=== PATIENT | male | born 2000 | race Caucasian/White ===

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

== ENCOUNTER 2022-11-21 15:45 | Outpatient (RCR) | payer BC, OTHER, SELFPAY ==
--- NOTE | 2021-05-27 17:02 | PT.OIE ---
Current Diagnoses Cerebral palsy, unspecified (05/27/21) Stiffness of unspecified knee, not elsewhere classified (05/27/21) Stiffness of unspecified ankle, not elsewhere classified (05/27/21) Other abnormalities of gait and mobility (05/27/21) Visit Care Team Role Provider Type Andrew Mccoy MD Attending Provider Physician Family Provider Primary Care Provider Referring Provider Specialty: Family Practice Address: [address] [place] [address], [facility] Email: [email or web address] Physical Therapy Initial Evaluation PT-OP-A Visit Information Start: 05/27/21 16:09 Freq: Status: Active Protocol: Document 05/27/21 15:15 DCW (Rec: 05/27/21 16:28 DCW [id number]) Out-Patient Physical Therapy Visit Information Visit Information Visit Type Initial Evaluation Visit Start Time 15:15 Visit Stop Time 16:05 Total Visit Minutes 50 Visit Number 1 Number of COW RIDER Visits 0 Evaluation Information Evaluation Date 05/27/21 PT-OP-B Current Condition Start: 05/27/21 16:09 Freq: Status: Active Protocol: Document 05/27/21 15:15 DCW (Rec: 05/27/21 16:28 DCW [id number]) Current Condition History of Current Condition Onset Date Long-standing history Current Complaints Decreased gait, confidence, increased fear of falling History of Current Condition Pt is a 20 year old male well known to this clinic with a history of cerebral palsy and developmental delay. Pt was previously seen four years ago following abdominal surgery because of a decline in gait function, and is presenting today with similar complaints. Pt's father reports pt has been having decreased confidence when walking, especially when on hard surfaces. Pt walks better on carpet, but becomes very hesitant and nervous on tile or outside on sidewalk. Pt admits he has fallen a few times walking out to his bus stop. Pt has always performed toe walking, especially on his left side, but it has progressed a bit recently, and pt is taking very hesitant, small steps, and will frequently rely on his parents for hand-hold assist to maintain balance. Treatment Goals Patient/Caregiver Goals I think I should be walking better when I turn 21. Prior Functional Status Baseline Function- Gait L Toe walking, LE spasticity PT-OP-C Subjective Start: 05/27/21 16:09 Freq: Status: Active Protocol: Document 05/27/21 15:15 DCW (Rec: 05/27/21 16:28 DCW [id number]) OP-PT Subjective Patient Comments Patient Comments Soon I won't be a teenager anymore. PT-OP-D Balance Start: 05/27/21 16:09 Freq: Status: Active Protocol: Document 05/27/21 15:15 DCW (Rec: 05/27/21 16:28 DCW [id number]) OP-PT Balance Assessment Sitting Balance Static Sitting Balance Ability Good Dynamic Sitting Balance Ability Fair Standing Balance Static Standing Balance Ability Fair Dynamic Standing Balance Ability Fair Balance Tests Single Limb Standing Single Limb- Right 1 second Single Limb- Left 3 seconds Tandem Tandem Standing ~2 seconds bilaterally, difficulty placing L foot in fr Nevarez Fall Scale Copyright Permission PT-OP-E Functional Tests Start: 05/27/21 16:09 Freq: Status: Active Protocol: Document 05/27/21 15:15 DCW (Rec: 05/27/21 16:28 DC [id number]) Functional Tests 2 Minute Walk Test Distance 157 Device Used none Comments 1.31 ft/sec Timed Up and Go (TUG) Score 20.1 Comments 3-trial average (20.3, 22.83 , 17.17) TUG Impairment Rating 100% Impaired (Score 20) PT-OP-G Mobility & Gait Start: 05/27/21 16:29 Freq: Status: Active Protocol: Document 05/27/21 15:15 DCW (Rec: 05/27/21 16:31 DCW [id number]) OP Gait Assessment Gait Gait Assistance Required: Standby Assistance Distance (Feet) 157 Able to Maintain Weight Bearing Status Yes During Gait Assistive Devices Assistive Device Gait Belt Gait Deviations General Gait Pattern Ataxic,Decreased Stride Length ,Decreased Feet Clearance, Flexed Trunk,Narrow Based Gait ,Step-to Gait Factors Limiting Gait Function Factors Limiting Gait Function Abnormal Tonal Influences, Limited Range of Motion,Poor Balance Comments Gait Comments Pt ambulates with toe walking bilaterally, decreased step length, decreased foot clearance, very narrow CONSTANCE, with step-to gait pattern. Pt noticeably pauses at thresholds from carpet to tile. Increased fear of falling results in pt typically reaching for TICKET TAKER FERRYBOAT from either parent. Stair Climbing Evaluation Evaluation Level of Assist On Stairs Contact Guard Assistance Devices Stair Climbing Assistive Devices Left Railing,Right Railing Technique/Endurance Stair Climbing Direction Ascend and Descend Stair Climbing Technique Step Over Step Number of Steps Climbed 4 Stair Climbing Set # Repetitions (reps) 2 PT-OP-K Range of Motion Start: 05/27/21 16:09 Freq: Status: Active Protocol: Document 05/27/21 15:15 DCW (Rec: 05/27/21 16:28 DCW [id number]) Hip Goniometric Range of Motion Hip Right Passive Testing Position Supine Straight Leg Raise 45 Left Passive Testing Position Supine Straight Leg Raise 38 Hip ROM Limitations Hip ROM Limitations Soft Tissue Tightness Comments Hamstring tightness leads to knee flexion in standing left worse than right Ankle and Foot Goniometric Range of Motion Ankle and Foot Right Comments At rest, right ankle in 8? inversion and 14? plantar flexion. With strap and stretch from therapist, able to get right ankle to neutral, nothing into dorsiflexion Left Comments At rest, left ankle in 12? inversion and 20? plantar flexion. With strap and stretch from therapist, able to get left ankle to neutral, nothing into dorsiflexion Ankle and Foot ROM Limitations ROM Limitations Soft Tissue Tightness, Contracture,Muscle Tone PT-OP-M Strength Start: 05/27/21 16:09 Freq: Status: Active Protocol: Document 05/27/21 15:15 DCW (Rec: 05/27/21 16:28 DCW [id number]) Hip Strength Hip Manual Muscle Testing Right Flexion (L2) 4+ Good+ Abduction 4+ Good+ Adduction 4+ Good+ Left Flexion (L2) 4+ Good+ Abduction 4+ Good+ Adduction 4+ Good+ Knee Strength Knee Manual Muscle Testing Right Flexion (S2) 4+ Good+ Extension (L3) 4+ Good+ Left Flexion (S2) 4+ Good+ Extension (L3) 4+ Good+ PT-OP-Q Treatments Start: 05/27/21 16:09 Freq: Status: Active Protocol: Document 05/27/21 15:15 DCW (Rec: 05/27/21 16:34 DCW [id number]) Therapeutic Exercises Supine Exercises 2 Supine Exercise Name Calf stretch /c strap Side bilateral Comments HEP 1 Supine Exercise Name Hamstring stretch /c strap Side bilateral Comments HEP Gait Training Gait Activity 1 Description Gait training on changing surface carpet/tile Level of Assistance SBA Comments Verbal cues for heel-toe gait and increased step length. PT-OP-T Assessment and Plan Start: 05/27/21 16:09 Freq: Status: Active Protocol: Document 05/27/21 15:15 [facility] (Rec: 05/27/21 17:02 [facility] [id number]) Physical Therapy Assessment Rehab Potential Rehabilitation Potential Good Evaluation Complexity Number of Personal Factors/Comorbidities 3 or More Number of Body Systems Impaired 3 Clinical Presentation at Evaluation Unstable Impairments Impairments Activity Tolerance,Balance, Coordination,Functional Mobility,Gait,ROM,Soft Tissue Mobility,Tone Goals Three Impairment Pt scores a 20.1 TUG Record Cutter Goal (LTG) Pt to decreased average TUG score to <15.5 in order to demonstrate improved confidence and a decreased fear of falling LTG Duration 07/25/21 Two Impairment Pt ambulates with toe walking bilaterally and a step-to gait pattern Record Cutter Goal (LTG) Pt to demonstrate ability with ambulate with a heel-toe pattern at least 50% of the time with a step-through pattern 75% of the time LTG Duration 07/25/21 One Impairment Pt does not have an appropriate home exercise program Short Term Goal (STG) Pt to be independent and compliant with an appropriate HEP STG Duration 06/27/21 Assessment Summary Assessment Pt presents with difficulty walking and an increased fear of falling, which has worsened over the last few weeks, especially with the increased snow/ice on the ground during recent winter weather. Pt tends to use TICKET TAKER FERRYBOAT from his parents for stability, and becomes very nervous when walking independently, especially on hard surfaces. Pt is showing increased bilaterally toe walking and decreased step length compared to his usual gait. Pt should benefit from skilled therapy focusing on gait and balance training, gait on changing surfaces, improving hamstring and calf flexibility, and decreasing reliance on hand- hold assist. Physical Therapy Plan Frequency and Duration Frequency of Treatment 2x/Week Duration of Treatment Two months Plan of Care Start Date 05/27/21 Plan of Care End Date 07/25/21 Therapeutic Interventions Therapeutic Interventions Balance Training,Coordination Training,Gait Training,Home Exercise Program,Manual Therapy,Neuromuscular Re- education,Patient/Caregiver Education,Self-Care/Home Management,Soft Tissue Mobilization,Therapeutic Exercises Next Visit Focus/Plan Next Note Type Treatment Note Next Visit Plan Flexibility, balance training, gait training
--- NOTE | 2021-05-27 17:03 | PT.OPPOC ---
Physical, Occupational & Speech Therapy At [facility] Current Diagnoses Cerebral palsy, unspecified (05/27/21) Stiffness of unspecified knee, not elsewhere classified (05/27/21) Stiffness of unspecified ankle, not elsewhere classified (05/27/21) Other abnormalities of gait and mobility (05/27/21) Visit Care Team Role Provider Type Andrew Mccoy MD Attending Provider Physician Family Provider Primary Care Provider Referring Provider Specialty: [facility] Address: [address] [place] [address], [facility] Email: [email or web address] Plan Of Care PT-OP-T Assessment and Plan Start: 05/27/21 16:09 Freq: Status: Active Protocol: Document 05/27/21 15:15 DCW (Rec: 05/27/21 17:02 DCW [id number]) Physical Therapy Assessment Rehab Potential Rehabilitation Potential Good Evaluation Complexity Number of Personal Factors/Comorbidities 3 or More Number of Body Systems Impaired 3 Clinical Presentation at Evaluation Unstable Impairments Impairments Activity Tolerance,Balance, Coordination,Functional Mobility,Gait,ROM,Soft Tissue Mobility,Tone Goals Three Impairment Pt scores a 20.1 TUG Manager Front Office Goal (LTG) Pt to decreased average TUG score to <15.5 in order to demonstrate improved confidence and a decreased fear of falling LTG Duration 07/25/21 Two Impairment Pt ambulates with toe walking bilaterally and a step-to gait pattern Half-Way Goal (LTG) Pt to demonstrate ability with ambulate with a heel-toe pattern at least 50% of the time with a step-through pattern 75% of the time LTG Duration 07/25/21 One Impairment Pt does not have an appropriate home exercise program Short Term Goal (STG) Pt to be independent and compliant with an appropriate HEP STG Duration 06/27/21 Assessment Summary Assessment Pt presents with difficulty walking and an increased fear of falling, which has worsened over the last few weeks, especially with the increased snow/ice on the ground during recent winter weather. Pt tends to use CLOTH FINISHING RANGE OPERATOR from his parents for stability, and becomes very nervous when walking independently, especially on hard surfaces. Pt is showing increased bilaterally toe walking and decreased step length compared to his usual gait. Pt should benefit from skilled therapy focusing on gait and balance training, gait on changing surfaces, improving hamstring and calf flexibility, and decreasing reliance on hand- hold assist. Physical Therapy Plan Frequency and Duration Frequency of Treatment 2x/Week Duration of Treatment Two months Plan of Care Start Date 05/27/21 Plan of Care End Date 07/25/21 Therapeutic Interventions Therapeutic Interventions Balance Training,Coordination Training,Gait Training,Home Exercise Program,Manual Therapy,Neuromuscular Re- education,Patient/Caregiver Education,Self-Care/Home Management,Soft Tissue Mobilization,Therapeutic Exercises Next Visit Focus/Plan Next Note Type Treatment Note Next Visit Plan Flexibility, balance training, gait training Plan of Care Dates Plan of Care Start Date 05/27/21 Plan of Care End Date 07/25/21 Electronically Signed by: Raul Gaviria, PT 05/27/21 [id number] Please Sign and Return: I have reviewed this Plan of Care and certify that the skilled therapy services above are required to meet the patient?s needs. Physician Signature Date Printed Name and Credentials Clinical Instructor Signature Printed Name and Credentials
--- NOTE | 2021-05-31 17:38 | PT.OTN ---
Current Diagnoses Cerebral palsy, unspecified (05/31/21) Stiffness of unspecified knee, not elsewhere classified (05/31/21) Stiffness of unspecified ankle, not elsewhere classified (05/31/21) Other abnormalities of gait and mobility (05/31/21) Physical Therapy Treatment Note PT-OP-A Visit Information Start: 05/27/21 16:09 Freq: Status: Active Protocol: Document 05/31/21 16:45 DCW (Rec: 05/31/21 17:37 DCW [id number]) Out-Patient Physical Therapy Visit Information Visit Information Visit Type Treatment Note Visit Start Time 16:45 Visit Stop Time 17:30 Total Visit Minutes 45 Visit Number 2 Number of COTTAGE SUPERVISOR Visits 0 Evaluation Information Evaluation Date 05/27/21 PT-OP-B Current Condition Start: 05/27/21 16:09 Freq: Status: Active Protocol: Document 05/27/21 15:15 DCW (Rec: 05/27/21 16:28 DCW [id number]) Current Condition History of Current Condition Onset Date Long-standing history Current Complaints Decreased gait, confidence, increased fear of falling History of Current Condition Pt is a 20 year old male well known to this clinic with a history of cerebral palsy and developmental delay. Pt was previously seen four years ago following abdominal surgery because of a decline in gait function, and is presenting today with similar complaints. Pt's father reports pt has been having decreased confidence when walking, especially when on hard surfaces. Pt walks better on carpet, but becomes very hesitant and nervous on tile or outside on sidewalk. Pt admits he has fallen a few times walking out to his bus stop. Pt has always performed toe walking, especially on his left side, but it has progressed a bit recently, and pt is taking very hesitant, small steps, and will frequently rely on his parents for hand-hold assist to maintain balance. Treatment Goals Patient/Caregiver Goals I think I should be walking better when I turn 21. Prior Functional Status Baseline Function- Gait L Toe walking, LE spasticity PT-OP-C Subjective Start: 05/27/21 16:09 Freq: Status: Active Protocol: Document 05/31/21 16:45 DCW (Rec: 05/31/21 17:38 DCW [id number]) OP-PT Subjective Patient Comments Patient Comments Pt notes he has been doing a good job with stretching at home. PT-OP-D Balance Start: 05/27/21 16:09 Freq: Status: Active Protocol: Document 05/27/21 15:15 DCW (Rec: 05/27/21 16:28 DCW [id number]) OP-PT Balance Assessment Sitting Balance Static Sitting Balance Ability Good Dynamic Sitting Balance Ability Fair Standing Balance Static Standing Balance Ability Fair Dynamic Standing Balance Ability Fair Balance Tests Single Limb Standing Single Limb- Right 1 second Single Limb- Left 3 seconds Tandem Tandem Standing ~2 seconds bilaterally, difficulty placing L foot in fr Nevarez Fall Scale Copyright Permission PT-OP-E Functional Tests Start: 05/27/21 16:09 Freq: Status: Active Protocol: Document 05/27/21 15:15 DCW (Rec: 05/27/21 16:28 DCW [id number]) Functional Tests 2 Minute Walk Test Distance 157 Device Used none Comments 1.31 ft/sec Timed Up and Go (TUG) Score 20.1 Comments 3-trial average (20.3, 22.83 , 17.17) TUG Impairment Rating 100% Impaired (Score 20) PT-OP-G Mobility & Gait Start: 05/27/21 16:29 Freq: Status: Active Protocol: Document 05/27/21 15:15 DCW (Rec: 05/27/21 16:31 DCW [id number]) OP Gait Assessment Gait Gait Assistance Required: Standby Assistance Distance (Feet) 157 Able to Maintain Weight Bearing Status Yes During Gait Assistive Devices Assistive Device Gait Belt Gait Deviations General Gait Pattern Ataxic,Decreased Stride Length ,Decreased Feet Clearance, Flexed Trunk,Narrow Based Gait ,Step-to Gait Factors Limiting Gait Function Factors Limiting Gait Function Abnormal Tonal Influences, Limited Range of Motion,Poor Balance Comments Gait Comments Pt ambulates with toe walking bilaterally, decreased step length, decreased foot clearance, very narrow CONSTANCE, with step-to gait pattern. Pt noticeably pauses at thresholds from carpet to tile . Increased fear of falling results in pt typically reaching for ELECTRICIAN HELPER AUTOMOTIVE from either parent. Stair Climbing Evaluation Evaluation Level of Assist On Stairs Contact Guard Assistance Devices Stair Climbing Assistive Devices Left Railing,Right Railing Technique/Endurance Stair Climbing Direction Ascend and Descend Stair Climbing Technique Step Over Step Number of Steps Climbed 4 Stair Climbing Set # Repetitions (reps) 2 PT-OP-K Range of Motion Start: 05/27/21 16:09 Freq: Status: Active Protocol: Document 05/27/21 15:15 DCW (Rec: 05/27/21 16:28 [facility] [id number]) Hip Goniometric Range of Motion Hip Right Passive Testing Position Supine Straight Leg Raise 45 Left Passive Testing Position Supine Straight Leg Raise 38 Hip ROM Limitations Hip ROM Limitations Soft Tissue Tightness Comments Hamstring tightness leads to knee flexion in standing left worse than right Ankle and Foot Goniometric Range of Motion Ankle and Foot Right Comments At rest, right ankle in 8? inversion and 14? plantar flexion. With strap and stretch from therapist, able to get right ankle to neutral, nothing into dorsiflexion Left Comments At rest, left ankle in 12? inversion and 20? plantar flexion. With strap and stretch from therapist, able to get left ankle to neutral, nothing into dorsiflexion Ankle and Foot ROM Limitations ROM Limitations Soft Tissue Tightness, Contracture,Muscle Tone PT-OP-M Strength Start: 05/27/21 16:09 Freq: Status: Active Protocol: Document 05/27/21 15:15 DCW (Rec: 05/27/21 16:28 [facility] [id number]) Hip Strength Hip Manual Muscle Testing Right Flexion (L2) 4+ Good+ Abduction 4+ Good+ Adduction 4+ Good+ Left Flexion (L2) 4+ Good+ Abduction 4+ Good+ Adduction 4+ Good+ Knee Strength Knee Manual Muscle Testing Right Flexion (S2) 4+ Good+ Extension (L3) 4+ Good+ Left Flexion (S2) 4+ Good+ Extension (L3) 4+ Good+ PT-OP-Q Treatments Start: 05/27/21 16:09 Freq: Status: Active Protocol: Document 05/31/21 16:45 DCW (Rec: 05/31/21 17:37 [facility] [id number]) Gym Equipment Shuttle Balance 1 Details Blue - Wide CONSTANCE, turns, attempted ball toss Therapeutic Exercises Sitting Exercises 3 Sitting Exercise Name Ankle DF Side bilateral Resistance Lv 2 Equipment Used T-band 2 Sitting Exercise Name Hamstring stretch Side bilateral 1 Sitting Exercise Name Heel cord stretch Side bilateral Standing Exercises 2 Standing Exercise Name Gastroc stretch Side bilateral Equipment Used WANDER 1 Standing Exercise Name Heel raises Side bilateral Equipment Used 4 step Gait Training Gait Activity 1 Description Gait training on changing surface carpet/tile Level of Assistance SBA Comments Verbal cues for heel-toe gait and increased step length. Neuro Re-Education Treatment Balance Activities 2 Details SLS 1 Details Tandem stance Other Activities 1 Details Obstacle Course Comments Half-balls under red foam, various-sized step up/down, magalis/foam walking, balance beam PT-OP-T Assessment and Plan Start: 05/27/21 16:09 Freq: Status: Active Protocol: Document 05/31/21 16:45 DCW (Rec: 05/31/21 17:37 DCW [id number]) Physical Therapy Assessment Impairments Impairments Activity Tolerance,Balance, Coordination,Functional Mobility,Gait,ROM,Soft Tissue Mobility,Tone Goals Three Impairment Pt scores a 20.1 TUG Dry Wall Finisher Goal (LTG) Pt to decreased average TUG score to <15.5 in order to demonstrate improved confidence and a decreased fear of falling LTG Duration 07/25/21 Two Impairment Pt ambulates with toe walking bilaterally and a step-to gait pattern Detention Goal (LTG) Pt to demonstrate ability with ambulate with a heel-toe pattern at least 50% of the time with a step-through pattern 75% of the time LTG Duration 07/25/21 One Impairment Pt does not have an appropriate home exercise program Short Term Goal (STG) Pt to be independent and compliant with an appropriate HEP STG Duration 06/27/21 Assessment Summary Assessment Pt did very well today, minimal difficulty with obstacle courses and balance challenges. Pt uncomfortable at the moment with Shuttle Balance, does not like to take his hands off the railing, but is already showing improved heel strike on his right foot, and has noticeably improved calf tone. Physical Therapy Plan Frequency and Duration Frequency of Treatment 2x/Week Duration of Treatment Two months Plan of Care Start Date 05/27/21 Plan of Care End Date 07/25/21 Therapeutic Interventions Therapeutic Interventions Balance Training,Coordination Training,Gait Training,Home Exercise Program,Manual Therapy,Neuromuscular Re- education,Patient/Caregiver Education,Self-Care/Home Management,Soft Tissue Mobilization,Therapeutic Exercises Next Visit Focus/Plan Next Note Type Treatment Note Next Visit Plan Flexibility, balance training, gait training
--- NOTE | 2021-06-03 17:43 | PT.OTN ---
Current Diagnoses Cerebral palsy, unspecified (06/03/21) Stiffness of unspecified knee, not elsewhere classified (06/03/21) Stiffness of unspecified ankle, not elsewhere classified (06/03/21) Other abnormalities of gait and mobility (06/03/21) Physical Therapy Treatment Note PT-OP-A Visit Information Start: 05/27/21 16:09 Freq: Status: Active Protocol: Document 06/03/21 16:45 DCW (Rec: 06/03/21 17:43 DCW [id number]) Out-Patient Physical Therapy Visit Information Visit Information Visit Type Treatment Note Visit Start Time 16:45 Visit Stop Time 17:30 Total Visit Minutes 45 Visit Number 3 Number of WOOD WEB WEAVING MACHINE OPERATOR Visits 0 Evaluation Information Evaluation Date 05/27/21 PT-OP-B Current Condition Start: 05/27/21 16:09 Freq: Status: Active Protocol: Document 05/27/21 15:15 DCW (Rec: 05/27/21 16:28 DCW [id number]) Current Condition History of Current Condition Onset Date Long-standing history Current Complaints Decreased gait, confidence, increased fear of falling History of Current Condition Pt is a 20 year old male well known to this clinic with a history of cerebral palsy and developmental delay. Pt was previously seen four years ago following abdominal surgery because of a decline in gait function, and is presenting today with similar complaints. Pt's father reports pt has been having decreased confidence when walking, especially when on hard surfaces. Pt walks better on carpet, but becomes very hesitant and nervous on tile or outside on sidewalk. Pt admits he has fallen a few times walking out to his bus stop. Pt has always performed toe walking, especially on his left side, but it has progressed a bit recently, and pt is taking very hesitant, small steps, and will frequently rely on his parents for hand-hold assist to maintain balance. Treatment Goals Patient/Caregiver Goals I think I should be walking better when I turn 21. Prior Functional Status Baseline Function- Gait L Toe walking, LE spasticity PT-OP-C Subjective Start: 05/27/21 16:09 Freq: Status: Active Protocol: Document 06/03/21 16:45 DCW (Rec: 06/03/21 17:43 DCW [id number]) OP-PT Subjective Patient Comments Patient Comments Pt reports he is still doing his stretches at home. PT-OP-D Balance Start: 05/27/21 16:09 Freq: Status: Active Protocol: Document 05/27/21 15:15 DCW (Rec: 05/27/21 16:28 DCW [id number]) OP-PT Balance Assessment Sitting Balance Static Sitting Balance Ability Good Dynamic Sitting Balance Ability Fair Standing Balance Static Standing Balance Ability Fair Dynamic Standing Balance Ability Fair Balance Tests Single Limb Standing Single Limb- Right 1 second Single Limb- Left 3 seconds Tandem Tandem Standing ~2 seconds bilaterally, difficulty placing L foot in fr Nevarez Fall Scale Copyright Permission PT-OP-E Functional Tests Start: 05/27/21 16:09 Freq: Status: Active Protocol: Document 05/27/21 15:15 DCW (Rec: 05/27/21 16:28 DCW [id number]) Functional Tests 2 Minute Walk Test Distance 157 Device Used none Comments 1.31 ft/sec Timed Up and Go (TUG) Score 20.1 Comments 3-trial average (20.3, 22.83 , 17.17) TUG Impairment Rating 100% Impaired (Score 20) PT-OP-G Mobility & Gait Start: 05/27/21 16:29 Freq: Status: Active Protocol: Document 05/27/21 15:15 DCW (Rec: 05/27/21 16:31 DCW [id number]) OP Gait Assessment Gait Gait Assistance Required: Standby Assistance Distance (Feet) 157 Able to Maintain Weight Bearing Status Yes During Gait Assistive Devices Assistive Device Gait Belt Gait Deviations General Gait Pattern Ataxic,Decreased Stride Length ,Decreased Feet Clearance, Flexed Trunk,Narrow Based Gait ,Step-to Gait Factors Limiting Gait Function Factors Limiting Gait Function Abnormal Tonal Influences, Limited Range of Motion,Poor Balance Comments Gait Comments Pt ambulates with toe walking bilaterally, decreased step length, decreased foot clearance, very narrow CONSTANCE, with step-to gait pattern. Pt noticeably pauses at thresholds from carpet to tile . Increased fear of falling results in pt typically reaching for CONSTRUCTION TRADES TEACHER from either parent. Stair Climbing Evaluation Evaluation Level of Assist On Stairs Contact Guard Assistance Devices Stair Climbing Assistive Devices Left Railing,Right Railing Technique/Endurance Stair Climbing Direction Ascend and Descend Stair Climbing Technique Step Over Step Number of Steps Climbed 4 Stair Climbing Set # Repetitions (reps) 2 PT-OP-K Range of Motion Start: 05/27/21 16:09 Freq: Status: Active Protocol: Document 05/27/21 15:15 DCW (Rec: 05/27/21 16:28 [facility] [id number]) Hip Goniometric Range of Motion Hip Right Passive Testing Position Supine Straight Leg Raise 45 Left Passive Testing Position Supine Straight Leg Raise 38 Hip ROM Limitations Hip ROM Limitations Soft Tissue Tightness Comments Hamstring tightness leads to knee flexion in standing left worse than right Ankle and Foot Goniometric Range of Motion Ankle and Foot Right Comments At rest, right ankle in 8? inversion and 14? plantar flexion. With strap and stretch from therapist, able to get right ankle to neutral, nothing into dorsiflexion Left Comments At rest, left ankle in 12? inversion and 20? plantar flexion. With strap and stretch from therapist, able to get left ankle to neutral, nothing into dorsiflexion Ankle and Foot ROM Limitations ROM Limitations Soft Tissue Tightness, Contracture,Muscle Tone PT-OP-M Strength Start: 05/27/21 16:09 Freq: Status: Active Protocol: Document 05/27/21 15:15 DCW (Rec: 05/27/21 16:28 [facility] [id number]) Hip Strength Hip Manual Muscle Testing Right Flexion (L2) 4+ Good+ Abduction 4+ Good+ Adduction 4+ Good+ Left Flexion (L2) 4+ Good+ Abduction 4+ Good+ Adduction 4+ Good+ Knee Strength Knee Manual Muscle Testing Right Flexion (S2) 4+ Good+ Extension (L3) 4+ Good+ Left Flexion (S2) 4+ Good+ Extension (L3) 4+ Good+ PT-OP-Q Treatments Start: 05/27/21 16:09 Freq: Status: Active Protocol: Document 06/03/21 16:45 DCW (Rec: 06/03/21 17:43 DCW [id number]) Gym Equipment Shuttle Balance 1 Details Blue - Wide CONSTANCE, turns, attempted ball toss Therapeutic Exercises Sitting Exercises 3 Sitting Exercise Name Ankle DF Side bilateral Resistance Lv 2 Equipment Used T-band 2 Sitting Exercise Name Hamstring stretch Side bilateral 1 Sitting Exercise Name Heel cord stretch Side bilateral Standing Exercises 3 Standing Exercise Name Lunge Equipment Used foot on 12 step 2 Standing Exercise Name Gastroc stretch Side bilateral Equipment Used WANDER 1 Standing Exercise Name Heel raises Side bilateral Equipment Used 4 step Gait Training Gait Activity 1 Description Gait training on changing surface carpet/tile Level of Assistance SBA Comments Verbal cues for heel-toe gait and increased step length, left arm swing Neuro Re-Education Treatment Other Activities 1 Details Obstacle Course Comments Half-balls under red foam, various-sized step up/down, magalis/foam walking, balance beam PT-OP-T Assessment and Plan Start: 05/27/21 16:09 Freq: Status: Active Protocol: Document 06/03/21 16:45 DCW (Rec: 06/03/21 17:43 DCW [id number]) Physical Therapy Assessment Impairments Impairments Activity Tolerance,Balance, Coordination,Functional Mobility,Gait,ROM,Soft Tissue Mobility,Tone Goals Three Impairment Pt scores a 20.1 TUG Senior Supplier Quality Engineer Goal (LTG) Pt to decreased average TUG score to <15.5 in order to demonstrate improved confidence and a decreased fear of falling LTG Duration 07/25/21 Two Impairment Pt ambulates with toe walking bilaterally and a step-to gait pattern Senior Supplier Quality Engineer Goal (LTG) Pt to demonstrate ability with ambulate with a heel-toe pattern at least 50% of the time with a step-through pattern 75% of the time LTG Duration 07/25/21 One Impairment Pt does not have an appropriate home exercise program Short Term Goal (STG) Pt to be independent and compliant with an appropriate HEP STG Duration 06/27/21 Assessment Summary Assessment Pt struggled a little bit more with a more difficult obstacle course, but is still doing much better with his heel strike on his right foot. Physical Therapy Plan Frequency and Duration Frequency of Treatment 2x/Week Duration of Treatment Two months Plan of Care Start Date 05/27/21 Plan of Care End Date 07/25/21 Therapeutic Interventions Therapeutic Interventions Balance Training,Coordination Training,Gait Training,Home Exercise Program,Manual Therapy,Neuromuscular Re- education,Patient/Caregiver Education,Self-Care/Home Management,Soft Tissue Mobilization,Therapeutic Exercises Next Visit Focus/Plan Next Note Type Treatment Note Next Visit Plan Flexibility, balance training, gait training
--- NOTE | 2021-06-07 17:28 | PT.OTN ---
Current Diagnoses Cerebral palsy, unspecified (06/07/21) Stiffness of unspecified knee, not elsewhere classified (06/07/21) Stiffness of unspecified ankle, not elsewhere classified (06/07/21) Other abnormalities of gait and mobility (06/07/21) Physical Therapy Treatment Note PT-OP-A Visit Information Start: 05/27/21 16:09 Freq: Status: Active Protocol: Document 06/07/21 16:45 DCW (Rec: 06/07/21 17:28 DCW [id number]) Out-Patient Physical Therapy Visit Information Visit Information Visit Type Treatment Note Visit Start Time 16:45 Visit Stop Time 17:30 Total Visit Minutes 45 Visit Number 4 Number of DIE POLISHER Visits 0 Evaluation Information Evaluation Date 05/27/21 PT-OP-B Current Condition Start: 05/27/21 16:09 Freq: Status: Active Protocol: Document 05/27/21 15:15 DCW (Rec: 05/27/21 16:28 DCW [id number]) Current Condition History of Current Condition Onset Date Long-standing history Current Complaints Decreased gait, confidence, increased fear of falling History of Current Condition Pt is a 20 year old male well known to this clinic with a history of cerebral palsy and developmental delay. Pt was previously seen four years ago following abdominal surgery because of a decline in gait function, and is presenting today with similar complaints. Pt's father reports pt has been having decreased confidence when walking, especially when on hard surfaces. Pt walks better on carpet, but becomes very hesitant and nervous on tile or outside on sidewalk. Pt admits he has fallen a few times walking out to his bus stop. Pt has always performed toe walking, especially on his left side, but it has progressed a bit recently, and pt is taking very hesitant, small steps, and will frequently rely on his parents for hand-hold assist to maintain balance. Treatment Goals Patient/Caregiver Goals I think I should be walking better when I turn 21. Prior Functional Status Baseline Function- Gait L Toe walking, LE spasticity PT-OP-C Subjective Start: 05/27/21 16:09 Freq: Status: Active Protocol: Document 06/07/21 16:45 DCW (Rec: 06/07/21 17:28 DCW [id number]) OP-PT Subjective Patient Comments Patient Comments Pt notes his home exercises are doing well. PT-OP-D Balance Start: 05/27/21 16:09 Freq: Status: Active Protocol: Document 05/27/21 15:15 DCW (Rec: 05/27/21 16:28 DCW [id number]) OP-PT Balance Assessment Sitting Balance Static Sitting Balance Ability Good Dynamic Sitting Balance Ability Fair Standing Balance Static Standing Balance Ability Fair Dynamic Standing Balance Ability Fair Balance Tests Single Limb Standing Single Limb- Right 1 second Single Limb- Left 3 seconds Tandem Tandem Standing ~2 seconds bilaterally, difficulty placing L foot in fr Nevarez Fall Scale Copyright Permission PT-OP-E Functional Tests Start: 05/27/21 16:09 Freq: Status: Active Protocol: Document 05/27/21 15:15 DCW (Rec: 05/27/21 16:28 DCW [id number]) Functional Tests 2 Minute Walk Test Distance 157 Device Used none Comments 1.31 ft/sec Timed Up and Go (TUG) Score 20.1 Comments 3-trial average (20.3, 22.83 , 17.17) TUG Impairment Rating 100% Impaired (Score 20) PT-OP-G Mobility & Gait Start: 05/27/21 16:29 Freq: Status: Active Protocol: Document 05/27/21 15:15 DCW (Rec: 05/27/21 16:31 DCW [id number]) OP Gait Assessment Gait Gait Assistance Required: Standby Assistance Distance (Feet) 157 Able to Maintain Weight Bearing Status Yes During Gait Assistive Devices Assistive Device Gait Belt Gait Deviations General Gait Pattern Ataxic,Decreased Stride Length ,Decreased Feet Clearance, Flexed Trunk,Narrow Based Gait ,Step-to Gait Factors Limiting Gait Function Factors Limiting Gait Function Abnormal Tonal Influences, Limited Range of Motion,Poor Balance Comments Gait Comments Pt ambulates with toe walking bilaterally, decreased step length, decreased foot clearance, very narrow CONSTANCE, with step-to gait pattern. Pt noticeably pauses at thresholds from carpet to tile . Increased fear of falling results in pt typically reaching for TRANSIT OPERATOR from either parent. Stair Climbing Evaluation Evaluation Level of Assist On Stairs Contact Guard Assistance Devices Stair Climbing Assistive Devices Left Railing,Right Railing Technique/Endurance Stair Climbing Direction Ascend and Descend Stair Climbing Technique Step Over Step Number of Steps Climbed 4 Stair Climbing Set # Repetitions (reps) 2 PT-OP-K Range of Motion Start: 05/27/21 16:09 Freq: Status: Active Protocol: Document 05/27/21 15:15 DCW (Rec: 05/27/21 16:28 DCW [id number]) Hip Goniometric Range of Motion Hip Right Passive Testing Position Supine Straight Leg Raise 45 Left Passive Testing Position Supine Straight Leg Raise 38 Hip ROM Limitations Hip ROM Limitations Soft Tissue Tightness Comments Hamstring tightness leads to knee flexion in standing left worse than right Ankle and Foot Goniometric Range of Motion Ankle and Foot Right Comments At rest, right ankle in 8? inversion and 14? plantar flexion. With strap and stretch from therapist, able to get right ankle to neutral, nothing into dorsiflexion Left Comments At rest, left ankle in 12? inversion and 20? plantar flexion. With strap and stretch from therapist, able to get left ankle to neutral, nothing into dorsiflexion Ankle and Foot ROM Limitations ROM Limitations Soft Tissue Tightness, Contracture,Muscle Tone PT-OP-M Strength Start: 05/27/21 16:09 Freq: Status: Active Protocol: Document 05/27/21 15:15 DCW (Rec: 05/27/21 16:28 [facility] [id number]) Hip Strength Hip Manual Muscle Testing Right Flexion (L2) 4+ Good+ Abduction 4+ Good+ Adduction 4+ Good+ Left Flexion (L2) 4+ Good+ Abduction 4+ Good+ Adduction 4+ Good+ Knee Strength Knee Manual Muscle Testing Right Flexion (S2) 4+ Good+ Extension (L3) 4+ Good+ Left Flexion (S2) 4+ Good+ Extension (L3) 4+ Good+ PT-OP-Q Treatments Start: 05/27/21 16:09 Freq: Status: Active Protocol: Document 06/07/21 16:45 DCW (Rec: 06/07/21 17:28 DCW [id number]) Gym Equipment Shuttle Balance 1 Details Blue - Wide CONSTANCE, turns Therapeutic Exercises Sitting Exercises 3 Sitting Exercise Name Ankle DF Side bilateral Resistance Lv 2 Equipment Used T-band 2 Sitting Exercise Name Hamstring stretch Side bilateral 1 Sitting Exercise Name Heel cord stretch Side bilateral Standing Exercises 2 Standing Exercise Name Gastroc stretch Side bilateral Equipment Used WANDER 1 Standing Exercise Name Heel raises Side bilateral Equipment Used 4 step Gait Training Gait Activity 1 Description Gait training on changing surface carpet/tile Level of Assistance SBA Comments Verbal cues for heel-toe gait and increased step length, left arm swing, hurdles on tile surface Neuro Re-Education Treatment Balance Activities 2 Details SLS 1 Details Tandem stance Other Activities 1 Details Obstacle Course Comments Half-balls under red foam, various-sized step up/down, magalis/foam walking, balance beam PT-OP-T Assessment and Plan Start: 05/27/21 16:09 Freq: Status: Active Protocol: Document 06/07/21 16:45 DCW (Rec: 06/07/21 17:28 DCW [id number]) Physical Therapy Assessment Impairments Impairments Activity Tolerance,Balance, Coordination,Functional Mobility,Gait,ROM,Soft Tissue Mobility,Tone Goals Three Impairment Pt scores a 20.1 TUG Supervisor Drying And Softening Goal (LTG) Pt to decreased average TUG score to <15.5 in order to demonstrate improved confidence and a decreased fear of falling LTG Duration 07/25/21 Two Impairment Pt ambulates with toe walking bilaterally and a step-to gait pattern Mcc Goal (LTG) Pt to demonstrate ability with ambulate with a heel-toe pattern at least 50% of the time with a step-through pattern 75% of the time LTG Duration 07/25/21 One Impairment Pt does not have an appropriate home exercise program Short Term Goal (STG) Pt to be independent and compliant with an appropriate HEP STG Duration 06/27/21 Assessment Summary Assessment Pt did very well today, was able to navigate over hurdles on tile without any hand-hold assist. Physical Therapy Plan Frequency and Duration Frequency of Treatment 2x/Week Duration of Treatment Two months Plan of Care Start Date 05/27/21 Plan of Care End Date 07/25/21 Therapeutic Interventions Therapeutic Interventions Balance Training,Coordination Training,Gait Training,Home Exercise Program,Manual Therapy,Neuromuscular Re- education,Patient/Caregiver Education,Self-Care/Home Management,Soft Tissue Mobilization,Therapeutic Exercises Next Visit Focus/Plan Next Note Type Treatment Note Next Visit Plan Flexibility, balance training, gait training
--- NOTE | 2021-06-14 16:44 | PT.OTN ---
Current Diagnoses Cerebral palsy, unspecified (06/14/21) Stiffness of unspecified knee, not elsewhere classified (06/14/21) Stiffness of unspecified ankle, not elsewhere classified (06/14/21) Other abnormalities of gait and mobility (06/14/21) Physical Therapy Treatment Note PT-OP-A Visit Information Start: 05/27/21 16:09 Freq: Status: Active Protocol: Document 06/14/21 16:00 DCW (Rec: 06/14/21 16:44 DCW [id number]) Out-Patient Physical Therapy Visit Information Visit Information Visit Type Treatment Note Visit Start Time 16:00 Visit Stop Time 16:45 Total Visit Minutes 45 Visit Number 5 Number of PEDIATRIC DENTAL HYGIENIST Visits 0 Evaluation Information Evaluation Date 05/27/21 PT-OP-B Current Condition Start: 05/27/21 16:09 Freq: Status: Active Protocol: Document 05/27/21 15:15 DCW (Rec: 05/27/21 16:28 DCW [id number]) Current Condition History of Current Condition Onset Date Long-standing history Current Complaints Decreased gait, confidence, increased fear of falling History of Current Condition Pt is a 20 year old male well known to this clinic with a history of cerebral palsy and developmental delay. Pt was previously seen four years ago following abdominal surgery because of a decline in gait function, and is presenting today with similar complaints. Pt's father reports pt has been having decreased confidence when walking, especially when on hard surfaces. Pt walks better on carpet, but becomes very hesitant and nervous on tile or outside on sidewalk. Pt admits he has fallen a few times walking out to his bus stop. Pt has always performed toe walking, especially on his left side, but it has progressed a bit recently, and pt is taking very hesitant, small steps, and will frequently rely on his parents for hand-hold assist to maintain balance. Treatment Goals Patient/Caregiver Goals I think I should be walking better when I turn 21. Prior Functional Status Baseline Function- Gait L Toe walking, LE spasticity PT-OP-C Subjective Start: 05/27/21 16:09 Freq: Status: Active Protocol: Document 06/14/21 16:00 DCW (Rec: 06/14/21 16:44 DCW [id number]) OP-PT Subjective Patient Comments Patient Comments Pt excited for therapy today. PT-OP-D Balance Start: 05/27/21 16:09 Freq: Status: Active Protocol: Document 05/27/21 15:15 DCW (Rec: 05/27/21 16:28 DCW [id number]) OP-PT Balance Assessment Sitting Balance Static Sitting Balance Ability Good Dynamic Sitting Balance Ability Fair Standing Balance Static Standing Balance Ability Fair Dynamic Standing Balance Ability Fair Balance Tests Single Limb Standing Single Limb- Right 1 second Single Limb- Left 3 seconds Tandem Tandem Standing ~2 seconds bilaterally, difficulty placing L foot in fr Nevarez Fall Scale Copyright Permission PT-OP-E Functional Tests Start: 05/27/21 16:09 Freq: Status: Active Protocol: Document 05/27/21 15:15 DCW (Rec: 05/27/21 16:28 DCW [id number]) Functional Tests 2 Minute Walk Test Distance 157 Device Used none Comments 1.31 ft/sec Timed Up and Go (TUG) Score 20.1 Comments 3-trial average (20.3, 22.83 , 17.17) TUG Impairment Rating 100% Impaired (Score 20) PT-OP-G Mobility & Gait Start: 05/27/21 16:29 Freq: Status: Active Protocol: Document 05/27/21 15:15 DCW (Rec: 05/27/21 16:31 DCW [id number]) OP Gait Assessment Gait Gait Assistance Required: Standby Assistance Distance (Feet) 157 Able to Maintain Weight Bearing Status Yes During Gait Assistive Devices Assistive Device Gait Belt Gait Deviations General Gait Pattern Ataxic,Decreased Stride Length ,Decreased Feet Clearance, Flexed Trunk,Narrow Based Gait ,Step-to Gait Factors Limiting Gait Function Factors Limiting Gait Function Abnormal Tonal Influences, Limited Range of Motion,Poor Balance Comments Gait Comments Pt ambulates with toe walking bilaterally, decreased step length, decreased foot clearance, very narrow CONSTANCE, with step-to gait pattern. Pt noticeably pauses at thresholds from carpet to tile . Increased fear of falling results in pt typically reaching for WELDING EQUIPMENT REPAIRER from either parent. Stair Climbing Evaluation Evaluation Level of Assist On Stairs Contact Guard Assistance Devices Stair Climbing Assistive Devices Left Railing,Right Railing Technique/Endurance Stair Climbing Direction Ascend and Descend Stair Climbing Technique Step Over Step Number of Steps Climbed 4 Stair Climbing Set # Repetitions (reps) 2 PT-OP-K Range of Motion Start: 05/27/21 16:09 Freq: Status: Active Protocol: Document 05/27/21 15:15 DCW (Rec: 05/27/21 16:28 [facility] [id number]) Hip Goniometric Range of Motion Hip Right Passive Testing Position Supine Straight Leg Raise 45 Left Passive Testing Position Supine Straight Leg Raise 38 Hip ROM Limitations Hip ROM Limitations Soft Tissue Tightness Comments Hamstring tightness leads to knee flexion in standing left worse than right Ankle and Foot Goniometric Range of Motion Ankle and Foot Right Comments At rest, right ankle in 8? inversion and 14? plantar flexion. With strap and stretch from therapist, able to get right ankle to neutral, nothing into dorsiflexion Left Comments At rest, left ankle in 12? inversion and 20? plantar flexion. With strap and stretch from therapist, able to get left ankle to neutral, nothing into dorsiflexion Ankle and Foot ROM Limitations ROM Limitations Soft Tissue Tightness, Contracture,Muscle Tone PT-OP-M Strength Start: 05/27/21 16:09 Freq: Status: Active Protocol: Document 05/27/21 15:15 DCW (Rec: 05/27/21 16:28 [facility] [id number]) Hip Strength Hip Manual Muscle Testing Right Flexion (L2) 4+ Good+ Abduction 4+ Good+ Adduction 4+ Good+ Left Flexion (L2) 4+ Good+ Abduction 4+ Good+ Adduction 4+ Good+ Knee Strength Knee Manual Muscle Testing Right Flexion (S2) 4+ Good+ Extension (L3) 4+ Good+ Left Flexion (S2) 4+ Good+ Extension (L3) 4+ Good+ PT-OP-Q Treatments Start: 05/27/21 16:09 Freq: Status: Active Protocol: Document 06/14/21 16:00 DCW (Rec: 06/14/21 16:44 [facility] [id number]) Therapeutic Exercises Sitting Exercises 3 Sitting Exercise Name Ankle DF Side bilateral Resistance Lv 2 Equipment Used T-band 2 Sitting Exercise Name Hamstring stretch Side bilateral 1 Sitting Exercise Name Heel cord stretch Side bilateral Standing Exercises 2 Standing Exercise Name Gastroc stretch Side bilateral Equipment Used WANDER 1 Standing Exercise Name Heel raises Side bilateral Equipment Used 4 step Gait Training Gait Activity 1 Description Gait training on changing surface carpet/tile Level of Assistance SBA Comments Verbal cues for heel-toe gait and increased step length, left arm swing, hurdles on tile surface Neuro Re-Education Treatment Other Activities 1 Details Obstacle Course Comments Half-balls under red foam, various-sized step up/down, magalis/foam walking, balance beam PT-OP-T Assessment and Plan Start: 05/27/21 16:09 Freq: Status: Active Protocol: Document 06/14/21 16:00 DCW (Rec: 06/14/21 16:44 DCW [id number]) Physical Therapy Assessment Impairments Impairments Activity Tolerance,Balance, Coordination,Functional Mobility,Gait,ROM,Soft Tissue Mobility,Tone Goals Three Impairment Pt scores a 20.1 TUG Usp Goal (LTG) Pt to decreased average TUG score to <15.5 in order to demonstrate improved confidence and a decreased fear of falling LTG Duration 07/25/21 Two Impairment Pt ambulates with toe walking bilaterally and a step-to gait pattern Senior Net Software Developer Goal (LTG) Pt to demonstrate ability with ambulate with a heel-toe pattern at least 50% of the time with a step-through pattern 75% of the time LTG Duration 07/25/21 One Impairment Pt does not have an appropriate home exercise program Short Term Goal (STG) Pt to be independent and compliant with an appropriate HEP STG Duration 06/27/21 Assessment Summary Assessment Pt ambulating with a more relaxed posture, not reaching for WELDING EQUIPMENT REPAIRER as frequently, improved step length with verbal cues. Physical Therapy Plan Frequency and Duration Frequency of Treatment 2x/Week Duration of Treatment Two months Plan of Care Start Date 05/27/21 Plan of Care End Date 07/25/21 Therapeutic Interventions Therapeutic Interventions Balance Training,Coordination Training,Gait Training,Home Exercise Program,Manual Therapy,Neuromuscular Re- education,Patient/Caregiver Education,Self-Care/Home Management,Soft Tissue Mobilization,Therapeutic Exercises Next Visit Focus/Plan Next Note Type Treatment Note Next Visit Plan Flexibility, balance training, gait training
--- NOTE | 2021-06-17 16:52 | PT.OTN ---
Current Diagnoses Cerebral palsy, unspecified (06/17/21) Stiffness of unspecified knee, not elsewhere classified (06/17/21) Stiffness of unspecified ankle, not elsewhere classified (06/17/21) Other abnormalities of gait and mobility (06/17/21) Physical Therapy Treatment Note PT-OP-A Visit Information Start: 05/27/21 16:09 Freq: Status: Active Protocol: Document 06/17/21 16:00 DCW (Rec: 06/17/21 16:52 DCW [id number]) Out-Patient Physical Therapy Visit Information Visit Information Visit Type Treatment Note Visit Start Time 16:00 Visit Stop Time 16:45 Total Visit Minutes 45 Visit Number 6 Number of ADMINISTRATIVE SUPPORT ASSOC Visits 0 Evaluation Information Evaluation Date 05/27/21 PT-OP-B Current Condition Start: 05/27/21 16:09 Freq: Status: Active Protocol: Document 05/27/21 15:15 DCW (Rec: 05/27/21 16:28 DCW [id number]) Current Condition History of Current Condition Onset Date Long-standing history Current Complaints Decreased gait, confidence, increased fear of falling History of Current Condition Pt is a 20 year old male well known to this clinic with a history of cerebral palsy and developmental delay. Pt was previously seen four years ago following abdominal surgery because of a decline in gait function, and is presenting today with similar complaints. Pt's father reports pt has been having decreased confidence when walking, especially when on hard surfaces. Pt walks better on carpet, but becomes very hesitant and nervous on tile or outside on sidewalk. Pt admits he has fallen a few times walking out to his bus stop. Pt has always performed toe walking, especially on his left side, but it has progressed a bit recently, and pt is taking very hesitant, small steps, and will frequently rely on his parents for hand-hold assist to maintain balance. Treatment Goals Patient/Caregiver Goals I think I should be walking better when I turn 21. Prior Functional Status Baseline Function- Gait L Toe walking, LE spasticity PT-OP-C Subjective Start: 05/27/21 16:09 Freq: Status: Active Protocol: Document 06/17/21 16:00 DCW (Rec: 06/17/21 16:52 DCW [id number]) OP-PT Subjective Patient Comments Patient Comments Pt feels like his walking is improving. PT-OP-D Balance Start: 05/27/21 16:09 Freq: Status: Active Protocol: Document 05/27/21 15:15 DCW (Rec: 05/27/21 16:28 DCW [id number]) OP-PT Balance Assessment Sitting Balance Static Sitting Balance Ability Good Dynamic Sitting Balance Ability Fair Standing Balance Static Standing Balance Ability Fair Dynamic Standing Balance Ability Fair Balance Tests Single Limb Standing Single Limb- Right 1 second Single Limb- Left 3 seconds Tandem Tandem Standing ~2 seconds bilaterally, difficulty placing L foot in fr Nevarez Fall Scale Copyright Permission PT-OP-E Functional Tests Start: 05/27/21 16:09 Freq: Status: Active Protocol: Document 05/27/21 15:15 DCW (Rec: 05/27/21 16:28 DCW [id number]) Functional Tests 2 Minute Walk Test Distance 157 Device Used none Comments 1.31 ft/sec Timed Up and Go (TUG) Score 20.1 Comments 3-trial average (20.3, 22.83 , 17.17) TUG Impairment Rating 100% Impaired (Score 20) PT-OP-G Mobility & Gait Start: 05/27/21 16:29 Freq: Status: Active Protocol: Document 05/27/21 15:15 DCW (Rec: 05/27/21 16:31 DCW [id number]) OP Gait Assessment Gait Gait Assistance Required: Standby Assistance Distance (Feet) 157 Able to Maintain Weight Bearing Status Yes During Gait Assistive Devices Assistive Device Gait Belt Gait Deviations General Gait Pattern Ataxic,Decreased Stride Length ,Decreased Feet Clearance, Flexed Trunk,Narrow Based Gait ,Step-to Gait Factors Limiting Gait Function Factors Limiting Gait Function Abnormal Tonal Influences, Limited Range of Motion,Poor Balance Comments Gait Comments Pt ambulates with toe walking bilaterally, decreased step length, decreased foot clearance, very narrow CONSTANCE, with step-to gait pattern. Pt noticeably pauses at thresholds from carpet to tile . Increased fear of falling results in pt typically reaching for PRODUCTION GENERALIST from either parent. Stair Climbing Evaluation Evaluation Level of Assist On Stairs Contact Guard Assistance Devices Stair Climbing Assistive Devices Left Railing,Right Railing Technique/Endurance Stair Climbing Direction Ascend and Descend Stair Climbing Technique Step Over Step Number of Steps Climbed 4 Stair Climbing Set # Repetitions (reps) 2 PT-OP-K Range of Motion Start: 05/27/21 16:09 Freq: Status: Active Protocol: Document 05/27/21 15:15 DCW (Rec: 05/27/21 16:28 [facility] [id number]) Hip Goniometric Range of Motion Hip Right Passive Testing Position Supine Straight Leg Raise 45 Left Passive Testing Position Supine Straight Leg Raise 38 Hip ROM Limitations Hip ROM Limitations Soft Tissue Tightness Comments Hamstring tightness leads to knee flexion in standing left worse than right Ankle and Foot Goniometric Range of Motion Ankle and Foot Right Comments At rest, right ankle in 8? inversion and 14? plantar flexion. With strap and stretch from therapist, able to get right ankle to neutral, nothing into dorsiflexion Left Comments At rest, left ankle in 12? inversion and 20? plantar flexion. With strap and stretch from therapist, able to get left ankle to neutral, nothing into dorsiflexion Ankle and Foot ROM Limitations ROM Limitations Soft Tissue Tightness, Contracture,Muscle Tone PT-OP-M Strength Start: 05/27/21 16:09 Freq: Status: Active Protocol: Document 05/27/21 15:15 DCW (Rec: 05/27/21 16:28 [facility] [id number]) Hip Strength Hip Manual Muscle Testing Right Flexion (L2) 4+ Good+ Abduction 4+ Good+ Adduction 4+ Good+ Left Flexion (L2) 4+ Good+ Abduction 4+ Good+ Adduction 4+ Good+ Knee Strength Knee Manual Muscle Testing Right Flexion (S2) 4+ Good+ Extension (L3) 4+ Good+ Left Flexion (S2) 4+ Good+ Extension (L3) 4+ Good+ PT-OP-Q Treatments Start: 05/27/21 16:09 Freq: Status: Active Protocol: Document 06/17/21 16:00 DCW (Rec: 06/17/21 16:52 DC [id number]) Gym Equipment Shuttle Balance 1 Details Blue - Wide CONSTANCE, turns, uneven (5) Therapeutic Exercises Sitting Exercises 3 Sitting Exercise Name Ankle DF Side bilateral Resistance Lv 2 Equipment Used T-band 2 Sitting Exercise Name Hamstring stretch Side bilateral 1 Sitting Exercise Name Heel cord stretch Side bilateral Standing Exercises 2 Standing Exercise Name Gastroc stretch Side bilateral Equipment Used WANDER 1 Standing Exercise Name Heel raises Side bilateral Equipment Used 4 step Gait Training Gait Activity 1 Description Gait training on changing surface carpet/tile Level of Assistance SBA Comments Verbal cues for heel-toe gait and increased step length, left arm swing, hurdles on tile surface Neuro Re-Education Treatment Other Activities 1 Details Obstacle Course Comments Half-balls under red foam, various-sized step up/down, magalis/foam walking, balance beam PT-OP-T Assessment and Plan Start: 05/27/21 16:09 Freq: Status: Active Protocol: Document 06/17/21 16:00 DCW (Rec: 06/17/21 16:52 DCW [id number]) Physical Therapy Assessment Impairments Impairments Activity Tolerance,Balance, Coordination,Functional Mobility,Gait,ROM,Soft Tissue Mobility,Tone Goals Three Impairment Pt scores a 20.1 TUG Staff Services Manager Goal (LTG) Pt to decreased average TUG score to <15.5 in order to demonstrate improved confidence and a decreased fear of falling LTG Duration 07/25/21 Two Impairment Pt ambulates with toe walking bilaterally and a step-to gait pattern Fci Goal (LTG) Pt to demonstrate ability with ambulate with a heel-toe pattern at least 50% of the time with a step-through pattern 75% of the time LTG Duration 07/25/21 One Impairment Pt does not have an appropriate home exercise program Short Term Goal (STG) Pt to be independent and compliant with an appropriate HEP STG Duration 06/27/21 Assessment Summary Assessment Pt ambulation much better today, showing great arm swing during gait, improved step length. Still toe-walking on L secondary to calf tone. Physical Therapy Plan Frequency and Duration Frequency of Treatment 2x/Week Duration of Treatment Two months Plan of Care Start Date 05/27/21 Plan of Care End Date 07/25/21 Therapeutic Interventions Therapeutic Interventions Balance Training,Coordination Training,Gait Training,Home Exercise Program,Manual Therapy,Neuromuscular Re- education,Patient/Caregiver Education,Self-Care/Home Management,Soft Tissue Mobilization,Therapeutic Exercises Next Visit Focus/Plan Next Note Type Treatment Note Next Visit Plan Flexibility, balance training, gait training
--- NOTE | 2021-06-21 17:33 | PT.OTN ---
Current Diagnoses Cerebral palsy, unspecified (06/21/21) Stiffness of unspecified knee, not elsewhere classified (06/21/21) Stiffness of unspecified ankle, not elsewhere classified (06/21/21) Other abnormalities of gait and mobility (06/21/21) Physical Therapy Treatment Note PT-OP-A Visit Information Start: 05/27/21 16:09 Freq: Status: Active Protocol: Document 06/21/21 16:47 DCW (Rec: 06/21/21 17:33 DCW [id number]) Out-Patient Physical Therapy Visit Information Visit Information Visit Type Treatment Note Visit Start Time 16:47 Visit Stop Time 17:30 Total Visit Minutes 43 Visit Number 7 Number of BASEBALL SCOUT Visits 0 Evaluation Information Evaluation Date 05/27/21 PT-OP-B Current Condition Start: 05/27/21 16:09 Freq: Status: Active Protocol: Document 05/27/21 15:15 DCW (Rec: 05/27/21 16:28 DCW [id number]) Current Condition History of Current Condition Onset Date Long-standing history Current Complaints Decreased gait, confidence, increased fear of falling History of Current Condition Pt is a 20 year old male well known to this clinic with a history of cerebral palsy and developmental delay. Pt was previously seen four years ago following abdominal surgery because of a decline in gait function, and is presenting today with similar complaints. Pt's father reports pt has been having decreased confidence when walking, especially when on hard surfaces. Pt walks better on carpet, but becomes very hesitant and nervous on tile or outside on sidewalk. Pt admits he has fallen a few times walking out to his bus stop. Pt has always performed toe walking, especially on his left side, but it has progressed a bit recently, and pt is taking very hesitant, small steps, and will frequently rely on his parents for hand-hold assist to maintain balance. Treatment Goals Patient/Caregiver Goals I think I should be walking better when I turn 21. Prior Functional Status Baseline Function- Gait L Toe walking, LE spasticity PT-OP-C Subjective Start: 05/27/21 16:09 Freq: Status: Active Protocol: Document 06/21/21 16:47 DCW (Rec: 06/21/21 17:33 DCW [id number]) OP-PT Subjective Patient Comments Patient Comments Pt feeling good today. PT-OP-D Balance Start: 05/27/21 16:09 Freq: Status: Active Protocol: Document 05/27/21 15:15 DCW (Rec: 05/27/21 16:28 DCW [id number]) OP-PT Balance Assessment Sitting Balance Static Sitting Balance Ability Good Dynamic Sitting Balance Ability Fair Standing Balance Static Standing Balance Ability Fair Dynamic Standing Balance Ability Fair Balance Tests Single Limb Standing Single Limb- Right 1 second Single Limb- Left 3 seconds Tandem Tandem Standing ~2 seconds bilaterally, difficulty placing L foot in fr Nevarez Fall Scale Copyright Permission PT-OP-E Functional Tests Start: 05/27/21 16:09 Freq: Status: Active Protocol: Document 05/27/21 15:15 DCW (Rec: 05/27/21 16:28 DCW [id number]) Functional Tests 2 Minute Walk Test Distance 157 Device Used none Comments 1.31 ft/sec Timed Up and Go (TUG) Score 20.1 Comments 3-trial average (20.3, 22.83 , 17.17) TUG Impairment Rating 100% Impaired (Score 20) PT-OP-G Mobility & Gait Start: 05/27/21 16:29 Freq: Status: Active Protocol: Document 05/27/21 15:15 DCW (Rec: 05/27/21 16:31 DCW [id number]) OP Gait Assessment Gait Gait Assistance Required: Standby Assistance Distance (Feet) 157 Able to Maintain Weight Bearing Status Yes During Gait Assistive Devices Assistive Device Gait Belt Gait Deviations General Gait Pattern Ataxic,Decreased Stride Length ,Decreased Feet Clearance, Flexed Trunk,Narrow Based Gait ,Step-to Gait Factors Limiting Gait Function Factors Limiting Gait Function Abnormal Tonal Influences, Limited Range of Motion,Poor Balance Comments Gait Comments Pt ambulates with toe walking bilaterally, decreased step length, decreased foot clearance, very narrow CONSTANCE, with step-to gait pattern. Pt noticeably pauses at thresholds from carpet to tile . Increased fear of falling results in pt typically reaching for INFRASTRUCTURE TECHNICIAN from either parent. Stair Climbing Evaluation Evaluation Level of Assist On Stairs Contact Guard Assistance Devices Stair Climbing Assistive Devices Left Railing,Right Railing Technique/Endurance Stair Climbing Direction Ascend and Descend Stair Climbing Technique Step Over Step Number of Steps Climbed 4 Stair Climbing Set # Repetitions (reps) 2 PT-OP-K Range of Motion Start: 05/27/21 16:09 Freq: Status: Active Protocol: Document 05/27/21 15:15 DCW (Rec: 05/27/21 16:28 [facility] [id number]) Hip Goniometric Range of Motion Hip Right Passive Testing Position Supine Straight Leg Raise 45 Left Passive Testing Position Supine Straight Leg Raise 38 Hip ROM Limitations Hip ROM Limitations Soft Tissue Tightness Comments Hamstring tightness leads to knee flexion in standing left worse than right Ankle and Foot Goniometric Range of Motion Ankle and Foot Right Comments At rest, right ankle in 8? inversion and 14? plantar flexion. With strap and stretch from therapist, able to get right ankle to neutral, nothing into dorsiflexion Left Comments At rest, left ankle in 12? inversion and 20? plantar flexion. With strap and stretch from therapist, able to get left ankle to neutral, nothing into dorsiflexion Ankle and Foot ROM Limitations ROM Limitations Soft Tissue Tightness, Contracture,Muscle Tone PT-OP-M Strength Start: 05/27/21 16:09 Freq: Status: Active Protocol: Document 05/27/21 15:15 DCW (Rec: 05/27/21 16:28 [facility] [id number]) Hip Strength Hip Manual Muscle Testing Right Flexion (L2) 4+ Good+ Abduction 4+ Good+ Adduction 4+ Good+ Left Flexion (L2) 4+ Good+ Abduction 4+ Good+ Adduction 4+ Good+ Knee Strength Knee Manual Muscle Testing Right Flexion (S2) 4+ Good+ Extension (L3) 4+ Good+ Left Flexion (S2) 4+ Good+ Extension (L3) 4+ Good+ PT-OP-Q Treatments Start: 05/27/21 16:09 Freq: Status: Active Protocol: Document 06/21/21 16:47 DCW (Rec: 06/21/21 17:33 [facility] [id number]) Gym Equipment Shuttle Balance 1 Details Blue - Wide CONSTANCE, turns, uneven (5) Therapeutic Exercises Sitting Exercises 3 Sitting Exercise Name Ankle DF Side bilateral Resistance Lv 2 Equipment Used T-band 2 Sitting Exercise Name Hamstring stretch Side bilateral 1 Sitting Exercise Name Heel cord stretch Side bilateral Standing Exercises 2 Standing Exercise Name Gastroc stretch Side bilateral Equipment Used WANDER 1 Standing Exercise Name Heel raises Side bilateral Equipment Used 4 step Gait Training Gait Activity 1 Description Gait training on changing surface carpet/tile Level of Assistance SBA Comments Verbal cues for heel-toe gait and increased step length, left arm swing, hurdles on tile surface Neuro Re-Education Treatment Other Activities 1 Details Obstacle Course Comments Half-balls under red foam, various-sized step up/down, magalis/foam walking, balance beam PT-OP-T Assessment and Plan Start: 05/27/21 16:09 Freq: Status: Active Protocol: Document 06/21/21 16:47 DCW (Rec: 06/21/21 17:33 DCW [id number]) Physical Therapy Assessment Impairments Impairments Activity Tolerance,Balance, Coordination,Functional Mobility,Gait,ROM,Soft Tissue Mobility,Tone Goals Three Impairment Pt scores a 20.1 TUG Non Destructive Testing Specialist Goal (LTG) Pt to decreased average TUG score to <15.5 in order to demonstrate improved confidence and a decreased fear of falling LTG Duration 07/25/21 Two Impairment Pt ambulates with toe walking bilaterally and a step-to gait pattern Non Destructive Testing Specialist Goal (LTG) Pt to demonstrate ability with ambulate with a heel-toe pattern at least 50% of the time with a step-through pattern 75% of the time LTG Duration 07/25/21 One Impairment Pt does not have an appropriate home exercise program Short Term Goal (STG) Pt to be independent and compliant with an appropriate HEP STG Duration 06/27/21 Assessment Summary Assessment Pt continuing to show some good progress with step length and decreased toe walking. Physical Therapy Plan Frequency and Duration Frequency of Treatment 2x/Week Duration of Treatment Two months Plan of Care Start Date 05/27/21 Plan of Care End Date 07/25/21 Therapeutic Interventions Therapeutic Interventions Balance Training,Coordination Training,Gait Training,Home Exercise Program,Manual Therapy,Neuromuscular Re- education,Patient/Caregiver Education,Self-Care/Home Management,Soft Tissue Mobilization,Therapeutic Exercises Next Visit Focus/Plan Next Note Type Treatment Note Next Visit Plan Flexibility, balance training, gait training
--- NOTE | 2021-06-24 17:35 | PT.OTN ---
Current Diagnoses Cerebral palsy, unspecified (06/24/21) Stiffness of unspecified knee, not elsewhere classified (06/24/21) Stiffness of unspecified ankle, not elsewhere classified (06/24/21) Other abnormalities of gait and mobility (06/24/21) Physical Therapy Treatment Note PT-OP-A Visit Information Start: 05/27/21 16:09 Freq: Status: Active Protocol: Document 06/24/21 16:47 DCW (Rec: 06/24/21 17:34 DCW [id number]) Out-Patient Physical Therapy Visit Information Visit Information Visit Type Treatment Note Visit Start Time 16:47 Visit Stop Time 17:30 Total Visit Minutes 43 Visit Number 8 Number of GROVE WORKER Visits 0 Evaluation Information Evaluation Date 05/27/21 PT-OP-B Current Condition Start: 05/27/21 16:09 Freq: Status: Active Protocol: Document 05/27/21 15:15 DCW (Rec: 05/27/21 16:28 DCW [id number]) Current Condition History of Current Condition Onset Date Long-standing history Current Complaints Decreased gait, confidence, increased fear of falling History of Current Condition Pt is a 20 year old male well known to this clinic with a history of cerebral palsy and developmental delay. Pt was previously seen four years ago following abdominal surgery because of a decline in gait function, and is presenting today with similar complaints. Pt's father reports pt has been having decreased confidence when walking, especially when on hard surfaces. Pt walks better on carpet, but becomes very hesitant and nervous on tile or outside on sidewalk. Pt admits he has fallen a few times walking out to his bus stop. Pt has always performed toe walking, especially on his left side, but it has progressed a bit recently, and pt is taking very hesitant, small steps, and will frequently rely on his parents for hand-hold assist to maintain balance. Treatment Goals Patient/Caregiver Goals I think I should be walking better when I turn 21. Prior Functional Status Baseline Function- Gait L Toe walking, LE spasticity PT-OP-C Subjective Start: 05/27/21 16:09 Freq: Status: Active Protocol: Document 06/24/21 16:47 DCW (Rec: 06/24/21 17:34 DCW [id number]) OP-PT Subjective Patient Comments Patient Comments Pt very excited about his upcoming birthday. PT-OP-D Balance Start: 05/27/21 16:09 Freq: Status: Active Protocol: Document 05/27/21 15:15 DCW (Rec: 05/27/21 16:28 DCW [id number]) OP-PT Balance Assessment Sitting Balance Static Sitting Balance Ability Good Dynamic Sitting Balance Ability Fair Standing Balance Static Standing Balance Ability Fair Dynamic Standing Balance Ability Fair Balance Tests Single Limb Standing Single Limb- Right 1 second Single Limb- Left 3 seconds Tandem Tandem Standing ~2 seconds bilaterally, difficulty placing L foot in fr Nevarez Fall Scale Copyright Permission PT-OP-E Functional Tests Start: 05/27/21 16:09 Freq: Status: Active Protocol: Document 05/27/21 15:15 DCW (Rec: 05/27/21 16:28 DCW [id number]) Functional Tests 2 Minute Walk Test Distance 157 Device Used none Comments 1.31 ft/sec Timed Up and Go (TUG) Score 20.1 Comments 3-trial average (20.3, 22.83 , 17.17) TUG Impairment Rating 100% Impaired (Score 20) PT-OP-G Mobility & Gait Start: 05/27/21 16:29 Freq: Status: Active Protocol: Document 05/27/21 15:15 DCW (Rec: 05/27/21 16:31 DCW [id number]) OP Gait Assessment Gait Gait Assistance Required: Standby Assistance Distance (Feet) 157 Able to Maintain Weight Bearing Status Yes During Gait Assistive Devices Assistive Device Gait Belt Gait Deviations General Gait Pattern Ataxic,Decreased Stride Length ,Decreased Feet Clearance, Flexed Trunk,Narrow Based Gait ,Step-to Gait Factors Limiting Gait Function Factors Limiting Gait Function Abnormal Tonal Influences, Limited Range of Motion,Poor Balance Comments Gait Comments Pt ambulates with toe walking bilaterally, decreased step length, decreased foot clearance, very narrow CONSTANCE, with step-to gait pattern. Pt noticeably pauses at thresholds from carpet to tile . Increased fear of falling results in pt typically reaching for PUNCHBOARD STUFFER from either parent. Stair Climbing Evaluation Evaluation Level of Assist On Stairs Contact Guard Assistance Devices Stair Climbing Assistive Devices Left Railing,Right Railing Technique/Endurance Stair Climbing Direction Ascend and Descend Stair Climbing Technique Step Over Step Number of Steps Climbed 4 Stair Climbing Set # Repetitions (reps) 2 PT-OP-K Range of Motion Start: 05/27/21 16:09 Freq: Status: Active Protocol: Document 05/27/21 15:15 DCW (Rec: 05/27/21 16:28 [facility] [id number]) Hip Goniometric Range of Motion Hip Right Passive Testing Position Supine Straight Leg Raise 45 Left Passive Testing Position Supine Straight Leg Raise 38 Hip ROM Limitations Hip ROM Limitations Soft Tissue Tightness Comments Hamstring tightness leads to knee flexion in standing left worse than right Ankle and Foot Goniometric Range of Motion Ankle and Foot Right Comments At rest, right ankle in 8? inversion and 14? plantar flexion. With strap and stretch from therapist, able to get right ankle to neutral, nothing into dorsiflexion Left Comments At rest, left ankle in 12? inversion and 20? plantar flexion. With strap and stretch from therapist, able to get left ankle to neutral, nothing into dorsiflexion Ankle and Foot ROM Limitations ROM Limitations Soft Tissue Tightness, Contracture,Muscle Tone PT-OP-M Strength Start: 05/27/21 16:09 Freq: Status: Active Protocol: Document 05/27/21 15:15 DCW (Rec: 05/27/21 16:28 [facility] [id number]) Hip Strength Hip Manual Muscle Testing Right Flexion (L2) 4+ Good+ Abduction 4+ Good+ Adduction 4+ Good+ Left Flexion (L2) 4+ Good+ Abduction 4+ Good+ Adduction 4+ Good+ Knee Strength Knee Manual Muscle Testing Right Flexion (S2) 4+ Good+ Extension (L3) 4+ Good+ Left Flexion (S2) 4+ Good+ Extension (L3) 4+ Good+ PT-OP-Q Treatments Start: 05/27/21 16:09 Freq: Status: Active Protocol: Document 06/24/21 16:47 DCW (Rec: 06/24/21 17:34 [facility] [id number]) Gym Equipment Shuttle Balance 1 Details Blue - Wide CONSTANCE, uneven (5) Comments Jose hale: UE assist-> PUNCHBOARD STUFFER -> no UE assist Therapeutic Exercises Sitting Exercises 3 Sitting Exercise Name Ankle DF Side bilateral Resistance Lv 2 Equipment Used T-band 2 Sitting Exercise Name Hamstring stretch Side bilateral 1 Sitting Exercise Name Heel cord stretch Side bilateral Standing Exercises 2 Standing Exercise Name Gastroc stretch Side bilateral Equipment Used WANDER 1 Standing Exercise Name Heel raises Side bilateral Equipment Used 4 step Gait Training Gait Activity 1 Description Gait training on changing surface carpet/tile Level of Assistance SBA Comments Verbal cues for heel-toe gait and increased step length, left arm swing, hurdles on tile surface Neuro Re-Education Treatment Other Activities 1 Details Obstacle Course Comments Half-balls under red foam, various-sized step up/down, magalis/foam walking, balance beam PT-OP-T Assessment and Plan Start: 05/27/21 16:09 Freq: Status: Active Protocol: Document 06/24/21 16:47 DCW (Rec: 06/24/21 17:34 DCW [id number]) Physical Therapy Assessment Impairments Impairments Activity Tolerance,Balance, Coordination,Functional Mobility,Gait,ROM,Soft Tissue Mobility,Tone Goals Three Impairment Pt scores a 20.1 TUG Sand Sifter Goal (LTG) Pt to decreased average TUG score to <15.5 in order to demonstrate improved confidence and a decreased fear of falling LTG Duration 07/25/21 Two Impairment Pt ambulates with toe walking bilaterally and a step-to gait pattern Prison Goal (LTG) Pt to demonstrate ability with ambulate with a heel-toe pattern at least 50% of the time with a step-through pattern 75% of the time LTG Duration 07/25/21 One Impairment Pt does not have an appropriate home exercise program Short Term Goal (STG) Pt to be independent and compliant with an appropriate HEP STG Duration 06/27/21 Assessment Summary Assessment After verbal cues, pt was able to perform balloon volley without holding on, which was an impressive step up for him, pt increasing confidence with gait and stability. Physical Therapy Plan Frequency and Duration Frequency of Treatment 2x/Week Duration of Treatment Two months Plan of Care Start Date 05/27/21 Plan of Care End Date 07/25/21 Therapeutic Interventions Therapeutic Interventions Balance Training,Coordination Training,Gait Training,Home Exercise Program,Manual Therapy,Neuromuscular Re- education,Patient/Caregiver Education,Self-Care/Home Management,Soft Tissue Mobilization,Therapeutic Exercises Next Visit Focus/Plan Next Note Type Treatment Note Next Visit Plan Flexibility, balance training, gait training
--- NOTE | 2021-07-05 17:29 | PT.OTN ---
Current Diagnoses Cerebral palsy, unspecified (07/05/21) Stiffness of unspecified knee, not elsewhere classified (07/05/21) Stiffness of unspecified ankle, not elsewhere classified (07/05/21) Other abnormalities of gait and mobility (07/05/21) Physical Therapy Treatment Note PT-OP-A Visit Information Start: 05/27/21 16:09 Freq: Status: Active Protocol: Document 07/05/21 16:49 DCW (Rec: 07/05/21 17:28 DCW [id number]) Out-Patient Physical Therapy Visit Information Visit Information Visit Type Treatment Note Visit Start Time 16:49 Visit Stop Time 17:30 Total Visit Minutes 41 Visit Number 9 Number of CHIEF HOSPITAL ADMINISTRATOR Visits 0 Evaluation Information Evaluation Date 05/27/21 PT-OP-B Current Condition Start: 05/27/21 16:09 Freq: Status: Active Protocol: Document 05/27/21 15:15 DCW (Rec: 05/27/21 16:28 DCW [id number]) Current Condition History of Current Condition Onset Date Long-standing history Current Complaints Decreased gait, confidence, increased fear of falling History of Current Condition Pt is a 20 year old male well known to this clinic with a history of cerebral palsy and developmental delay. Pt was previously seen four years ago following abdominal surgery because of a decline in gait function, and is presenting today with similar complaints. Pt's father reports pt has been having decreased confidence when walking, especially when on hard surfaces. Pt walks better on carpet, but becomes very hesitant and nervous on tile or outside on sidewalk. Pt admits he has fallen a few times walking out to his bus stop. Pt has always performed toe walking, especially on his left side, but it has progressed a bit recently, and pt is taking very hesitant, small steps, and will frequently rely on his parents for hand-hold assist to maintain balance. Treatment Goals Patient/Caregiver Goals I think I should be walking better when I turn 21. Prior Functional Status Baseline Function- Gait L Toe walking, LE spasticity PT-OP-C Subjective Start: 05/27/21 16:09 Freq: Status: Active Protocol: Document 07/05/21 16:49 DCW (Rec: 07/05/21 17:28 DCW [id number]) OP-PT Subjective Patient Comments Patient Comments Pt doing well today. PT-OP-D Balance Start: 05/27/21 16:09 Freq: Status: Active Protocol: Document 05/27/21 15:15 DCW (Rec: 05/27/21 16:28 DCW [id number]) OP-PT Balance Assessment Sitting Balance Static Sitting Balance Ability Good Dynamic Sitting Balance Ability Fair Standing Balance Static Standing Balance Ability Fair Dynamic Standing Balance Ability Fair Balance Tests Single Limb Standing Single Limb- Right 1 second Single Limb- Left 3 seconds Tandem Tandem Standing ~2 seconds bilaterally, difficulty placing L foot in fr Nevarez Fall Scale Copyright Permission PT-OP-E Functional Tests Start: 05/27/21 16:09 Freq: Status: Active Protocol: Document 05/27/21 15:15 DCW (Rec: 05/27/21 16:28 DCW [id number]) Functional Tests 2 Minute Walk Test Distance 157 Device Used none Comments 1.31 ft/sec Timed Up and Go (TUG) Score 20.1 Comments 3-trial average (20.3, 22.83 , 17.17) TUG Impairment Rating 100% Impaired (Score 20) PT-OP-G Mobility & Gait Start: 05/27/21 16:29 Freq: Status: Active Protocol: Document 05/27/21 15:15 DCW (Rec: 05/27/21 16:31 DCW [id number]) OP Gait Assessment Gait Gait Assistance Required: Standby Assistance Distance (Feet) 157 Able to Maintain Weight Bearing Status Yes During Gait Assistive Devices Assistive Device Gait Belt Gait Deviations General Gait Pattern Ataxic,Decreased Stride Length ,Decreased Feet Clearance, Flexed Trunk,Narrow Based Gait ,Step-to Gait Factors Limiting Gait Function Factors Limiting Gait Function Abnormal Tonal Influences, Limited Range of Motion,Poor Balance Comments Gait Comments Pt ambulates with toe walking bilaterally, decreased step length, decreased foot clearance, very narrow CONSTANCE, with step-to gait pattern. Pt noticeably pauses at thresholds from carpet to tile . Increased fear of falling results in pt typically reaching for SECOND BUTLER from either parent. Stair Climbing Evaluation Evaluation Level of Assist On Stairs Contact Guard Assistance Devices Stair Climbing Assistive Devices Left Railing,Right Railing Technique/Endurance Stair Climbing Direction Ascend and Descend Stair Climbing Technique Step Over Step Number of Steps Climbed 4 Stair Climbing Set # Repetitions (reps) 2 PT-OP-K Range of Motion Start: 05/27/21 16:09 Freq: Status: Active Protocol: Document 05/27/21 15:15 DCW (Rec: 05/27/21 16:28 [facility] [id number]) Hip Goniometric Range of Motion Hip Right Passive Testing Position Supine Straight Leg Raise 45 Left Passive Testing Position Supine Straight Leg Raise 38 Hip ROM Limitations Hip ROM Limitations Soft Tissue Tightness Comments Hamstring tightness leads to knee flexion in standing left worse than right Ankle and Foot Goniometric Range of Motion Ankle and Foot Right Comments At rest, right ankle in 8? inversion and 14? plantar flexion. With strap and stretch from therapist, able to get right ankle to neutral, nothing into dorsiflexion Left Comments At rest, left ankle in 12? inversion and 20? plantar flexion. With strap and stretch from therapist, able to get left ankle to neutral, nothing into dorsiflexion Ankle and Foot ROM Limitations ROM Limitations Soft Tissue Tightness, Contracture,Muscle Tone PT-OP-M Strength Start: 05/27/21 16:09 Freq: Status: Active Protocol: Document 05/27/21 15:15 DCW (Rec: 05/27/21 16:28 [facility] [id number]) Hip Strength Hip Manual Muscle Testing Right Flexion (L2) 4+ Good+ Abduction 4+ Good+ Adduction 4+ Good+ Left Flexion (L2) 4+ Good+ Abduction 4+ Good+ Adduction 4+ Good+ Knee Strength Knee Manual Muscle Testing Right Flexion (S2) 4+ Good+ Extension (L3) 4+ Good+ Left Flexion (S2) 4+ Good+ Extension (L3) 4+ Good+ PT-OP-Q Treatments Start: 05/27/21 16:09 Freq: Status: Active Protocol: Document 07/05/21 16:49 DCW (Rec: 07/05/21 17:28 [facility] [id number]) Gym Equipment Shuttle Balance 1 Details Blue - Wide CONSTANCE, uneven (5) Comments Balloon geoffrey: UE assist-> SECOND BUTLER -> no UE assist Therapeutic Exercises Sitting Exercises 3 Sitting Exercise Name Ankle DF Side bilateral Resistance Lv 2 Equipment Used T-band 2 Sitting Exercise Name Hamstring stretch Side bilateral 1 Sitting Exercise Name Heel cord stretch Side bilateral Standing Exercises 2 Standing Exercise Name Gastroc stretch Side bilateral Equipment Used WANDER 1 Standing Exercise Name Heel raises Side bilateral Equipment Used 4 step Gait Training Gait Activity 1 Description Gait training on changing surface carpet/tile Level of Assistance SBA Comments Verbal cues for heel-toe gait and increased step length, left arm swing, hurdles on tile surface Neuro Re-Education Treatment Other Activities 1 Details Obstacle Course Comments Half-balls under red foam, various-sized step up/down, magalis/foam walking, balance beam PT-OP-T Assessment and Plan Start: 05/27/21 16:09 Freq: Status: Active Protocol: Document 07/05/21 16:49 DCW (Rec: 07/05/21 17:28 DCW [id number]) Physical Therapy Assessment Impairments Impairments Activity Tolerance,Balance, Coordination,Functional Mobility,Gait,ROM,Soft Tissue Mobility,Tone Goals Three Impairment Pt scores a 20.1 TUG Fpc Goal (LTG) Pt to decreased average TUG score to <15.5 in order to demonstrate improved confidence and a decreased fear of falling LTG Duration 07/25/21 Two Impairment Pt ambulates with toe walking bilaterally and a step-to gait pattern Fpc Goal (LTG) Pt to demonstrate ability with ambulate with a heel-toe pattern at least 50% of the time with a step-through pattern 75% of the time LTG Duration 07/25/21 One Impairment Pt does not have an appropriate home exercise program Short Term Goal (STG) Pt to be independent and compliant with an appropriate HEP STG Duration 06/27/21 Assessment Summary Assessment Pt continues to require verbal cues to limit reflexive response of reaching out for nearest wall or body for support when walking, but when reminded that he is able to do it, he is getting very good with improved step length and balance during weight shift. Physical Therapy Plan Frequency and Duration Frequency of Treatment 2x/Week Duration of Treatment Two months Plan of Care Start Date 05/27/21 Plan of Care End Date 07/25/21 Therapeutic Interventions Therapeutic Interventions Balance Training,Coordination Training,Gait Training,Home Exercise Program,Manual Therapy,Neuromuscular Re- education,Patient/Caregiver Education,Self-Care/Home Management,Soft Tissue Mobilization,Therapeutic Exercises Next Visit Focus/Plan Next Note Type Treatment Note Next Visit Plan Flexibility, balance training, gait training
--- NOTE | 2021-07-08 17:39 | PT.OTN ---
Current Diagnoses Cerebral palsy, unspecified (07/08/21) Stiffness of unspecified knee, not elsewhere classified (07/08/21) Stiffness of unspecified ankle, not elsewhere classified (07/08/21) Other abnormalities of gait and mobility (07/08/21) Physical Therapy Treatment Note PT-OP-A Visit Information Start: 05/27/21 16:09 Freq: Status: Active Protocol: Document 07/08/21 16:45 DCW (Rec: 07/08/21 17:38 DCW [id number]) Out-Patient Physical Therapy Visit Information Visit Information Visit Type Treatment Note Visit Start Time 16:45 Visit Stop Time 17:30 Total Visit Minutes 45 Visit Number 10 Number of ASSEMBLY PERSON Visits 0 Evaluation Information Evaluation Date 05/27/21 PT-OP-B Current Condition Start: 05/27/21 16:09 Freq: Status: Active Protocol: Document 05/27/21 15:15 DCW (Rec: 05/27/21 16:28 DCW [id number]) Current Condition History of Current Condition Onset Date Long-standing history Current Complaints Decreased gait, confidence, increased fear of falling History of Current Condition Pt is a 20 year old male well known to this clinic with a history of cerebral palsy and developmental delay. Pt was previously seen four years ago following abdominal surgery because of a decline in gait function, and is presenting today with similar complaints. Pt's father reports pt has been having decreased confidence when walking, especially when on hard surfaces. Pt walks better on carpet, but becomes very hesitant and nervous on tile or outside on sidewalk. Pt admits he has fallen a few times walking out to his bus stop. Pt has always performed toe walking, especially on his left side, but it has progressed a bit recently, and pt is taking very hesitant, small steps, and will frequently rely on his parents for hand-hold assist to maintain balance. Treatment Goals Patient/Caregiver Goals I think I should be walking better when I turn 21. Prior Functional Status Baseline Function- Gait L Toe walking, LE spasticity PT-OP-C Subjective Start: 05/27/21 16:09 Freq: Status: Active Protocol: Document 07/08/21 16:45 DCW (Rec: 07/08/21 17:38 DCW [id number]) OP-PT Subjective Patient Comments Patient Comments Pt reports that he feels like he has been walking better. PT-OP-D Balance Start: 05/27/21 16:09 Freq: Status: Active Protocol: Document 05/27/21 15:15 DCW (Rec: 05/27/21 16:28 DCW [id number]) OP-PT Balance Assessment Sitting Balance Static Sitting Balance Ability Good Dynamic Sitting Balance Ability Fair Standing Balance Static Standing Balance Ability Fair Dynamic Standing Balance Ability Fair Balance Tests Single Limb Standing Single Limb- Right 1 second Single Limb- Left 3 seconds Tandem Tandem Standing ~2 seconds bilaterally, difficulty placing L foot in fr Nevarez Fall Scale Copyright Permission PT-OP-E Functional Tests Start: 05/27/21 16:09 Freq: Status: Active Protocol: Document 05/27/21 15:15 DCW (Rec: 05/27/21 16:28 DCW [id number]) Functional Tests 2 Minute Walk Test Distance 157 Device Used none Comments 1.31 ft/sec Timed Up and Go (TUG) Score 20.1 Comments 3-trial average (20.3, 22.83 , 17.17) TUG Impairment Rating 100% Impaired (Score 20) PT-OP-G Mobility & Gait Start: 05/27/21 16:29 Freq: Status: Active Protocol: Document 05/27/21 15:15 DCW (Rec: 05/27/21 16:31 DCW [id number]) OP Gait Assessment Gait Gait Assistance Required: Standby Assistance Distance (Feet) 157 Able to Maintain Weight Bearing Status Yes During Gait Assistive Devices Assistive Device Gait Belt Gait Deviations General Gait Pattern Ataxic,Decreased Stride Length ,Decreased Feet Clearance, Flexed Trunk,Narrow Based Gait ,Step-to Gait Factors Limiting Gait Function Factors Limiting Gait Function Abnormal Tonal Influences, Limited Range of Motion,Poor Balance Comments Gait Comments Pt ambulates with toe walking bilaterally, decreased step length, decreased foot clearance, very narrow CONSTANCE, with step-to gait pattern. Pt noticeably pauses at thresholds from carpet to tile . Increased fear of falling results in pt typically reaching for COLLAR POINTER from either parent. Stair Climbing Evaluation Evaluation Level of Assist On Stairs Contact Guard Assistance Devices Stair Climbing Assistive Devices Left Railing,Right Railing Technique/Endurance Stair Climbing Direction Ascend and Descend Stair Climbing Technique Step Over Step Number of Steps Climbed 4 Stair Climbing Set # Repetitions (reps) 2 PT-OP-K Range of Motion Start: 05/27/21 16:09 Freq: Status: Active Protocol: Document 05/27/21 15:15 DCW (Rec: 05/27/21 16:28 [facility] [id number]) Hip Goniometric Range of Motion Hip Right Passive Testing Position Supine Straight Leg Raise 45 Left Passive Testing Position Supine Straight Leg Raise 38 Hip ROM Limitations Hip ROM Limitations Soft Tissue Tightness Comments Hamstring tightness leads to knee flexion in standing left worse than right Ankle and Foot Goniometric Range of Motion Ankle and Foot Right Comments At rest, right ankle in 8? inversion and 14? plantar flexion. With strap and stretch from therapist, able to get right ankle to neutral, nothing into dorsiflexion Left Comments At rest, left ankle in 12? inversion and 20? plantar flexion. With strap and stretch from therapist, able to get left ankle to neutral, nothing into dorsiflexion Ankle and Foot ROM Limitations ROM Limitations Soft Tissue Tightness, Contracture,Muscle Tone PT-OP-M Strength Start: 05/27/21 16:09 Freq: Status: Active Protocol: Document 05/27/21 15:15 DCW (Rec: 05/27/21 16:28 [facility] [id number]) Hip Strength Hip Manual Muscle Testing Right Flexion (L2) 4+ Good+ Abduction 4+ Good+ Adduction 4+ Good+ Left Flexion (L2) 4+ Good+ Abduction 4+ Good+ Adduction 4+ Good+ Knee Strength Knee Manual Muscle Testing Right Flexion (S2) 4+ Good+ Extension (L3) 4+ Good+ Left Flexion (S2) 4+ Good+ Extension (L3) 4+ Good+ PT-OP-Q Treatments Start: 05/27/21 16:09 Freq: Status: Active Protocol: Document 07/08/21 16:45 DCW (Rec: 07/08/21 17:38 [facility] [id number]) Therapeutic Exercises Sitting Exercises 3 Sitting Exercise Name Ankle DF Side bilateral Resistance Lv 2 Equipment Used T-band 2 Sitting Exercise Name Hamstring stretch Side bilateral 1 Sitting Exercise Name Heel cord stretch Side bilateral Standing Exercises 2 Standing Exercise Name Gastroc stretch Side bilateral Equipment Used WANDER 1 Standing Exercise Name Heel raises Side bilateral Equipment Used 4 step Gait Training Gait Activity 1 Description Gait training on changing surface carpet/tile Level of Assistance SBA Comments Verbal cues for heel-toe gait and increased step length, left arm swing, hurdles on tile surface Neuro Re-Education Treatment Other Activities 1 Details Obstacle Course Comments Half-balls under red foam, various-sized step up/down, magalis/foam walking, balance beam PT-OP-T Assessment and Plan Start: 05/27/21 16:09 Freq: Status: Active Protocol: Document 07/08/21 16:45 DCW (Rec: 07/08/21 17:38 DCW [id number]) Physical Therapy Assessment Impairments Impairments Activity Tolerance,Balance, Coordination,Functional Mobility,Gait,ROM,Soft Tissue Mobility,Tone Goals Three Impairment Pt scores a 20.1 TUG Intermediate Goal (LTG) Pt to decreased average TUG score to <15.5 in order to demonstrate improved confidence and a decreased fear of falling LTG Duration 07/25/21 Two Impairment Pt ambulates with toe walking bilaterally and a step-to gait pattern Intermediate Goal (LTG) Pt to demonstrate ability with ambulate with a heel-toe pattern at least 50% of the time with a step-through pattern 75% of the time LTG Duration 07/25/21 One Impairment Pt does not have an appropriate home exercise program Short Term Goal (STG) Pt to be independent and compliant with an appropriate HEP STG Duration 06/27/21 Assessment Summary Assessment Pt still attempts to use his hand on a wall until he is instructed to stop touching it , and then he does very well. Mainly an issue with pt feeling worried about falling vs actually being unstable. Physical Therapy Plan Frequency and Duration Frequency of Treatment 2x/Week Duration of Treatment Two months Plan of Care Start Date 05/27/21 Plan of Care End Date 07/25/21 Therapeutic Interventions Therapeutic Interventions Balance Training,Coordination Training,Gait Training,Home Exercise Program,Manual Therapy,Neuromuscular Re- education,Patient/Caregiver Education,Self-Care/Home Management,Soft Tissue Mobilization,Therapeutic Exercises Next Visit Focus/Plan Next Note Type Treatment Note Next Visit Plan Flexibility, balance training, gait training
--- NOTE | 2021-07-12 16:47 | PT.OTN ---
Current Diagnoses Cerebral palsy, unspecified (07/12/21) Stiffness of unspecified knee, not elsewhere classified (07/12/21) Stiffness of unspecified ankle, not elsewhere classified (07/12/21) Other abnormalities of gait and mobility (07/12/21) Physical Therapy Treatment Note PT-OP-A Visit Information Start: 05/27/21 16:09 Freq: Status: Active Protocol: Document 07/12/21 16:00 DCW (Rec: 07/12/21 16:47 DCW [id number]) Out-Patient Physical Therapy Visit Information Visit Information Visit Type Treatment Note Visit Start Time 16:00 Visit Stop Time 16:45 Total Visit Minutes 45 Visit Number 11 Number of BARREL REAMER Visits 0 Evaluation Information Evaluation Date 05/27/21 PT-OP-B Current Condition Start: 05/27/21 16:09 Freq: Status: Active Protocol: Document 05/27/21 15:15 DCW (Rec: 05/27/21 16:28 DCW [id number]) Current Condition History of Current Condition Onset Date Long-standing history Current Complaints Decreased gait, confidence, increased fear of falling History of Current Condition Pt is a 20 year old male well known to this clinic with a history of cerebral palsy and developmental delay. Pt was previously seen four years ago following abdominal surgery because of a decline in gait function, and is presenting today with similar complaints. Pt's father reports pt has been having decreased confidence when walking, especially when on hard surfaces. Pt walks better on carpet, but becomes very hesitant and nervous on tile or outside on sidewalk. Pt admits he has fallen a few times walking out to his bus stop. Pt has always performed toe walking, especially on his left side, but it has progressed a bit recently, and pt is taking very hesitant, small steps, and will frequently rely on his parents for hand-hold assist to maintain balance. Treatment Goals Patient/Caregiver Goals I think I should be walking better when I turn 21. Prior Functional Status Baseline Function- Gait L Toe walking, LE spasticity PT-OP-C Subjective Start: 05/27/21 16:09 Freq: Status: Active Protocol: Document 07/12/21 16:00 DCW (Rec: 07/12/21 16:47 DCW [id number]) OP-PT Subjective Patient Comments Patient Comments Pt walking very cautiously today, worried about slippery floor after coming in from the rain. PT-OP-D Balance Start: 05/27/21 16:09 Freq: Status: Active Protocol: Document 05/27/21 15:15 DCW (Rec: 05/27/21 16:28 DCW [id number]) OP-PT Balance Assessment Sitting Balance Static Sitting Balance Ability Good Dynamic Sitting Balance Ability Fair Standing Balance Static Standing Balance Ability Fair Dynamic Standing Balance Ability Fair Balance Tests Single Limb Standing Single Limb- Right 1 second Single Limb- Left 3 seconds Tandem Tandem Standing ~2 seconds bilaterally, difficulty placing L foot in fr Nevarez Fall Scale Copyright Permission PT-OP-E Functional Tests Start: 05/27/21 16:09 Freq: Status: Active Protocol: Document 05/27/21 15:15 DCW (Rec: 05/27/21 16:28 DCW [id number]) Functional Tests 2 Minute Walk Test Distance 157 Device Used none Comments 1.31 ft/sec Timed Up and Go (TUG) Score 20.1 Comments 3-trial average (20.3, 22.83 , 17.17) TUG Impairment Rating 100% Impaired (Score 20) PT-OP-G Mobility & Gait Start: 05/27/21 16:29 Freq: Status: Active Protocol: Document 05/27/21 15:15 DCW (Rec: 05/27/21 16:31 DCW [id number]) OP Gait Assessment Gait Gait Assistance Required: Standby Assistance Distance (Feet) 157 Able to Maintain Weight Bearing Status Yes During Gait Assistive Devices Assistive Device Gait Belt Gait Deviations General Gait Pattern Ataxic,Decreased Stride Length ,Decreased Feet Clearance, Flexed Trunk,Narrow Based Gait ,Step-to Gait Factors Limiting Gait Function Factors Limiting Gait Function Abnormal Tonal Influences, Limited Range of Motion,Poor Balance Comments Gait Comments Pt ambulates with toe walking bilaterally, decreased step length, decreased foot clearance, very narrow CONSTANCE, with step-to gait pattern. Pt noticeably pauses at thresholds from carpet to tile . Increased fear of falling results in pt typically reaching for EXAMINATION SCORER from either parent. Stair Climbing Evaluation Evaluation Level of Assist On Stairs Contact Guard Assistance Devices Stair Climbing Assistive Devices Left Railing,Right Railing Technique/Endurance Stair Climbing Direction Ascend and Descend Stair Climbing Technique Step Over Step Number of Steps Climbed 4 Stair Climbing Set # Repetitions (reps) 2 PT-OP-K Range of Motion Start: 05/27/21 16:09 Freq: Status: Active Protocol: Document 05/27/21 15:15 DCW (Rec: 05/27/21 16:28 [facility] [id number]) Hip Goniometric Range of Motion Hip Right Passive Testing Position Supine Straight Leg Raise 45 Left Passive Testing Position Supine Straight Leg Raise 38 Hip ROM Limitations Hip ROM Limitations Soft Tissue Tightness Comments Hamstring tightness leads to knee flexion in standing left worse than right Ankle and Foot Goniometric Range of Motion Ankle and Foot Right Comments At rest, right ankle in 8? inversion and 14? plantar flexion. With strap and stretch from therapist, able to get right ankle to neutral, nothing into dorsiflexion Left Comments At rest, left ankle in 12? inversion and 20? plantar flexion. With strap and stretch from therapist, able to get left ankle to neutral, nothing into dorsiflexion Ankle and Foot ROM Limitations ROM Limitations Soft Tissue Tightness, Contracture,Muscle Tone PT-OP-M Strength Start: 05/27/21 16:09 Freq: Status: Active Protocol: Document 05/27/21 15:15 DCW (Rec: 05/27/21 16:28 [facility] [id number]) Hip Strength Hip Manual Muscle Testing Right Flexion (L2) 4+ Good+ Abduction 4+ Good+ Adduction 4+ Good+ Left Flexion (L2) 4+ Good+ Abduction 4+ Good+ Adduction 4+ Good+ Knee Strength Knee Manual Muscle Testing Right Flexion (S2) 4+ Good+ Extension (L3) 4+ Good+ Left Flexion (S2) 4+ Good+ Extension (L3) 4+ Good+ PT-OP-Q Treatments Start: 05/27/21 16:09 Freq: Status: Active Protocol: Document 07/12/21 16:00 DCW (Rec: 07/12/21 16:47 [facility] [id number]) Gym Equipment Shuttle Balance 1 Details Blue - Wide CONSTANCE, uneven (6) Comments Jose hale: UE assist-> EXAMINATION SCORER -> no UE assist Therapeutic Exercises Sitting Exercises 3 Sitting Exercise Name Ankle DF Side bilateral Resistance Lv 2 Equipment Used T-band 2 Sitting Exercise Name Hamstring stretch Side bilateral 1 Sitting Exercise Name Heel cord stretch Side bilateral Standing Exercises 2 Standing Exercise Name Gastroc stretch Side bilateral Equipment Used WANDER 1 Standing Exercise Name Heel raises Side bilateral Equipment Used 4 step Gait Training Gait Activity 1 Description Gait training on changing surface carpet/tile Level of Assistance SBA Comments Verbal cues for heel-toe gait and increased step length, left arm swing, hurdles on tile surface Neuro Re-Education Treatment Other Activities 1 Details Obstacle Course Comments Half-balls under red foam, various-sized step up/down, magalis/foam walking, balance beam PT-OP-T Assessment and Plan Start: 05/27/21 16:09 Freq: Status: Active Protocol: Document 07/12/21 16:00 DCW (Rec: 07/12/21 16:47 DCW [id number]) Physical Therapy Assessment Impairments Impairments Activity Tolerance,Balance, Coordination,Functional Mobility,Gait,ROM,Soft Tissue Mobility,Tone Goals Three Impairment Pt scores a 20.1 TUG Mcfp Goal (LTG) Pt to decreased average TUG score to <15.5 in order to demonstrate improved confidence and a decreased fear of falling LTG Duration 07/25/21 Two Impairment Pt ambulates with toe walking bilaterally and a step-to gait pattern Ball Racker Goal (LTG) Pt to demonstrate ability with ambulate with a heel-toe pattern at least 50% of the time with a step-through pattern 75% of the time LTG Duration 07/25/21 One Impairment Pt does not have an appropriate home exercise program Short Term Goal (STG) Pt to be independent and compliant with an appropriate HEP STG Duration 06/27/21 Assessment Summary Assessment Pt better today after his shoes dried and he wasn't on the tile floor, felt much more stable. Was somewhat resistant to hurdles today when asked to lead with his right foot, however was able to perform well. Physical Therapy Plan Frequency and Duration Frequency of Treatment 2x/Week Duration of Treatment Two months Plan of Care Start Date 05/27/21 Plan of Care End Date 07/25/21 Therapeutic Interventions Therapeutic Interventions Balance Training,Coordination Training,Gait Training,Home Exercise Program,Manual Therapy,Neuromuscular Re- education,Patient/Caregiver Education,Self-Care/Home Management,Soft Tissue Mobilization,Therapeutic Exercises Next Visit Focus/Plan Next Note Type Treatment Note Next Visit Plan Flexibility, balance training, gait training
--- NOTE | 2021-07-15 17:33 | PT.OTN ---
Current Diagnoses Cerebral palsy, unspecified (07/15/21) Stiffness of unspecified knee, not elsewhere classified (07/15/21) Stiffness of unspecified ankle, not elsewhere classified (07/15/21) Other abnormalities of gait and mobility (07/15/21) Physical Therapy Treatment Note PT-OP-A Visit Information Start: 05/27/21 16:09 Freq: Status: Active Protocol: Document 07/15/21 16:47 DCW (Rec: 07/15/21 17:33 DCW [id number]) Out-Patient Physical Therapy Visit Information Visit Information Visit Type Treatment Note Visit Start Time 16:47 Visit Stop Time 17:30 Total Visit Minutes 43 Visit Number 12 Number of LABORER LABORATORY Visits 0 Evaluation Information Evaluation Date 05/27/21 PT-OP-B Current Condition Start: 05/27/21 16:09 Freq: Status: Active Protocol: Document 05/27/21 15:15 DCW (Rec: 05/27/21 16:28 DCW [id number]) Current Condition History of Current Condition Onset Date Long-standing history Current Complaints Decreased gait, confidence, increased fear of falling History of Current Condition Pt is a 20 year old male well known to this clinic with a history of cerebral palsy and developmental delay. Pt was previously seen four years ago following abdominal surgery because of a decline in gait function, and is presenting today with similar complaints. Pt's father reports pt has been having decreased confidence when walking, especially when on hard surfaces. Pt walks better on carpet, but becomes very hesitant and nervous on tile or outside on sidewalk. Pt admits he has fallen a few times walking out to his bus stop. Pt has always performed toe walking, especially on his left side, but it has progressed a bit recently, and pt is taking very hesitant, small steps, and will frequently rely on his parents for hand-hold assist to maintain balance. Treatment Goals Patient/Caregiver Goals I think I should be walking better when I turn 21. Prior Functional Status Baseline Function- Gait L Toe walking, LE spasticity PT-OP-C Subjective Start: 05/27/21 16:09 Freq: Status: Active Protocol: Document 07/15/21 16:47 DCW (Rec: 07/15/21 17:33 DCW [id number]) OP-PT Subjective Patient Comments Patient Comments Pt doing well today, excited for his boy's day with his dad tomorrow. PT-OP-D Balance Start: 05/27/21 16:09 Freq: Status: Active Protocol: Document 05/27/21 15:15 DCW (Rec: 05/27/21 16:28 DCW [id number]) OP-PT Balance Assessment Sitting Balance Static Sitting Balance Ability Good Dynamic Sitting Balance Ability Fair Standing Balance Static Standing Balance Ability Fair Dynamic Standing Balance Ability Fair Balance Tests Single Limb Standing Single Limb- Right 1 second Single Limb- Left 3 seconds Tandem Tandem Standing ~2 seconds bilaterally, difficulty placing L foot in fr Nevarez Fall Scale Copyright Permission PT-OP-E Functional Tests Start: 05/27/21 16:09 Freq: Status: Active Protocol: Document 05/27/21 15:15 DCW (Rec: 05/27/21 16:28 DCW [id number]) Functional Tests 2 Minute Walk Test Distance 157 Device Used none Comments 1.31 ft/sec Timed Up and Go (TUG) Score 20.1 Comments 3-trial average (20.3, 22.83 , 17.17) TUG Impairment Rating 100% Impaired (Score 20) PT-OP-G Mobility & Gait Start: 05/27/21 16:29 Freq: Status: Active Protocol: Document 05/27/21 15:15 DCW (Rec: 05/27/21 16:31 DCW [id number]) OP Gait Assessment Gait Gait Assistance Required: Standby Assistance Distance (Feet) 157 Able to Maintain Weight Bearing Status Yes During Gait Assistive Devices Assistive Device Gait Belt Gait Deviations General Gait Pattern Ataxic,Decreased Stride Length ,Decreased Feet Clearance, Flexed Trunk,Narrow Based Gait ,Step-to Gait Factors Limiting Gait Function Factors Limiting Gait Function Abnormal Tonal Influences, Limited Range of Motion,Poor Balance Comments Gait Comments Pt ambulates with toe walking bilaterally, decreased step length, decreased foot clearance, very narrow CONSTANCE, with step-to gait pattern. Pt noticeably pauses at thresholds from carpet to tile . Increased fear of falling results in pt typically reaching for FUEL TRUCK DRIVER from either parent. Stair Climbing Evaluation Evaluation Level of Assist On Stairs Contact Guard Assistance Devices Stair Climbing Assistive Devices Left Railing,Right Railing Technique/Endurance Stair Climbing Direction Ascend and Descend Stair Climbing Technique Step Over Step Number of Steps Climbed 4 Stair Climbing Set # Repetitions (reps) 2 PT-OP-K Range of Motion Start: 05/27/21 16:09 Freq: Status: Active Protocol: Document 05/27/21 15:15 DCW (Rec: 05/27/21 16:28 [facility] [id number]) Hip Goniometric Range of Motion Hip Right Passive Testing Position Supine Straight Leg Raise 45 Left Passive Testing Position Supine Straight Leg Raise 38 Hip ROM Limitations Hip ROM Limitations Soft Tissue Tightness Comments Hamstring tightness leads to knee flexion in standing left worse than right Ankle and Foot Goniometric Range of Motion Ankle and Foot Right Comments At rest, right ankle in 8? inversion and 14? plantar flexion. With strap and stretch from therapist, able to get right ankle to neutral, nothing into dorsiflexion Left Comments At rest, left ankle in 12? inversion and 20? plantar flexion. With strap and stretch from therapist, able to get left ankle to neutral, nothing into dorsiflexion Ankle and Foot ROM Limitations ROM Limitations Soft Tissue Tightness, Contracture,Muscle Tone PT-OP-M Strength Start: 05/27/21 16:09 Freq: Status: Active Protocol: Document 05/27/21 15:15 DCW (Rec: 05/27/21 16:28 [facility] [id number]) Hip Strength Hip Manual Muscle Testing Right Flexion (L2) 4+ Good+ Abduction 4+ Good+ Adduction 4+ Good+ Left Flexion (L2) 4+ Good+ Abduction 4+ Good+ Adduction 4+ Good+ Knee Strength Knee Manual Muscle Testing Right Flexion (S2) 4+ Good+ Extension (L3) 4+ Good+ Left Flexion (S2) 4+ Good+ Extension (L3) 4+ Good+ PT-OP-Q Treatments Start: 05/27/21 16:09 Freq: Status: Active Protocol: Document 07/15/21 16:47 DCW (Rec: 07/15/21 17:33 [facility] [id number]) Gym Equipment Shuttle Balance 1 Details Blue - Wide CONSTANCE, uneven (6) Comments Jose hale: UE assist-> FUEL TRUCK DRIVER -> no UE assist Therapeutic Exercises Sitting Exercises 3 Sitting Exercise Name Ankle DF Side bilateral Resistance Lv 2 Equipment Used T-band 2 Sitting Exercise Name Hamstring stretch Side bilateral 1 Sitting Exercise Name Heel cord stretch Side bilateral Standing Exercises 2 Standing Exercise Name Gastroc stretch Side bilateral Equipment Used WANDER 1 Standing Exercise Name Heel raises Side bilateral Equipment Used 4 step Therapeutic Activity Therapeutic Activity 1 Name Sit<->Stand Chair obstacle course Reps/Minutes x6 chairs Comments 1'12.17 55 Gait Training Gait Activity 1 Description Gait training on changing surface carpet/tile Level of Assistance SBA Comments Verbal cues for heel-toe gait and increased step length, left arm swing Neuro Re-Education Treatment Other Activities 1 Details Obstacle Course Comments Half-balls under red foam, various-sized step up/down, magalis/foam walking, balance beam PT-OP-T Assessment and Plan Start: 05/27/21 16:09 Freq: Status: Active Protocol: Document 07/15/21 16:47 DCW (Rec: 07/15/21 17:33 DCW [id number]) Physical Therapy Assessment Impairments Impairments Activity Tolerance,Balance, Coordination,Functional Mobility,Gait,ROM,Soft Tissue Mobility,Tone Goals Three Impairment Pt scores a 20.1 TUG Longterm Goal (LTG) Pt to decreased average TUG score to <15.5 in order to demonstrate improved confidence and a decreased fear of falling LTG Duration 07/25/21 Two Impairment Pt ambulates with toe walking bilaterally and a step-to gait pattern [facility] Goal (LTG) Pt to demonstrate ability with ambulate with a heel-toe pattern at least 50% of the time with a step-through pattern 75% of the time LTG Duration 07/25/21 One Impairment Pt does not have an appropriate home exercise program Short Term Goal (STG) Pt to be independent and compliant with an appropriate HEP STG Duration 06/27/21 Assessment Summary Assessment Pt did very well with sit<-> stands today, much less reliance on his hands. Pt showing improvement as well with decreasing calf tone on left, slight heel strike on left, decreased toe walking. Physical Therapy Plan Frequency and Duration Frequency of Treatment 2x/Week Duration of Treatment Two months Plan of Care Start Date 05/27/21 Plan of Care End Date 07/25/21 Therapeutic Interventions Therapeutic Interventions Balance Training,Coordination Training,Gait Training,Home Exercise Program,Manual Therapy,Neuromuscular Re- education,Patient/Caregiver Education,Self-Care/Home Management,Soft Tissue Mobilization,Therapeutic Exercises Next Visit Focus/Plan Next Note Type Treatment Note Next Visit Plan Flexibility, balance training, gait training
--- NOTE | 2021-07-26 17:46 | PT.OTN ---
Current Diagnoses Cerebral palsy, unspecified (07/26/21) Stiffness of unspecified knee, not elsewhere classified (07/26/21) Stiffness of unspecified ankle, not elsewhere classified (07/26/21) Other abnormalities of gait and mobility (07/26/21) Physical Therapy Treatment Note PT-OP-A Visit Information Start: 05/27/21 16:09 Freq: Status: Active Protocol: Document 07/26/21 16:45 DCW (Rec: 07/26/21 17:46 DCW [id number]) Out-Patient Physical Therapy Visit Information Visit Information Visit Type Progress Note Visit Start Time 16:45 Visit Stop Time 17:30 Total Visit Minutes 45 Visit Number 13 Number of COURSEWARE DEVELOPER Visits 0 Evaluation Information Evaluation Date 05/27/21 PT-OP-B Current Condition Start: 05/27/21 16:09 Freq: Status: Active Protocol: Document 05/27/21 15:15 DCW (Rec: 05/27/21 16:28 DCW [id number]) Current Condition History of Current Condition Onset Date Long-standing history Current Complaints Decreased gait, confidence, increased fear of falling History of Current Condition Pt is a 20 year old male well known to this clinic with a history of cerebral palsy and developmental delay. Pt was previously seen four years ago following abdominal surgery because of a decline in gait function, and is presenting today with similar complaints. Pt's father reports pt has been having decreased confidence when walking, especially when on hard surfaces. Pt walks better on carpet, but becomes very hesitant and nervous on tile or outside on sidewalk. Pt admits he has fallen a few times walking out to his bus stop. Pt has always performed toe walking, especially on his left side, but it has progressed a bit recently, and pt is taking very hesitant, small steps, and will frequently rely on his parents for hand-hold assist to maintain balance. Treatment Goals Patient/Caregiver Goals I think I should be walking better when I turn 21. Prior Functional Status Baseline Function- Gait L Toe walking, LE spasticity PT-OP-C Subjective Start: 05/27/21 16:09 Freq: Status: Active Protocol: Document 07/26/21 16:45 DCW (Rec: 07/26/21 17:46 DCW [id number]) OP-PT Subjective Patient Comments Patient Comments Pt's mom notes that he always does very well here, but falls back into his old habits at their house, relying more on hand hold support on touching the wall. PT-OP-D Balance Start: 05/27/21 16:09 Freq: Status: Active Protocol: Document 07/26/21 16:45 DCW (Rec: 07/26/21 17:39 DCW [id number]) Balance Tests Single Limb Standing Single Limb- Right 11 seconds Single Limb- Left 7 seconds Tandem Tandem Standing L: 10, R: 23 PT-OP-E Functional Tests Start: 05/27/21 16:09 Freq: Status: Active Protocol: Document 07/26/21 16:45 DCW (Rec: 07/26/21 17:39 DCW [id number]) Functional Tests 2 Minute Walk Test Distance 262 Device Used none Comments 2.18 ft/sec Timed Up and Go (TUG) Score 15.7 Comments 3-trial average (17.39, 14.47 , 15.19) TUG Impairment Rating 40 to <60% Impaired (Score 14- 15) PT-OP-G Mobility & Gait Start: 05/27/21 16:29 Freq: Status: Active Protocol: Document 07/26/21 16:45 DCW (Rec: 07/26/21 17:39 DCW [id number]) OP Gait Assessment Gait Gait Assistance Required: Standby Assistance Distance (Feet) 262 Able to Maintain Weight Bearing Status Yes During Gait Assistive Devices Assistive Device Gait Belt Gait Deviations General Gait Pattern Ataxic,Decreased Stride Length ,Decreased Feet Clearance, Flexed Trunk,Narrow Based Gait ,Step-to Gait Factors Limiting Gait Function Factors Limiting Gait Function Abnormal Tonal Influences, Limited Range of Motion,Poor Balance Comments Gait Comments Pt ambulates with toe walking bilaterally, decreased step length, decreased foot clearance, very narrow CONSTANCE, with step-to gait pattern. Pt noticeably pauses at thresholds from carpet to tile . Increased fear of falling results in pt typically reaching for TRY OUT PERSON from either parent. Stair Climbing Evaluation Evaluation Level of Assist On Stairs Contact Guard Assistance Devices Stair Climbing Assistive Devices Left Railing,Right Railing Technique/Endurance Stair Climbing Direction Ascend and Descend Stair Climbing Technique Step Over Step Number of Steps Climbed 4 Stair Climbing Set # Repetitions (reps) 2 PT-OP-K Range of Motion Start: 05/27/21 16:09 Freq: Status: Active Protocol: Document 07/26/21 16:45 DCW (Rec: 07/26/21 17:39 DCW [id number]) Ankle and Foot Goniometric Range of Motion Ankle and Foot Right Comments At rest, right ankle in 4? inversion and 10? plantar flexion. With stretch from therapist, able to get right ankle to 3? Left Comments At rest, left ankle in 10? inversion and 13? plantar flexion. With strap and stretch from therapist, able to get left ankle to neutral, nothing into dorsiflexion Ankle and Foot ROM Limitations ROM Limitations Soft Tissue Tightness, Contracture,Muscle Tone PT-OP-M Strength Start: 05/27/21 16:09 Freq: Status: Active Protocol: Document 05/27/21 15:15 DCW (Rec: 05/27/21 16:28 SCW [id number]) Hip Strength Hip Manual Muscle Testing Right Flexion (L2) 4+ Good+ Abduction 4+ Good+ Adduction 4+ Good+ Left Flexion (L2) 4+ Good+ Abduction 4+ Good+ Adduction 4+ Good+ Knee Strength Knee Manual Muscle Testing Right Flexion (S2) 4+ Good+ Extension (L3) 4+ Good+ Left Flexion (S2) 4+ Good+ Extension (L3) 4+ Good+ PT-OP-Q Treatments Start: 05/27/21 16:09 Freq: Status: Active Protocol: Document 07/26/21 16:45 DCW (Rec: 07/26/21 17:46 [facility] [id number]) Gym Equipment Shuttle Balance 1 Details Blue - Wide CONSTANCE, uneven (6) Comments Balloon volley: UE assist-> TRY OUT PERSON -> no UE assist Therapeutic Exercises Sitting Exercises 1 Sitting Exercise Name Heel cord stretch Side bilateral Standing Exercises 2 Standing Exercise Name Gastroc stretch Side bilateral Equipment Used WANDER 1 Standing Exercise Name Heel raises Side bilateral Equipment Used 4 step Neuro Re-Education Treatment Other Activities 1 Details Obstacle Course Comments Half-balls under red foam, various-sized step up/down, magalis/foam walking, balance beam PT-OP-T Assessment and Plan Start: 05/27/21 16:09 Freq: Status: Active Protocol: Document 07/26/21 16:45 DCW (Rec: 07/26/21 17:46 DC [id number]) Physical Therapy Assessment Impairments Impairments Activity Tolerance,Balance, Coordination,Functional Mobility,Gait,ROM,Soft Tissue Mobility,Tone Goals Three Impairment Pt scores a 20.1 TUG [facility] Goal (LTG) Pt to decreased average TUG score to <15.5 in order to demonstrate improved confidence and a decreased fear of falling 07/26/21 - Improving (15.7) LTG Duration 09/25/21 Two Impairment Pt ambulates with toe walking bilaterally and a step-to gait pattern [facility] Goal (LTG) Pt to demonstrate ability with ambulate with a heel-toe pattern at least 50% of the time with a step-through pattern 75% of the time LTG Duration 09/25/21 - Improving One Impairment Pt does not have an appropriate home exercise program Short Term Goal (STG) Pt to be independent and compliant with an appropriate HEP STG Duration Met Assessment Summary Assessment Pt showing great progress since initial evaluation. TUG improved from 20.1 to 15.7, 2MWT increased from 157' to 262', SLS and tandem stance both increased dramatically. Pt doing much better ambulating without requiring his hands on the wall for support, however still struggles more with this when not in therapy. Pt able to perform these activities, but his anxiety about falling returns without constant verbal cueing. Continued PT may be beneficial in order to improve confidence and increase pt's independence. Physical Therapy Plan Frequency and Duration Frequency of Treatment 2x/Week Duration of Treatment Two months Plan of Care Start Date 07/26/21 Plan of Care End Date 09/25/21 Therapeutic Interventions Therapeutic Interventions Balance Training,Coordination Training,Gait Training,Home Exercise Program,Manual Therapy,Neuromuscular Re- education,Patient/Caregiver Education,Self-Care/Home Management,Soft Tissue Mobilization,Therapeutic Exercises Next Visit Focus/Plan Next Note Type Treatment Note Next Visit Plan Flexibility, balance training, gait training
--- NOTE | 2021-07-26 17:46 | PT.OPPOC ---
Physical, Occupational & Speech Therapy At [facility] Current Diagnoses Cerebral palsy, unspecified (07/26/21) Stiffness of unspecified knee, not elsewhere classified (07/26/21) Stiffness of unspecified ankle, not elsewhere classified (07/26/21) Other abnormalities of gait and mobility (07/26/21) Visit Care Team Role Provider Type Andrew Mccoy MD Attending Provider Physician Family Provider Primary Care Provider Referring Provider Specialty: [facility] Address: [address] [place] [address], [facility] Email: Plan Of Care PT-OP-T Assessment and Plan Start: 05/27/21 16:09 Freq: Status: Active Protocol: Document 07/26/21 16:45 DCW (Rec: 07/26/21 17:46 DCW [id number]) Physical Therapy Assessment Impairments Impairments Activity Tolerance,Balance, Coordination,Functional Mobility,Gait,ROM,Soft Tissue Mobility,Tone Goals Three Impairment Pt scores a 20.1 TUG [facility] Goal (LTG) Pt to decreased average TUG score to <15.5 in order to demonstrate improved confidence and a decreased fear of falling 07/26/21 - Improving (15.7) LTG Duration 09/25/21 Two Impairment Pt ambulates with toe walking bilaterally and a step-to gait pattern [facility] Goal (LTG) Pt to demonstrate ability with ambulate with a heel-toe pattern at least 50% of the time with a step-through pattern 75% of the time LTG Duration 09/25/21 - Improving One Impairment Pt does not have an appropriate home exercise program Short Term Goal (STG) Pt to be independent and compliant with an appropriate HEP STG Duration Met Assessment Summary Assessment Pt showing great progress since initial evaluation. TUG improved from 20.1 to 15.7, 2MWT increased from 157' to 262', SLS and tandem stance both increased dramatically. Pt doing much better ambulating without requiring his hands on the wall for support, however still struggles more with this when not in therapy. Pt able to perform these activities, but his anxiety about falling returns without constant verbal cueing. Continued PT may be beneficial in order to improve confidence and increase pt's independence. Physical Therapy Plan Frequency and Duration Frequency of Treatment 2x/Week Duration of Treatment Two months Plan of Care Start Date 07/26/21 Plan of Care End Date 09/25/21 Therapeutic Interventions Therapeutic Interventions Balance Training,Coordination Training,Gait Training,Home Exercise Program,Manual Therapy,Neuromuscular Re- education,Patient/Caregiver Education,Self-Care/Home Management,Soft Tissue Mobilization,Therapeutic Exercises Next Visit Focus/Plan Next Note Type Treatment Note Next Visit Plan Flexibility, balance training, gait training Plan of Care Dates Plan of Care Start Date 07/26/21 Plan of Care End Date 09/25/21 Electronically Signed by: Raul Gaviria, PT 07/26/21 [id number] Please Sign and Return: I have reviewed this Plan of Care and certify that the skilled therapy services above are required to meet the patient?s needs. Physician Signature Date Printed Name and Credentials Clinical Instructor Signature Printed Name and Credentials
--- NOTE | 2021-07-29 16:48 | PT.OTN ---
Current Diagnoses Cerebral palsy, unspecified (07/29/21) Stiffness of unspecified knee, not elsewhere classified (07/29/21) Stiffness of unspecified ankle, not elsewhere classified (07/29/21) Other abnormalities of gait and mobility (07/29/21) Physical Therapy Treatment Note PT-OP-A Visit Information Start: 05/27/21 16:09 Freq: Status: Active Protocol: Document 07/29/21 16:02 DCW (Rec: 07/29/21 16:48 DCW [id number]) Out-Patient Physical Therapy Visit Information Visit Information Visit Type Treatment Note Visit Start Time 16:02 Visit Stop Time 16:45 Total Visit Minutes 43 Visit Number 14 Number of NOVELTIES SALES REPRESENTATIVE Visits 0 Evaluation Information Evaluation Date 05/27/21 PT-OP-B Current Condition Start: 05/27/21 16:09 Freq: Status: Active Protocol: Document 05/27/21 15:15 DCW (Rec: 05/27/21 16:28 DCW [id number]) Current Condition History of Current Condition Onset Date Long-standing history Current Complaints Decreased gait, confidence, increased fear of falling History of Current Condition Pt is a 20 year old male well known to this clinic with a history of cerebral palsy and developmental delay. Pt was previously seen four years ago following abdominal surgery because of a decline in gait function, and is presenting today with similar complaints. Pt's father reports pt has been having decreased confidence when walking, especially when on hard surfaces. Pt walks better on carpet, but becomes very hesitant and nervous on tile or outside on sidewalk. Pt admits he has fallen a few times walking out to his bus stop. Pt has always performed toe walking, especially on his left side, but it has progressed a bit recently, and pt is taking very hesitant, small steps, and will frequently rely on his parents for hand-hold assist to maintain balance. Treatment Goals Patient/Caregiver Goals I think I should be walking better when I turn 21. Prior Functional Status Baseline Function- Gait L Toe walking, LE spasticity PT-OP-C Subjective Start: 05/27/21 16:09 Freq: Status: Active Protocol: Document 07/29/21 16:02 DCW (Rec: 07/29/21 16:48 DCW [id number]) OP-PT Subjective Patient Comments Patient Comments Pt's mom reports pt had an incident this afternoon getting ready for the car, notes he was standing on his own,got freaked out at the possibility of losing his balance, overreacted, and lost his balance. Notes he was able to grab her arm, but did end up sitting on the ground. PT-OP-D Balance Start: 05/27/21 16:09 Freq: Status: Active Protocol: Document 07/26/21 16:45 DCW (Rec: 07/26/21 17:39 DCW [id number]) Balance Tests Single Limb Standing Single Limb- Right 11 seconds Single Limb- Left 7 seconds Tandem Tandem Standing L: 10, R: 23 PT-OP-E Functional Tests Start: 05/27/21 16:09 Freq: Status: Active Protocol: Document 07/26/21 16:45 DCW (Rec: 07/26/21 17:39 DCW [id number]) Functional Tests 2 Minute Walk Test Distance 262 Device Used none Comments 2.18 ft/sec Timed Up and Go (TUG) Score 15.7 Comments 3-trial average (17.39, 14.47 , 15.19) TUG Impairment Rating 40 to <60% Impaired (Score 14- 15) PT-OP-G Mobility & Gait Start: 05/27/21 16:29 Freq: Status: Active Protocol: Document 07/26/21 16:45 DCW (Rec: 07/26/21 17:39 DCW [id number]) OP Gait Assessment Gait Gait Assistance Required: Standby Assistance Distance (Feet) 262 Able to Maintain Weight Bearing Status Yes During Gait Assistive Devices Assistive Device Gait Belt Gait Deviations General Gait Pattern Ataxic,Decreased Stride Length ,Decreased Feet Clearance, Flexed Trunk,Narrow Based Gait ,Step-to Gait Factors Limiting Gait Function Factors Limiting Gait Function Abnormal Tonal Influences, Limited Range of Motion,Poor Balance Comments Gait Comments Pt ambulates with toe walking bilaterally, decreased step length, decreased foot clearance, very narrow CONSTANCE, with step-to gait pattern. Pt noticeably pauses at thresholds from carpet to tile . Increased fear of falling results in pt typically reaching for MANAGER INTERNAL from either parent. Stair Climbing Evaluation Evaluation Level of Assist On Stairs Contact Guard Assistance Devices Stair Climbing Assistive Devices Left Railing,Right Railing Technique/Endurance Stair Climbing Direction Ascend and Descend Stair Climbing Technique Step Over Step Number of Steps Climbed 4 Stair Climbing Set # Repetitions (reps) 2 PT-OP-K Range of Motion Start: 05/27/21 16:09 Freq: Status: Active Protocol: Document 07/26/21 16:45 DCW (Rec: 07/26/21 17:39 DCW [id number]) Ankle and Foot Goniometric Range of Motion Ankle and Foot Right Comments At rest, right ankle in 4? inversion and 10? plantar flexion. With stretch from therapist, able to get right ankle to 3? Left Comments At rest, left ankle in 10? inversion and 13? plantar flexion. With strap and stretch from therapist, able to get left ankle to neutral, nothing into dorsiflexion Ankle and Foot ROM Limitations ROM Limitations Soft Tissue Tightness, Contracture,Muscle Tone PT-OP-M Strength Start: 05/27/21 16:09 Freq: Status: Active Protocol: Document 05/27/21 15:15 DCW (Rec: 05/27/21 16:28 DCW [id number]) Hip Strength Hip Manual Muscle Testing Right Flexion (L2) 4+ Good+ Abduction 4+ Good+ Adduction 4+ Good+ Left Flexion (L2) 4+ Good+ Abduction 4+ Good+ Adduction 4+ Good+ Knee Strength Knee Manual Muscle Testing Right Flexion (S2) 4+ Good+ Extension (L3) 4+ Good+ Left Flexion (S2) 4+ Good+ Extension (L3) 4+ Good+ PT-OP-Q Treatments Start: 05/27/21 16:09 Freq: Status: Active Protocol: Document 07/29/21 16:02 DCW (Rec: 07/29/21 16:48 DCW [id number]) Therapeutic Exercises Sitting Exercises 3 Sitting Exercise Name Ankle DF Side bilateral Resistance Lv 2 Equipment Used T-band 2 Sitting Exercise Name Hamstring stretch Side bilateral 1 Sitting Exercise Name Heel cord stretch Side bilateral Standing Exercises 2 Standing Exercise Name Gastroc stretch Side bilateral Equipment Used WANDER 1 Standing Exercise Name Heel raises Side bilateral Equipment Used 4 step Gait Training Gait Activity 1 Description Gait training on changing surface carpet/tile Level of Assistance SBA Comments Verbal cues for heel-toe gait and increased step length, left arm swing Neuro Re-Education Treatment Other Activities 1 Details Obstacle Course Comments Half-balls under red foam, various-sized step up/down, magalis/foam walking, balance beam PT-OP-T Assessment and Plan Start: 05/27/21 16:09 Freq: Status: Active Protocol: Document 07/29/21 16:02 DC (Rec: 07/29/21 16:48 [facility] [id number]) Physical Therapy Assessment Impairments Impairments Activity Tolerance,Balance, Coordination,Functional Mobility,Gait,ROM,Soft Tissue Mobility,Tone Goals Three Impairment Pt scores a 20.1 TUG Body Rolling Machine Tender Goal (LTG) Pt to decreased average TUG score to <15.5 in order to demonstrate improved confidence and a decreased fear of falling 07/26/21 - Improving (15.7) LTG Duration 09/25/21 Two Impairment Pt ambulates with toe walking bilaterally and a step-to gait pattern Assisted Goal (LTG) Pt to demonstrate ability with ambulate with a heel-toe pattern at least 50% of the time with a step-through pattern 75% of the time LTG Duration 09/25/21 - Improving One Impairment Pt does not have an appropriate home exercise program Short Term Goal (STG) Pt to be independent and compliant with an appropriate HEP STG Duration Met Assessment Summary Assessment Despite his fall earlier today , pt still did very well with therapy. Discussed multiple times importance of keeping calm and not overreaching to a fear of falling. Physical Therapy Plan Frequency and Duration Frequency of Treatment 2x/Week Duration of Treatment Two months Plan of Care Start Date 07/26/21 Plan of Care End Date 09/25/21 Therapeutic Interventions Therapeutic Interventions Balance Training,Coordination Training,Gait Training,Home Exercise Program,Manual Therapy,Neuromuscular Re- education,Patient/Caregiver Education,Self-Care/Home Management,Soft Tissue Mobilization,Therapeutic Exercises Next Visit Focus/Plan Next Note Type Treatment Note Next Visit Plan Flexibility, balance training, gait training
--- NOTE | 2021-08-02 17:41 | PT.OTN ---
Current Diagnoses Cerebral palsy, unspecified (08/02/21) Stiffness of unspecified knee, not elsewhere classified (08/02/21) Stiffness of unspecified ankle, not elsewhere classified (08/02/21) Other abnormalities of gait and mobility (08/02/21) Physical Therapy Treatment Note PT-OP-A Visit Information Start: 05/27/21 16:09 Freq: Status: Active Protocol: Document 08/02/21 16:45 DCW (Rec: 08/02/21 17:41 DCW [id number]) Out-Patient Physical Therapy Visit Information Visit Information Visit Type Treatment Note Visit Start Time 16:45 Visit Stop Time 17:30 Total Visit Minutes 45 Visit Number 15 Number of PLATER PRINTED CIRCUIT BOARD PANELS Visits 0 Evaluation Information Evaluation Date 05/27/21 PT-OP-B Current Condition Start: 05/27/21 16:09 Freq: Status: Active Protocol: Document 05/27/21 15:15 DCW (Rec: 05/27/21 16:28 DCW [id number]) Current Condition History of Current Condition Onset Date Long-standing history Current Complaints Decreased gait, confidence, increased fear of falling History of Current Condition Pt is a 20 year old male well known to this clinic with a history of cerebral palsy and developmental delay. Pt was previously seen four years ago following abdominal surgery because of a decline in gait function, and is presenting today with similar complaints. Pt's father reports pt has been having decreased confidence when walking, especially when on hard surfaces. Pt walks better on carpet, but becomes very hesitant and nervous on tile or outside on sidewalk. Pt admits he has fallen a few times walking out to his bus stop. Pt has always performed toe walking, especially on his left side, but it has progressed a bit recently, and pt is taking very hesitant, small steps, and will frequently rely on his parents for hand-hold assist to maintain balance. Treatment Goals Patient/Caregiver Goals I think I should be walking better when I turn 21. Prior Functional Status Baseline Function- Gait L Toe walking, LE spasticity PT-OP-C Subjective Start: 05/27/21 16:09 Freq: Status: Active Protocol: Document 08/02/21 16:45 DCW (Rec: 08/02/21 17:41 DCW [id number]) OP-PT Subjective Patient Comments Patient Comments Pt reports he is doing well today PT-OP-D Balance Start: 05/27/21 16:09 Freq: Status: Active Protocol: Document 07/26/21 16:45 DCW (Rec: 07/26/21 17:39 DCW [id number]) Balance Tests Single Limb Standing Single Limb- Right 11 seconds Single Limb- Left 7 seconds Tandem Tandem Standing L: 10, R: 23 PT-OP-E Functional Tests Start: 05/27/21 16:09 Freq: Status: Active Protocol: Document 07/26/21 16:45 DCW (Rec: 07/26/21 17:39 DCW [id number]) Functional Tests 2 Minute Walk Test Distance 262 Device Used none Comments 2.18 ft/sec Timed Up and Go (TUG) Score 15.7 Comments 3-trial average (17.39, 14.47 , 15.19) TUG Impairment Rating 40 to <60% Impaired (Score 14- 15) PT-OP-G Mobility & Gait Start: 05/27/21 16:29 Freq: Status: Active Protocol: Document 07/26/21 16:45 DCW (Rec: 07/26/21 17:39 DCW [id number]) OP Gait Assessment Gait Gait Assistance Required: Standby Assistance Distance (Feet) 262 Able to Maintain Weight Bearing Status Yes During Gait Assistive Devices Assistive Device Gait Belt Gait Deviations General Gait Pattern Ataxic,Decreased Stride Length ,Decreased Feet Clearance, Flexed Trunk,Narrow Based Gait ,Step-to Gait Factors Limiting Gait Function Factors Limiting Gait Function Abnormal Tonal Influences, Limited Range of Motion,Poor Balance Comments Gait Comments Pt ambulates with toe walking bilaterally, decreased step length, decreased foot clearance, very narrow CONSTANCE, with step-to gait pattern. Pt noticeably pauses at thresholds from carpet to tile . Increased fear of falling results in pt typically reaching for SENIOR COMPUTER SPECIALIST from either parent. Stair Climbing Evaluation Evaluation Level of Assist On Stairs Contact Guard Assistance Devices Stair Climbing Assistive Devices Left Railing,Right Railing Technique/Endurance Stair Climbing Direction Ascend and Descend Stair Climbing Technique Step Over Step Number of Steps Climbed 4 Stair Climbing Set # Repetitions (reps) 2 PT-OP-K Range of Motion Start: 05/27/21 16:09 Freq: Status: Active Protocol: Document 07/26/21 16:45 DCW (Rec: 07/26/21 17:39 DCW [id number]) Ankle and Foot Goniometric Range of Motion Ankle and Foot Right Comments At rest, right ankle in 4? inversion and 10? plantar flexion. With stretch from therapist, able to get right ankle to 3? Left Comments At rest, left ankle in 10? inversion and 13? plantar flexion. With strap and stretch from therapist, able to get left ankle to neutral, nothing into dorsiflexion Ankle and Foot ROM Limitations ROM Limitations Soft Tissue Tightness, Contracture,Muscle Tone PT-OP-M Strength Start: 05/27/21 16:09 Freq: Status: Active Protocol: Document 05/27/21 15:15 DCW (Rec: 05/27/21 16:28 DCW [id number]) Hip Strength Hip Manual Muscle Testing Right Flexion (L2) 4+ Good+ Abduction 4+ Good+ Adduction 4+ Good+ Left Flexion (L2) 4+ Good+ Abduction 4+ Good+ Adduction 4+ Good+ Knee Strength Knee Manual Muscle Testing Right Flexion (S2) 4+ Good+ Extension (L3) 4+ Good+ Left Flexion (S2) 4+ Good+ Extension (L3) 4+ Good+ PT-OP-Q Treatments Start: 05/27/21 16:09 Freq: Status: Active Protocol: Document 08/02/21 16:45 DCW (Rec: 08/02/21 17:41 DCW [id number]) Gym Equipment Shuttle Balance 2 Details Red Comments WBOS Therapeutic Exercises Sitting Exercises 3 Sitting Exercise Name Ankle DF Side bilateral Resistance Lv 2 Equipment Used T-band 2 Sitting Exercise Name Hamstring stretch Side bilateral 1 Sitting Exercise Name Heel cord stretch Side bilateral Standing Exercises 2 Standing Exercise Name Gastroc stretch Side bilateral Equipment Used WANDER 1 Standing Exercise Name Heel raises Side bilateral Equipment Used 4 step Gait Training Gait Activity 1 Description Gait training on changing surface carpet/tile Level of Assistance SBA Comments Verbal cues for heel-toe gait and increased step length, left arm swing Neuro Re-Education Treatment Other Activities 1 Details Obstacle Course Comments Half-balls under red foam, various-sized step up/down, magalis/foam walking, balance beam PT-OP-T Assessment and Plan Start: 05/27/21 16:09 Freq: Status: Active Protocol: Document 08/02/21 16:45 DCW (Rec: 08/02/21 17:41 DCW [id number]) Physical Therapy Assessment Impairments Impairments Activity Tolerance,Balance, Coordination,Functional Mobility,Gait,ROM,Soft Tissue Mobility,Tone Goals Three Impairment Pt scores a 20.1 TUG Halfway Goal (LTG) Pt to decreased average TUG score to <15.5 in order to demonstrate improved confidence and a decreased fear of falling 07/26/21 - Improving (15.7) LTG Duration 09/25/21 Two Impairment Pt ambulates with toe walking bilaterally and a step-to gait pattern Real Estate Utilization Officer Goal (LTG) Pt to demonstrate ability with ambulate with a heel-toe pattern at least 50% of the time with a step-through pattern 75% of the time LTG Duration 09/25/21 - Improving One Impairment Pt does not have an appropriate home exercise program Short Term Goal (STG) Pt to be independent and compliant with an appropriate HEP STG Duration Met Assessment Summary Assessment Pt did well today with increased challenge on Shuttle balance, but still needs reminders to not reach out to use littlejohn for stability. Physical Therapy Plan Frequency and Duration Frequency of Treatment 2x/Week Duration of Treatment Two months Plan of Care Start Date 07/26/21 Plan of Care End Date 09/25/21 Therapeutic Interventions Therapeutic Interventions Balance Training,Coordination Training,Gait Training,Home Exercise Program,Manual Therapy,Neuromuscular Re- education,Patient/Caregiver Education,Self-Care/Home Management,Soft Tissue Mobilization,Therapeutic Exercises Next Visit Focus/Plan Next Note Type Treatment Note Next Visit Plan Flexibility, balance training, gait training
--- NOTE | 2021-08-05 17:45 | PT.OTN ---
Current Diagnoses Cerebral palsy, unspecified (08/05/21) Stiffness of unspecified knee, not elsewhere classified (08/05/21) Stiffness of unspecified ankle, not elsewhere classified (08/05/21) Other abnormalities of gait and mobility (08/05/21) Physical Therapy Treatment Note PT-OP-A Visit Information Start: 05/27/21 16:09 Freq: Status: Active Protocol: Document 08/05/21 16:45 DCW (Rec: 08/05/21 17:45 DCW [id number]) Out-Patient Physical Therapy Visit Information Visit Information Visit Type Treatment Note Visit Start Time 16:45 Visit Stop Time 17:30 Total Visit Minutes 45 Visit Number 16 Number of MANAGER RESPIRATORY Visits 0 Evaluation Information Evaluation Date 05/27/21 PT-OP-B Current Condition Start: 05/27/21 16:09 Freq: Status: Active Protocol: Document 05/27/21 15:15 DCW (Rec: 05/27/21 16:28 DCW [id number]) Current Condition History of Current Condition Onset Date Long-standing history Current Complaints Decreased gait, confidence, increased fear of falling History of Current Condition Pt is a 20 year old male well known to this clinic with a history of cerebral palsy and developmental delay. Pt was previously seen four years ago following abdominal surgery because of a decline in gait function, and is presenting today with similar complaints. Pt's father reports pt has been having decreased confidence when walking, especially when on hard surfaces. Pt walks better on carpet, but becomes very hesitant and nervous on tile or outside on sidewalk. Pt admits he has fallen a few times walking out to his bus stop. Pt has always performed toe walking, especially on his left side, but it has progressed a bit recently, and pt is taking very hesitant, small steps, and will frequently rely on his parents for hand-hold assist to maintain balance. Treatment Goals Patient/Caregiver Goals I think I should be walking better when I turn 21. Prior Functional Status Baseline Function- Gait L Toe walking, LE spasticity PT-OP-C Subjective Start: 05/27/21 16:09 Freq: Status: Active Protocol: Document 08/05/21 16:45 DCW (Rec: 08/05/21 17:45 DCW [id number]) OP-PT Subjective Patient Comments Patient Comments Pt feeling very good today, trying hard to not use his hands on littlejohn for stability. PT-OP-D Balance Start: 05/27/21 16:09 Freq: Status: Active Protocol: Document 07/26/21 16:45 DCW (Rec: 07/26/21 17:39 DCW [id number]) Balance Tests Single Limb Standing Single Limb- Right 11 seconds Single Limb- Left 7 seconds Tandem Tandem Standing L: 10, R: 23 PT-OP-E Functional Tests Start: 05/27/21 16:09 Freq: Status: Active Protocol: Document 07/26/21 16:45 DCW (Rec: 07/26/21 17:39 DCW [id number]) Functional Tests 2 Minute Walk Test Distance 262 Device Used none Comments 2.18 ft/sec Timed Up and Go (TUG) Score 15.7 Comments 3-trial average (17.39, 14.47 , 15.19) TUG Impairment Rating 40 to <60% Impaired (Score 14- 15) PT-OP-G Mobility & Gait Start: 05/27/21 16:29 Freq: Status: Active Protocol: Document 07/26/21 16:45 DCW (Rec: 07/26/21 17:39 DCW [id number]) OP Gait Assessment Gait Gait Assistance Required: Standby Assistance Distance (Feet) 262 Able to Maintain Weight Bearing Status Yes During Gait Assistive Devices Assistive Device Gait Belt Gait Deviations General Gait Pattern Ataxic,Decreased Stride Length ,Decreased Feet Clearance, Flexed Trunk,Narrow Based Gait ,Step-to Gait Factors Limiting Gait Function Factors Limiting Gait Function Abnormal Tonal Influences, Limited Range of Motion,Poor Balance Comments Gait Comments Pt ambulates with toe walking bilaterally, decreased step length, decreased foot clearance, very narrow CONSTANCE, with step-to gait pattern. Pt noticeably pauses at thresholds from carpet to tile . Increased fear of falling results in pt typically reaching for RD SCIENTIST from either parent. Stair Climbing Evaluation Evaluation Level of Assist On Stairs Contact Guard Assistance Devices Stair Climbing Assistive Devices Left Railing,Right Railing Technique/Endurance Stair Climbing Direction Ascend and Descend Stair Climbing Technique Step Over Step Number of Steps Climbed 4 Stair Climbing Set # Repetitions (reps) 2 PT-OP-K Range of Motion Start: 05/27/21 16:09 Freq: Status: Active Protocol: Document 07/26/21 16:45 DCW (Rec: 07/26/21 17:39 DCW [id number]) Ankle and Foot Goniometric Range of Motion Ankle and Foot Right Comments At rest, right ankle in 4? inversion and 10? plantar flexion. With stretch from therapist, able to get right ankle to 3? Left Comments At rest, left ankle in 10? inversion and 13? plantar flexion. With strap and stretch from therapist, able to get left ankle to neutral, nothing into dorsiflexion Ankle and Foot ROM Limitations ROM Limitations Soft Tissue Tightness, Contracture,Muscle Tone PT-OP-M Strength Start: 05/27/21 16:09 Freq: Status: Active Protocol: Document 05/27/21 15:15 DCW (Rec: 05/27/21 16:28 DCW [id number]) Hip Strength Hip Manual Muscle Testing Right Flexion (L2) 4+ Good+ Abduction 4+ Good+ Adduction 4+ Good+ Left Flexion (L2) 4+ Good+ Abduction 4+ Good+ Adduction 4+ Good+ Knee Strength Knee Manual Muscle Testing Right Flexion (S2) 4+ Good+ Extension (L3) 4+ Good+ Left Flexion (S2) 4+ Good+ Extension (L3) 4+ Good+ PT-OP-Q Treatments Start: 05/27/21 16:09 Freq: Status: Active Protocol: Document 08/05/21 16:45 DCW (Rec: 08/05/21 17:45 DCW [id number]) Therapeutic Exercises Sitting Exercises 3 Sitting Exercise Name Ankle DF Side bilateral Resistance Lv 2 Equipment Used T-band 2 Sitting Exercise Name Hamstring stretch Side bilateral 1 Sitting Exercise Name Heel cord stretch Side bilateral Standing Exercises 2 Standing Exercise Name Gastroc stretch Side bilateral Equipment Used WANDER 1 Standing Exercise Name Heel raises Side bilateral Equipment Used 4 step Other Exercises 1 Other Exercise Name Hurdles over changing floor surface Therapeutic Activity Therapeutic Activity 1 Name Sit<->Stand Chair obstacle course Reps/Minutes x6 chairs Comments 2'21 1'34 110 Gait Training Gait Activity 1 Description Gait training on changing surface carpet/tile Level of Assistance SBA Comments Verbal cues for heel-toe gait and increased step length, left arm swing PT-OP-T Assessment and Plan Start: 05/27/21 16:09 Freq: Status: Active Protocol: Document 08/05/21 16:45 DCW (Rec: 08/05/21 17:45 DCW [id number]) Physical Therapy Assessment Impairments Impairments Activity Tolerance,Balance, Coordination,Functional Mobility,Gait,ROM,Soft Tissue Mobility,Tone Goals Three Impairment Pt scores a 20.1 TUG Coil Placer Goal (LTG) Pt to decreased average TUG score to <15.5 in order to demonstrate improved confidence and a decreased fear of falling 07/26/21 - Improving (15.7) LTG Duration 09/25/21 Two Impairment Pt ambulates with toe walking bilaterally and a step-to gait pattern Half-Way Goal (LTG) Pt to demonstrate ability with ambulate with a heel-toe pattern at least 50% of the time with a step-through pattern 75% of the time LTG Duration 09/25/21 - Improving One Impairment Pt does not have an appropriate home exercise program Short Term Goal (STG) Pt to be independent and compliant with an appropriate HEP STG Duration Met Assessment Summary Assessment Pt struggled a lot with the chair obstacle course, especially the white folding chair, which caused him to freeze up when trying to figure out how to turn and sit in in. Pt was able to figure it out, and did better the next two tries. Physical Therapy Plan Frequency and Duration Frequency of Treatment 2x/Week Duration of Treatment Two months Plan of Care Start Date 07/26/21 Plan of Care End Date 09/25/21 Therapeutic Interventions Therapeutic Interventions Balance Training,Coordination Training,Gait Training,Home Exercise Program,Manual Therapy,Neuromuscular Re- education,Patient/Caregiver Education,Self-Care/Home Management,Soft Tissue Mobilization,Therapeutic Exercises Next Visit Focus/Plan Next Note Type Treatment Note Next Visit Plan Flexibility, balance training, gait training
--- NOTE | 2021-08-23 16:42 | PT.OTN ---
Current Diagnoses Cerebral palsy, unspecified (08/23/21) Stiffness of unspecified knee, not elsewhere classified (08/23/21) Stiffness of unspecified ankle, not elsewhere classified (08/23/21) Other abnormalities of gait and mobility (08/23/21) Physical Therapy Treatment Note PT-OP-A Visit Information Start: 05/27/21 16:09 Freq: Status: Active Protocol: Document 08/23/21 16:00 DCW (Rec: 08/23/21 16:42 DCW [id number]) Out-Patient Physical Therapy Visit Information Visit Information Visit Type Treatment Note Visit Start Time 16:00 Visit Stop Time 16:40 Total Visit Minutes 40 Visit Number 17 Number of RUBBER CALENDER HELPER Visits 0 Evaluation Information Evaluation Date 05/27/21 PT-OP-B Current Condition Start: 05/27/21 16:09 Freq: Status: Active Protocol: Document 05/27/21 15:15 DCW (Rec: 05/27/21 16:28 DCW [id number]) Current Condition History of Current Condition Onset Date Long-standing history Current Complaints Decreased gait, confidence, increased fear of falling History of Current Condition Pt is a 20 year old male well known to this clinic with a history of cerebral palsy and developmental delay. Pt was previously seen four years ago following abdominal surgery because of a decline in gait function, and is presenting today with similar complaints. Pt's father reports pt has been having decreased confidence when walking, especially when on hard surfaces. Pt walks better on carpet, but becomes very hesitant and nervous on tile or outside on sidewalk. Pt admits he has fallen a few times walking out to his bus stop. Pt has always performed toe walking, especially on his left side, but it has progressed a bit recently, and pt is taking very hesitant, small steps, and will frequently rely on his parents for hand-hold assist to maintain balance. Treatment Goals Patient/Caregiver Goals I think I should be walking better when I turn 21. Prior Functional Status Baseline Function- Gait L Toe walking, LE spasticity PT-OP-C Subjective Start: 05/27/21 16:09 Freq: Status: Active Protocol: Document 08/23/21 16:00 DCW (Rec: 08/23/21 16:42 DCW [id number]) OP-PT Subjective Patient Comments Patient Comments Pt excited about his new shoes today. PT-OP-D Balance Start: 05/27/21 16:09 Freq: Status: Active Protocol: Document 07/26/21 16:45 DCW (Rec: 07/26/21 17:39 DCW [id number]) Balance Tests Single Limb Standing Single Limb- Right 11 seconds Single Limb- Left 7 seconds Tandem Tandem Standing L: 10, R: 23 PT-OP-E Functional Tests Start: 05/27/21 16:09 Freq: Status: Active Protocol: Document 07/26/21 16:45 DCW (Rec: 07/26/21 17:39 DCW [id number]) Functional Tests 2 Minute Walk Test Distance 262 Device Used none Comments 2.18 ft/sec Timed Up and Go (TUG) Score 15.7 Comments 3-trial average (17.39, 14.47 , 15.19) TUG Impairment Rating 40 to <60% Impaired (Score 14- 15) PT-OP-G Mobility & Gait Start: 05/27/21 16:29 Freq: Status: Active Protocol: Document 07/26/21 16:45 DCW (Rec: 07/26/21 17:39 DCW [id number]) OP Gait Assessment Gait Gait Assistance Required: Standby Assistance Distance (Feet) 262 Able to Maintain Weight Bearing Status Yes During Gait Assistive Devices Assistive Device Gait Belt Gait Deviations General Gait Pattern Ataxic,Decreased Stride Length ,Decreased Feet Clearance, Flexed Trunk,Narrow Based Gait ,Step-to Gait Factors Limiting Gait Function Factors Limiting Gait Function Abnormal Tonal Influences, Limited Range of Motion,Poor Balance Comments Gait Comments Pt ambulates with toe walking bilaterally, decreased step length, decreased foot clearance, very narrow CONSTANCE, with step-to gait pattern. Pt noticeably pauses at thresholds from carpet to tile . Increased fear of falling results in pt typically reaching for ANTENNA RIGGER from either parent. Stair Climbing Evaluation Evaluation Level of Assist On Stairs Contact Guard Assistance Devices Stair Climbing Assistive Devices Left Railing,Right Railing Technique/Endurance Stair Climbing Direction Ascend and Descend Stair Climbing Technique Step Over Step Number of Steps Climbed 4 Stair Climbing Set # Repetitions (reps) 2 PT-OP-K Range of Motion Start: 05/27/21 16:09 Freq: Status: Active Protocol: Document 07/26/21 16:45 DCW (Rec: 07/26/21 17:39 DCW [id number]) Ankle and Foot Goniometric Range of Motion Ankle and Foot Right Comments At rest, right ankle in 4? inversion and 10? plantar flexion. With stretch from therapist, able to get right ankle to 3? Left Comments At rest, left ankle in 10? inversion and 13? plantar flexion. With strap and stretch from therapist, able to get left ankle to neutral, nothing into dorsiflexion Ankle and Foot ROM Limitations ROM Limitations Soft Tissue Tightness, Contracture,Muscle Tone PT-OP-M Strength Start: 05/27/21 16:09 Freq: Status: Active Protocol: Document 05/27/21 15:15 DCW (Rec: 05/27/21 16:28 [facility] [id number]) Hip Strength Hip Manual Muscle Testing Right Flexion (L2) 4+ Good+ Abduction 4+ Good+ Adduction 4+ Good+ Left Flexion (L2) 4+ Good+ Abduction 4+ Good+ Adduction 4+ Good+ Knee Strength Knee Manual Muscle Testing Right Flexion (S2) 4+ Good+ Extension (L3) 4+ Good+ Left Flexion (S2) 4+ Good+ Extension (L3) 4+ Good+ PT-OP-Q Treatments Start: 05/27/21 16:09 Freq: Status: Active Protocol: Document 08/23/21 16:00 DCW (Rec: 08/23/21 16:42 [facility] [id number]) Therapeutic Exercises Standing Exercises 2 Standing Exercise Name Gastroc stretch Side bilateral Equipment Used WANDER 1 Standing Exercise Name Heel raises Side bilateral Equipment Used 4 step Other Exercises 1 Other Exercise Name Hurdles over changing floor surface Therapeutic Activity Therapeutic Activity 1 Name Sit<->Stand Chair obstacle course Reps/Minutes x6 chairs Comments 1'03 58 58 Gait Training Gait Activity 1 Description Gait training on changing surface carpet/tile Level of Assistance SBA Comments Verbal cues for heel-toe gait and increased step length, left arm swing PT-OP-T Assessment and Plan Start: 05/27/21 16:09 Freq: Status: Active Protocol: Document 08/23/21 16:00 DCW (Rec: 08/23/21 16:42 [facility] [id number]) Physical Therapy Assessment Impairments Impairments Activity Tolerance,Balance, Coordination,Functional Mobility,Gait,ROM,Soft Tissue Mobility,Tone Goals Three Impairment Pt scores a 20.1 TUG Shelter Goal (LTG) Pt to decreased average TUG score to <15.5 in order to demonstrate improved confidence and a decreased fear of falling 07/26/21 - Improving (15.7) LTG Duration 09/25/21 Two Impairment Pt ambulates with toe walking bilaterally and a step-to gait pattern Clam Dredge Boat Captain Goal (LTG) Pt to demonstrate ability with ambulate with a heel-toe pattern at least 50% of the time with a step-through pattern 75% of the time LTG Duration 09/25/21 - Improving One Impairment Pt does not have an appropriate home exercise program Short Term Goal (STG) Pt to be independent and compliant with an appropriate HEP STG Duration Met Assessment Summary Assessment Pt significantly improved times on chair obstacle course today, even with addition of a second white folding chair, which, due to a lower profile, has been very difficult for pt to sit in during past attempts. Physical Therapy Plan Frequency and Duration Frequency of Treatment 2x/Week Duration of Treatment Two months Plan of Care Start Date 07/26/21 Plan of Care End Date 09/25/21 Therapeutic Interventions Therapeutic Interventions Balance Training,Coordination Training,Gait Training,Home Exercise Program,Manual Therapy,Neuromuscular Re- education,Patient/Caregiver Education,Self-Care/Home Management,Soft Tissue Mobilization,Therapeutic Exercises Next Visit Focus/Plan Next Note Type Treatment Note Next Visit Plan Flexibility, balance training, gait training
--- NOTE | 2021-08-31 16:47 | PT.OTN ---
Current Diagnoses Cerebral palsy, unspecified (08/31/21) Stiffness of unspecified knee, not elsewhere classified (08/31/21) Stiffness of unspecified ankle, not elsewhere classified (08/31/21) Other abnormalities of gait and mobility (08/31/21) Physical Therapy Treatment Note PT-OP-A Visit Information Start: 05/27/21 16:09 Freq: Status: Active Protocol: Document 08/31/21 16:00 DCW (Rec: 08/31/21 16:47 DCW [id number]) Out-Patient Physical Therapy Visit Information Visit Information Visit Type Treatment Note Visit Start Time 16:00 Visit Stop Time 16:45 Total Visit Minutes 45 Visit Number 18 Number of LOIN TRIMMER Visits 0 Evaluation Information Evaluation Date 05/27/21 PT-OP-B Current Condition Start: 05/27/21 16:09 Freq: Status: Active Protocol: Document 05/27/21 15:15 DCW (Rec: 05/27/21 16:28 DCW [id number]) Current Condition History of Current Condition Onset Date Long-standing history Current Complaints Decreased gait, confidence, increased fear of falling History of Current Condition Pt is a 20 year old male well known to this clinic with a history of cerebral palsy and developmental delay. Pt was previously seen four years ago following abdominal surgery because of a decline in gait function, and is presenting today with similar complaints. Pt's father reports pt has been having decreased confidence when walking, especially when on hard surfaces. Pt walks better on carpet, but becomes very hesitant and nervous on tile or outside on sidewalk. Pt admits he has fallen a few times walking out to his bus stop. Pt has always performed toe walking, especially on his left side, but it has progressed a bit recently, and pt is taking very hesitant, small steps, and will frequently rely on his parents for hand-hold assist to maintain balance. Treatment Goals Patient/Caregiver Goals I think I should be walking better when I turn 21. Prior Functional Status Baseline Function- Gait L Toe walking, LE spasticity PT-OP-C Subjective Start: 05/27/21 16:09 Freq: Status: Active Protocol: Document 08/31/21 16:00 DCW (Rec: 08/31/21 16:47 DCW [id number]) OP-PT Subjective Patient Comments Patient Comments Pt getting Botox injection next week. PT-OP-D Balance Start: 05/27/21 16:09 Freq: Status: Active Protocol: Document 07/26/21 16:45 DCW (Rec: 07/26/21 17:39 DCW [id number]) Balance Tests Single Limb Standing Single Limb- Right 11 seconds Single Limb- Left 7 seconds Tandem Tandem Standing L: 10, R: 23 PT-OP-E Functional Tests Start: 05/27/21 16:09 Freq: Status: Active Protocol: Document 07/26/21 16:45 DCW (Rec: 07/26/21 17:39 DCW [id number]) Functional Tests 2 Minute Walk Test Distance 262 Device Used none Comments 2.18 ft/sec Timed Up and Go (TUG) Score 15.7 Comments 3-trial average (17.39, 14.47 , 15.19) TUG Impairment Rating 40 to <60% Impaired (Score 14- 15) PT-OP-G Mobility & Gait Start: 05/27/21 16:29 Freq: Status: Active Protocol: Document 07/26/21 16:45 DCW (Rec: 07/26/21 17:39 DCW [id number]) OP Gait Assessment Gait Gait Assistance Required: Standby Assistance Distance (Feet) 262 Able to Maintain Weight Bearing Status Yes During Gait Assistive Devices Assistive Device Gait Belt Gait Deviations General Gait Pattern Ataxic,Decreased Stride Length ,Decreased Feet Clearance, Flexed Trunk,Narrow Based Gait ,Step-to Gait Factors Limiting Gait Function Factors Limiting Gait Function Abnormal Tonal Influences, Limited Range of Motion,Poor Balance Comments Gait Comments Pt ambulates with toe walking bilaterally, decreased step length, decreased foot clearance, very narrow CONSTANCE, with step-to gait pattern. Pt noticeably pauses at thresholds from carpet to tile . Increased fear of falling results in pt typically reaching for FURNACE LINER from either parent. Stair Climbing Evaluation Evaluation Level of Assist On Stairs Contact Guard Assistance Devices Stair Climbing Assistive Devices Left Railing,Right Railing Technique/Endurance Stair Climbing Direction Ascend and Descend Stair Climbing Technique Step Over Step Number of Steps Climbed 4 Stair Climbing Set # Repetitions (reps) 2 PT-OP-K Range of Motion Start: 05/27/21 16:09 Freq: Status: Active Protocol: Document 07/26/21 16:45 DCW (Rec: 07/26/21 17:39 DCW [id number]) Ankle and Foot Goniometric Range of Motion Ankle and Foot Right Comments At rest, right ankle in 4? inversion and 10? plantar flexion. With stretch from therapist, able to get right ankle to 3? Left Comments At rest, left ankle in 10? inversion and 13? plantar flexion. With strap and stretch from therapist, able to get left ankle to neutral, nothing into dorsiflexion Ankle and Foot ROM Limitations ROM Limitations Soft Tissue Tightness, Contracture,Muscle Tone PT-OP-M Strength Start: 05/27/21 16:09 Freq: Status: Active Protocol: Document 05/27/21 15:15 DCW (Rec: 05/27/21 16:28 DCW [id number]) Hip Strength Hip Manual Muscle Testing Right Flexion (L2) 4+ Good+ Abduction 4+ Good+ Adduction 4+ Good+ Left Flexion (L2) 4+ Good+ Abduction 4+ Good+ Adduction 4+ Good+ Knee Strength Knee Manual Muscle Testing Right Flexion (S2) 4+ Good+ Extension (L3) 4+ Good+ Left Flexion (S2) 4+ Good+ Extension (L3) 4+ Good+ PT-OP-Q Treatments Start: 05/27/21 16:09 Freq: Status: Active Protocol: Document 08/31/21 16:00 DCW (Rec: 08/31/21 16:47 DCW [id number]) Therapeutic Exercises Sitting Exercises 2 Sitting Exercise Name Hamstring stretch Side bilateral 1 Sitting Exercise Name Heel cord stretch Side bilateral Standing Exercises 2 Standing Exercise Name Gastroc stretch Side bilateral Equipment Used WANDER 1 Standing Exercise Name Heel raises Side bilateral Equipment Used 4 step Other Exercises 1 Other Exercise Name Hurdles over changing floor surface Therapeutic Activity Therapeutic Activity 1 Name Sit<->Stand Chair obstacle course Reps/Minutes x6 chairs Comments 1 47 Gait Training Gait Activity 1 Description Gait training on changing surface carpet/tile Level of Assistance SBA Comments Verbal cues for heel-toe gait and increased step length, left arm swing Neuro Re-Education Treatment Other Activities 1 Details Obstacle Course Comments Half-balls under red foam, various-sized step up/down, magalis/foam walking, balance beam PT-OP-T Assessment and Plan Start: 05/27/21 16:09 Freq: Status: Active Protocol: Document 08/31/21 16:00 DCW (Rec: 08/31/21 16:47 DCW [id number]) Physical Therapy Assessment Impairments Impairments Activity Tolerance,Balance, Coordination,Functional Mobility,Gait,ROM,Soft Tissue Mobility,Tone Goals Three Impairment Pt scores a 20.1 TUG Correction Goal (LTG) Pt to decreased average TUG score to <15.5 in order to demonstrate improved confidence and a decreased fear of falling 07/26/21 - Improving (15.7) LTG Duration 09/25/21 Two Impairment Pt ambulates with toe walking bilaterally and a step-to gait pattern Correction Goal (LTG) Pt to demonstrate ability with ambulate with a heel-toe pattern at least 50% of the time with a step-through pattern 75% of the time LTG Duration 09/25/21 - Improving One Impairment Pt does not have an appropriate home exercise program Short Term Goal (STG) Pt to be independent and compliant with an appropriate HEP STG Duration Met Assessment Summary Assessment Pt again improved on chair obstacle course, requiring less frequent VCs to keep hands away from wall while walking. Physical Therapy Plan Frequency and Duration Frequency of Treatment 2x/Week Duration of Treatment Two months Plan of Care Start Date 07/26/21 Plan of Care End Date 09/25/21 Therapeutic Interventions Therapeutic Interventions Balance Training,Coordination Training,Gait Training,Home Exercise Program,Manual Therapy,Neuromuscular Re- education,Patient/Caregiver Education,Self-Care/Home Management,Soft Tissue Mobilization,Therapeutic Exercises Next Visit Focus/Plan Next Note Type Treatment Note Next Visit Plan Flexibility, balance training, gait training
--- NOTE | 2021-09-16 17:31 | PT.OTN ---
Current Diagnoses Cerebral palsy, unspecified (09/16/21) Stiffness of unspecified knee, not elsewhere classified (09/16/21) Stiffness of unspecified ankle, not elsewhere classified (09/16/21) Other abnormalities of gait and mobility (09/16/21) Physical Therapy Treatment Note PT-OP-A Visit Information Start: 05/27/21 16:09 Freq: Status: Active Protocol: Document 09/16/21 16:46 DCW (Rec: 09/16/21 17:31 DCW [id number]) Out-Patient Physical Therapy Visit Information Visit Information Visit Type Treatment Note Visit Start Time 16:46 Visit Stop Time 17:30 Total Visit Minutes 44 Visit Number 19 Number of DIRECTOR WORKERS COMPENSATION Visits 0 Evaluation Information Evaluation Date 05/27/21 PT-OP-B Current Condition Start: 05/27/21 16:09 Freq: Status: Active Protocol: Document 05/27/21 15:15 DCW (Rec: 05/27/21 16:28 DCW [id number]) Current Condition History of Current Condition Onset Date Long-standing history Current Complaints Decreased gait, confidence, increased fear of falling History of Current Condition Pt is a 20 year old male well known to this clinic with a history of cerebral palsy and developmental delay. Pt was previously seen four years ago following abdominal surgery because of a decline in gait function, and is presenting today with similar complaints. Pt's father reports pt has been having decreased confidence when walking, especially when on hard surfaces. Pt walks better on carpet, but becomes very hesitant and nervous on tile or outside on sidewalk. Pt admits he has fallen a few times walking out to his bus stop. Pt has always performed toe walking, especially on his left side, but it has progressed a bit recently, and pt is taking very hesitant, small steps, and will frequently rely on his parents for hand-hold assist to maintain balance. Treatment Goals Patient/Caregiver Goals I think I should be walking better when I turn 21. Prior Functional Status Baseline Function- Gait L Toe walking, LE spasticity PT-OP-C Subjective Start: 05/27/21 16:09 Freq: Status: Active Protocol: Document 09/16/21 16:46 DCW (Rec: 09/16/21 17:31 DCW [id number]) OP-PT Subjective Patient Comments Patient Comments Pt comes today for his first PT visit after getting Botox injections in his L calf. PT reports he feels pretty good. PT-OP-D Balance Start: 05/27/21 16:09 Freq: Status: Active Protocol: Document 07/26/21 16:45 DCW (Rec: 07/26/21 17:39 DCW [id number]) Balance Tests Single Limb Standing Single Limb- Right 11 seconds Single Limb- Left 7 seconds Tandem Tandem Standing L: 10, R: 23 PT-OP-E Functional Tests Start: 05/27/21 16:09 Freq: Status: Active Protocol: Document 07/26/21 16:45 DCW (Rec: 07/26/21 17:39 DCW [id number]) Functional Tests 2 Minute Walk Test Distance 262 Device Used none Comments 2.18 ft/sec Timed Up and Go (TUG) Score 15.7 Comments 3-trial average (17.39, 14.47 , 15.19) TUG Impairment Rating 40 to <60% Impaired (Score 14- 15) PT-OP-G Mobility & Gait Start: 05/27/21 16:29 Freq: Status: Active Protocol: Document 07/26/21 16:45 DCW (Rec: 07/26/21 17:39 DCW [id number]) OP Gait Assessment Gait Gait Assistance Required: Standby Assistance Distance (Feet) 262 Able to Maintain Weight Bearing Status Yes During Gait Assistive Devices Assistive Device Gait Belt Gait Deviations General Gait Pattern Ataxic,Decreased Stride Length ,Decreased Feet Clearance, Flexed Trunk,Narrow Based Gait ,Step-to Gait Factors Limiting Gait Function Factors Limiting Gait Function Abnormal Tonal Influences, Limited Range of Motion,Poor Balance Comments Gait Comments Pt ambulates with toe walking bilaterally, decreased step length, decreased foot clearance, very narrow CONSTANCE, with step-to gait pattern. Pt noticeably pauses at thresholds from carpet to tile . Increased fear of falling results in pt typically reaching for ASPHALT TAR AND GRAVEL ROOFER from either parent. Stair Climbing Evaluation Evaluation Level of Assist On Stairs Contact Guard Assistance Devices Stair Climbing Assistive Devices Left Railing,Right Railing Technique/Endurance Stair Climbing Direction Ascend and Descend Stair Climbing Technique Step Over Step Number of Steps Climbed 4 Stair Climbing Set # Repetitions (reps) 2 PT-OP-K Range of Motion Start: 05/27/21 16:09 Freq: Status: Active Protocol: Document 07/26/21 16:45 DCW (Rec: 03/14/22 17:39 [facility] [id number]) Ankle and Foot Goniometric Range of Motion Ankle and Foot Right Comments At rest, right ankle in 4? inversion and 10? plantar flexion. With stretch from therapist, able to get right ankle to 3? Left Comments At rest, left ankle in 10? inversion and 13? plantar flexion. With strap and stretch from therapist, able to get left ankle to neutral, nothing into dorsiflexion Ankle and Foot ROM Limitations ROM Limitations Soft Tissue Tightness, Contracture,Muscle Tone PT-OP-M Strength Start: 05/27/21 16:09 Freq: Status: Active Protocol: Document 05/27/21 15:15 DCW (Rec: 05/27/21 16:28 [facility] [id number]) Hip Strength Hip Manual Muscle Testing Right Flexion (L2) 4+ Good+ Abduction 4+ Good+ Adduction 4+ Good+ Left Flexion (L2) 4+ Good+ Abduction 4+ Good+ Adduction 4+ Good+ Knee Strength Knee Manual Muscle Testing Right Flexion (S2) 4+ Good+ Extension (L3) 4+ Good+ Left Flexion (S2) 4+ Good+ Extension (L3) 4+ Good+ PT-OP-Q Treatments Start: 05/27/21 16:09 Freq: Status: Active Protocol: Document 09/16/21 16:46 DCW (Rec: 09/16/21 17:31 [facility] [id number]) Gym Equipment Shuttle Balance 2 Details Red Comments WBOS Therapeutic Exercises Sitting Exercises 2 Sitting Exercise Name Hamstring stretch Side bilateral 1 Sitting Exercise Name Heel cord stretch Side bilateral Standing Exercises 2 Standing Exercise Name Gastroc stretch Side bilateral Equipment Used WANDER 1 Standing Exercise Name Heel raises Side bilateral Equipment Used 4 step Other Exercises 1 Other Exercise Name Hurdles over changing floor surface Gait Training Gait Activity 1 Description Gait training on changing surface carpet/tile Level of Assistance SBA Comments Verbal cues for heel-toe gait and increased step length, left arm swing PT-OP-T Assessment and Plan Start: 05/27/21 16:09 Freq: Status: Active Protocol: Document 09/16/21 16:46 DCW (Rec: 09/16/21 17:31 [facility] [id number]) Physical Therapy Assessment Impairments Impairments Activity Tolerance,Balance, Coordination,Functional Mobility,Gait,ROM,Soft Tissue Mobility,Tone Goals Three Impairment Pt scores a 20.1 TUG Cap And Stud Machine Operator Goal (LTG) Pt to decreased average TUG score to <15.5 in order to demonstrate improved confidence and a decreased fear of falling 07/26/21 - Improving (15.7) LTG Duration 09/25/21 Two Impairment Pt ambulates with toe walking bilaterally and a step-to gait pattern Cap And Stud Machine Operator Goal (LTG) Pt to demonstrate ability with ambulate with a heel-toe pattern at least 50% of the time with a step-through pattern 75% of the time LTG Duration 09/25/21 - Improving One Impairment Pt does not have an appropriate home exercise program Short Term Goal (STG) Pt to be independent and compliant with an appropriate HEP STG Duration Met Assessment Summary Assessment Pt requires continued VCs to get heels down, but following Botox injection, pt's left heel consistently touching down, even though he still plants toes down first. Physical Therapy Plan Frequency and Duration Frequency of Treatment 2x/Week Duration of Treatment Two months Plan of Care Start Date 07/26/21 Plan of Care End Date 09/25/21 Therapeutic Interventions Therapeutic Interventions Balance Training,Coordination Training,Gait Training,Home Exercise Program,Manual Therapy,Neuromuscular Re- education,Patient/Caregiver Education,Self-Care/Home Management,Soft Tissue Mobilization,Therapeutic Exercises Next Visit Focus/Plan Next Note Type Treatment Note Next Visit Plan Flexibility, balance training, gait training
--- NOTE | 2021-09-20 17:35 | PT.OTN ---
Current Diagnoses Cerebral palsy, unspecified (09/20/21) Stiffness of unspecified knee, not elsewhere classified (09/20/21) Stiffness of unspecified ankle, not elsewhere classified (09/20/21) Other abnormalities of gait and mobility (09/20/21) Physical Therapy Treatment Note PT-OP-A Visit Information Start: 05/27/21 16:09 Freq: Status: Active Protocol: Document 09/20/21 16:45 DCW (Rec: 09/20/21 17:35 DCW [id number]) Out-Patient Physical Therapy Visit Information Visit Information Visit Type Treatment Note Visit Start Time 16:45 Visit Stop Time 17:30 Total Visit Minutes 44 Visit Number 20 Number of IMAGING SERVICES DIRECTOR Visits 0 Evaluation Information Evaluation Date 05/27/21 PT-OP-B Current Condition Start: 05/27/21 16:09 Freq: Status: Active Protocol: Document 05/27/21 15:15 DCW (Rec: 05/27/21 16:28 DCW [id number]) Current Condition History of Current Condition Onset Date Long-standing history Current Complaints Decreased gait, confidence, increased fear of falling History of Current Condition Pt is a 20 year old male well known to this clinic with a history of cerebral palsy and developmental delay. Pt was previously seen four years ago following abdominal surgery because of a decline in gait function, and is presenting today with similar complaints. Pt's father reports pt has been having decreased confidence when walking, especially when on hard surfaces. Pt walks better on carpet, but becomes very hesitant and nervous on tile or outside on sidewalk. Pt admits he has fallen a few times walking out to his bus stop. Pt has always performed toe walking, especially on his left side, but it has progressed a bit recently, and pt is taking very hesitant, small steps, and will frequently rely on his parents for hand-hold assist to maintain balance. Treatment Goals Patient/Caregiver Goals I think I should be walking better when I turn 21. Prior Functional Status Baseline Function- Gait L Toe walking, LE spasticity PT-OP-C Subjective Start: 05/27/21 16:09 Freq: Status: Active Protocol: Document 09/20/21 16:45 DCW (Rec: 09/20/21 17:35 DCW [id number]) OP-PT Subjective Patient Comments Patient Comments Notes his calf is still doing well following Botox injection PT-OP-D Balance Start: 05/27/21 16:09 Freq: Status: Active Protocol: Document 07/26/21 16:45 DCW (Rec: 07/26/21 17:39 DCW [id number]) Balance Tests Single Limb Standing Single Limb- Right 11 seconds Single Limb- Left 7 seconds Tandem Tandem Standing L: 10, R: 23 PT-OP-E Functional Tests Start: 05/27/21 16:09 Freq: Status: Active Protocol: Document 07/26/21 16:45 DCW (Rec: 07/26/21 17:39 DCW [id number]) Functional Tests 2 Minute Walk Test Distance 262 Device Used none Comments 2.18 ft/sec Timed Up and Go (TUG) Score 15.7 Comments 3-trial average (17.39, 14.47 , 15.19) TUG Impairment Rating 40 to <60% Impaired (Score 14- 15) PT-OP-G Mobility & Gait Start: 05/27/21 16:29 Freq: Status: Active Protocol: Document 07/26/21 16:45 DCW (Rec: 07/26/21 17:39 DCW [id number]) OP Gait Assessment Gait Gait Assistance Required: Standby Assistance Distance (Feet) 262 Able to Maintain Weight Bearing Status Yes During Gait Assistive Devices Assistive Device Gait Belt Gait Deviations General Gait Pattern Ataxic,Decreased Stride Length ,Decreased Feet Clearance, Flexed Trunk,Narrow Based Gait ,Step-to Gait Factors Limiting Gait Function Factors Limiting Gait Function Abnormal Tonal Influences, Limited Range of Motion,Poor Balance Comments Gait Comments Pt ambulates with toe walking bilaterally, decreased step length, decreased foot clearance, very narrow CONSTANCE, with step-to gait pattern. Pt noticeably pauses at thresholds from carpet to tile . Increased fear of falling results in pt typically reaching for PUBLIC HEALTH ADMINISTRATOR from either parent. Stair Climbing Evaluation Evaluation Level of Assist On Stairs Contact Guard Assistance Devices Stair Climbing Assistive Devices Left Railing,Right Railing Technique/Endurance Stair Climbing Direction Ascend and Descend Stair Climbing Technique Step Over Step Number of Steps Climbed 4 Stair Climbing Set # Repetitions (reps) 2 PT-OP-K Range of Motion Start: 05/27/21 16:09 Freq: Status: Active Protocol: Document 07/26/21 16:45 DCW (Rec: 07/26/21 17:39 DCW [id number]) Ankle and Foot Goniometric Range of Motion Ankle and Foot Right Comments At rest, right ankle in 4? inversion and 10? plantar flexion. With stretch from therapist, able to get right ankle to 3? Left Comments At rest, left ankle in 10? inversion and 13? plantar flexion. With strap and stretch from therapist, able to get left ankle to neutral, nothing into dorsiflexion Ankle and Foot ROM Limitations ROM Limitations Soft Tissue Tightness, Contracture,Muscle Tone PT-OP-M Strength Start: 05/27/21 16:09 Freq: Status: Active Protocol: Document 05/27/21 15:15 DCW (Rec: 05/27/21 16:28 DCW [id number]) Hip Strength Hip Manual Muscle Testing Right Flexion (L2) 4+ Good+ Abduction 4+ Good+ Adduction 4+ Good+ Left Flexion (L2) 4+ Good+ Abduction 4+ Good+ Adduction 4+ Good+ Knee Strength Knee Manual Muscle Testing Right Flexion (S2) 4+ Good+ Extension (L3) 4+ Good+ Left Flexion (S2) 4+ Good+ Extension (L3) 4+ Good+ PT-OP-Q Treatments Start: 05/27/21 16:09 Freq: Status: Active Protocol: Document 09/20/21 16:45 DCW (Rec: 09/20/21 17:35 [facility] [id number]) Gym Equipment Shuttle Balance 2 Details Red Comments WBOS Therapeutic Exercises Sitting Exercises 2 Sitting Exercise Name Hamstring stretch Side bilateral 1 Sitting Exercise Name Heel cord stretch Side bilateral Standing Exercises 2 Standing Exercise Name Gastroc stretch Side bilateral Equipment Used WANDER 1 Standing Exercise Name Heel raises Side bilateral Equipment Used 4 step Other Exercises 1 Other Exercise Name Hurdles over changing floor surface Gait Training Gait Activity 3 Description Outdoor gait - uneven dirt path Device Used PUBLIC HEALTH ADMINISTRATOR, Gait belt 1 Description Gait training on changing surface carpet/tile Level of Assistance SBA Comments Verbal cues for heel-toe gait and increased step length, left arm swing PT-OP-T Assessment and Plan Start: 05/27/21 16:09 Freq: Status: Active Protocol: Document 09/20/21 16:45 DCW (Rec: 09/20/21 17:35 [facility] [id number]) Physical Therapy Assessment Impairments Impairments Activity Tolerance,Balance, Coordination,Functional Mobility,Gait,ROM,Soft Tissue Mobility,Tone Goals Three Impairment Pt scores a 20.1 TUG Exchange Teller Goal (LTG) Pt to decreased average TUG score to <15.5 in order to demonstrate improved confidence and a decreased fear of falling 07/26/21 - Improving (15.7) LTG Duration 09/25/21 Two Impairment Pt ambulates with toe walking bilaterally and a step-to gait pattern Prison Goal (LTG) Pt to demonstrate ability with ambulate with a heel-toe pattern at least 50% of the time with a step-through pattern 75% of the time LTG Duration 09/25/21 - Improving One Impairment Pt does not have an appropriate home exercise program Short Term Goal (STG) Pt to be independent and compliant with an appropriate HEP STG Duration Met Assessment Summary Assessment Pt did well today with his first attempt here walking on the outdoor path. Pt does continue to need verbal reassuring with most activities to improve confidence, but is currently walking with a much better gait pattern, and his left heel is getting down. Physical Therapy Plan Frequency and Duration Frequency of Treatment 2x/Week Duration of Treatment Two months Plan of Care Start Date 07/26/21 Plan of Care End Date 09/25/21 Therapeutic Interventions Therapeutic Interventions Balance Training,Coordination Training,Gait Training,Home Exercise Program,Manual Therapy,Neuromuscular Re- education,Patient/Caregiver Education,Self-Care/Home Management,Soft Tissue Mobilization,Therapeutic Exercises Next Visit Focus/Plan Next Note Type Treatment Note Next Visit Plan Flexibility, balance training, gait training
--- NOTE | 2021-10-07 17:45 | PT.OTN ---
Current Diagnoses Cerebral palsy, unspecified (10/07/21) Stiffness of unspecified knee, not elsewhere classified (10/07/21) Stiffness of unspecified ankle, not elsewhere classified (10/07/21) Other abnormalities of gait and mobility (10/07/21) Physical Therapy Treatment Note PT-OP-A Visit Information Start: 05/27/21 16:09 Freq: Status: Active Protocol: Document 10/07/21 16:45 DCW (Rec: 10/07/21 17:45 DCW [id number]) Out-Patient Physical Therapy Visit Information Visit Information Visit Type Progress Note Visit Start Time 16:45 Visit Stop Time 17:30 Total Visit Minutes 45 Visit Number 21 Number of REJECT OPENER AND FILLER Visits 0 Evaluation Information Evaluation Date 05/27/21 PT-OP-B Current Condition Start: 05/27/21 16:09 Freq: Status: Active Protocol: Document 05/27/21 15:15 DCW (Rec: 05/27/21 16:28 DCW [id number]) Current Condition History of Current Condition Onset Date Long-standing history Current Complaints Decreased gait, confidence, increased fear of falling History of Current Condition Pt is a 20 year old male well known to this clinic with a history of cerebral palsy and developmental delay. Pt was previously seen four years ago following abdominal surgery because of a decline in gait function, and is presenting today with similar complaints. Pt's father reports pt has been having decreased confidence when walking, especially when on hard surfaces. Pt walks better on carpet, but becomes very hesitant and nervous on tile or outside on sidewalk. Pt admits he has fallen a few times walking out to his bus stop. Pt has always performed toe walking, especially on his left side, but it has progressed a bit recently, and pt is taking very hesitant, small steps, and will frequently rely on his parents for hand-hold assist to maintain balance. Treatment Goals Patient/Caregiver Goals I think I should be walking better when I turn 21. Prior Functional Status Baseline Function- Gait L Toe walking, LE spasticity PT-OP-C Subjective Start: 05/27/21 16:09 Freq: Status: Active Protocol: Document 10/07/21 16:45 DCW (Rec: 10/07/21 17:45 DCW [id number]) OP-PT Subjective Patient Comments Patient Comments Pt reports he is feeling better following a recent cold . PT-OP-D Balance Start: 05/27/21 16:09 Freq: Status: Active Protocol: Document 10/07/21 16:45 DCW (Rec: 10/07/21 17:20 DCW [id number]) Balance Tests Single Limb Standing Single Limb- Right 11 sec Single Limb- Left 10 sec Tandem Tandem Standing L: 20, R: 25 PT-OP-E Functional Tests Start: 05/27/21 16:09 Freq: Status: Active Protocol: Document 10/07/21 16:45 DCW (Rec: 10/07/21 17:20 DCW [id number]) Functional Tests 2 Minute Walk Test Distance 266 Device Used none Comments 2.22 ft/sec Timed Up and Go (TUG) Score 16.4 Comments 3-trial average (17.88, 16.75 , 14.61) TUG Impairment Rating 40 to <60% Impaired (Score 14- 15) PT-OP-G Mobility & Gait Start: 05/27/21 16:29 Freq: Status: Active Protocol: Document 10/07/21 16:45 DCW (Rec: 10/07/21 17:20 DCW [id number]) OP Gait Assessment Gait Gait Assistance Required: Standby Assistance Distance (Feet) 266 Able to Maintain Weight Bearing Status Yes During Gait Assistive Devices Assistive Device Gait Belt Gait Deviations General Gait Pattern Ataxic,Decreased Stride Length ,Decreased Feet Clearance, Flexed Trunk,Narrow Based Gait ,Step-to Gait Factors Limiting Gait Function Factors Limiting Gait Function Abnormal Tonal Influences, Limited Range of Motion,Poor Balance Comments Gait Comments Pt ambulates with toe walking bilaterally, decreased step length, decreased foot clearance, very narrow CONSTANCE, with step-to gait pattern. Pt noticeably pauses at thresholds from carpet to tile . Increased fear of falling results in pt typically reaching for COUNTRY SALES MANAGER from either parent. PT-OP-K Range of Motion Start: 05/27/21 16:09 Freq: Status: Active Protocol: Document 10/07/21 16:45 DCW (Rec: 10/07/21 17:20 DCW [id number]) Ankle and Foot Goniometric Range of Motion Ankle and Foot Right Comments At rest, right ankle in 4? inversion and 8? plantar flexion. With stretch from therapist, able to get right ankle to 10? DF Left Comments At rest, left ankle in 6? inversion and 8? plantar flexion. With stretch from therapist, able to get left ankle to 8? DF Ankle and Foot ROM Limitations ROM Limitations Soft Tissue Tightness, Contracture,Muscle Tone PT-OP-M Strength Start: 05/27/21 16:09 Freq: Status: Active Protocol: Document 05/27/21 15:15 DCW (Rec: 05/27/21 16:28 DCW [id number]) Hip Strength Hip Manual Muscle Testing Right Flexion (L2) 4+ Good+ Abduction 4+ Good+ Adduction 4+ Good+ Left Flexion (L2) 4+ Good+ Abduction 4+ Good+ Adduction 4+ Good+ Knee Strength Knee Manual Muscle Testing Right Flexion (S2) 4+ Good+ Extension (L3) 4+ Good+ Left Flexion (S2) 4+ Good+ Extension (L3) 4+ Good+ PT-OP-Q Treatments Start: 05/27/21 16:09 Freq: Status: Active Protocol: Document 10/07/21 16:45 DCW (Rec: 10/07/21 17:45 DCW [id number]) Gym Equipment Shuttle Balance 2 Details Red Comments WBOS Neuro Re-Education Treatment Other Activities 1 Details Balance testing, 2MWT, TUG PT-OP-T Assessment and Plan Start: 05/27/21 16:09 Freq: Status: Active Protocol: Document 10/07/21 16:45 DCW (Rec: 10/07/21 17:45 DCW [id number]) Physical Therapy Assessment Impairments Impairments Activity Tolerance,Balance, Coordination,Functional Mobility,Gait,ROM,Soft Tissue Mobility,Tone Goals Three Impairment Pt scores a 20.1 TUG Mcc Goal (LTG) Pt to decreased average TUG score to <15.5 in order to demonstrate improved confidence and a decreased fear of falling 07/26/21 - Improving (15.7) 10/07/21 - 16.4 LTG Duration 12/07/21 Two Impairment Pt ambulates with toe walking bilaterally and a step-to gait pattern Mcc Goal (LTG) Pt to demonstrate ability with ambulate with a heel-toe pattern at least 50% of the time with a step-through pattern 75% of the time LTG Duration 12/07/21 - Significant improving One Impairment Pt does not have an appropriate home exercise program Short Term Goal (STG) Pt to be independent and compliant with an appropriate HEP STG Duration Met Assessment Summary Assessment Pt L ankle ROM significantly improved since Botox injection , gait improving, pt able to get heel down during gait, less toe walking. Continues to need regular verbal cues for stride length and to eliminate use of hand on wall for stability. Should benefit from continued therapy to help improve gait and balance confidence, decrease fear of falling, and improve ankle mobility. Physical Therapy Plan Frequency and Duration Frequency of Treatment 2x/Week Duration of Treatment Two months Plan of Care Start Date 10/07/21 Plan of Care End Date 12/07/21 Therapeutic Interventions Therapeutic Interventions Balance Training,Coordination Training,Gait Training,Home Exercise Program,Manual Therapy,Neuromuscular Re- education,Patient/Caregiver Education,Self-Care/Home Management,Soft Tissue Mobilization,Therapeutic Exercises Next Visit Focus/Plan Next Note Type Treatment Note Next Visit Plan Flexibility, balance training, gait training
--- NOTE | 2021-10-07 17:45 | PT.OPPOC ---
Physical, Occupational & Speech Therapy At [facility] Current Diagnoses Cerebral palsy, unspecified (10/07/21) Stiffness of unspecified knee, not elsewhere classified (10/07/21) Stiffness of unspecified ankle, not elsewhere classified (10/07/21) Other abnormalities of gait and mobility (10/07/21) Visit Care Team Role Provider Type Andrew Mccoy MD Attending Provider Physician Family Provider Primary Care Provider Referring Provider Specialty: [facility] Address: [address] [place] [address], [employer] Email: [email or web address] Plan Of Care PT-OP-T Assessment and Plan Start: 05/27/21 16:09 Freq: Status: Active Protocol: Document 10/07/21 16:45 DCW (Rec: 10/07/21 17:45 DCW [id number]) Physical Therapy Assessment Impairments Impairments Activity Tolerance,Balance, Coordination,Functional Mobility,Gait,ROM,Soft Tissue Mobility,Tone Goals Three Impairment Pt scores a 20.1 TUG Experimental Physicist Goal (LTG) Pt to decreased average TUG score to <15.5 in order to demonstrate improved confidence and a decreased fear of falling 07/26/21 - Improving (15.7) 10/07/21 - 16.4 LTG Duration 12/07/21 Two Impairment Pt ambulates with toe walking bilaterally and a step-to gait pattern Mcfp Goal (LTG) Pt to demonstrate ability with ambulate with a heel-toe pattern at least 50% of the time with a step-through pattern 75% of the time LTG Duration 12/07/21 - Significant improving One Impairment Pt does not have an appropriate home exercise program Short Term Goal (STG) Pt to be independent and compliant with an appropriate HEP STG Duration Met Assessment Summary Assessment Pt L ankle ROM significantly improved since Botox injection , gait improving, pt able to get heel down during gait, less toe walking. Continues to need regular verbal cues for stride length and to eliminate use of hand on wall for stability. Should benefit from continued therapy to help improve gait and balance confidence, decrease fear of falling, and improve ankle mobility. Physical Therapy Plan Frequency and Duration Frequency of Treatment 2x/Week Duration of Treatment Two months Plan of Care Start Date 10/07/21 Plan of Care End Date 12/07/21 Therapeutic Interventions Therapeutic Interventions Balance Training,Coordination Training,Gait Training,Home Exercise Program,Manual Therapy,Neuromuscular Re- education,Patient/Caregiver Education,Self-Care/Home Management,Soft Tissue Mobilization,Therapeutic Exercises Next Visit Focus/Plan Next Note Type Treatment Note Next Visit Plan Flexibility, balance training, gait training Plan of Care Dates Plan of Care Start Date 10/07/21 Plan of Care End Date 12/07/21 Electronically Signed by: Raul Gaviria, PT 10/07/21 0586 If you are in agreement with this Plan of Care, please return a signed and dated copy. I have reviewed this Plan of Care and certify that the skilled therapy services above are required to meet the patient?s needs. Physician Signature Date Printed Name and Credentials Clinical Instructor Signature Printed Name and Credentials
--- NOTE | 2022-01-18 17:47 | PT.OTN ---
Current Diagnoses Cerebral palsy, unspecified (01/18/22) Stiffness of unspecified knee, not elsewhere classified (01/18/22) Stiffness of unspecified ankle, not elsewhere classified (01/18/22) Other abnormalities of gait and mobility (01/18/22) Physical Therapy Treatment Note PT-OP-A Visit Information Start: 05/27/21 16:09 Freq: Status: Active Protocol: Document 01/18/22 16:46 DCW (Rec: 01/18/22 17:47 DCW [id number]) Out-Patient Physical Therapy Visit Information Visit Information Visit Type Progress Note Visit Start Time 16:46 Visit Stop Time 17:30 Total Visit Minutes 44 Visit Number 22 Number of LINK TRAINER OPERATOR Visits 0 Evaluation Information Evaluation Date 05/27/21 PT-OP-B Current Condition Start: 05/27/21 16:09 Freq: Status: Active Protocol: Document 05/27/21 15:15 DCW (Rec: 05/27/21 16:28 DCW [id number]) Current Condition History of Current Condition Onset Date Long-standing history Current Complaints Decreased gait, confidence, increased fear of falling History of Current Condition Pt is a 20 year old male well known to this clinic with a history of cerebral palsy and developmental delay. Pt was previously seen four years ago following abdominal surgery because of a decline in gait function, and is presenting today with similar complaints. Pt's father reports pt has been having decreased confidence when walking, especially when on hard surfaces. Pt walks better on carpet, but becomes very hesitant and nervous on tile or outside on sidewalk. Pt admits he has fallen a few times walking out to his bus stop. Pt has always performed toe walking, especially on his left side, but it has progressed a bit recently, and pt is taking very hesitant, small steps, and will frequently rely on his parents for hand-hold assist to maintain balance. Treatment Goals Patient/Caregiver Goals I think I should be walking better when I turn 21. Prior Functional Status Baseline Function- Gait L Toe walking, LE spasticity PT-OP-C Subjective Start: 05/27/21 16:09 Freq: Status: Active Protocol: Document 01/18/22 16:46 DCW (Rec: 01/18/22 17:47 DCW [id number]) OP-PT Subjective Patient Comments Patient Comments Pt very happy to be back following an extended layoff from PT. PT-OP-D Balance Start: 05/27/21 16:09 Freq: Status: Active Protocol: Document 01/18/22 16:46 DCW (Rec: 01/18/22 17:12 DCW [id number]) Balance Tests Single Limb Standing Single Limb- Right 11 sec Single Limb- Left 11 sec Tandem Tandem Standing L: 24, R: 25 PT-OP-E Functional Tests Start: 05/27/21 16:09 Freq: Status: Active Protocol: Document 01/18/22 16:46 DCW (Rec: 01/18/22 17:12 DCW [id number]) Functional Tests 2 Minute Walk Test Distance 288' Device Used none Comments 2.40 ft/sec Timed Up and Go (TUG) Score 15.6 Comments 3-trial average (16.52, 16.35 , 13.99) TUG Impairment Rating 40 to <60% Impaired (Score 14- 15) PT-OP-G Mobility & Gait Start: 05/27/21 16:29 Freq: Status: Active Protocol: Document 01/18/22 16:46 DCW (Rec: 01/18/22 17:12 DC [id number]) OP Gait Assessment Gait Gait Assistance Required: Standby Assistance Distance (Feet) 288 Able to Maintain Weight Bearing Status Yes During Gait Assistive Devices Assistive Device Gait Belt Gait Deviations General Gait Pattern Ataxic,Decreased Stride Length ,Decreased Feet Clearance, Flexed Trunk,Narrow Based Gait ,Step-to Gait Factors Limiting Gait Function Factors Limiting Gait Function Abnormal Tonal Influences, Limited Range of Motion,Poor Balance Comments Gait Comments Pt ambulates with mild toe walking bilaterally, decreased step length, decreased foot clearance. Step-through more regularly (75% of the time) than previous testing. Much more comfortable crossing threshholds PT-OP-K Range of Motion Start: 05/27/21 16:09 Freq: Status: Active Protocol: Document 01/18/22 16:46 DCW (Rec: 01/18/22 17:12 DCW [id number]) Ankle and Foot Goniometric Range of Motion Ankle and Foot Right Comments At rest, right ankle in 3? inversion. With stretch from therapist, able to get right ankle to 8? DF Left Comments At rest, left ankle in 4? inversion. With stretch from therapist, able to get left ankle to 7? DF Ankle and Foot ROM Limitations ROM Limitations Soft Tissue Tightness, Contracture,Muscle Tone PT-OP-M Strength Start: 05/27/21 16:09 Freq: Status: Active Protocol: Document 05/27/21 15:15 DCW (Rec: 05/27/21 16:28 DCW [id number]) Hip Strength Hip Manual Muscle Testing Right Flexion (L2) 4+ Good+ Abduction 4+ Good+ Adduction 4+ Good+ Left Flexion (L2) 4+ Good+ Abduction 4+ Good+ Adduction 4+ Good+ Knee Strength Knee Manual Muscle Testing Right Flexion (S2) 4+ Good+ Extension (L3) 4+ Good+ Left Flexion (S2) 4+ Good+ Extension (L3) 4+ Good+ PT-OP-Q Treatments Start: 05/27/21 16:09 Freq: Status: Active Protocol: Document 01/18/22 16:46 DCW (Rec: 01/18/22 17:47 DC [id number]) Gym Equipment Shuttle Balance 2 Details Red Comments WBOS /c Balloon Volley Therapeutic Exercises Standing Exercises 2 Standing Exercise Name Gastroc stretch Side bilateral Equipment Used WANDER 1 Standing Exercise Name Heel raises Side bilateral Equipment Used 4 step Other Exercises 1 Other Exercise Name Hurdles over changing floor surface Neuro Re-Education Treatment Other Activities 1 Details Balance testing, 2MWT, TUG PT-OP-T Assessment and Plan Start: 05/27/21 16:09 Freq: Status: Active Protocol: Document 01/18/22 16:46 DCW (Rec: 01/18/22 17:47 DC [id number]) Physical Therapy Assessment Impairments Impairments Activity Tolerance,Balance, Coordination,Functional Mobility,Gait,ROM,Soft Tissue Mobility,Tone Goals Three Impairment Pt scores a 20.1 TUG Mcfp Goal (LTG) Pt to decreased average TUG score to <15.5 in order to demonstrate improved confidence and a decreased fear of falling 07/26/21 - Improving (15.7) 10/07/21 - 16.4 LTG Duration 02/17/22 - Nearly met (15.6 01/18) Two Impairment Pt ambulates with toe walking bilaterally and a step-to gait pattern Mcfp Goal (LTG) Pt to demonstrate ability with ambulate with a heel-toe pattern at least 50% of the time with a step-through pattern 75% of the time LTG Duration MET One Impairment Pt does not have an appropriate home exercise program Short Term Goal (STG) Pt to be independent and compliant with an appropriate HEP STG Duration Met Assessment Summary Assessment Pt doing very very well at the moment. Despite long lay-off from PT, there has been no drop off in testing, and pt in fact set personal records in both his 2 MWT and his TUG score. Pt's mom does note that he seems to have regressed at home, is unsure of the difference between here and home, pt appears to just be more confident with his ability in the PT clinic. Will continue to work in an effort to decrease pt anxiety and decrease falls risk. Physical Therapy Plan Frequency and Duration Frequency of Treatment 1-2x/Week Duration of Treatment One month Plan of Care Start Date 01/18/22 Plan of Care End Date 02/17/22 Therapeutic Interventions Therapeutic Interventions Balance Training,Coordination Training,Gait Training,Home Exercise Program,Manual Therapy,Neuromuscular Re- education,Patient/Caregiver Education,Self-Care/Home Management,Soft Tissue Mobilization,Therapeutic Exercises Next Visit Focus/Plan Next Note Type Treatment Note Next Visit Plan Flexibility, balance training, gait training
--- NOTE | 2022-01-18 17:48 | PT.OPPOC ---
Physical, Occupational & Speech Therapy At [facility] Current Diagnoses Cerebral palsy, unspecified (01/18/22) Stiffness of unspecified knee, not elsewhere classified (01/18/22) Stiffness of unspecified ankle, not elsewhere classified (01/18/22) Other abnormalities of gait and mobility (01/18/22) Visit Care Team Role Provider Type Andrew Mccoy MD Attending Provider Physician Family Provider Primary Care Provider Referring Provider Specialty: [facility] Address: [address] [place] [address], [facility] Email: [email or web address] Plan Of Care PT-OP-T Assessment and Plan Start: 05/27/21 16:09 Freq: Status: Active Protocol: Document 01/18/22 16:46 DCW (Rec: 01/18/22 17:47 DCW [id number]) Physical Therapy Assessment Impairments Impairments Activity Tolerance,Balance, Coordination,Functional Mobility,Gait,ROM,Soft Tissue Mobility,Tone Goals Three Impairment Pt scores a 20.1 TUG Book Sewer Goal (LTG) Pt to decreased average TUG score to <15.5 in order to demonstrate improved confidence and a decreased fear of falling 07/26/21 - Improving (15.7) 10/07/21 - 16.4 LTG Duration 02/17/22 - Nearly met (15.6 01/18) Two Impairment Pt ambulates with toe walking bilaterally and a step-to gait pattern Book Sewer Goal (LTG) Pt to demonstrate ability with ambulate with a heel-toe pattern at least 50% of the time with a step-through pattern 75% of the time LTG Duration MET One Impairment Pt does not have an appropriate home exercise program Short Term Goal (STG) Pt to be independent and compliant with an appropriate HEP STG Duration Met Assessment Summary Assessment Pt doing very very well at the moment. Despite long lay-off from PT, there has been no drop off in testing, and pt in fact set personal records in both his 2 MWT and his TUG score. Pt's mom does note that he seems to have regressed at home, is unsure of the difference between here and home, pt appears to just be more confident with his ability in the PT clinic. Will continue to work in an effort to decrease pt anxiety and decrease falls risk. Physical Therapy Plan Frequency and Duration Frequency of Treatment 1-2x/Week Duration of Treatment One month Plan of Care Start Date 01/18/22 Plan of Care End Date 02/17/22 Therapeutic Interventions Therapeutic Interventions Balance Training,Coordination Training,Gait Training,Home Exercise Program,Manual Therapy,Neuromuscular Re- education,Patient/Caregiver Education,Self-Care/Home Management,Soft Tissue Mobilization,Therapeutic Exercises Next Visit Focus/Plan Next Note Type Treatment Note Next Visit Plan Flexibility, balance training, gait training Plan of Care Dates Plan of Care Start Date 01/18/22 Plan of Care End Date 02/17/22 Electronically Signed by: Raul Gaviria, PT 01/18/22 2913 If you are in agreement with this Plan of Care, please return a signed and dated copy. I have reviewed this Plan of Care and certify that the skilled therapy services above are required to meet the patient?s needs. Physician Signature Date Printed Name and Credentials Clinical Instructor Signature Printed Name and Credentials
--- NOTE | 2022-01-20 16:45 | PT.OTN ---
Current Diagnoses Cerebral palsy, unspecified (01/20/22) Stiffness of unspecified knee, not elsewhere classified (01/20/22) Stiffness of unspecified ankle, not elsewhere classified (01/20/22) Other abnormalities of gait and mobility (01/20/22) Physical Therapy Treatment Note PT-OP-A Visit Information Start: 05/27/21 16:09 Freq: Status: Active Protocol: Document 01/20/22 16:02 DCW (Rec: 01/20/22 16:45 DCW [id number]) Out-Patient Physical Therapy Visit Information Visit Information Visit Type Treatment Note Visit Start Time 16:02 Visit Stop Time 16:45 Total Visit Minutes 43 Visit Number 23 Number of BOOKSTORE MANAGER Visits 0 Evaluation Information Evaluation Date 05/27/21 PT-OP-B Current Condition Start: 05/27/21 16:09 Freq: Status: Active Protocol: Document 05/27/21 15:15 DCW (Rec: 05/27/21 16:28 DCW [id number]) Current Condition History of Current Condition Onset Date Long-standing history Current Complaints Decreased gait, confidence, increased fear of falling History of Current Condition Pt is a 20 year old male well known to this clinic with a history of cerebral palsy and developmental delay. Pt was previously seen four years ago following abdominal surgery because of a decline in gait function, and is presenting today with similar complaints. Pt's father reports pt has been having decreased confidence when walking, especially when on hard surfaces. Pt walks better on carpet, but becomes very hesitant and nervous on tile or outside on sidewalk. Pt admits he has fallen a few times walking out to his bus stop. Pt has always performed toe walking, especially on his left side, but it has progressed a bit recently, and pt is taking very hesitant, small steps, and will frequently rely on his parents for hand-hold assist to maintain balance. Treatment Goals Patient/Caregiver Goals I think I should be walking better when I turn 21. Prior Functional Status Baseline Function- Gait L Toe walking, LE spasticity PT-OP-C Subjective Start: 05/27/21 16:09 Freq: Status: Active Protocol: Document 01/20/22 16:02 DCW (Rec: 01/20/22 16:45 DCW [id number]) OP-PT Subjective Patient Comments Patient Comments Pt excited to get started today. PT-OP-D Balance Start: 05/27/21 16:09 Freq: Status: Active Protocol: Document 01/18/22 16:46 DCW (Rec: 01/18/22 17:12 DCW [id number]) Balance Tests Single Limb Standing Single Limb- Right 11 sec Single Limb- Left 11 sec Tandem Tandem Standing L: 24, R: 25 PT-OP-E Functional Tests Start: 05/27/21 16:09 Freq: Status: Active Protocol: Document 01/18/22 16:46 DCW (Rec: 01/18/22 17:12 DCW [id number]) Functional Tests 2 Minute Walk Test Distance 288' Device Used none Comments 2.40 ft/sec Timed Up and Go (TUG) Score 15.6 Comments 3-trial average (16.52, 16.35 , 13.99) TUG Impairment Rating 40 to <60% Impaired (Score 14- 15) PT-OP-G Mobility & Gait Start: 05/27/21 16:29 Freq: Status: Active Protocol: Document 01/18/22 16:46 DCW (Rec: 01/18/22 17:12 DC [id number]) OP Gait Assessment Gait Gait Assistance Required: Standby Assistance Distance (Feet) 288 Able to Maintain Weight Bearing Status Yes During Gait Assistive Devices Assistive Device Gait Belt Gait Deviations General Gait Pattern Ataxic,Decreased Stride Length ,Decreased Feet Clearance, Flexed Trunk,Narrow Based Gait ,Step-to Gait Factors Limiting Gait Function Factors Limiting Gait Function Abnormal Tonal Influences, Limited Range of Motion,Poor Balance Comments Gait Comments Pt ambulates with mild toe walking bilaterally, decreased step length, decreased foot clearance. Step-through more regularly (75% of the time) than previous testing. Much more comfortable crossing threshholds PT-OP-K Range of Motion Start: 05/27/21 16:09 Freq: Status: Active Protocol: Document 01/18/22 16:46 DCW (Rec: 01/18/22 17:12 DCW [id number]) Ankle and Foot Goniometric Range of Motion Ankle and Foot Right Comments At rest, right ankle in 3? inversion. With stretch from therapist, able to get right ankle to 8? DF Left Comments At rest, left ankle in 4? inversion. With stretch from therapist, able to get left ankle to 7? DF Ankle and Foot ROM Limitations ROM Limitations Soft Tissue Tightness, Contracture,Muscle Tone PT-OP-M Strength Start: 05/27/21 16:09 Freq: Status: Active Protocol: Document 05/27/21 15:15 DCW (Rec: 05/27/21 16:28 [facility] [id number]) Hip Strength Hip Manual Muscle Testing Right Flexion (L2) 4+ Good+ Abduction 4+ Good+ Adduction 4+ Good+ Left Flexion (L2) 4+ Good+ Abduction 4+ Good+ Adduction 4+ Good+ Knee Strength Knee Manual Muscle Testing Right Flexion (S2) 4+ Good+ Extension (L3) 4+ Good+ Left Flexion (S2) 4+ Good+ Extension (L3) 4+ Good+ PT-OP-Q Treatments Start: 05/27/21 16:09 Freq: Status: Active Protocol: Document 01/20/22 16:02 DCW (Rec: 01/20/22 16:45 [facility] [id number]) Gym Equipment Shuttle Balance 2 Details Red Comments WBOS EO/EC Therapeutic Exercises Standing Exercises 2 Standing Exercise Name Gastroc stretch Side bilateral Equipment Used WANDER 1 Standing Exercise Name Heel raises Side bilateral Equipment Used 4 step Other Exercises 1 Other Exercise Name Hurdles over changing floor surface Therapeutic Activity Therapeutic Activity 1 Name Sit<->Stand Chair obstacle course Reps/Minutes x6 chairs Comments 1'03 40 34 Gait Training Gait Activity 2 Description Steps Level of Assistance CGA to SBA Treatment Focus Sequencing, strength, stability Comments R rail ascending, L rail descending, vaired step-to and step-through 1 Description Gait training on changing surface carpet/tile Level of Assistance SBA Comments Verbal cues for heel-toe gait and increased step length, left arm swing Neuro Re-Education Treatment Balance Activities 1 Details Foam stance Surface Lester foam PT-OP-T Assessment and Plan Start: 05/27/21 16:09 Freq: Status: Active Protocol: Document 01/20/22 16:02 DCW (Rec: 01/20/22 16:45 [facility] [id number]) Physical Therapy Assessment Impairments Impairments Activity Tolerance,Balance, Coordination,Functional Mobility,Gait,ROM,Soft Tissue Mobility,Tone Goals Three Impairment Pt scores a 20.1 TUG Film Mounter Goal (LTG) Pt to decreased average TUG score to <15.5 in order to demonstrate improved confidence and a decreased fear of falling 07/26/21 - Improving (15.7) 5/26/22 - 16.4 LTG Duration 02/17/22 - Nearly met (15.6 01/18) Two Impairment Pt ambulates with toe walking bilaterally and a step-to gait pattern Group Home Goal (LTG) Pt to demonstrate ability with ambulate with a heel-toe pattern at least 50% of the time with a step-through pattern 75% of the time LTG Duration MET One Impairment Pt does not have an appropriate home exercise program Short Term Goal (STG) Pt to be independent and compliant with an appropriate HEP STG Duration Met Assessment Summary Assessment Pt did very well today, returned to chair obstacle course, which pt typically struggles with, however today pt did very well after just the first repetition, nearly cutting his time to complete in half. Physical Therapy Plan Frequency and Duration Frequency of Treatment 1-2x/Week Duration of Treatment One month Plan of Care Start Date 01/18/22 Plan of Care End Date 02/17/22 Therapeutic Interventions Therapeutic Interventions Balance Training,Coordination Training,Gait Training,Home Exercise Program,Manual Therapy,Neuromuscular Re- education,Patient/Caregiver Education,Self-Care/Home Management,Soft Tissue Mobilization,Therapeutic Exercises Next Visit Focus/Plan Next Note Type Treatment Note Next Visit Plan Flexibility, balance training, gait training
--- NOTE | 2022-01-25 17:29 | PT.OTN ---
Current Diagnoses Cerebral palsy, unspecified (01/25/22) Stiffness of unspecified knee, not elsewhere classified (01/25/22) Stiffness of unspecified ankle, not elsewhere classified (01/25/22) Other abnormalities of gait and mobility (01/25/22) Physical Therapy Treatment Note PT-OP-A Visit Information Start: 05/27/21 16:09 Freq: Status: Active Protocol: Document 01/25/22 16:45 DCW (Rec: 01/25/22 17:28 DCW [id number]) Out-Patient Physical Therapy Visit Information Visit Information Visit Type Treatment Note Visit Start Time 16:45 Visit Stop Time 17:30 Total Visit Minutes 45 Visit Number 24 Number of PARTS CLERK PLANT MAINTENANCE Visits 0 Evaluation Information Evaluation Date 05/27/21 PT-OP-B Current Condition Start: 05/27/21 16:09 Freq: Status: Active Protocol: Document 05/27/21 15:15 DCW (Rec: 05/27/21 16:28 DCW [id number]) Current Condition History of Current Condition Onset Date Long-standing history Current Complaints Decreased gait, confidence, increased fear of falling History of Current Condition Pt is a 20 year old male well known to this clinic with a history of cerebral palsy and developmental delay. Pt was previously seen four years ago following abdominal surgery because of a decline in gait function, and is presenting today with similar complaints. Pt's father reports pt has been having decreased confidence when walking, especially when on hard surfaces. Pt walks better on carpet, but becomes very hesitant and nervous on tile or outside on sidewalk. Pt admits he has fallen a few times walking out to his bus stop. Pt has always performed toe walking, especially on his left side, but it has progressed a bit recently, and pt is taking very hesitant, small steps, and will frequently rely on his parents for hand-hold assist to maintain balance. Treatment Goals Patient/Caregiver Goals I think I should be walking better when I turn 21. Prior Functional Status Baseline Function- Gait L Toe walking, LE spasticity PT-OP-C Subjective Start: 05/27/21 16:09 Freq: Status: Active Protocol: Document 01/25/22 16:45 DCW (Rec: 01/25/22 17:29 DCW [id number]) OP-PT Subjective Patient Comments Patient Comments Pt's mom notes that pt had a fall a few days ago when he was home alone, pt notes he was trying to practice, no complaints of pain or injury resulting from fall. PT-OP-D Balance Start: 05/27/21 16:09 Freq: Status: Active Protocol: Document 01/18/22 16:46 DCW (Rec: 01/18/22 17:12 DCW [id number]) Balance Tests Single Limb Standing Single Limb- Right 11 sec Single Limb- Left 11 sec Tandem Tandem Standing L: 24, R: 25 PT-OP-E Functional Tests Start: 05/27/21 16:09 Freq: Status: Active Protocol: Document 01/18/22 16:46 DCW (Rec: 01/18/22 17:12 DCW [id number]) Functional Tests 2 Minute Walk Test Distance 288' Device Used none Comments 2.40 ft/sec Timed Up and Go (TUG) Score 15.6 Comments 3-trial average (16.52, 16.35 , 13.99) TUG Impairment Rating 40 to <60% Impaired (Score 14- 15) PT-OP-G Mobility & Gait Start: 05/27/21 16:29 Freq: Status: Active Protocol: Document 01/18/22 16:46 DCW (Rec: 01/18/22 17:12 DCW [id number]) OP Gait Assessment Gait Gait Assistance Required: Standby Assistance Distance (Feet) 288 Able to Maintain Weight Bearing Status Yes During Gait Assistive Devices Assistive Device Gait Belt Gait Deviations General Gait Pattern Ataxic,Decreased Stride Length ,Decreased Feet Clearance, Flexed Trunk,Narrow Based Gait ,Step-to Gait Factors Limiting Gait Function Factors Limiting Gait Function Abnormal Tonal Influences, Limited Range of Motion,Poor Balance Comments Gait Comments Pt ambulates with mild toe walking bilaterally, decreased step length, decreased foot clearance. Step-through more regularly (75% of the time) than previous testing. Much more comfortable crossing threshholds PT-OP-K Range of Motion Start: 05/27/21 16:09 Freq: Status: Active Protocol: Document 01/18/22 16:46 DCW (Rec: 01/18/22 17:12 DCW [id number]) Ankle and Foot Goniometric Range of Motion Ankle and Foot Right Comments At rest, right ankle in 3? inversion. With stretch from therapist, able to get right ankle to 8? DF Left Comments At rest, left ankle in 4? inversion. With stretch from therapist, able to get left ankle to 7? DF Ankle and Foot ROM Limitations ROM Limitations Soft Tissue Tightness, Contracture,Muscle Tone PT-OP-M Strength Start: 05/27/21 16:09 Freq: Status: Active Protocol: Document 05/27/21 15:15 DCW (Rec: 05/27/21 16:28 DCW [id number]) Hip Strength Hip Manual Muscle Testing Right Flexion (L2) 4+ Good+ Abduction 4+ Good+ Adduction 4+ Good+ Left Flexion (L2) 4+ Good+ Abduction 4+ Good+ Adduction 4+ Good+ Knee Strength Knee Manual Muscle Testing Right Flexion (S2) 4+ Good+ Extension (L3) 4+ Good+ Left Flexion (S2) 4+ Good+ Extension (L3) 4+ Good+ PT-OP-Q Treatments Start: 05/27/21 16:09 Freq: Status: Active Protocol: Document 01/25/22 16:45 DCW (Rec: 01/25/22 17:28 DCW [id number]) Gym Equipment Shuttle Balance 2 Details Red Comments WBOS EO/EC, Lateral stabilization Therapeutic Exercises Sitting Exercises 3 Sitting Exercise Name Ankle DF Side bilateral Resistance Lv 2 Equipment Used T-band 2 Sitting Exercise Name Hamstring stretch Side bilateral 1 Sitting Exercise Name Heel cord stretch Side bilateral Standing Exercises 2 Standing Exercise Name Gastroc stretch Side bilateral Equipment Used WANDER 1 Standing Exercise Name Heel raises Side bilateral Equipment Used 4 step Other Exercises 1 Other Exercise Name Hurdles over changing floor surface Comments Used red pads and cones as obstacles Gait Training Gait Activity 2 Description Steps Level of Assistance CGA to SBA Treatment Focus Sequencing, strength, stability Comments R rail ascending, L rail descending, step-through 1 Description Gait training on changing surface carpet/tile Level of Assistance SBA Comments Verbal cues for heel-toe gait and increased step length, left arm swing PT-OP-T Assessment and Plan Start: 05/27/21 16:09 Freq: Status: Active Protocol: Document 01/25/22 16:45 DCW (Rec: 01/25/22 17:28 DCW [id number]) Physical Therapy Assessment Impairments Impairments Activity Tolerance,Balance, Coordination,Functional Mobility,Gait,ROM,Soft Tissue Mobility,Tone Goals Three Impairment Pt scores a 20.1 TUG Rotary Driller Helper Goal (LTG) Pt to decreased average TUG score to <15.5 in order to demonstrate improved confidence and a decreased fear of falling 07/26/21 - Improving (15.7) 10/07/21 - 16.4 LTG Duration 02/17/22 - Nearly met (15.6 01/18) Two Impairment Pt ambulates with toe walking bilaterally and a step-to gait pattern Penitentiary Goal (LTG) Pt to demonstrate ability with ambulate with a heel-toe pattern at least 50% of the time with a step-through pattern 75% of the time LTG Duration MET One Impairment Pt does not have an appropriate home exercise program Short Term Goal (STG) Pt to be independent and compliant with an appropriate HEP STG Duration Met Assessment Summary Assessment Increased difficulty of most activities today, pt did not have any difficulty adjusting, did very well with gait speed and arm swing. Physical Therapy Plan Frequency and Duration Frequency of Treatment 1-2x/Week Duration of Treatment One month Plan of Care Start Date 01/18/22 Plan of Care End Date 02/17/22 Therapeutic Interventions Therapeutic Interventions Balance Training,Coordination Training,Gait Training,Home Exercise Program,Manual Therapy,Neuromuscular Re- education,Patient/Caregiver Education,Self-Care/Home Management,Soft Tissue Mobilization,Therapeutic Exercises Next Visit Focus/Plan Next Note Type Treatment Note Next Visit Plan Flexibility, balance training, gait training
--- NOTE | 2022-01-27 17:36 | PT.OTN ---
Current Diagnoses Cerebral palsy, unspecified (01/27/22) Stiffness of unspecified knee, not elsewhere classified (01/27/22) Stiffness of unspecified ankle, not elsewhere classified (01/27/22) Other abnormalities of gait and mobility (01/27/22) Physical Therapy Treatment Note PT-OP-A Visit Information Start: 05/27/21 16:09 Freq: Status: Active Protocol: Document 01/27/22 16:45 DCW (Rec: 01/27/22 17:36 DCW [id number]) Out-Patient Physical Therapy Visit Information Visit Information Visit Type Treatment Note Visit Start Time 16:45 Visit Stop Time 17:30 Total Visit Minutes 45 Visit Number 25 Number of CEMENT RAILROAD CAR LOADER Visits 0 Evaluation Information Evaluation Date 05/27/21 PT-OP-B Current Condition Start: 05/27/21 16:09 Freq: Status: Active Protocol: Document 05/27/21 15:15 DCW (Rec: 05/27/21 16:28 DCW [id number]) Current Condition History of Current Condition Onset Date Long-standing history Current Complaints Decreased gait, confidence, increased fear of falling History of Current Condition Pt is a 20 year old male well known to this clinic with a history of cerebral palsy and developmental delay. Pt was previously seen four years ago following abdominal surgery because of a decline in gait function, and is presenting today with similar complaints. Pt's father reports pt has been having decreased confidence when walking, especially when on hard surfaces. Pt walks better on carpet, but becomes very hesitant and nervous on tile or outside on sidewalk. Pt admits he has fallen a few times walking out to his bus stop. Pt has always performed toe walking, especially on his left side, but it has progressed a bit recently, and pt is taking very hesitant, small steps, and will frequently rely on his parents for hand-hold assist to maintain balance. Treatment Goals Patient/Caregiver Goals I think I should be walking better when I turn 21. Prior Functional Status Baseline Function- Gait L Toe walking, LE spasticity PT-OP-C Subjective Start: 05/27/21 16:09 Freq: Status: Active Protocol: Document 01/27/22 16:45 DCW (Rec: 01/27/22 17:36 DCW [id number]) OP-PT Subjective Patient Comments Patient Comments Pt admits that he had a fall last night. He did not hurt himself. He was at home and became scared trying to cross the threshhold between carpet/ wooden floor, so he squatted down to use his UE on the floor for stability, but ended up falling backward. PT-OP-D Balance Start: 05/27/21 16:09 Freq: Status: Active Protocol: Document 01/18/22 16:46 DCW (Rec: 01/18/22 17:12 DCW [id number]) Balance Tests Single Limb Standing Single Limb- Right 11 sec Single Limb- Left 11 sec Tandem Tandem Standing L: 24, R: 25 PT-OP-E Functional Tests Start: 05/27/21 16:09 Freq: Status: Active Protocol: Document 01/18/22 16:46 DCW (Rec: 01/18/22 17:12 DCW [id number]) Functional Tests 2 Minute Walk Test Distance 288' Device Used none Comments 2.40 ft/sec Timed Up and Go (TUG) Score 15.6 Comments 3-trial average (16.52, 16.35 , 13.99) TUG Impairment Rating 40 to <60% Impaired (Score 14- 15) PT-OP-G Mobility & Gait Start: 05/27/21 16:29 Freq: Status: Active Protocol: Document 01/18/22 16:46 DCW (Rec: 01/18/22 17:12 DCW [id number]) OP Gait Assessment Gait Gait Assistance Required: Standby Assistance Distance (Feet) 288 Able to Maintain Weight Bearing Status Yes During Gait Assistive Devices Assistive Device Gait Belt Gait Deviations General Gait Pattern Ataxic,Decreased Stride Length ,Decreased Feet Clearance, Flexed Trunk,Narrow Based Gait ,Step-to Gait Factors Limiting Gait Function Factors Limiting Gait Function Abnormal Tonal Influences, Limited Range of Motion,Poor Balance Comments Gait Comments Pt ambulates with mild toe walking bilaterally, decreased step length, decreased foot clearance. Step-through more regularly (75% of the time) than previous testing. Much more comfortable crossing threshholds PT-OP-K Range of Motion Start: 05/27/21 16:09 Freq: Status: Active Protocol: Document 01/18/22 16:46 DCW (Rec: 01/18/22 17:12 DCW [id number]) Ankle and Foot Goniometric Range of Motion Ankle and Foot Right Comments At rest, right ankle in 3? inversion. With stretch from therapist, able to get right ankle to 8? DF Left Comments At rest, left ankle in 4? inversion. With stretch from therapist, able to get left ankle to 7? DF Ankle and Foot ROM Limitations ROM Limitations Soft Tissue Tightness, Contracture,Muscle Tone PT-OP-M Strength Start: 05/27/21 16:09 Freq: Status: Active Protocol: Document 05/27/21 15:15 DCW (Rec: 05/27/21 16:28 DCW [id number]) Hip Strength Hip Manual Muscle Testing Right Flexion (L2) 4+ Good+ Abduction 4+ Good+ Adduction 4+ Good+ Left Flexion (L2) 4+ Good+ Abduction 4+ Good+ Adduction 4+ Good+ Knee Strength Knee Manual Muscle Testing Right Flexion (S2) 4+ Good+ Extension (L3) 4+ Good+ Left Flexion (S2) 4+ Good+ Extension (L3) 4+ Good+ PT-OP-Q Treatments Start: 05/27/21 16:09 Freq: Status: Active Protocol: Document 01/27/22 16:45 DCW (Rec: 01/27/22 17:36 DC [id number]) Therapeutic Exercises Sitting Exercises 3 Sitting Exercise Name Ankle DF Side bilateral Resistance Lv 2 Equipment Used T-band 2 Sitting Exercise Name Hamstring stretch Side bilateral 1 Sitting Exercise Name Heel cord stretch Side bilateral Standing Exercises 2 Standing Exercise Name Gastroc stretch Side bilateral Equipment Used WANDER 1 Standing Exercise Name Heel raises Side bilateral Equipment Used 4 step Other Exercises 1 Other Exercise Name Hurdles over changing floor surface Comments Used red pads and cones as obstacles Therapeutic Activity Therapeutic Activity 1 Name Sit<->Stand Chair obstacle course Reps/Minutes x6 chairs Comments 59 41 32 Gait Training Gait Activity 1 Description Gait training on changing surface carpet/tile Level of Assistance SBA Comments Verbal cues for heel-toe gait and increased step length, left arm swing PT-OP-T Assessment and Plan Start: 05/27/21 16:09 Freq: Status: Active Protocol: Document 01/27/22 16:45 DCW (Rec: 01/27/22 17:36 [facility] [id number]) Physical Therapy Assessment Impairments Impairments Activity Tolerance,Balance, Coordination,Functional Mobility,Gait,ROM,Soft Tissue Mobility,Tone Goals Three Impairment Pt scores a 20.1 TUG Halfway Goal (LTG) Pt to decreased average TUG score to <15.5 in order to demonstrate improved confidence and a decreased fear of falling 07/26/21 - Improving (15.7) 10/07/21 - 16.4 LTG Duration 02/17/22 - Nearly met (15.6 01/18) Two Impairment Pt ambulates with toe walking bilaterally and a step-to gait pattern Halfway Goal (LTG) Pt to demonstrate ability with ambulate with a heel-toe pattern at least 50% of the time with a step-through pattern 75% of the time LTG Duration MET One Impairment Pt does not have an appropriate home exercise program Short Term Goal (STG) Pt to be independent and compliant with an appropriate HEP STG Duration Met Assessment Summary Assessment Pt did incredibly well today, improving confidence and stability with ambulation. Biggest problem appears to be that he is very sure of his balance and has increased confidence while at PT, however this has yet to carry over to home. Physical Therapy Plan Frequency and Duration Frequency of Treatment 1-2x/Week Duration of Treatment One month Plan of Care Start Date 01/18/22 Plan of Care End Date 02/17/22 Therapeutic Interventions Therapeutic Interventions Balance Training,Coordination Training,Gait Training,Home Exercise Program,Manual Therapy,Neuromuscular Re- education,Patient/Caregiver Education,Self-Care/Home Management,Soft Tissue Mobilization,Therapeutic Exercises Next Visit Focus/Plan Next Note Type Treatment Note Next Visit Plan Flexibility, balance training, gait training
--- NOTE | 2022-02-01 17:36 | PT.OTN ---
Current Diagnoses Cerebral palsy, unspecified (02/01/22) Stiffness of unspecified knee, not elsewhere classified (02/01/22) Stiffness of unspecified ankle, not elsewhere classified (02/01/22) Other abnormalities of gait and mobility (02/01/22) Physical Therapy Treatment Note PT-OP-A Visit Information Start: 05/27/21 16:09 Freq: Status: Active Protocol: Document 02/01/22 16:47 DCW (Rec: 02/01/22 17:36 DCW [id number]) Out-Patient Physical Therapy Visit Information Visit Information Visit Type Treatment Note Visit Start Time 16:47 Visit Stop Time 17:30 Total Visit Minutes 43 Visit Number 26 Number of RECYCLABLE PRODUCTS SORTER Visits 0 Evaluation Information Evaluation Date 05/27/21 PT-OP-B Current Condition Start: 05/27/21 16:09 Freq: Status: Active Protocol: Document 05/27/21 15:15 DCW (Rec: 05/27/21 16:28 DCW [id number]) Current Condition History of Current Condition Onset Date Long-standing history Current Complaints Decreased gait, confidence, increased fear of falling History of Current Condition Pt is a 20 year old male well known to this clinic with a history of cerebral palsy and developmental delay. Pt was previously seen four years ago following abdominal surgery because of a decline in gait function, and is presenting today with similar complaints. Pt's father reports pt has been having decreased confidence when walking, especially when on hard surfaces. Pt walks better on carpet, but becomes very hesitant and nervous on tile or outside on sidewalk. Pt admits he has fallen a few times walking out to his bus stop. Pt has always performed toe walking, especially on his left side, but it has progressed a bit recently, and pt is taking very hesitant, small steps, and will frequently rely on his parents for hand-hold assist to maintain balance. Treatment Goals Patient/Caregiver Goals I think I should be walking better when I turn 21. Prior Functional Status Baseline Function- Gait L Toe walking, LE spasticity PT-OP-C Subjective Start: 05/27/21 16:09 Freq: Status: Active Protocol: Document 02/01/22 16:47 DCW (Rec: 02/01/22 17:36 DCW [id number]) OP-PT Subjective Patient Comments Patient Comments Pt denies any falls since he was here last. He started his school year today and reports he had a very good day. PT-OP-D Balance Start: 05/27/21 16:09 Freq: Status: Active Protocol: Document 01/18/22 16:46 DCW (Rec: 01/18/22 17:12 DCW [id number]) Balance Tests Single Limb Standing Single Limb- Right 11 sec Single Limb- Left 11 sec Tandem Tandem Standing L: 24, R: 25 PT-OP-E Functional Tests Start: 05/27/21 16:09 Freq: Status: Active Protocol: Document 01/18/22 16:46 DCW (Rec: 01/18/22 17:12 DCW [id number]) Functional Tests 2 Minute Walk Test Distance 288' Device Used none Comments 2.40 ft/sec Timed Up and Go (TUG) Score 15.6 Comments 3-trial average (16.52, 16.35 , 13.99) TUG Impairment Rating 40 to <60% Impaired (Score 14- 15) PT-OP-G Mobility & Gait Start: 05/27/21 16:29 Freq: Status: Active Protocol: Document 01/18/22 16:46 DCW (Rec: 01/18/22 17:12 DCW [id number]) OP Gait Assessment Gait Gait Assistance Required: Standby Assistance Distance (Feet) 288 Able to Maintain Weight Bearing Status Yes During Gait Assistive Devices Assistive Device Gait Belt Gait Deviations General Gait Pattern Ataxic,Decreased Stride Length ,Decreased Feet Clearance, Flexed Trunk,Narrow Based Gait ,Step-to Gait Factors Limiting Gait Function Factors Limiting Gait Function Abnormal Tonal Influences, Limited Range of Motion,Poor Balance Comments Gait Comments Pt ambulates with mild toe walking bilaterally, decreased step length, decreased foot clearance. Step-through more regularly (75% of the time) than previous testing. Much more comfortable crossing threshholds PT-OP-K Range of Motion Start: 05/27/21 16:09 Freq: Status: Active Protocol: Document 01/18/22 16:46 DCW (Rec: 01/18/22 17:12 DCW [id number]) Ankle and Foot Goniometric Range of Motion Ankle and Foot Right Comments At rest, right ankle in 3? inversion. With stretch from therapist, able to get right ankle to 8? DF Left Comments At rest, left ankle in 4? inversion. With stretch from therapist, able to get left ankle to 7? DF Ankle and Foot ROM Limitations ROM Limitations Soft Tissue Tightness, Contracture,Muscle Tone PT-OP-M Strength Start: 05/27/21 16:09 Freq: Status: Active Protocol: Document 05/27/21 15:15 DCW (Rec: 05/27/21 16:28 DCW [id number]) Hip Strength Hip Manual Muscle Testing Right Flexion (L2) 4+ Good+ Abduction 4+ Good+ Adduction 4+ Good+ Left Flexion (L2) 4+ Good+ Abduction 4+ Good+ Adduction 4+ Good+ Knee Strength Knee Manual Muscle Testing Right Flexion (S2) 4+ Good+ Extension (L3) 4+ Good+ Left Flexion (S2) 4+ Good+ Extension (L3) 4+ Good+ PT-OP-Q Treatments Start: 05/27/21 16:09 Freq: Status: Active Protocol: Document 02/01/22 16:47 DCW (Rec: 02/01/22 17:36 DC [id number]) Therapeutic Exercises Sitting Exercises 3 Sitting Exercise Name Ankle DF Side bilateral Resistance Lv 2 Equipment Used T-band 2 Sitting Exercise Name Hamstring stretch Side bilateral 1 Sitting Exercise Name Heel cord stretch Side bilateral Standing Exercises 2 Standing Exercise Name Gastroc stretch Side bilateral Equipment Used WANDER 1 Standing Exercise Name Heel raises Side bilateral Equipment Used 4 step Other Exercises 1 Other Exercise Name Hurdles over changing floor surface Comments Used red pads and cones as obstacles Gait Training Gait Activity 2 Description Steps Level of Assistance CGA to SBA Treatment Focus Sequencing, strength, stability Comments Ascending: step-over, /c rail x1, /s rail x1 Descending: step-over /c rail x2 1 Description Gait training on changing surface carpet/tile Level of Assistance SBA Comments Verbal cues for heel-toe gait and increased step length, left arm swing PT-OP-T Assessment and Plan Start: 05/27/21 16:09 Freq: Status: Active Protocol: Document 02/01/22 16:47 DCW (Rec: 02/01/22 17:36 [facility] [id number]) Physical Therapy Assessment Impairments Impairments Activity Tolerance,Balance, Coordination,Functional Mobility,Gait,ROM,Soft Tissue Mobility,Tone Goals Three Impairment Pt scores a 20.1 TUG Chain Sales Consultant Goal (LTG) Pt to decreased average TUG score to <15.5 in order to demonstrate improved confidence and a decreased fear of falling 07/26/21 - Improving (15.7) 10/07/21 - 16.4 LTG Duration 02/17/22 - Nearly met (15.6 01/18) Two Impairment Pt ambulates with toe walking bilaterally and a step-to gait pattern Snf Goal (LTG) Pt to demonstrate ability with ambulate with a heel-toe pattern at least 50% of the time with a step-through pattern 75% of the time LTG Duration MET One Impairment Pt does not have an appropriate home exercise program Short Term Goal (STG) Pt to be independent and compliant with an appropriate HEP STG Duration Met Assessment Summary Assessment Pt continues to show great progress with his gait and balance confidence. Pt typically has a fairly significant startle response when something unexpected occurs, which usually throws his off balance, however pt was walking over hurdles today when a balloon suddenly popped, and pt had no reaction to the sudden noise. Physical Therapy Plan Frequency and Duration Frequency of Treatment 1-2x/Week Duration of Treatment One month Plan of Care Start Date 01/18/22 Plan of Care End Date 02/17/22 Therapeutic Interventions Therapeutic Interventions Balance Training,Coordination Training,Gait Training,Home Exercise Program,Manual Therapy,Neuromuscular Re- education,Patient/Caregiver Education,Self-Care/Home Management,Soft Tissue Mobilization,Therapeutic Exercises Next Visit Focus/Plan Next Note Type Treatment Note Next Visit Plan Flexibility, balance training, gait training
--- NOTE | 2022-03-09 17:47 | PT.OTN ---
Current Diagnoses Cerebral palsy, unspecified (03/09/22) Stiffness of unspecified knee, not elsewhere classified (03/09/22) Stiffness of unspecified ankle, not elsewhere classified (03/09/22) Other abnormalities of gait and mobility (03/09/22) Physical Therapy Treatment Note PT-OP-A Visit Information Start: 05/27/21 16:09 Freq: Status: Active Protocol: Document 03/09/22 16:00 DCW (Rec: 03/09/22 17:47 DCW [id number]) Out-Patient Physical Therapy Visit Information Visit Information Visit Type Progress Note Visit Start Time 16:00 Visit Stop Time 16:45 Total Visit Minutes 45 Visit Number 27 Number of PAPER SORTER Visits 0 Evaluation Information Evaluation Date 05/27/21 PT-OP-B Current Condition Start: 05/27/21 16:09 Freq: Status: Active Protocol: Document 05/27/21 15:15 DCW (Rec: 05/27/21 16:28 DCW [id number]) Current Condition History of Current Condition Onset Date Long-standing history Current Complaints Decreased gait, confidence, increased fear of falling History of Current Condition Pt is a 20 year old male well known to this clinic with a history of cerebral palsy and developmental delay. Pt was previously seen four years ago following abdominal surgery because of a decline in gait function, and is presenting today with similar complaints. Pt's father reports pt has been having decreased confidence when walking, especially when on hard surfaces. Pt walks better on carpet, but becomes very hesitant and nervous on tile or outside on sidewalk. Pt admits he has fallen a few times walking out to his bus stop. Pt has always performed toe walking, especially on his left side, but it has progressed a bit recently, and pt is taking very hesitant, small steps, and will frequently rely on his parents for hand-hold assist to maintain balance. Treatment Goals Patient/Caregiver Goals I think I should be walking better when I turn 21. Prior Functional Status Baseline Function- Gait L Toe walking, LE spasticity PT-OP-C Subjective Start: 05/27/21 16:09 Freq: Status: Active Protocol: Document 03/09/22 16:00 DCW (Rec: 03/09/22 17:47 DCW [id number]) OP-PT Subjective Patient Comments Patient Comments I'm doing my best to not fall and walk without grabbing on to anyone or anything. PT-OP-D Balance Start: 05/27/21 16:09 Freq: Status: Active Protocol: Document 01/18/22 16:46 DCW (Rec: 01/18/22 17:12 DCW [id number]) Balance Tests Single Limb Standing Single Limb- Right 11 sec Single Limb- Left 11 sec Tandem Tandem Standing L: 24, R: 25 PT-OP-E Functional Tests Start: 05/27/21 16:09 Freq: Status: Active Protocol: Document 03/09/22 16:00 DCW (Rec: 03/09/22 16:15 DCW [id number]) Functional Tests 2 Minute Walk Test Distance 356' Device Used none Comments 2.97 ft/sec PT-OP-G Mobility & Gait Start: 05/27/21 16:29 Freq: Status: Active Protocol: Document 01/18/22 16:46 DCW (Rec: 01/18/22 17:12 DCW [id number]) OP Gait Assessment Gait Gait Assistance Required: Standby Assistance Distance (Feet) 288 Able to Maintain Weight Bearing Status Yes During Gait Assistive Devices Assistive Device Gait Belt Gait Deviations General Gait Pattern Ataxic,Decreased Stride Length ,Decreased Feet Clearance, Flexed Trunk,Narrow Based Gait ,Step-to Gait Factors Limiting Gait Function Factors Limiting Gait Function Abnormal Tonal Influences, Limited Range of Motion,Poor Balance Comments Gait Comments Pt ambulates with mild toe walking bilaterally, decreased step length, decreased foot clearance. Step-through more regularly (75% of the time) than previous testing. Much more comfortable crossing threshholds PT-OP-K Range of Motion Start: 05/27/21 16:09 Freq: Status: Active Protocol: Document 03/09/22 16:00 DCW (Rec: 03/09/22 16:15 DCW [id number]) Ankle and Foot Goniometric Range of Motion Ankle and Foot Right Comments At rest, right ankle in 3? inversion. With stretch from therapist, able to get right ankle to 8? DF Left Comments At rest, left ankle in 4? inversion. With stretch from therapist, able to get left ankle to 7? DF PT-OP-M Strength Start: 05/27/21 16:09 Freq: Status: Active Protocol: Document 05/27/21 15:15 DCW (Rec: 05/27/21 16:28 DCW [id number]) Hip Strength Hip Manual Muscle Testing Right Flexion (L2) 4+ Good+ Abduction 4+ Good+ Adduction 4+ Good+ Left Flexion (L2) 4+ Good+ Abduction 4+ Good+ Adduction 4+ Good+ Knee Strength Knee Manual Muscle Testing Right Flexion (S2) 4+ Good+ Extension (L3) 4+ Good+ Left Flexion (S2) 4+ Good+ Extension (L3) 4+ Good+ PT-OP-Q Treatments Start: 05/27/21 16:09 Freq: Status: Active Protocol: Document 03/09/22 16:00 [facility] (Rec: 03/09/22 17:47 [facility] [id number]) Gym Equipment Shuttle Balance 2 Details Red Comments WBOS EO/EC, Lateral stabilization Therapeutic Exercises Standing Exercises 2 Standing Exercise Name Gastroc stretch Side bilateral Equipment Used WANDER 1 Standing Exercise Name Heel raises Side bilateral Equipment Used 4 step Other Exercises 1 Other Exercise Name Hurdles over changing floor surface Comments Used red pads and cones as obstacles Gait Training Gait Activity 2 Description Steps Level of Assistance CGA to SBA Treatment Focus Sequencing, strength, stability Comments Ascending: step-over, /s rail x2 Descending: step-over /c rail x2 1 Description Gait training on changing surface carpet/tile Level of Assistance SBA Comments Verbal cues for heel-toe gait and increased step length, left arm swing PT-OP-T Assessment and Plan Start: 05/27/21 16:09 Freq: Status: Active Protocol: Document 03/09/22 16:00 DCW (Rec: 03/09/22 17:47 [facility] [id number]) Physical Therapy Assessment Impairments Impairments Activity Tolerance,Balance, Coordination,Functional Mobility,Gait,ROM,Soft Tissue Mobility,Tone Goals Three Impairment Pt scores a 20.1 TUG Chcf Goal (LTG) Pt to decreased average TUG score to <15.5 in order to demonstrate improved confidence and a decreased fear of falling 07/26/21 - Improving (15.7) 10/07/21 - 16.4 LTG Duration 02/17/22 - Nearly met (15.6 01/18) Two Impairment Pt ambulates with toe walking bilaterally and a step-to gait pattern Chcf Goal (LTG) Pt to demonstrate ability with ambulate with a heel-toe pattern at least 50% of the time with a step-through pattern 75% of the time LTG Duration MET One Impairment Pt does not have an appropriate home exercise program Short Term Goal (STG) Pt to be independent and compliant with an appropriate HEP STG Duration Met Assessment Summary Assessment Pt improved 2 MWT by ~70 feet, which is fairly significant over the course of two minutes . Continues to show overall improvement in all areas when in therapy. Pt's mom reports that he still seems to really struggle more at home, unsure if there is just an issue of confidence when not at therapy , or if pt has a tendency of just over-reliance on his parents with most activities. Since he continues to show great improvement, will likely still benefit from additional skilled therapeutic intervention. Physical Therapy Plan Frequency and Duration Frequency of Treatment 1-2x/Week Duration of treatment (weeks) 8 Plan of Care Start Date 03/09/22 Plan of Care End Date 05/04/22 Therapeutic Interventions Therapeutic Interventions Balance Training,Coordination Training,Gait Training,Home Exercise Program,Manual Therapy,Neuromuscular Re- education,Patient/Caregiver Education,Self-Care/Home Management,Soft Tissue Mobilization,Therapeutic Exercises Next Visit Focus/Plan Next Note Type Treatment Note Next Visit Plan Flexibility, balance training, gait training
--- NOTE | 2022-03-09 17:47 | PT.OPPOC ---
Physical, Occupational & Speech Therapy At [facility] Current Diagnoses Cerebral palsy, unspecified (03/09/22) Stiffness of unspecified knee, not elsewhere classified (03/09/22) Stiffness of unspecified ankle, not elsewhere classified (03/09/22) Other abnormalities of gait and mobility (03/09/22) Visit Care Team Role Provider Type Andrew Mccoy MD Attending Provider Physician Family Provider Primary Care Provider Referring Provider Specialty: [facility] Address: [address] [place] [address], [facility] Email: Plan Of Care PT-OP-T Assessment and Plan Start: 05/27/21 16:09 Freq: Status: Active Protocol: Document 03/09/22 16:00 DCW (Rec: 03/09/22 17:47 DCW [id number]) Physical Therapy Assessment Impairments Impairments Activity Tolerance,Balance, Coordination,Functional Mobility,Gait,ROM,Soft Tissue Mobility,Tone Goals Three Impairment Pt scores a 20.1 TUG Construction Coordinator Goal (LTG) Pt to decreased average TUG score to <15.5 in order to demonstrate improved confidence and a decreased fear of falling 07/26/21 - Improving (15.7) 10/07/21 - 16.4 LTG Duration 02/17/22 - Nearly met (15.6 01/18) Two Impairment Pt ambulates with toe walking bilaterally and a step-to gait pattern Construction Coordinator Goal (LTG) Pt to demonstrate ability with ambulate with a heel-toe pattern at least 50% of the time with a step-through pattern 75% of the time LTG Duration MET One Impairment Pt does not have an appropriate home exercise program Short Term Goal (STG) Pt to be independent and compliant with an appropriate HEP STG Duration Met Assessment Summary Assessment Pt improved 2 MWT by ~70 feet, which is fairly significant over the course of two minutes . Continues to show overall improvement in all areas when in therapy. Pt's mom reports that he still seems to really struggle more at home, unsure if there is just an issue of confidence when not at therapy , or if pt has a tendency of just over-reliance on his parents with most activities. Since he continues to show great improvement, will likely still benefit from additional skilled therapeutic intervention. Physical Therapy Plan Frequency and Duration Frequency of Treatment 1-2x/Week Duration of treatment (weeks) 8 Plan of Care Start Date 03/09/22 Plan of Care End Date 05/04/22 Therapeutic Interventions Therapeutic Interventions Balance Training,Coordination Training,Gait Training,Home Exercise Program,Manual Therapy,Neuromuscular Re- education,Patient/Caregiver Education,Self-Care/Home Management,Soft Tissue Mobilization,Therapeutic Exercises Next Visit Focus/Plan Next Note Type Treatment Note Next Visit Plan Flexibility, balance training, gait training Plan of Care Dates Plan of Care Start Date 03/09/22 Plan of Care End Date 05/04/22 Electronically Signed by: Raul Gaviria, PT 03/09/22 [id number] If you are in agreement with this Plan of Care, please return a signed and dated copy. I have reviewed this Plan of Care and certify that the skilled therapy services above are required to meet the patient?s needs. Physician Signature Date Printed Name and Credentials Clinical Instructor Signature Printed Name and Credentials
--- NOTE | 2022-03-18 09:48 | PT.OTN ---
Current Diagnoses Cerebral palsy, unspecified (03/18/22) Stiffness of unspecified knee, not elsewhere classified (03/18/22) Stiffness of unspecified ankle, not elsewhere classified (03/18/22) Other abnormalities of gait and mobility (03/18/22) Physical Therapy Treatment Note PT-OP-A Visit Information Start: 05/27/21 16:09 Freq: Status: Active Protocol: Document 03/18/22 09:02 DCW (Rec: 03/18/22 09:48 DCW [id number]) Out-Patient Physical Therapy Visit Information Visit Information Visit Type Treatment Note Visit Start Time 09:02 Visit Stop Time 09:45 Total Visit Minutes 43 Visit Number 28 Number of TECHNOLOGY SALES CONSULTANT Visits 0 Evaluation Information Evaluation Date 05/27/21 PT-OP-B Current Condition Start: 05/27/21 16:09 Freq: Status: Active Protocol: Document 05/27/21 15:15 DCW (Rec: 05/27/21 16:28 DCW [id number]) Current Condition History of Current Condition Onset Date Long-standing history Current Complaints Decreased gait, confidence, increased fear of falling History of Current Condition Pt is a 20 year old male well known to this clinic with a history of cerebral palsy and developmental delay. Pt was previously seen four years ago following abdominal surgery because of a decline in gait function, and is presenting today with similar complaints. Pt's father reports pt has been having decreased confidence when walking, especially when on hard surfaces. Pt walks better on carpet, but becomes very hesitant and nervous on tile or outside on sidewalk. Pt admits he has fallen a few times walking out to his bus stop. Pt has always performed toe walking, especially on his left side, but it has progressed a bit recently, and pt is taking very hesitant, small steps, and will frequently rely on his parents for hand-hold assist to maintain balance. Treatment Goals Patient/Caregiver Goals I think I should be walking better when I turn 21. Prior Functional Status Baseline Function- Gait L Toe walking, LE spasticity PT-OP-C Subjective Start: 05/27/21 16:09 Freq: Status: Active Protocol: Document 03/18/22 09:02 DCW (Rec: 03/18/22 09:48 DCW [id number]) OP-PT Subjective Patient Comments Patient Comments Pt worried today that because of the rain, his shoes will be slippery. PT-OP-D Balance Start: 05/27/21 16:09 Freq: Status: Active Protocol: Document 01/18/22 16:46 DCW (Rec: 01/18/22 17:12 DCW [id number]) Balance Tests Single Limb Standing Single Limb- Right 11 sec Single Limb- Left 11 sec Tandem Tandem Standing L: 24, R: 25 PT-OP-E Functional Tests Start: 05/27/21 16:09 Freq: Status: Active Protocol: Document 03/09/22 16:00 DCW (Rec: 03/09/22 16:15 DCW [id number]) Functional Tests 2 Minute Walk Test Distance 356' Device Used none Comments 2.97 ft/sec PT-OP-G Mobility & Gait Start: 05/27/21 16:29 Freq: Status: Active Protocol: Document 01/18/22 16:46 DCW (Rec: 01/18/22 17:12 DCW [id number]) OP Gait Assessment Gait Gait Assistance Required: Standby Assistance Distance (Feet) 288 Able to Maintain Weight Bearing Status Yes During Gait Assistive Devices Assistive Device Gait Belt Gait Deviations General Gait Pattern Ataxic,Decreased Stride Length ,Decreased Feet Clearance, Flexed Trunk,Narrow Based Gait ,Step-to Gait Factors Limiting Gait Function Factors Limiting Gait Function Abnormal Tonal Influences, Limited Range of Motion,Poor Balance Comments Gait Comments Pt ambulates with mild toe walking bilaterally, decreased step length, decreased foot clearance. Step-through more regularly (75% of the time) than previous testing. Much more comfortable crossing threshholds PT-OP-K Range of Motion Start: 05/27/21 16:09 Freq: Status: Active Protocol: Document 03/09/22 16:00 DCW (Rec: 03/09/22 16:15 DCW [id number]) Ankle and Foot Goniometric Range of Motion Ankle and Foot Right Comments At rest, right ankle in 3? inversion. With stretch from therapist, able to get right ankle to 8? DF Left Comments At rest, left ankle in 4? inversion. With stretch from therapist, able to get left ankle to 7? DF PT-OP-M Strength Start: 05/27/21 16:09 Freq: Status: Active Protocol: Document 05/27/21 15:15 DCW (Rec: 05/27/21 16:28 DCW [id number]) Hip Strength Hip Manual Muscle Testing Right Flexion (L2) 4+ Good+ Abduction 4+ Good+ Adduction 4+ Good+ Left Flexion (L2) 4+ Good+ Abduction 4+ Good+ Adduction 4+ Good+ Knee Strength Knee Manual Muscle Testing Right Flexion (S2) 4+ Good+ Extension (L3) 4+ Good+ Left Flexion (S2) 4+ Good+ Extension (L3) 4+ Good+ PT-OP-Q Treatments Start: 05/27/21 16:09 Freq: Status: Active Protocol: Document 03/18/22 09:02 [facility] (Rec: 03/18/22 09:48 [facility] [id number]) Therapeutic Exercises Sitting Exercises 2 Sitting Exercise Name Hamstring stretch Side bilateral 1 Sitting Exercise Name Heel cord stretch Side bilateral Standing Exercises 2 Standing Exercise Name Gastroc stretch Side bilateral Equipment Used WANDER 1 Standing Exercise Name Heel raises Side bilateral Equipment Used 4 step Other Exercises 1 Other Exercise Name Hurdles over changing floor surface Comments Used red pad on blue pad as obstacles Gait Training Gait Activity 2 Description Steps Level of Assistance CGA to SBA Treatment Focus Sequencing, strength, stability Comments Ascending: step-over, /s rail x3 Descending: step-over /c rail x3 1 Description Gait training on changing surface carpet/tile Level of Assistance SBA Comments Verbal cues for heel-toe gait and increased step length, left arm swing PT-OP-T Assessment and Plan Start: 05/27/21 16:09 Freq: Status: Active Protocol: Document 03/18/22 09:02 [facility] (Rec: 03/18/22 09:48 [facility] [id number]) Physical Therapy Assessment Impairments Impairments Activity Tolerance,Balance, Coordination,Functional Mobility,Gait,ROM,Soft Tissue Mobility,Tone Goals Three Impairment Pt scores a 20.1 TUG Mcc Goal (LTG) Pt to decreased average TUG score to <15.5 in order to demonstrate improved confidence and a decreased fear of falling 07/26/21 - Improving (15.7) 10/07/21 - 16.4 LTG Duration 02/17/22 - Nearly met (15.6 01/18) Two Impairment Pt ambulates with toe walking bilaterally and a step-to gait pattern Neurology Specialist Goal (LTG) Pt to demonstrate ability with ambulate with a heel-toe pattern at least 50% of the time with a step-through pattern 75% of the time LTG Duration MET One Impairment Pt does not have an appropriate home exercise program Short Term Goal (STG) Pt to be independent and compliant with an appropriate HEP STG Duration Met Assessment Summary Assessment Pt continues to improve significantly with ascending steps, still not quite seeing as much carry-over to confidence in the home as what would be preferred. Physical Therapy Plan Frequency and Duration Frequency of Treatment 1-2x/Week Duration of treatment (weeks) 8 Plan of Care Start Date 03/09/22 Plan of Care End Date 05/04/22 Therapeutic Interventions Therapeutic Interventions Balance Training,Coordination Training,Gait Training,Home Exercise Program,Manual Therapy,Neuromuscular Re- education,Patient/Caregiver Education,Self-Care/Home Management,Soft Tissue Mobilization,Therapeutic Exercises Next Visit Focus/Plan Next Note Type Treatment Note Next Visit Plan Flexibility, balance training, gait training
--- NOTE | 2022-03-21 15:17 | PT.OTN ---
Current Diagnoses Cerebral palsy, unspecified (03/21/22) Stiffness of unspecified knee, not elsewhere classified (03/21/22) Stiffness of unspecified ankle, not elsewhere classified (03/21/22) Other abnormalities of gait and mobility (03/21/22) Physical Therapy Treatment Note PT-OP-A Visit Information Start: 05/27/21 16:09 Freq: Status: Active Protocol: Document 03/21/22 14:30 DCW (Rec: 03/21/22 15:17 DCW [id number]) Out-Patient Physical Therapy Visit Information Visit Information Visit Type Treatment Note Visit Start Time 14:30 Visit Stop Time 15:15 Total Visit Minutes 45 Visit Number 29 Number of MATERIAL CUTTER Visits 0 Evaluation Information Evaluation Date 05/27/21 PT-OP-B Current Condition Start: 05/27/21 16:09 Freq: Status: Active Protocol: Document 05/27/21 15:15 DCW (Rec: 05/27/21 16:28 DCW [id number]) Current Condition History of Current Condition Onset Date Long-standing history Current Complaints Decreased gait, confidence, increased fear of falling History of Current Condition Pt is a 20 year old male well known to this clinic with a history of cerebral palsy and developmental delay. Pt was previously seen four years ago following abdominal surgery because of a decline in gait function, and is presenting today with similar complaints. Pt's father reports pt has been having decreased confidence when walking, especially when on hard surfaces. Pt walks better on carpet, but becomes very hesitant and nervous on tile or outside on sidewalk. Pt admits he has fallen a few times walking out to his bus stop. Pt has always performed toe walking, especially on his left side, but it has progressed a bit recently, and pt is taking very hesitant, small steps, and will frequently rely on his parents for hand-hold assist to maintain balance. Treatment Goals Patient/Caregiver Goals I think I should be walking better when I turn 21. Prior Functional Status Baseline Function- Gait L Toe walking, LE spasticity PT-OP-C Subjective Start: 05/27/21 16:09 Freq: Status: Active Protocol: Document 03/21/22 14:30 DCW (Rec: 03/21/22 15:17 DCW [id number]) OP-PT Subjective Patient Comments Patient Comments Pt feeling a little more anxious about walking today. PT-OP-D Balance Start: 05/27/21 16:09 Freq: Status: Active Protocol: Document 01/18/22 16:46 DCW (Rec: 01/18/22 17:12 DCW [id number]) Balance Tests Single Limb Standing Single Limb- Right 11 sec Single Limb- Left 11 sec Tandem Tandem Standing L: 24, R: 25 PT-OP-E Functional Tests Start: 05/27/21 16:09 Freq: Status: Active Protocol: Document 03/09/22 16:00 DCW (Rec: 03/09/22 16:15 DCW [id number]) Functional Tests 2 Minute Walk Test Distance 356' Device Used none Comments 2.97 ft/sec PT-OP-G Mobility & Gait Start: 05/27/21 16:29 Freq: Status: Active Protocol: Document 01/18/22 16:46 DCW (Rec: 01/18/22 17:12 DCW [id number]) OP Gait Assessment Gait Gait Assistance Required: Standby Assistance Distance (Feet) 288 Able to Maintain Weight Bearing Status Yes During Gait Assistive Devices Assistive Device Gait Belt Gait Deviations General Gait Pattern Ataxic,Decreased Stride Length ,Decreased Feet Clearance, Flexed Trunk,Narrow Based Gait ,Step-to Gait Factors Limiting Gait Function Factors Limiting Gait Function Abnormal Tonal Influences, Limited Range of Motion,Poor Balance Comments Gait Comments Pt ambulates with mild toe walking bilaterally, decreased step length, decreased foot clearance. Step-through more regularly (75% of the time) than previous testing. Much more comfortable crossing threshholds PT-OP-K Range of Motion Start: 05/27/21 16:09 Freq: Status: Active Protocol: Document 03/09/22 16:00 DCW (Rec: 03/09/22 16:15 DCW [id number]) Ankle and Foot Goniometric Range of Motion Ankle and Foot Right Comments At rest, right ankle in 3? inversion. With stretch from therapist, able to get right ankle to 8? DF Left Comments At rest, left ankle in 4? inversion. With stretch from therapist, able to get left ankle to 7? DF PT-OP-M Strength Start: 05/27/21 16:09 Freq: Status: Active Protocol: Document 05/27/21 15:15 DCW (Rec: 05/27/21 16:28 DCW [id number]) Hip Strength Hip Manual Muscle Testing Right Flexion (L2) 4+ Good+ Abduction 4+ Good+ Adduction 4+ Good+ Left Flexion (L2) 4+ Good+ Abduction 4+ Good+ Adduction 4+ Good+ Knee Strength Knee Manual Muscle Testing Right Flexion (S2) 4+ Good+ Extension (L3) 4+ Good+ Left Flexion (S2) 4+ Good+ Extension (L3) 4+ Good+ PT-OP-Q Treatments Start: 05/27/21 16:09 Freq: Status: Active Protocol: Document 03/21/22 14:30 DCW (Rec: 03/21/22 15:17 [facility] [id number]) Gym Equipment Shuttle Balance 2 Details Red Comments WBOS EO/EC, Lateral stabilization Therapeutic Exercises Sitting Exercises 2 Sitting Exercise Name Hamstring stretch Side bilateral 1 Sitting Exercise Name Heel cord stretch Side bilateral Standing Exercises 2 Standing Exercise Name Gastroc stretch Side bilateral Equipment Used WANDER 1 Standing Exercise Name Heel raises Side bilateral Equipment Used 4 step Other Exercises 1 Other Exercise Name Hurdles over changing floor surface Comments Used red pad on blue pad as obstacles Therapeutic Activity Therapeutic Activity 1 Name Sit<->Stand Chair obstacle course Reps/Minutes x6 chairs Comments 53 52 34 43 Gait Training Gait Activity 1 Description Gait training on changing surface carpet/tile Level of Assistance SBA Comments Verbal cues for heel-toe gait and increased step length, left arm swing PT-OP-T Assessment and Plan Start: 05/27/21 16:09 Freq: Status: Active Protocol: Document 03/21/22 14:30 DCW (Rec: 03/21/22 15:17 [facility] [id number]) Physical Therapy Assessment Impairments Impairments Activity Tolerance,Balance, Coordination,Functional Mobility,Gait,ROM,Soft Tissue Mobility,Tone Goals Three Impairment Pt scores a 20.1 TUG Lead Handler Goal (LTG) Pt to decreased average TUG score to <15.5 in order to demonstrate improved confidence and a decreased fear of falling 07/26/21 - Improving (15.7) 10/07/21 - 16.4 LTG Duration 02/17/22 - Nearly met (15.6 01/18) Two Impairment Pt ambulates with toe walking bilaterally and a step-to gait pattern Prison Goal (LTG) Pt to demonstrate ability with ambulate with a heel-toe pattern at least 50% of the time with a step-through pattern 75% of the time LTG Duration MET One Impairment Pt does not have an appropriate home exercise program Short Term Goal (STG) Pt to be independent and compliant with an appropriate HEP STG Duration Met Assessment Summary Assessment Pt struggled more today than what he usually does, much less confidence walking over floor transitions carpet to tile, reaching out for wall support more frequently. Pt's dad noted that they had noticed this too today, unsure of the cause, although may have to do with rain today, feeling like the bottom of his shoes are more slick than usual. Physical Therapy Plan Frequency and Duration Frequency of Treatment 1-2x/Week Duration of treatment (weeks) 8 Plan of Care Start Date 03/09/22 Plan of Care End Date 05/04/22 Therapeutic Interventions Therapeutic Interventions Balance Training,Coordination Training,Gait Training,Home Exercise Program,Manual Therapy,Neuromuscular Re- education,Patient/Caregiver Education,Self-Care/Home Management,Soft Tissue Mobilization,Therapeutic Exercises Next Visit Focus/Plan Next Note Type Treatment Note Next Visit Plan Flexibility, balance training, gait training
--- NOTE | 2022-03-25 12:01 | PT.OTN ---
Current Diagnoses Cerebral palsy, unspecified (03/25/22) Stiffness of unspecified knee, not elsewhere classified (03/25/22) Stiffness of unspecified ankle, not elsewhere classified (03/25/22) Other abnormalities of gait and mobility (03/25/22) Physical Therapy Treatment Note PT-OP-A Visit Information Start: 05/27/21 16:09 Freq: Status: Active Protocol: Document 03/25/22 11:15 DCW (Rec: 03/25/22 12:00 DCW [id number]) Out-Patient Physical Therapy Visit Information Visit Information Visit Type Treatment Note Visit Start Time 11:15 Visit Stop Time 12:00 Total Visit Minutes 45 Visit Number 30 Number of FILTER WORKER Visits 0 Evaluation Information Evaluation Date 05/27/21 PT-OP-B Current Condition Start: 05/27/21 16:09 Freq: Status: Active Protocol: Document 05/27/21 15:15 DCW (Rec: 05/27/21 16:28 DCW [id number]) Current Condition History of Current Condition Onset Date Long-standing history Current Complaints Decreased gait, confidence, increased fear of falling History of Current Condition Pt is a 20 year old male well known to this clinic with a history of cerebral palsy and developmental delay. Pt was previously seen four years ago following abdominal surgery because of a decline in gait function, and is presenting today with similar complaints. Pt's father reports pt has been having decreased confidence when walking, especially when on hard surfaces. Pt walks better on carpet, but becomes very hesitant and nervous on tile or outside on sidewalk. Pt admits he has fallen a few times walking out to his bus stop. Pt has always performed toe walking, especially on his left side, but it has progressed a bit recently, and pt is taking very hesitant, small steps, and will frequently rely on his parents for hand-hold assist to maintain balance. Treatment Goals Patient/Caregiver Goals I think I should be walking better when I turn 21. Prior Functional Status Baseline Function- Gait L Toe walking, LE spasticity PT-OP-C Subjective Start: 05/27/21 16:09 Freq: Status: Active Protocol: Document 03/25/22 11:15 DCW (Rec: 03/25/22 12:00 DCW [id number]) OP-PT Subjective Patient Comments Patient Comments Pt feeling more confident today. PT-OP-D Balance Start: 05/27/21 16:09 Freq: Status: Active Protocol: Document 01/18/22 16:46 DCW (Rec: 01/18/22 17:12 DCW [id number]) Balance Tests Single Limb Standing Single Limb- Right 11 sec Single Limb- Left 11 sec Tandem Tandem Standing L: 24, R: 25 PT-OP-E Functional Tests Start: 05/27/21 16:09 Freq: Status: Active Protocol: Document 03/09/22 16:00 DCW (Rec: 03/09/22 16:15 DCW [id number]) Functional Tests 2 Minute Walk Test Distance 356' Device Used none Comments 2.97 ft/sec PT-OP-G Mobility & Gait Start: 05/27/21 16:29 Freq: Status: Active Protocol: Document 01/18/22 16:46 DCW (Rec: 01/18/22 17:12 DCW [id number]) OP Gait Assessment Gait Gait Assistance Required: Standby Assistance Distance (Feet) 288 Able to Maintain Weight Bearing Status Yes During Gait Assistive Devices Assistive Device Gait Belt Gait Deviations General Gait Pattern Ataxic,Decreased Stride Length ,Decreased Feet Clearance, Flexed Trunk,Narrow Based Gait ,Step-to Gait Factors Limiting Gait Function Factors Limiting Gait Function Abnormal Tonal Influences, Limited Range of Motion,Poor Balance Comments Gait Comments Pt ambulates with mild toe walking bilaterally, decreased step length, decreased foot clearance. Step-through more regularly (75% of the time) than previous testing. Much more comfortable crossing threshholds PT-OP-K Range of Motion Start: 05/27/21 16:09 Freq: Status: Active Protocol: Document 03/09/22 16:00 DCW (Rec: 03/09/22 16:15 DCW [id number]) Ankle and Foot Goniometric Range of Motion Ankle and Foot Right Comments At rest, right ankle in 3? inversion. With stretch from therapist, able to get right ankle to 8? DF Left Comments At rest, left ankle in 4? inversion. With stretch from therapist, able to get left ankle to 7? DF PT-OP-M Strength Start: 05/27/21 16:09 Freq: Status: Active Protocol: Document 05/27/21 15:15 DCW (Rec: 05/27/21 16:28 DCW [id number]) Hip Strength Hip Manual Muscle Testing Right Flexion (L2) 4+ Good+ Abduction 4+ Good+ Adduction 4+ Good+ Left Flexion (L2) 4+ Good+ Abduction 4+ Good+ Adduction 4+ Good+ Knee Strength Knee Manual Muscle Testing Right Flexion (S2) 4+ Good+ Extension (L3) 4+ Good+ Left Flexion (S2) 4+ Good+ Extension (L3) 4+ Good+ PT-OP-Q Treatments Start: 05/27/21 16:09 Freq: Status: Active Protocol: Document 03/25/22 11:15 DCW (Rec: 03/25/22 12:00 [facility] [id number]) Gym Equipment Shuttle Balance 2 Details Red Comments WBOS EO/EC, Lateral stabilization Therapeutic Exercises Sitting Exercises 2 Sitting Exercise Name Hamstring stretch Side bilateral 1 Sitting Exercise Name Heel cord stretch Side bilateral Standing Exercises 2 Standing Exercise Name Gastroc stretch Side bilateral Equipment Used WANDER 1 Standing Exercise Name Heel raises Side bilateral Equipment Used 4 step Other Exercises 1 Other Exercise Name Hurdles over changing floor surface Comments Used red pad on blue pad as obstacles Gait Training Gait Activity 2 Description Steps Level of Assistance CGA to SBA Treatment Focus Sequencing, strength, stability Comments Ascending: step-over, /s rail x3 Descending: step-over /c rail x3 1 Description Gait training on changing surface carpet/tile Level of Assistance SBA Distance/Duration 680' Comments Verbal cues for heel-toe gait and increased step length, left arm swing PT-OP-T Assessment and Plan Start: 05/27/21 16:09 Freq: Status: Active Protocol: Document 03/25/22 11:15 DCW (Rec: 03/25/22 12:00 [facility] [id number]) Physical Therapy Assessment Impairments Impairments Activity Tolerance,Balance, Coordination,Functional Mobility,Gait,ROM,Soft Tissue Mobility,Tone Goals Three Impairment Pt scores a 20.1 TUG Fpc Goal (LTG) Pt to decreased average TUG score to <15.5 in order to demonstrate improved confidence and a decreased fear of falling 07/26/21 - Improving (15.7) 10/07/21 - 16.4 LTG Duration 02/17/22 - Nearly met (15.6 01/18) Two Impairment Pt ambulates with toe walking bilaterally and a step-to gait pattern Fpc Goal (LTG) Pt to demonstrate ability with ambulate with a heel-toe pattern at least 50% of the time with a step-through pattern 75% of the time LTG Duration MET One Impairment Pt does not have an appropriate home exercise program Short Term Goal (STG) Pt to be independent and compliant with an appropriate HEP STG Duration Met Assessment Summary Assessment Pt continues to show good progress with confidence and balance during PT session. Pt' s mom still notes that he typically reaches for hand hold stability when out walking across parking lots or stepping off a curb. Physical Therapy Plan Frequency and Duration Frequency of Treatment 1-2x/Week Duration of treatment (weeks) 8 Plan of Care Start Date 03/09/22 Plan of Care End Date 05/04/22 Therapeutic Interventions Therapeutic Interventions Balance Training,Coordination Training,Gait Training,Home Exercise Program,Manual Therapy,Neuromuscular Re- education,Patient/Caregiver Education,Self-Care/Home Management,Soft Tissue Mobilization,Therapeutic Exercises Next Visit Focus/Plan Next Note Type Treatment Note Next Visit Plan Flexibility, balance training, gait training
--- NOTE | 2022-03-30 17:44 | PT.OTN ---
Current Diagnoses Cerebral palsy, unspecified (03/30/22) Stiffness of unspecified knee, not elsewhere classified (03/30/22) Stiffness of unspecified ankle, not elsewhere classified (03/30/22) Other abnormalities of gait and mobility (03/30/22) Physical Therapy Treatment Note PT-OP-A Visit Information Start: 05/27/21 16:09 Freq: Status: Active Protocol: Document 03/30/22 16:47 DCW (Rec: 03/30/22 17:44 DCW [id number]) Out-Patient Physical Therapy Visit Information Visit Information Visit Type Treatment Note Visit Start Time 16:47 Visit Stop Time 17:30 Total Visit Minutes 43 Visit Number 31 Number of REGISTERED NURSE FLOAT POOL Visits 0 Evaluation Information Evaluation Date 05/27/21 PT-OP-B Current Condition Start: 05/27/21 16:09 Freq: Status: Active Protocol: Document 05/27/21 15:15 DCW (Rec: 05/27/21 16:28 DCW [id number]) Current Condition History of Current Condition Onset Date Long-standing history Current Complaints Decreased gait, confidence, increased fear of falling History of Current Condition Pt is a 20 year old male well known to this clinic with a history of cerebral palsy and developmental delay. Pt was previously seen four years ago following abdominal surgery because of a decline in gait function, and is presenting today with similar complaints. Pt's father reports pt has been having decreased confidence when walking, especially when on hard surfaces. Pt walks better on carpet, but becomes very hesitant and nervous on tile or outside on sidewalk. Pt admits he has fallen a few times walking out to his bus stop. Pt has always performed toe walking, especially on his left side, but it has progressed a bit recently, and pt is taking very hesitant, small steps, and will frequently rely on his parents for hand-hold assist to maintain balance. Treatment Goals Patient/Caregiver Goals I think I should be walking better when I turn 21. Prior Functional Status Baseline Function- Gait L Toe walking, LE spasticity PT-OP-C Subjective Start: 05/27/21 16:09 Freq: Status: Active Protocol: Document 03/30/22 16:47 DCW (Rec: 03/30/22 17:44 DCW [id number]) OP-PT Subjective Patient Comments Patient Comments Pt comes in today holding onto his mom's arm, is unwilling to take his hand off the wall while walking down the [place] from the waiting room. PT-OP-D Balance Start: 05/27/21 16:09 Freq: Status: Active Protocol: Document 01/18/22 16:46 DCW (Rec: 01/18/22 17:12 DCW [id number]) Balance Tests Single Limb Standing Single Limb- Right 11 sec Single Limb- Left 11 sec Tandem Tandem Standing L: 24, R: 25 PT-OP-E Functional Tests Start: 05/27/21 16:09 Freq: Status: Active Protocol: Document 03/09/22 16:00 DCW (Rec: 03/09/22 16:15 DCW [id number]) Functional Tests 2 Minute Walk Test Distance 356' Device Used none Comments 2.97 ft/sec PT-OP-G Mobility & Gait Start: 05/27/21 16:29 Freq: Status: Active Protocol: Document 01/18/22 16:46 DCW (Rec: 01/18/22 17:12 DCW [id number]) OP Gait Assessment Gait Gait Assistance Required: Standby Assistance Distance (Feet) 288 Able to Maintain Weight Bearing Status Yes During Gait Assistive Devices Assistive Device Gait Belt Gait Deviations General Gait Pattern Ataxic,Decreased Stride Length ,Decreased Feet Clearance, Flexed Trunk,Narrow Based Gait ,Step-to Gait Factors Limiting Gait Function Factors Limiting Gait Function Abnormal Tonal Influences, Limited Range of Motion,Poor Balance Comments Gait Comments Pt ambulates with mild toe walking bilaterally, decreased step length, decreased foot clearance. Step-through more regularly (75% of the time) than previous testing. Much more comfortable crossing threshholds PT-OP-K Range of Motion Start: 05/27/21 16:09 Freq: Status: Active Protocol: Document 03/09/22 16:00 DCW (Rec: 03/09/22 16:15 DCW [id number]) Ankle and Foot Goniometric Range of Motion Ankle and Foot Right Comments At rest, right ankle in 3? inversion. With stretch from therapist, able to get right ankle to 8? DF Left Comments At rest, left ankle in 4? inversion. With stretch from therapist, able to get left ankle to 7? DF PT-OP-M Strength Start: 05/27/21 16:09 Freq: Status: Active Protocol: Document 01/13/22 15:15 DCW (Rec: 05/27/21 16:28 [facility] [id number]) Hip Strength Hip Manual Muscle Testing Right Flexion (L2) 4+ Good+ Abduction 4+ Good+ Adduction 4+ Good+ Left Flexion (L2) 4+ Good+ Abduction 4+ Good+ Adduction 4+ Good+ Knee Strength Knee Manual Muscle Testing Right Flexion (S2) 4+ Good+ Extension (L3) 4+ Good+ Left Flexion (S2) 4+ Good+ Extension (L3) 4+ Good+ PT-OP-Q Treatments Start: 05/27/21 16:09 Freq: Status: Active Protocol: Document 03/30/22 16:47 DCW (Rec: 03/30/22 17:44 [facility] [id number]) Gym Equipment Shuttle Rebound DL Hopping Exercise Details Double leg hopping /c UE hold Shuttle Balance 2 Details Red Comments WBOS EO/EC, Lateral stabilization Therapeutic Exercises Sitting Exercises 2 Sitting Exercise Name Hamstring stretch Side bilateral 1 Sitting Exercise Name Heel cord stretch Side bilateral Standing Exercises 2 Standing Exercise Name Gastroc stretch Side bilateral Equipment Used WANDER 1 Standing Exercise Name Heel raises Side bilateral Equipment Used 4 step Other Exercises 1 Other Exercise Name Hurdles over changing floor surface Comments Used red pad on blue pad as obstacles Gait Training Gait Activity 1 Description Gait training on changing surface carpet/tile Level of Assistance SBA Distance/Duration 680' Comments Verbal cues for heel-toe gait and increased step length, left arm swing Neuro Re-Education Treatment Balance Activities 1 Details BOSU Comments DL BOSU stance (Blue) PT-OP-T Assessment and Plan Start: 05/27/21 16:09 Freq: Status: Active Protocol: Document 03/30/22 16:47 DC (Rec: 03/30/22 17:44 [facility] [id number]) Physical Therapy Assessment Impairments Impairments Activity Tolerance,Balance, Coordination,Functional Mobility,Gait,ROM,Soft Tissue Mobility,Tone Goals Three Impairment Pt scores a 20.1 TUG Cord Maker Goal (LTG) Pt to decreased average TUG score to <15.5 in order to demonstrate improved confidence and a decreased fear of falling 07/26/21 - Improving (15.7) 10/07/21 - 16.4 LTG Duration 02/17/22 - Nearly met (15.6 01/18) Two Impairment Pt ambulates with toe walking bilaterally and a step-to gait pattern Fdc Goal (LTG) Pt to demonstrate ability with ambulate with a heel-toe pattern at least 50% of the time with a step-through pattern 75% of the time LTG Duration MET One Impairment Pt does not have an appropriate home exercise program Short Term Goal (STG) Pt to be independent and compliant with an appropriate HEP STG Duration Met Assessment Summary Assessment Pt had a bit more difficulty today with gait and confidence walking on tile, more so than usual. Pt did well with new activities, both stance on BOSU and hopping on the trampoline. Physical Therapy Plan Frequency and Duration Frequency of Treatment 1-2x/Week Duration of treatment (weeks) 8 Plan of Care Start Date 03/09/22 Plan of Care End Date 05/04/22 Therapeutic Interventions Therapeutic Interventions Balance Training,Coordination Training,Gait Training,Home Exercise Program,Manual Therapy,Neuromuscular Re- education,Patient/Caregiver Education,Self-Care/Home Management,Soft Tissue Mobilization,Therapeutic Exercises Next Visit Focus/Plan Next Note Type Treatment Note Next Visit Plan Flexibility, balance training, gait training
--- NOTE | 2022-04-13 17:27 | PT.OTN ---
Current Diagnoses Cerebral palsy, unspecified (04/13/22) Stiffness of unspecified knee, not elsewhere classified (04/13/22) Stiffness of unspecified ankle, not elsewhere classified (04/13/22) Other abnormalities of gait and mobility (04/13/22) Physical Therapy Treatment Note PT-OP-A Visit Information Start: 05/27/21 16:09 Freq: Status: Active Protocol: Document 04/13/22 16:40 DCW (Rec: 04/13/22 17:27 DCW [id number]) Out-Patient Physical Therapy Visit Information Visit Information Visit Type Treatment Note Visit Start Time 16:40 Visit Stop Time 17:25 Total Visit Minutes 45 Visit Number 32 Number of BURRING WHEEL OPERATOR Visits 0 Evaluation Information Evaluation Date 05/27/21 PT-OP-B Current Condition Start: 05/27/21 16:09 Freq: Status: Active Protocol: Document 05/27/21 15:15 DCW (Rec: 05/27/21 16:28 DCW [id number]) Current Condition History of Current Condition Onset Date Long-standing history Current Complaints Decreased gait, confidence, increased fear of falling History of Current Condition Pt is a 20 year old male well known to this clinic with a history of cerebral palsy and developmental delay. Pt was previously seen four years ago following abdominal surgery because of a decline in gait function, and is presenting today with similar complaints. Pt's father reports pt has been having decreased confidence when walking, especially when on hard surfaces. Pt walks better on carpet, but becomes very hesitant and nervous on tile or outside on sidewalk. Pt admits he has fallen a few times walking out to his bus stop. Pt has always performed toe walking, especially on his left side, but it has progressed a bit recently, and pt is taking very hesitant, small steps, and will frequently rely on his parents for hand-hold assist to maintain balance. Treatment Goals Patient/Caregiver Goals I think I should be walking better when I turn 21. Prior Functional Status Baseline Function- Gait L Toe walking, LE spasticity PT-OP-C Subjective Start: 05/27/21 16:09 Freq: Status: Active Protocol: Document 04/13/22 16:40 DCW (Rec: 04/13/22 17:27 DCW [id number]) OP-PT Subjective Patient Comments Patient Comments Pt's mom notes he got another Botox injection in his calf ~1 .5 weeks ago. Pt reports it is feeling pretty good. PT-OP-D Balance Start: 05/27/21 16:09 Freq: Status: Active Protocol: Document 01/18/22 16:46 DCW (Rec: 01/18/22 17:12 DCW [id number]) Balance Tests Single Limb Standing Single Limb- Right 11 sec Single Limb- Left 11 sec Tandem Tandem Standing L: 24, R: 25 PT-OP-E Functional Tests Start: 05/27/21 16:09 Freq: Status: Active Protocol: Document 03/09/22 16:00 DCW (Rec: 03/09/22 16:15 DCW [id number]) Functional Tests 2 Minute Walk Test Distance 356' Device Used none Comments 2.97 ft/sec PT-OP-G Mobility & Gait Start: 05/27/21 16:29 Freq: Status: Active Protocol: Document 01/18/22 16:46 DCW (Rec: 01/18/22 17:12 DCW [id number]) OP Gait Assessment Gait Gait Assistance Required: Standby Assistance Distance (Feet) 288 Able to Maintain Weight Bearing Status Yes During Gait Assistive Devices Assistive Device Gait Belt Gait Deviations General Gait Pattern Ataxic,Decreased Stride Length ,Decreased Feet Clearance, Flexed Trunk,Narrow Based Gait ,Step-to Gait Factors Limiting Gait Function Factors Limiting Gait Function Abnormal Tonal Influences, Limited Range of Motion,Poor Balance Comments Gait Comments Pt ambulates with mild toe walking bilaterally, decreased step length, decreased foot clearance. Step-through more regularly (75% of the time) than previous testing. Much more comfortable crossing threshholds PT-OP-K Range of Motion Start: 05/27/21 16:09 Freq: Status: Active Protocol: Document 03/09/22 16:00 DCW (Rec: 03/09/22 16:15 DCW [id number]) Ankle and Foot Goniometric Range of Motion Ankle and Foot Right Comments At rest, right ankle in 3? inversion. With stretch from therapist, able to get right ankle to 8? DF Left Comments At rest, left ankle in 4? inversion. With stretch from therapist, able to get left ankle to 7? DF PT-OP-M Strength Start: 05/27/21 16:09 Freq: Status: Active Protocol: Document 05/27/21 15:15 DCW (Rec: 05/27/21 16:28 DCW [id number]) Hip Strength Hip Manual Muscle Testing Right Flexion (L2) 4+ Good+ Abduction 4+ Good+ Adduction 4+ Good+ Left Flexion (L2) 4+ Good+ Abduction 4+ Good+ Adduction 4+ Good+ Knee Strength Knee Manual Muscle Testing Right Flexion (S2) 4+ Good+ Extension (L3) 4+ Good+ Left Flexion (S2) 4+ Good+ Extension (L3) 4+ Good+ PT-OP-Q Treatments Start: 05/27/21 16:09 Freq: Status: Active Protocol: Document 04/13/22 16:40 DCW (Rec: 04/13/22 17:27 [facility] [id number]) Gym Equipment Shuttle Balance 2 Details Red Comments WBOS EO/EC, Lateral stabilization Therapeutic Exercises Sitting Exercises 2 Sitting Exercise Name Hamstring stretch Side bilateral 1 Sitting Exercise Name Heel cord stretch Side bilateral Standing Exercises 2 Standing Exercise Name Gastroc stretch Side bilateral Equipment Used WANDER 1 Standing Exercise Name Heel raises Side bilateral Equipment Used 4 step Other Exercises 1 Other Exercise Name Hurdles over changing floor surface Comments Used red pad on blue pad as obstacles Gait Training Gait Activity 1 Description Gait training on changing surface carpet/tile Level of Assistance SBA Distance/Duration 680' Comments Verbal cues for heel-toe gait and increased step length, left arm swing Neuro Re-Education Treatment Balance Activities 2 Details SLS Surface Blue Foam 1 Details BOSU Comments DL BOSU stance (Blue) PT-OP-T Assessment and Plan Start: 05/27/21 16:09 Freq: Status: Active Protocol: Document 04/13/22 16:40 DCW (Rec: 04/13/22 17:27 [facility] [id number]) Physical Therapy Assessment Impairments Impairments Activity Tolerance,Balance, Coordination,Functional Mobility,Gait,ROM,Soft Tissue Mobility,Tone Goals Three Impairment Pt scores a 20.1 TUG Barrel Lapper Goal (LTG) Pt to decreased average TUG score to <15.5 in order to demonstrate improved confidence and a decreased fear of falling 07/26/21 - Improving (15.7) 10/07/21 - 16.4 LTG Duration 02/17/22 - Nearly met (15.6 01/18) Two Impairment Pt ambulates with toe walking bilaterally and a step-to gait pattern Assisted Goal (LTG) Pt to demonstrate ability with ambulate with a heel-toe pattern at least 50% of the time with a step-through pattern 75% of the time LTG Duration MET One Impairment Pt does not have an appropriate home exercise program Short Term Goal (STG) Pt to be independent and compliant with an appropriate HEP STG Duration Met Assessment Summary Assessment Significant improvement with gait following recent Botox injection, significant improvement with heel strike on left side. Physical Therapy Plan Frequency and Duration Frequency of Treatment 1-2x/Week Duration of treatment (weeks) 8 Plan of Care Start Date 03/09/22 Plan of Care End Date 05/04/22 Therapeutic Interventions Therapeutic Interventions Balance Training,Coordination Training,Gait Training,Home Exercise Program,Manual Therapy,Neuromuscular Re- education,Patient/Caregiver Education,Self-Care/Home Management,Soft Tissue Mobilization,Therapeutic Exercises Next Visit Focus/Plan Next Note Type Treatment Note Next Visit Plan Flexibility, balance training, gait training
--- NOTE | 2022-04-19 16:45 | PT.OTN ---
Current Diagnoses Cerebral palsy, unspecified (04/19/22) Stiffness of unspecified knee, not elsewhere classified (04/19/22) Stiffness of unspecified ankle, not elsewhere classified (04/19/22) Other abnormalities of gait and mobility (04/19/22) Physical Therapy Treatment Note PT-OP-A Visit Information Start: 05/27/21 16:09 Freq: Status: Active Protocol: Document 04/19/22 16:00 DCW (Rec: 04/19/22 16:45 DCW [id number]) Out-Patient Physical Therapy Visit Information Visit Information Visit Type Treatment Note Visit Start Time 16:00 Visit Stop Time 16:45 Total Visit Minutes 45 Visit Number 33 Number of ELEMENTARY SCHOOL DIRECTOR Visits 0 Evaluation Information Evaluation Date 05/27/21 PT-OP-B Current Condition Start: 05/27/21 16:09 Freq: Status: Active Protocol: Document 05/27/21 15:15 DCW (Rec: 05/27/21 16:28 DCW [id number]) Current Condition History of Current Condition Onset Date Long-standing history Current Complaints Decreased gait, confidence, increased fear of falling History of Current Condition Pt is a 20 year old male well known to this clinic with a history of cerebral palsy and developmental delay. Pt was previously seen four years ago following abdominal surgery because of a decline in gait function, and is presenting today with similar complaints. Pt's father reports pt has been having decreased confidence when walking, especially when on hard surfaces. Pt walks better on carpet, but becomes very hesitant and nervous on tile or outside on sidewalk. Pt admits he has fallen a few times walking out to his bus stop. Pt has always performed toe walking, especially on his left side, but it has progressed a bit recently, and pt is taking very hesitant, small steps, and will frequently rely on his parents for hand-hold assist to maintain balance. Treatment Goals Patient/Caregiver Goals I think I should be walking better when I turn 21. Prior Functional Status Baseline Function- Gait L Toe walking, LE spasticity PT-OP-C Subjective Start: 05/27/21 16:09 Freq: Status: Active Protocol: Document 04/19/22 16:00 DCW (Rec: 04/19/22 16:45 DCW [id number]) OP-PT Subjective Patient Comments Patient Comments Pt happy with his left calf tone. PT-OP-D Balance Start: 05/27/21 16:09 Freq: Status: Active Protocol: Document 01/18/22 16:46 DCW (Rec: 01/18/22 17:12 DCW [id number]) Balance Tests Single Limb Standing Single Limb- Right 11 sec Single Limb- Left 11 sec Tandem Tandem Standing L: 24, R: 25 PT-OP-E Functional Tests Start: 05/27/21 16:09 Freq: Status: Active Protocol: Document 03/09/22 16:00 DCW (Rec: 03/09/22 16:15 DCW [place] [id number]) Functional Tests 2 Minute Walk Test Distance 356' Device Used none Comments 2.97 ft/sec PT-OP-G Mobility & Gait Start: 05/27/21 16:29 Freq: Status: Active Protocol: Document 01/18/22 16:46 DCW (Rec: 01/18/22 17:12 DCW [id number]) OP Gait Assessment Gait Gait Assistance Required: Standby Assistance Distance (Feet) 288 Able to Maintain Weight Bearing Status Yes During Gait Assistive Devices Assistive Device Gait Belt Gait Deviations General Gait Pattern Ataxic,Decreased Stride Length ,Decreased Feet Clearance, Flexed Trunk,Narrow Based Gait ,Step-to Gait Factors Limiting Gait Function Factors Limiting Gait Function Abnormal Tonal Influences, Limited Range of Motion,Poor Balance Comments Gait Comments Pt ambulates with mild toe walking bilaterally, decreased step length, decreased foot clearance. Step-through more regularly (75% of the time) than previous testing. Much more comfortable crossing threshholds PT-OP-K Range of Motion Start: 05/27/21 16:09 Freq: Status: Active Protocol: Document 03/09/22 16:00 DCW (Rec: 03/09/22 16:15 DCW [id number]) Ankle and Foot Goniometric Range of Motion Ankle and Foot Right Comments At rest, right ankle in 3? inversion. With stretch from therapist, able to get right ankle to 8? DF Left Comments At rest, left ankle in 4? inversion. With stretch from therapist, able to get left ankle to 7? DF PT-OP-M Strength Start: 05/27/21 16:09 Freq: Status: Active Protocol: Document 05/27/21 15:15 DCW (Rec: 05/27/21 16:28 DCW [id number]) Hip Strength Hip Manual Muscle Testing Right Flexion (L2) 4+ Good+ Abduction 4+ Good+ Adduction 4+ Good+ Left Flexion (L2) 4+ Good+ Abduction 4+ Good+ Adduction 4+ Good+ Knee Strength Knee Manual Muscle Testing Right Flexion (S2) 4+ Good+ Extension (L3) 4+ Good+ Left Flexion (S2) 4+ Good+ Extension (L3) 4+ Good+ PT-OP-Q Treatments Start: 05/27/21 16:09 Freq: Status: Active Protocol: Document 04/19/22 16:00 DCW (Rec: 04/19/22 16:45 [facility] [id number]) Gym Equipment Shuttle Rebound DL Hopping Exercise Details Double leg hopping /c UE hold Shuttle Balance 2 Details Red Comments WBOS EO/EC, Lateral stabilization Therapeutic Exercises Sitting Exercises 2 Sitting Exercise Name Hamstring stretch Side bilateral 1 Sitting Exercise Name Heel cord stretch Side bilateral Standing Exercises 2 Standing Exercise Name Gastroc stretch Side bilateral Equipment Used WANDER 1 Standing Exercise Name Heel raises Side bilateral Equipment Used 4 step Other Exercises 1 Other Exercise Name Hurdles over changing floor surface Comments Used red pad on blue pad as obstacles Gait Training Gait Activity 1 Description Gait training on changing surface carpet/tile Level of Assistance SBA Distance/Duration 680' Comments Verbal cues for heel-toe gait and increased step length, left arm swing PT-OP-T Assessment and Plan Start: 05/27/21 16:09 Freq: Status: Active Protocol: Document 04/19/22 16:00 DCW (Rec: 04/19/22 16:45 [facility] [id number]) Physical Therapy Assessment Impairments Impairments Activity Tolerance,Balance, Coordination,Functional Mobility,Gait,ROM,Soft Tissue Mobility,Tone Goals Three Impairment Pt scores a 20.1 TUG New Car Make Ready Worker Goal (LTG) Pt to decreased average TUG score to <15.5 in order to demonstrate improved confidence and a decreased fear of falling 07/26/21 - Improving (15.7) 10/07/21 - 16.4 LTG Duration 02/17/22 - Nearly met (15.6 01/18) Two Impairment Pt ambulates with toe walking bilaterally and a step-to gait pattern New Car Make Ready Worker Goal (LTG) Pt to demonstrate ability with ambulate with a heel-toe pattern at least 50% of the time with a step-through pattern 75% of the time LTG Duration MET One Impairment Pt does not have an appropriate home exercise program Short Term Goal (STG) Pt to be independent and compliant with an appropriate HEP STG Duration Met Assessment Summary Assessment Pt slightly more hesitant with ambulation and balance challenges today, got stuck stepping over the hurdles, got left foot over, and then felt like he could not follow with right foot, needed to spend increased time talking himself into taking the step. Otherwise did well today. Physical Therapy Plan Frequency and Duration Frequency of Treatment 1-2x/Week Duration of treatment (weeks) 8 Plan of Care Start Date 03/09/22 Plan of Care End Date 05/04/22 Therapeutic Interventions Therapeutic Interventions Balance Training,Coordination Training,Gait Training,Home Exercise Program,Manual Therapy,Neuromuscular Re- education,Patient/Caregiver Education,Self-Care/Home Management,Soft Tissue Mobilization,Therapeutic Exercises Next Visit Focus/Plan Next Note Type Treatment Note Next Visit Plan Flexibility, balance training, gait training
--- NOTE | 2022-04-21 16:52 | PT.OTN ---
Current Diagnoses Cerebral palsy, unspecified (04/21/22) Stiffness of unspecified knee, not elsewhere classified (04/21/22) Stiffness of unspecified ankle, not elsewhere classified (04/21/22) Other abnormalities of gait and mobility (04/21/22) Physical Therapy Treatment Note PT-OP-A Visit Information Start: 05/27/21 16:09 Freq: Status: Active Protocol: Document 04/21/22 16:00 DCW (Rec: 04/21/22 16:52 DCW [id number]) Out-Patient Physical Therapy Visit Information Visit Information Visit Type Treatment Note Visit Start Time 16:00 Visit Stop Time 16:45 Total Visit Minutes 45 Visit Number 34 Number of SMALL STOCK FACER Visits 0 Evaluation Information Evaluation Date 05/27/21 PT-OP-B Current Condition Start: 05/27/21 16:09 Freq: Status: Active Protocol: Document 05/27/21 15:15 DCW (Rec: 05/27/21 16:28 DCW [id number]) Current Condition History of Current Condition Onset Date Long-standing history Current Complaints Decreased gait, confidence, increased fear of falling History of Current Condition Pt is a 20 year old male well known to this clinic with a history of cerebral palsy and developmental delay. Pt was previously seen four years ago following abdominal surgery because of a decline in gait function, and is presenting today with similar complaints. Pt's father reports pt has been having decreased confidence when walking, especially when on hard surfaces. Pt walks better on carpet, but becomes very hesitant and nervous on tile or outside on sidewalk. Pt admits he has fallen a few times walking out to his bus stop. Pt has always performed toe walking, especially on his left side, but it has progressed a bit recently, and pt is taking very hesitant, small steps, and will frequently rely on his parents for hand-hold assist to maintain balance. Treatment Goals Patient/Caregiver Goals I think I should be walking better when I turn 21. Prior Functional Status Baseline Function- Gait L Toe walking, LE spasticity PT-OP-C Subjective Start: 05/27/21 16:09 Freq: Status: Active Protocol: Document 04/21/22 16:00 DCW (Rec: 04/21/22 16:52 DCW [id number]) OP-PT Subjective Patient Comments Patient Comments Pt feeling more confident with his walking today. PT-OP-D Balance Start: 05/27/21 16:09 Freq: Status: Active Protocol: Document 01/18/22 16:46 DCW (Rec: 01/18/22 17:12 DCW [id number]) Balance Tests Single Limb Standing Single Limb- Right 11 sec Single Limb- Left 11 sec Tandem Tandem Standing L: 24, R: 25 PT-OP-E Functional Tests Start: 05/27/21 16:09 Freq: Status: Active Protocol: Document 03/09/22 16:00 DCW (Rec: 03/09/22 16:15 DCW [id number] [id number]) Functional Tests 2 Minute Walk Test Distance 356' Device Used none Comments 2.97 ft/sec PT-OP-G Mobility & Gait Start: 05/27/21 16:29 Freq: Status: Active Protocol: Document 01/18/22 16:46 DCW (Rec: 01/18/22 17:12 DCW [id number]) OP Gait Assessment Gait Gait Assistance Required: Standby Assistance Distance (Feet) 288 Able to Maintain Weight Bearing Status Yes During Gait Assistive Devices Assistive Device Gait Belt Gait Deviations General Gait Pattern Ataxic,Decreased Stride Length ,Decreased Feet Clearance, Flexed Trunk,Narrow Based Gait ,Step-to Gait Factors Limiting Gait Function Factors Limiting Gait Function Abnormal Tonal Influences, Limited Range of Motion,Poor Balance Comments Gait Comments Pt ambulates with mild toe walking bilaterally, decreased step length, decreased foot clearance. Step-through more regularly (75% of the time) than previous testing. Much more comfortable crossing threshholds PT-OP-K Range of Motion Start: 05/27/21 16:09 Freq: Status: Active Protocol: Document 03/09/22 16:00 DCW (Rec: 03/09/22 16:15 DCW [id number]) Ankle and Foot Goniometric Range of Motion Ankle and Foot Right Comments At rest, right ankle in 3? inversion. With stretch from therapist, able to get right ankle to 8? DF Left Comments At rest, left ankle in 4? inversion. With stretch from therapist, able to get left ankle to 7? DF PT-OP-M Strength Start: 05/27/21 16:09 Freq: Status: Active Protocol: Document 05/27/21 15:15 DCW (Rec: 05/27/21 16:28 DCW [id number]) Hip Strength Hip Manual Muscle Testing Right Flexion (L2) 4+ Good+ Abduction 4+ Good+ Adduction 4+ Good+ Left Flexion (L2) 4+ Good+ Abduction 4+ Good+ Adduction 4+ Good+ Knee Strength Knee Manual Muscle Testing Right Flexion (S2) 4+ Good+ Extension (L3) 4+ Good+ Left Flexion (S2) 4+ Good+ Extension (L3) 4+ Good+ PT-OP-Q Treatments Start: 05/27/21 16:09 Freq: Status: Active Protocol: Document 04/21/22 16:00 [facility] (Rec: 04/21/22 16:52 [facility] [id number]) Gym Equipment Shuttle Rebound DL Hopping Exercise Details Double leg hopping /c UE hold Shuttle Balance 2 Details Red Comments WBOS EO/EC, Lateral stabilization Therapeutic Exercises Sitting Exercises 2 Sitting Exercise Name Hamstring stretch Side bilateral 1 Sitting Exercise Name Heel cord stretch Side bilateral Standing Exercises 2 Standing Exercise Name Gastroc stretch Side bilateral Equipment Used WANDER 1 Standing Exercise Name Heel raises Side bilateral Equipment Used 4 step Other Exercises 1 Other Exercise Name Hurdles over changing floor surface Comments Used red pad on blue pad as obstacles Gait Training Gait Activity 2 Description Steps Level of Assistance CGA to SBA Treatment Focus Sequencing, strength, stability Comments Ascending: step-over, /s rail x2 Descending: step-over /c rail x2 1 Description Gait training on changing surface carpet/tile Level of Assistance SBA Distance/Duration 680' Comments Verbal cues for heel-toe gait and increased step length, left arm swing Neuro Re-Education Treatment Balance Activities 1 Details BOSU Comments DL, SL BOSU stance (Blue) PT-OP-T Assessment and Plan Start: 05/27/21 16:09 Freq: Status: Active Protocol: Document 04/21/22 16:00 DCW (Rec: 04/21/22 16:52 [facility] [id number]) Physical Therapy Assessment Impairments Impairments Activity Tolerance,Balance, Coordination,Functional Mobility,Gait,ROM,Soft Tissue Mobility,Tone Goals Three Impairment Pt scores a 20.1 TUG Mcc Goal (LTG) Pt to decreased average TUG score to <15.5 in order to demonstrate improved confidence and a decreased fear of falling 07/26/21 - Improving (15.7) 10/07/21 - 16.4 LTG Duration 02/17/22 - Nearly met (15.6 01/18) Two Impairment Pt ambulates with toe walking bilaterally and a step-to gait pattern Mcc Goal (LTG) Pt to demonstrate ability with ambulate with a heel-toe pattern at least 50% of the time with a step-through pattern 75% of the time LTG Duration MET One Impairment Pt does not have an appropriate home exercise program Short Term Goal (STG) Pt to be independent and compliant with an appropriate HEP STG Duration Met Assessment Summary Assessment Pt more confident today, attempted to try SLS on BOSU without prompting. Gait much more stable today, able to display increased stride length, improved arm swing. Physical Therapy Plan Frequency and Duration Frequency of Treatment 1-2x/Week Duration of treatment (weeks) 8 Plan of Care Start Date 03/09/22 Plan of Care End Date 05/04/22 Therapeutic Interventions Therapeutic Interventions Balance Training,Coordination Training,Gait Training,Home Exercise Program,Manual Therapy,Neuromuscular Re- education,Patient/Caregiver Education,Self-Care/Home Management,Soft Tissue Mobilization,Therapeutic Exercises Next Visit Focus/Plan Next Note Type Treatment Note Next Visit Plan Flexibility, balance training, gait training
--- NOTE | 2022-04-26 17:35 | PT.OTN ---
Current Diagnoses Cerebral palsy, unspecified (04/26/22) Stiffness of unspecified knee, not elsewhere classified (04/26/22) Stiffness of unspecified ankle, not elsewhere classified (04/26/22) Other abnormalities of gait and mobility (04/26/22) Physical Therapy Treatment Note PT-OP-A Visit Information Start: 05/27/21 16:09 Freq: Status: Active Protocol: Document 04/26/22 16:48 DCW (Rec: 04/26/22 17:35 DCW [id number]) Out-Patient Physical Therapy Visit Information Visit Information Visit Type Treatment Note Visit Start Time 16:48 Visit Stop Time 17:30 Total Visit Minutes 42 Visit Number 35 Number of ASSOCIATE PROFESSOR OF PATHOLOGY Visits 0 Evaluation Information Evaluation Date 05/27/21 PT-OP-B Current Condition Start: 05/27/21 16:09 Freq: Status: Active Protocol: Document 05/27/21 15:15 DCW (Rec: 05/27/21 16:28 DCW [id number]) Current Condition History of Current Condition Onset Date Long-standing history Current Complaints Decreased gait, confidence, increased fear of falling History of Current Condition Pt is a 20 year old male well known to this clinic with a history of cerebral palsy and developmental delay. Pt was previously seen four years ago following abdominal surgery because of a decline in gait function, and is presenting today with similar complaints. Pt's father reports pt has been having decreased confidence when walking, especially when on hard surfaces. Pt walks better on carpet, but becomes very hesitant and nervous on tile or outside on sidewalk. Pt admits he has fallen a few times walking out to his bus stop. Pt has always performed toe walking, especially on his left side, but it has progressed a bit recently, and pt is taking very hesitant, small steps, and will frequently rely on his parents for hand-hold assist to maintain balance. Treatment Goals Patient/Caregiver Goals I think I should be walking better when I turn 21. Prior Functional Status Baseline Function- Gait L Toe walking, LE spasticity PT-OP-C Subjective Start: 05/27/21 16:09 Freq: Status: Active Protocol: Document 04/26/22 16:48 DCW (Rec: 04/26/22 17:35 DCW [id number]) OP-PT Subjective Patient Comments Patient Comments Pt feeling very positive today PT-OP-D Balance Start: 05/27/21 16:09 Freq: Status: Active Protocol: Document 01/18/22 16:46 DCW (Rec: 01/18/22 17:12 DCW [id number]) Balance Tests Single Limb Standing Single Limb- Right 11 sec Single Limb- Left 11 sec Tandem Tandem Standing L: 24, R: 25 PT-OP-E Functional Tests Start: 05/27/21 16:09 Freq: Status: Active Protocol: Document 03/09/22 16:00 DCW (Rec: 03/09/22 16:15 DCW [id number]) Functional Tests 2 Minute Walk Test Distance 356' Device Used none Comments 2.97 ft/sec PT-OP-G Mobility & Gait Start: 05/27/21 16:29 Freq: Status: Active Protocol: Document 01/18/22 16:46 DCW (Rec: 01/18/22 17:12 DCW [id number]) OP Gait Assessment Gait Gait Assistance Required: Standby Assistance Distance (Feet) 288 Able to Maintain Weight Bearing Status Yes During Gait Assistive Devices Assistive Device Gait Belt Gait Deviations General Gait Pattern Ataxic,Decreased Stride Length ,Decreased Feet Clearance, Flexed Trunk,Narrow Based Gait ,Step-to Gait Factors Limiting Gait Function Factors Limiting Gait Function Abnormal Tonal Influences, Limited Range of Motion,Poor Balance Comments Gait Comments Pt ambulates with mild toe walking bilaterally, decreased step length, decreased foot clearance. Step-through more regularly (75% of the time) than previous testing. Much more comfortable crossing threshholds PT-OP-K Range of Motion Start: 05/27/21 16:09 Freq: Status: Active Protocol: Document 03/09/22 16:00 DCW (Rec: 03/09/22 16:15 DCW [id number]) Ankle and Foot Goniometric Range of Motion Ankle and Foot Right Comments At rest, right ankle in 3? inversion. With stretch from therapist, able to get right ankle to 8? DF Left Comments At rest, left ankle in 4? inversion. With stretch from therapist, able to get left ankle to 7? DF PT-OP-M Strength Start: 05/27/21 16:09 Freq: Status: Active Protocol: Document 05/27/21 15:15 DCW (Rec: 05/27/21 16:28 DCW [id number]) Hip Strength Hip Manual Muscle Testing Right Flexion (L2) 4+ Good+ Abduction 4+ Good+ Adduction 4+ Good+ Left Flexion (L2) 4+ Good+ Abduction 4+ Good+ Adduction 4+ Good+ Knee Strength Knee Manual Muscle Testing Right Flexion (S2) 4+ Good+ Extension (L3) 4+ Good+ Left Flexion (S2) 4+ Good+ Extension (L3) 4+ Good+ PT-OP-Q Treatments Start: 05/27/21 16:09 Freq: Status: Active Protocol: Document 04/26/22 16:48 DCW (Rec: 04/26/22 17:[id number] Equipment Shuttle Rebound DL Hopping Exercise Details Double leg hopping /c UE hold, single leg hopping Shuttle Balance 2 Details Red Comments WBOS EO/EC, Lateral stabilization Therapeutic Exercises Sitting Exercises 2 Sitting Exercise Name Hamstring stretch Side bilateral 1 Sitting Exercise Name Heel cord stretch Side bilateral Standing Exercises 2 Standing Exercise Name Gastroc stretch Side bilateral Equipment Used WANDER 1 Standing Exercise Name Heel raises Side bilateral Equipment Used 4 step Other Exercises 1 Other Exercise Name Hurdles over changing floor surface Comments Used red pad on blue pad with various steps underneath as obstacles Gait Training Gait Activity 1 Description Gait training on changing surface carpet/tile Level of Assistance SBA Distance/Duration 680' Comments Verbal cues for heel-toe gait and increased step length, left arm swing Neuro Re-Education Treatment Balance Activities 1 Details BOSU Comments DL, SL BOSU stance (Blue) PT-OP-T Assessment and Plan Start: 05/27/21 16:09 Freq: Status: Active Protocol: Document 04/26/22 16:48 DCW (Rec: 04/26/22 17:35 [facility] [id number]) Physical Therapy Assessment Impairments Impairments Activity Tolerance,Balance, Coordination,Functional Mobility,Gait,ROM,Soft Tissue Mobility,Tone Goals Three Impairment Pt scores a 20.1 TUG Lieutenant Ballistics Goal (LTG) Pt to decreased average TUG score to <15.5 in order to demonstrate improved confidence and a decreased fear of falling 07/26/21 - Improving (15.7) 10/07/21 - 16.4 LTG Duration 02/17/22 - Nearly met (15.6 01/18) Two Impairment Pt ambulates with toe walking bilaterally and a step-to gait pattern [employer] Goal (LTG) Pt to demonstrate ability with ambulate with a heel-toe pattern at least 50% of the time with a step-through pattern 75% of the time LTG Duration MET One Impairment Pt does not have an appropriate home exercise program Short Term Goal (STG) Pt to be independent and compliant with an appropriate HEP STG Duration Met Assessment Summary Assessment Pt did very well today with a much more difficult magalis/ obstacle course challenge, showing increased confidence with single leg hopping and standing on BOSU without support Physical Therapy Plan Frequency and Duration Frequency of Treatment 1-2x/Week Duration of treatment (weeks) 8 Plan of Care Start Date 03/09/22 Plan of Care End Date 05/04/22 Therapeutic Interventions Therapeutic Interventions Balance Training,Coordination Training,Gait Training,Home Exercise Program,Manual Therapy,Neuromuscular Re- education,Patient/Caregiver Education,Self-Care/Home Management,Soft Tissue Mobilization,Therapeutic Exercises Next Visit Focus/Plan Next Note Type Treatment Note Next Visit Plan Flexibility, balance training, gait training
--- NOTE | 2022-07-13 16:03 | PT.OTN ---
Current Diagnoses Cerebral palsy, unspecified (07/13/22) Stiffness of unspecified knee, not elsewhere classified (07/13/22) Stiffness of unspecified ankle, not elsewhere classified (07/13/22) Other abnormalities of gait and mobility (07/13/22) Physical Therapy Treatment Note PT-OP-A Visit Information Start: 05/27/21 16:09 Freq: Status: Active Protocol: Document 07/13/22 15:19 DCW (Rec: 07/13/22 16:03 DCW [id number]) Out-Patient Physical Therapy Visit Information Visit Information Visit Type Progress Note Visit Start Time 15:19 Visit Stop Time 16:00 Total Visit Minutes 41 Visit Number 36 Number of CREEL CLERK Visits 0 Evaluation Information Evaluation Date 05/27/21 PT-OP-B Current Condition Start: 05/27/21 16:09 Freq: Status: Active Protocol: Document 05/27/21 15:15 DCW (Rec: 05/27/21 16:28 DCW [id number]) Current Condition History of Current Condition Onset Date Long-standing history Current Complaints Decreased gait, confidence, increased fear of falling History of Current Condition Pt is a 20 year old male well known to this clinic with a history of cerebral palsy and developmental delay. Pt was previously seen four years ago following abdominal surgery because of a decline in gait function, and is presenting today with similar complaints. Pt's father reports pt has been having decreased confidence when walking, especially when on hard surfaces. Pt walks better on carpet, but becomes very hesitant and nervous on tile or outside on sidewalk. Pt admits he has fallen a few times walking out to his bus stop. Pt has always performed toe walking, especially on his left side, but it has progressed a bit recently, and pt is taking very hesitant, small steps, and will frequently rely on his parents for hand-hold assist to maintain balance. Treatment Goals Patient/Caregiver Goals I think I should be walking better when I turn 21. Prior Functional Status Baseline Function- Gait L Toe walking, LE spasticity PT-OP-C Subjective Start: 05/27/21 16:09 Freq: Status: Active Protocol: Document 07/13/22 15:19 DCW (Rec: 07/13/22 16:03 DCW [id number]) OP-PT Subjective Patient Comments Patient Comments Pt happily reports that since he was last here, he has had a birthday, and is now officially an adult. PT-OP-D Balance Start: 05/27/21 16:09 Freq: Status: Active Protocol: Document 07/13/22 15:19 DCW (Rec: 07/13/22 15:49 DCW [id number]) Balance Tests Single Limb Standing Single Limb- Right 8 sec Single Limb- Left 17 sec Tandem Tandem Standing L: 14, R: 25 PT-OP-E Functional Tests Start: 05/27/21 16:09 Freq: Status: Active Protocol: Document 07/13/22 15:19 DCW (Rec: 07/13/22 15:49 DCW [id number]) Functional Tests 2 Minute Walk Test Distance 251' Device Used none Comments 2.09 ft/sec Timed Up and Go (TUG) Score 15.06 Comments 3-trial average (17.17, 14.11 , 13.91) TUG Impairment Rating 40 to <60% Impaired (Score 14- 15) PT-OP-G Mobility & Gait Start: 05/27/21 16:29 Freq: Status: Active Protocol: Document 07/13/22 15:19 DCW (Rec: 07/13/22 15:49 DCW [id number]) OP Gait Assessment Gait Gait Assistance Required: Standby Assistance Distance (Feet) 251 Able to Maintain Weight Bearing Status Yes During Gait Assistive Devices Assistive Device Gait Belt Gait Deviations General Gait Pattern Ataxic,Decreased Stride Length ,Decreased Feet Clearance, Flexed Trunk,Narrow Based Gait ,Step-to Gait Factors Limiting Gait Function Factors Limiting Gait Function Abnormal Tonal Influences, Limited Range of Motion,Poor Balance Comments Gait Comments Pt ambulates with mild toe walking bilaterally, decreased step length, decreased foot clearance. Step-through more regularly (75% of the time) than previous testing. Much more comfortable crossing threshholds PT-OP-K Range of Motion Start: 05/27/21 16:09 Freq: Status: Active Protocol: Document 07/13/22 15:19 DCW (Rec: 07/13/22 15:49 DCW [id number]) Ankle and Foot Goniometric Range of Motion Ankle and Foot Right Comments At rest, right ankle in 8? inversion. With stretch from therapist, able to get right ankle to 8? DF Left Comments At rest, left ankle in 5? inversion. With stretch from therapist, able to get left ankle to 2? DF Ankle and Foot ROM Limitations ROM Limitations Soft Tissue Tightness, Contracture,Muscle Tone PT-OP-M Strength Start: 05/27/21 16:09 Freq: Status: Active Protocol: Document 05/27/21 15:15 DCW (Rec: 05/27/21 16:28 DCW [id number]) Hip Strength Hip Manual Muscle Testing Right Flexion (L2) 4+ Good+ Abduction 4+ Good+ Adduction 4+ Good+ Left Flexion (L2) 4+ Good+ Abduction 4+ Good+ Adduction 4+ Good+ Knee Strength Knee Manual Muscle Testing Right Flexion (S2) 4+ Good+ Extension (L3) 4+ Good+ Left Flexion (S2) 4+ Good+ Extension (L3) 4+ Good+ PT-OP-Q Treatments Start: 05/27/21 16:09 Freq: Status: Active Protocol: Document 07/13/22 15:19 DCW (Rec: 07/13/22 16:03 DCW [id number]) Gait Training Gait Activity 3 Description AD training Device Used Unilateral trekking pole PT-OP-T Assessment and Plan Start: 05/27/21 16:09 Freq: Status: Active Protocol: Document 07/13/22 15:19 DCW (Rec: 07/13/22 16:03 DCW [id number]) Physical Therapy Assessment Impairments Impairments Activity Tolerance,Balance, Coordination,Functional Mobility,Gait,ROM,Soft Tissue Mobility,Tone Goals Three Impairment Pt scores a 20.1 TUG Short Term Goal (STG) Pt to decreased average TUG score to <15.5 in order to demonstrate improved confidence and a decreased fear of falling STG Duration Met Halfway Goal (LTG) Pt to decreased average TUG score to <13 in order to demonstrate improved confidence and a decreased fear of falling LTG Duration 10/11/22 Two Impairment Pt ambulates with toe walking bilaterally and a step-to gait pattern Halfway Goal (LTG) Pt to demonstrate ability with ambulate with a heel-toe pattern at least 50% of the time with a step-through pattern 75% of the time LTG Duration MET One Impairment Pt does not have an appropriate home exercise program Short Term Goal (STG) Pt to be independent and compliant with an appropriate HEP STG Duration Met Assessment Summary Assessment Pt returns today after an extended layoff due to scheduling conflicts and difficulties. Pt showing some mild improvement in TUG scores , a little bit of a decline with 2MWT, is somewhat out of practice. Pt brings in a trekking pole today, does not like to use it despite needing a bit of assistance with stability most of the time, would likely benefit from continued training and practice with new AD. Continue to focus on improving strength and flexibility, as well as balance and gait training in order to improve overall independence. Physical Therapy Plan Frequency and Duration Frequency of Treatment 1-2x/Week Plan of Care Start Date 07/13/22 Plan of Care End Date 10/11/22 Therapeutic Interventions Therapeutic Interventions Balance Training,Coordination Training,Gait Training,Home Exercise Program,Manual Therapy,Neuromuscular Re- education,Patient/Caregiver Education,Self-Care/Home Management,Soft Tissue Mobilization,Therapeutic Exercises Next Visit Focus/Plan Next Note Type Treatment Note Next Visit Plan Flexibility, balance training, gait training
--- NOTE | 2022-07-13 16:03 | PT.OPPOC ---
Physical, Occupational & Speech Therapy At [facility] Current Diagnoses Cerebral palsy, unspecified (07/13/22) Stiffness of unspecified knee, not elsewhere classified (07/13/22) Stiffness of unspecified ankle, not elsewhere classified (07/13/22) Other abnormalities of gait and mobility (07/13/22) Visit Care Team Role Provider Type Andrew Mccoy MD Attending Provider Physician Family Provider Primary Care Provider Referring Provider Specialty: [facility] Address: [address] [place] [address], [facility] Email: [email or web address] Plan Of Care PT-OP-T Assessment and Plan Start: 05/27/21 16:09 Freq: Status: Active Protocol: Document 07/13/22 15:19 DCW (Rec: 07/13/22 16:03 DCW [id number]) Physical Therapy Assessment Impairments Impairments Activity Tolerance,Balance, Coordination,Functional Mobility,Gait,ROM,Soft Tissue Mobility,Tone Goals Three Impairment Pt scores a 20.1 TUG Short Term Goal (STG) Pt to decreased average TUG score to <15.5 in order to demonstrate improved confidence and a decreased fear of falling STG Duration Met Jail Goal (LTG) Pt to decreased average TUG score to <13 in order to demonstrate improved confidence and a decreased fear of falling LTG Duration 10/11/22 Two Impairment Pt ambulates with toe walking bilaterally and a step-to gait pattern Jail Goal (LTG) Pt to demonstrate ability with ambulate with a heel-toe pattern at least 50% of the time with a step-through pattern 75% of the time LTG Duration MET One Impairment Pt does not have an appropriate home exercise program Short Term Goal (STG) Pt to be independent and compliant with an appropriate HEP STG Duration Met Assessment Summary Assessment Pt returns today after an extended layoff due to scheduling conflicts and difficulties. Pt showing some mild improvement in TUG scores , a little bit of a decline with 2MWT, is somewhat out of practice. Pt brings in a trekking pole today, does not like to use it despite needing a bit of assistance with stability most of the time, would likely benefit from continued training and practice with new AD. Continue to focus on improving strength and flexibility, as well as balance and gait training in order to improve overall independence. Physical Therapy Plan Frequency and Duration Frequency of Treatment 1-2x/Week Plan of Care Start Date 07/13/22 Plan of Care End Date 10/11/22 Therapeutic Interventions Therapeutic Interventions Balance Training,Coordination Training,Gait Training,Home Exercise Program,Manual Therapy,Neuromuscular Re- education,Patient/Caregiver Education,Self-Care/Home Management,Soft Tissue Mobilization,Therapeutic Exercises Next Visit Focus/Plan Next Note Type Treatment Note Next Visit Plan Flexibility, balance training, gait training Plan of Care Dates Plan of Care Start Date 07/13/22 Plan of Care End Date 10/11/22 Electronically Signed by: Raul Gaviria, PT 07/13/22 [id number] If you are in agreement with this Plan of Care, please return a signed and dated copy. I have reviewed this Plan of Care and certify that the skilled therapy services above are required to meet the patient?s needs. Physician Signature Date Printed Name and Credentials Clinical Instructor Signature Printed Name and Credentials
--- NOTE | 2022-07-26 17:36 | PT.OTN ---
Current Diagnoses Cerebral palsy, unspecified (07/26/22) Stiffness of unspecified knee, not elsewhere classified (07/26/22) Stiffness of unspecified ankle, not elsewhere classified (07/26/22) Other abnormalities of gait and mobility (07/26/22) Physical Therapy Treatment Note PT-OP-A Visit Information Start: 05/27/21 16:09 Freq: Status: Active Protocol: Document 07/26/22 16:45 DCW (Rec: 07/26/22 17:36 DCW [id number]) Out-Patient Physical Therapy Visit Information Visit Information Visit Type Treatment Note Visit Start Time 16:45 Visit Stop Time 17:30 Total Visit Minutes 45 Visit Number 37 Number of CASINO SLOT SUPERVISOR Visits 0 Evaluation Information Evaluation Date 05/27/21 PT-OP-B Current Condition Start: 05/27/21 16:09 Freq: Status: Active Protocol: Document 05/27/21 15:15 DCW (Rec: 05/27/21 16:28 DCW [id number]) Current Condition History of Current Condition Onset Date Long-standing history Current Complaints Decreased gait, confidence, increased fear of falling History of Current Condition Pt is a 20 year old male well known to this clinic with a history of cerebral palsy and developmental delay. Pt was previously seen four years ago following abdominal surgery because of a decline in gait function, and is presenting today with similar complaints. Pt's father reports pt has been having decreased confidence when walking, especially when on hard surfaces. Pt walks better on carpet, but becomes very hesitant and nervous on tile or outside on sidewalk. Pt admits he has fallen a few times walking out to his bus stop. Pt has always performed toe walking, especially on his left side, but it has progressed a bit recently, and pt is taking very hesitant, small steps, and will frequently rely on his parents for hand-hold assist to maintain balance. Treatment Goals Patient/Caregiver Goals I think I should be walking better when I turn 21. Prior Functional Status Baseline Function- Gait L Toe walking, LE spasticity PT-OP-C Subjective Start: 05/27/21 16:09 Freq: Status: Active Protocol: Document 07/26/22 16:45 DCW (Rec: 07/26/22 17:36 DCW [id number]) OP-PT Subjective Patient Comments Patient Comments Pt reports he is happy that he has been using his new walking stick. PT-OP-D Balance Start: 05/27/21 16:09 Freq: Status: Active Protocol: Document 07/13/22 15:19 DCW (Rec: 07/13/22 15:49 DCW [id number]) Balance Tests Single Limb Standing Single Limb- Right 8 sec Single Limb- Left 17 sec Tandem Tandem Standing L: 14, R: 25 PT-OP-E Functional Tests Start: 05/27/21 16:09 Freq: Status: Active Protocol: Document 07/13/22 15:19 DCW (Rec: 07/13/22 15:49 DCW [id number]) Functional Tests 2 Minute Walk Test Distance 251' Device Used none Comments 2.09 ft/sec Timed Up and Go (TUG) Score 15.06 Comments 3-trial average (17.17, 14.11 , 13.91) TUG Impairment Rating 40 to <60% Impaired (Score 14- 15) PT-OP-G Mobility & Gait Start: 05/27/21 16:29 Freq: Status: Active Protocol: Document 07/13/22 15:19 DCW (Rec: 07/13/22 15:49 DC [id number]) OP Gait Assessment Gait Gait Assistance Required: Standby Assistance Distance (Feet) 251 Able to Maintain Weight Bearing Status Yes During Gait Assistive Devices Assistive Device Gait Belt Gait Deviations General Gait Pattern Ataxic,Decreased Stride Length ,Decreased Feet Clearance, Flexed Trunk,Narrow Based Gait ,Step-to Gait Factors Limiting Gait Function Factors Limiting Gait Function Abnormal Tonal Influences, Limited Range of Motion,Poor Balance Comments Gait Comments Pt ambulates with mild toe walking bilaterally, decreased step length, decreased foot clearance. Step-through more regularly (75% of the time) than previous testing. Much more comfortable crossing threshholds PT-OP-K Range of Motion Start: 05/27/21 16:09 Freq: Status: Active Protocol: Document 07/13/22 15:19 DCW (Rec: 07/13/22 15:49 DCW [id number]) Ankle and Foot Goniometric Range of Motion Ankle and Foot Right Comments At rest, right ankle in 8? inversion. With stretch from therapist, able to get right ankle to 8? DF Left Comments At rest, left ankle in 5? inversion. With stretch from therapist, able to get left ankle to 2? DF Ankle and Foot ROM Limitations ROM Limitations Soft Tissue Tightness, Contracture,Muscle Tone PT-OP-M Strength Start: 05/27/21 16:09 Freq: Status: Active Protocol: Document 05/27/21 15:15 DCW (Rec: 05/27/21 16:28 DCW [id number]) Hip Strength Hip Manual Muscle Testing Right Flexion (L2) 4+ Good+ Abduction 4+ Good+ Adduction 4+ Good+ Left Flexion (L2) 4+ Good+ Abduction 4+ Good+ Adduction 4+ Good+ Knee Strength Knee Manual Muscle Testing Right Flexion (S2) 4+ Good+ Extension (L3) 4+ Good+ Left Flexion (S2) 4+ Good+ Extension (L3) 4+ Good+ PT-OP-Q Treatments Start: 05/27/21 16:09 Freq: Status: Active Protocol: Document 07/26/22 16:45 DCW (Rec: 07/26/22 17:36 [facility] [id number]) Therapeutic Exercises Sitting Exercises 2 Sitting Exercise Name Hamstring stretch Side bilateral 1 Sitting Exercise Name Heel cord stretch Side bilateral Standing Exercises 2 Standing Exercise Name Gastroc stretch Side bilateral Equipment Used WANDER 1 Standing Exercise Name Heel raises Side bilateral Equipment Used 4 step Other Exercises 1 Other Exercise Name Hurdles over changing floor surface Equipment Used WorldStateing pole Comments Used black pad on blue pad underneath as obstacles Gait Training Gait Activity 3 Description AD training Device Used Unilateral Bandspeedkking pole Distance/Duration 510' Neuro Re-Education Treatment Balance Activities 1 Details BOSU Comments DL, SL BOSU stance (Blue) PT-OP-T Assessment and Plan Start: 05/27/21 16:09 Freq: Status: Active Protocol: Document 07/26/22 16:45 DCW (Rec: 07/26/22 17:36 [facility] [id number]) Physical Therapy Assessment Impairments Impairments Activity Tolerance,Balance, Coordination,Functional Mobility,Gait,ROM,Soft Tissue Mobility,Tone Goals Three Impairment Pt scores a 20.1 TUG Short Term Goal (STG) Pt to decreased average TUG score to <15.5 in order to demonstrate improved confidence and a decreased fear of falling STG Duration Met Spar Machine Operator Goal (LTG) Pt to decreased average TUG score to <13 in order to demonstrate improved confidence and a decreased fear of falling LTG Duration 10/11/22 Two Impairment Pt ambulates with toe walking bilaterally and a step-to gait pattern Usp Goal (LTG) Pt to demonstrate ability with ambulate with a heel-toe pattern at least 50% of the time with a step-through pattern 75% of the time LTG Duration MET One Impairment Pt does not have an appropriate home exercise program Short Term Goal (STG) Pt to be independent and compliant with an appropriate HEP STG Duration Met Assessment Summary Assessment Pt did better with hurdles today with use of trekking pole, felt much more confident with use of AD. Getting Botox injections in calf later this week, which in the past has helped improve gait quality. Physical Therapy Plan Frequency and Duration Frequency of Treatment 1-2x/Week Plan of Care Start Date 07/13/22 Plan of Care End Date 10/11/22 Therapeutic Interventions Therapeutic Interventions Balance Training,Coordination Training,Gait Training,Home Exercise Program,Manual Therapy,Neuromuscular Re- education,Patient/Caregiver Education,Self-Care/Home Management,Soft Tissue Mobilization,Therapeutic Exercises Next Visit Focus/Plan Next Note Type Treatment Note Next Visit Plan Flexibility, balance training, gait training
--- NOTE | 2022-08-02 17:37 | PT.OTN ---
Current Diagnoses Cerebral palsy, unspecified (08/02/22) Stiffness of unspecified knee, not elsewhere classified (08/02/22) Stiffness of unspecified ankle, not elsewhere classified (08/02/22) Other abnormalities of gait and mobility (08/02/22) Physical Therapy Treatment Note PT-OP-A Visit Information Start: 05/27/21 16:09 Freq: Status: Active Protocol: Document 08/02/22 16:49 DCW (Rec: 08/02/22 17:36 DCW [id number]) Out-Patient Physical Therapy Visit Information Visit Information Visit Type Treatment Note Visit Start Time 16:49 Visit Stop Time 17:30 Total Visit Minutes 41 Visit Number 38 Number of DRIVEWAY ATTENDANT Visits 0 Evaluation Information Evaluation Date 05/27/21 PT-OP-B Current Condition Start: 05/27/21 16:09 Freq: Status: Active Protocol: Document 05/27/21 15:15 DCW (Rec: 05/27/21 16:28 DCW [id number]) Current Condition History of Current Condition Onset Date Long-standing history Current Complaints Decreased gait, confidence, increased fear of falling History of Current Condition Pt is a 20 year old male well known to this clinic with a history of cerebral palsy and developmental delay. Pt was previously seen four years ago following abdominal surgery because of a decline in gait function, and is presenting today with similar complaints. Pt's father reports pt has been having decreased confidence when walking, especially when on hard surfaces. Pt walks better on carpet, but becomes very hesitant and nervous on tile or outside on sidewalk. Pt admits he has fallen a few times walking out to his bus stop. Pt has always performed toe walking, especially on his left side, but it has progressed a bit recently, and pt is taking very hesitant, small steps, and will frequently rely on his parents for hand-hold assist to maintain balance. Treatment Goals Patient/Caregiver Goals I think I should be walking better when I turn 21. Prior Functional Status Baseline Function- Gait L Toe walking, LE spasticity PT-OP-C Subjective Start: 05/27/21 16:09 Freq: Status: Active Protocol: Document 08/02/22 16:49 DCW (Rec: 08/02/22 17:36 DCW [id number]) OP-PT Subjective Patient Comments Patient Comments Pt's mom reports pt struggled a little using his stick at school, reports he was worried he would trip himself. PT-OP-D Balance Start: 05/27/21 16:09 Freq: Status: Active Protocol: Document 07/13/22 15:19 DCW (Rec: 07/13/22 15:49 DCW [id number]) Balance Tests Single Limb Standing Single Limb- Right 8 sec Single Limb- Left 17 sec Tandem Tandem Standing L: 14, R: 25 PT-OP-E Functional Tests Start: 05/27/21 16:09 Freq: Status: Active Protocol: Document 07/13/22 15:19 DCW (Rec: 07/13/22 15:49 DCW [id number]) Functional Tests 2 Minute Walk Test Distance 251' Device Used none Comments 2.09 ft/sec Timed Up and Go (TUG) Score 15.06 Comments 3-trial average (17.17, 14.11 , 13.91) TUG Impairment Rating 40 to <60% Impaired (Score 14- 15) PT-OP-G Mobility & Gait Start: 05/27/21 16:29 Freq: Status: Active Protocol: Document 07/13/22 15:19 DCW (Rec: 07/13/22 15:49 DCW [id number]) OP Gait Assessment Gait Gait Assistance Required: Standby Assistance Distance (Feet) 251 Able to Maintain Weight Bearing Status Yes During Gait Assistive Devices Assistive Device Gait Belt Gait Deviations General Gait Pattern Ataxic,Decreased Stride Length ,Decreased Feet Clearance, Flexed Trunk,Narrow Based Gait ,Step-to Gait Factors Limiting Gait Function Factors Limiting Gait Function Abnormal Tonal Influences, Limited Range of Motion,Poor Balance Comments Gait Comments Pt ambulates with mild toe walking bilaterally, decreased step length, decreased foot clearance. Step-through more regularly (75% of the time) than previous testing. Much more comfortable crossing threshholds PT-OP-K Range of Motion Start: 05/27/21 16:09 Freq: Status: Active Protocol: Document 07/13/22 15:19 DCW (Rec: 07/13/22 15:49 DCW [id number]) Ankle and Foot Goniometric Range of Motion Ankle and Foot Right Comments At rest, right ankle in 8? inversion. With stretch from therapist, able to get right ankle to 8? DF Left Comments At rest, left ankle in 5? inversion. With stretch from therapist, able to get left ankle to 2? DF Ankle and Foot ROM Limitations ROM Limitations Soft Tissue Tightness, Contracture,Muscle Tone PT-OP-M Strength Start: 05/27/21 16:09 Freq: Status: Active Protocol: Document 05/27/21 15:15 DCW (Rec: 05/27/21 16:28 DCW [id number]) Hip Strength Hip Manual Muscle Testing Right Flexion (L2) 4+ Good+ Abduction 4+ Good+ Adduction 4+ Good+ Left Flexion (L2) 4+ Good+ Abduction 4+ Good+ Adduction 4+ Good+ Knee Strength Knee Manual Muscle Testing Right Flexion (S2) 4+ Good+ Extension (L3) 4+ Good+ Left Flexion (S2) 4+ Good+ Extension (L3) 4+ Good+ PT-OP-Q Treatments Start: 05/27/21 16:09 Freq: Status: Active Protocol: Document 08/02/22 16:49 DCW (Rec: 08/02/22 17:36 DCW [id number]) Gym Equipment Shuttle Balance 1 Details Blue - Wide CONSTANCE Comments Raising hands overhead Balloon Volley Turns Therapeutic Exercises Standing Exercises 2 Standing Exercise Name Gastroc stretch Side bilateral Equipment Used WANDER 1 Standing Exercise Name Heel raises Side bilateral Equipment Used 4 step Other Exercises 1 Other Exercise Name Hurdles over changing floor surface Equipment Used Trekking pole Comments Used black pad on blue pad underneath as obstacles Gait Training Gait Activity 3 Description AD training Device Used Unilateral trekking pole Distance/Duration 510' Comments Improved heel strike bilaterally after recent Botox calf injections 2 Description Steps Device Used Rail, trekking pole Level of Assistance CGA to SBA Treatment Focus Sequencing, strength, stability Comments Ascending: step-over, /s rail x2 Descending: step-over /c rail x2 PT-OP-T Assessment and Plan Start: 05/27/21 16:09 Freq: Status: Active Protocol: Document 08/02/22 16:49 DCW (Rec: 08/02/22 17:36 DC [id number]) Physical Therapy Assessment Impairments Impairments Activity Tolerance,Balance, Coordination,Functional Mobility,Gait,ROM,Soft Tissue Mobility,Tone Goals Three Impairment Pt scores a 20.1 TUG Short Term Goal (STG) Pt to decreased average TUG score to <15.5 in order to demonstrate improved confidence and a decreased fear of falling STG Duration Met Longterm Goal (LTG) Pt to decreased average TUG score to <13 in order to demonstrate improved confidence and a decreased fear of falling LTG Duration 10/11/22 Two Impairment Pt ambulates with toe walking bilaterally and a step-to gait pattern Longterm Goal (LTG) Pt to demonstrate ability with ambulate with a heel-toe pattern at least 50% of the time with a step-through pattern 75% of the time LTG Duration MET One Impairment Pt does not have an appropriate home exercise program Short Term Goal (STG) Pt to be independent and compliant with an appropriate HEP STG Duration Met Assessment Summary Assessment Pt ambulation significantly improved with both roby and heel strike following Botox injection this past . Despite pt having complaints about Trekking pole use at school, appears to be much more confident and stable when using it in clinic. Physical Therapy Plan Frequency and Duration Frequency of Treatment 1-2x/Week Plan of Care Start Date 07/13/22 Plan of Care End Date 10/11/22 Therapeutic Interventions Therapeutic Interventions Balance Training,Coordination Training,Gait Training,Home Exercise Program,Manual Therapy,Neuromuscular Re- education,Patient/Caregiver Education,Self-Care/Home Management,Soft Tissue Mobilization,Therapeutic Exercises Next Visit Focus/Plan Next Note Type Treatment Note Next Visit Plan Flexibility, balance training, gait training
--- NOTE | 2022-08-04 16:01 | PT.OTN ---
Current Diagnoses Cerebral palsy, unspecified (08/04/22) Stiffness of unspecified knee, not elsewhere classified (08/04/22) Stiffness of unspecified ankle, not elsewhere classified (08/04/22) Other abnormalities of gait and mobility (08/04/22) Physical Therapy Treatment Note PT-OP-A Visit Information Start: 05/27/21 16:09 Freq: Status: Active Protocol: Document 08/04/22 15:17 DCW (Rec: 08/04/22 16:01 DCW [id number]) Out-Patient Physical Therapy Visit Information Visit Information Visit Type Treatment Note Visit Start Time 15:17 Visit Stop Time 16:00 Total Visit Minutes 43 Visit Number 39 Number of LIVESTOCK FARM MANAGER Visits 0 Evaluation Information Evaluation Date 05/27/21 PT-OP-B Current Condition Start: 05/27/21 16:09 Freq: Status: Active Protocol: Document 05/27/21 15:15 DCW (Rec: 05/27/21 16:28 DCW [id number]) Current Condition History of Current Condition Onset Date Long-standing history Current Complaints Decreased gait, confidence, increased fear of falling History of Current Condition Pt is a 20 year old male well known to this clinic with a history of cerebral palsy and developmental delay. Pt was previously seen four years ago following abdominal surgery because of a decline in gait function, and is presenting today with similar complaints. Pt's father reports pt has been having decreased confidence when walking, especially when on hard surfaces. Pt walks better on carpet, but becomes very hesitant and nervous on tile or outside on sidewalk. Pt admits he has fallen a few times walking out to his bus stop. Pt has always performed toe walking, especially on his left side, but it has progressed a bit recently, and pt is taking very hesitant, small steps, and will frequently rely on his parents for hand-hold assist to maintain balance. Treatment Goals Patient/Caregiver Goals I think I should be walking better when I turn 21. Prior Functional Status Baseline Function- Gait L Toe walking, LE spasticity PT-OP-C Subjective Start: 05/27/21 16:09 Freq: Status: Active Protocol: Document 08/04/22 15:17 DCW (Rec: 08/04/22 16:01 DCW [id number]) OP-PT Subjective Patient Comments Patient Comments Pt still getting used to using his walking stick at school PT-OP-D Balance Start: 05/27/21 16:09 Freq: Status: Active Protocol: Document 07/13/22 15:19 DCW (Rec: 07/13/22 15:49 DCW [id number]) Balance Tests Single Limb Standing Single Limb- Right 8 sec Single Limb- Left 17 sec Tandem Tandem Standing L: 14, R: 25 PT-OP-E Functional Tests Start: 05/27/21 16:09 Freq: Status: Active Protocol: Document 07/13/22 15:19 DCW (Rec: 07/13/22 15:49 DCW [id number]) Functional Tests 2 Minute Walk Test Distance 251' Device Used none Comments 2.09 ft/sec Timed Up and Go (TUG) Score 15.06 Comments 3-trial average (17.17, 14.11 , 13.91) TUG Impairment Rating 40 to <60% Impaired (Score 14- 15) PT-OP-G Mobility & Gait Start: 05/27/21 16:29 Freq: Status: Active Protocol: Document 07/13/22 15:19 DCW (Rec: 07/13/22 15:49 DCW [id number]) OP Gait Assessment Gait Gait Assistance Required: Standby Assistance Distance (Feet) 251 Able to Maintain Weight Bearing Status Yes During Gait Assistive Devices Assistive Device Gait Belt Gait Deviations General Gait Pattern Ataxic,Decreased Stride Length ,Decreased Feet Clearance, Flexed Trunk,Narrow Based Gait ,Step-to Gait Factors Limiting Gait Function Factors Limiting Gait Function Abnormal Tonal Influences, Limited Range of Motion,Poor Balance Comments Gait Comments Pt ambulates with mild toe walking bilaterally, decreased step length, decreased foot clearance. Step-through more regularly (75% of the time) than previous testing. Much more comfortable crossing threshholds PT-OP-K Range of Motion Start: 05/27/21 16:09 Freq: Status: Active Protocol: Document 07/13/22 15:19 DCW (Rec: 07/13/22 15:49 DCW [id number]) Ankle and Foot Goniometric Range of Motion Ankle and Foot Right Comments At rest, right ankle in 8? inversion. With stretch from therapist, able to get right ankle to 8? DF Left Comments At rest, left ankle in 5? inversion. With stretch from therapist, able to get left ankle to 2? DF Ankle and Foot ROM Limitations ROM Limitations Soft Tissue Tightness, Contracture,Muscle Tone PT-OP-M Strength Start: 05/27/21 16:09 Freq: Status: Active Protocol: Document 05/27/21 15:15 DCW (Rec: 05/27/21 16:28 [facility] [id number]) Hip Strength Hip Manual Muscle Testing Right Flexion (L2) 4+ Good+ Abduction 4+ Good+ Adduction 4+ Good+ Left Flexion (L2) 4+ Good+ Abduction 4+ Good+ Adduction 4+ Good+ Knee Strength Knee Manual Muscle Testing Right Flexion (S2) 4+ Good+ Extension (L3) 4+ Good+ Left Flexion (S2) 4+ Good+ Extension (L3) 4+ Good+ PT-OP-Q Treatments Start: 05/27/21 16:09 Freq: Status: Active Protocol: Document 08/04/22 15:17 DCW (Rec: 08/04/22 16:01 [facility] [id number]) Gym Equipment Shuttle Balance 1 Details Blue - Wide CONSTANCE Comments Raising hands overhead Balloon Volley Turns Therapeutic Exercises Standing Exercises 2 Standing Exercise Name Gastroc stretch Side bilateral Equipment Used WANDER 1 Standing Exercise Name Heel raises Side bilateral Equipment Used 4 step Other Exercises 1 Other Exercise Name Hurdles over changing floor surface Equipment Used Trekking pole Comments Used black pad on blue pad underneath as obstacles Gait Training Gait Activity 3 Description AD training Device Used Unilateral trekking pole Distance/Duration 510' Neuro Re-Education Treatment Balance Activities Tandem stance Details Tandem stance Equipment @rail 2 Details SLS Surface Blue Foam 1 Details BOSU Comments DL BOSU stance (Blue) PT-OP-T Assessment and Plan Start: 05/27/21 16:09 Freq: Status: Active Protocol: Document 08/04/22 15:17 DCW (Rec: 08/04/22 16:01 [facility] [id number]) Physical Therapy Assessment Impairments Impairments Activity Tolerance,Balance, Coordination,Functional Mobility,Gait,ROM,Soft Tissue Mobility,Tone Goals Three Impairment Pt scores a 20.1 TUG Short Term Goal (STG) Pt to decreased average TUG score to <15.5 in order to demonstrate improved confidence and a decreased fear of falling STG Duration Met Penitentiary Goal (LTG) Pt to decreased average TUG score to <13 in order to demonstrate improved confidence and a decreased fear of falling LTG Duration 10/11/22 Two Impairment Pt ambulates with toe walking bilaterally and a step-to gait pattern Lifestyle Block Farmer Goal (LTG) Pt to demonstrate ability with ambulate with a heel-toe pattern at least 50% of the time with a step-through pattern 75% of the time LTG Duration MET One Impairment Pt does not have an appropriate home exercise program Short Term Goal (STG) Pt to be independent and compliant with an appropriate HEP STG Duration Met Assessment Summary Assessment Pt very happy with his performance on the obstacle course, able to better avoid knocking over cones. Heel strike continues to look better following Botox. Physical Therapy Plan Frequency and Duration Frequency of Treatment 1-2x/Week Plan of Care Start Date 07/13/22 Plan of Care End Date 10/11/22 Therapeutic Interventions Therapeutic Interventions Balance Training,Coordination Training,Gait Training,Home Exercise Program,Manual Therapy,Neuromuscular Re- education,Patient/Caregiver Education,Self-Care/Home Management,Soft Tissue Mobilization,Therapeutic Exercises Next Visit Focus/Plan Next Note Type Treatment Note Next Visit Plan Flexibility, balance training, gait training
--- NOTE | 2022-09-13 17:19 | PT.OTN ---
Current Diagnoses Cerebral palsy, unspecified (09/13/22) Stiffness of unspecified knee, not elsewhere classified (09/13/22) Stiffness of unspecified ankle, not elsewhere classified (09/13/22) Other abnormalities of gait and mobility (09/13/22) Physical Therapy Treatment Note PT-OP-A Visit Information Start: 05/27/21 16:09 Freq: Status: Active Protocol: Document 09/13/22 16:30 DCW (Rec: 09/13/22 17:19 DCW [id number]) Out-Patient Physical Therapy Visit Information Visit Information Visit Type Treatment Note Visit Start Time 16:30 Visit Stop Time 17:15 Total Visit Minutes 45 Visit Number 40 Number of MOBILE EQUIPMENT SERVICER Visits 0 Evaluation Information Evaluation Date 05/27/21 PT-OP-B Current Condition Start: 05/27/21 16:09 Freq: Status: Active Protocol: Document 05/27/21 15:15 DCW (Rec: 05/27/21 16:28 DCW [id number]) Current Condition History of Current Condition Onset Date Long-standing history Current Complaints Decreased gait, confidence, increased fear of falling History of Current Condition Pt is a 20 year old male well known to this clinic with a history of cerebral palsy and developmental delay. Pt was previously seen four years ago following abdominal surgery because of a decline in gait function, and is presenting today with similar complaints. Pt's father reports pt has been having decreased confidence when walking, especially when on hard surfaces. Pt walks better on carpet, but becomes very hesitant and nervous on tile or outside on sidewalk. Pt admits he has fallen a few times walking out to his bus stop. Pt has always performed toe walking, especially on his left side, but it has progressed a bit recently, and pt is taking very hesitant, small steps, and will frequently rely on his parents for hand-hold assist to maintain balance. Treatment Goals Patient/Caregiver Goals I think I should be walking better when I turn 21. Prior Functional Status Baseline Function- Gait L Toe walking, LE spasticity PT-OP-C Subjective Start: 05/27/21 16:09 Freq: Status: Active Protocol: Document 09/13/22 16:30 DCW (Rec: 09/13/22 17:19 DCW [id number]) OP-PT Subjective Patient Comments Patient Comments Pt reports he has been using his walking stick more frequently. PT-OP-D Balance Start: 05/27/21 16:09 Freq: Status: Active Protocol: Document 07/13/22 15:19 DCW (Rec: 07/13/22 15:49 DCW [id number]) Balance Tests Single Limb Standing Single Limb- Right 8 sec Single Limb- Left 17 sec Tandem Tandem Standing L: 14, R: 25 PT-OP-E Functional Tests Start: 05/27/21 16:09 Freq: Status: Active Protocol: Document 07/13/22 15:19 DCW (Rec: 07/13/22 15:49 DCW [id number]) Functional Tests 2 Minute Walk Test Distance 251' Device Used none Comments 2.09 ft/sec Timed Up and Go (TUG) Score 15.06 Comments 3-trial average (17.17, 14.11 , 13.91) TUG Impairment Rating 40 to <60% Impaired (Score 14- 15) PT-OP-G Mobility & Gait Start: 05/27/21 16:29 Freq: Status: Active Protocol: Document 07/13/22 15:19 DCW (Rec: 07/13/22 15:49 DCW [id number]) OP Gait Assessment Gait Gait Assistance Required: Standby Assistance Distance (Feet) 251 Able to Maintain Weight Bearing Status Yes During Gait Assistive Devices Assistive Device Gait Belt Gait Deviations General Gait Pattern Ataxic,Decreased Stride Length ,Decreased Feet Clearance, Flexed Trunk,Narrow Based Gait ,Step-to Gait Factors Limiting Gait Function Factors Limiting Gait Function Abnormal Tonal Influences, Limited Range of Motion,Poor Balance Comments Gait Comments Pt ambulates with mild toe walking bilaterally, decreased step length, decreased foot clearance. Step-through more regularly (75% of the time) than previous testing. Much more comfortable crossing threshholds PT-OP-K Range of Motion Start: 05/27/21 16:09 Freq: Status: Active Protocol: Document 07/13/22 15:19 DCW (Rec: 07/13/22 15:49 DCW [id number]) Ankle and Foot Goniometric Range of Motion Ankle and Foot Right Comments At rest, right ankle in 8? inversion. With stretch from therapist, able to get right ankle to 8? DF Left Comments At rest, left ankle in 5? inversion. With stretch from therapist, able to get left ankle to 2? DF Ankle and Foot ROM Limitations ROM Limitations Soft Tissue Tightness, Contracture,Muscle Tone PT-OP-M Strength Start: 05/27/21 16:09 Freq: Status: Active Protocol: Document 05/27/21 15:15 DCW (Rec: 05/27/21 16:28 DCW [id number]) Hip Strength Hip Manual Muscle Testing Right Flexion (L2) 4+ Good+ Abduction 4+ Good+ Adduction 4+ Good+ Left Flexion (L2) 4+ Good+ Abduction 4+ Good+ Adduction 4+ Good+ Knee Strength Knee Manual Muscle Testing Right Flexion (S2) 4+ Good+ Extension (L3) 4+ Good+ Left Flexion (S2) 4+ Good+ Extension (L3) 4+ Good+ PT-OP-Q Treatments Start: 05/27/21 16:09 Freq: Status: Active Protocol: Document 09/13/22 16:30 DCW (Rec: 09/13/22 17:19 DCW [id number]) Gym Equipment Shuttle Balance 1 Details Blue - Wide CONSTANCE Comments Raising hands overhead Balloon Volley Turns Therapeutic Exercises Sitting Exercises 1 Sitting Exercise Name Heel cord stretch Side bilateral Standing Exercises 2 Standing Exercise Name Gastroc stretch Side bilateral Equipment Used WANDER 1 Standing Exercise Name Heel raises Side bilateral Equipment Used 4 step Other Exercises 1 Other Exercise Name Hurdles over changing floor surface Equipment Used Trekking pole Comments Used black pad on blue pad underneath as obstacles Gait Training Gait Activity 3 Description AD training Device Used Unilateral trekking pole Distance/Duration 510' Neuro Re-Education Treatment Balance Activities 2 Details SLS Surface Lester Foam 1 Details BOSU Comments DL BOSU stance (Blue) PT-OP-T Assessment and Plan Start: 05/27/21 16:09 Freq: Status: Active Protocol: Document 09/13/22 16:30 DCW (Rec: 09/13/22 17:19 DCW [id number]) Physical Therapy Assessment Impairments Impairments Activity Tolerance,Balance, Coordination,Functional Mobility,Gait,ROM,Soft Tissue Mobility,Tone Goals Three Impairment Pt scores a 20.1 TUG Short Term Goal (STG) Pt to decreased average TUG score to <15.5 in order to demonstrate improved confidence and a decreased fear of falling STG Duration Met Filament Shaper Goal (LTG) Pt to decreased average TUG score to <13 in order to demonstrate improved confidence and a decreased fear of falling LTG Duration 10/11/22 Two Impairment Pt ambulates with toe walking bilaterally and a step-to gait pattern Filament Shaper Goal (LTG) Pt to demonstrate ability with ambulate with a heel-toe pattern at least 50% of the time with a step-through pattern 75% of the time LTG Duration MET One Impairment Pt does not have an appropriate home exercise program Short Term Goal (STG) Pt to be independent and compliant with an appropriate HEP STG Duration Met Assessment Summary Assessment Pt continues to show improved confidence and stability with obstacle course and use of his Trekking pole. Physical Therapy Plan Frequency and Duration Frequency of Treatment 1-2x/Week Plan of Care Start Date 07/13/22 Plan of Care End Date 10/11/22 Therapeutic Interventions Therapeutic Interventions Balance Training,Coordination Training,Gait Training,Home Exercise Program,Manual Therapy,Neuromuscular Re- education,Patient/Caregiver Education,Self-Care/Home Management,Soft Tissue Mobilization,Therapeutic Exercises Next Visit Focus/Plan Next Note Type Treatment Note Next Visit Plan Flexibility, balance training, gait training
--- NOTE | 2022-09-22 17:21 | PT.OTN ---
Current Diagnoses Cerebral palsy, unspecified (09/22/22) Stiffness of unspecified knee, not elsewhere classified (09/22/22) Stiffness of unspecified ankle, not elsewhere classified (09/22/22) Other abnormalities of gait and mobility (09/22/22) Physical Therapy Treatment Note PT-OP-A Visit Information Start: 05/27/21 16:09 Freq: Status: Active Protocol: Document 09/22/22 16:30 DCW (Rec: 09/22/22 17:21 DCW [id number]) Out-Patient Physical Therapy Visit Information Visit Information Visit Type Treatment Note Visit Start Time 16:30 Visit Stop Time 17:15 Total Visit Minutes 45 Visit Number 41 Number of BUSINESS ACCOUNT MANAGER Visits 0 Evaluation Information Evaluation Date 05/27/21 PT-OP-B Current Condition Start: 05/27/21 16:09 Freq: Status: Active Protocol: Document 05/27/21 15:15 DCW (Rec: 05/27/21 16:28 DCW [id number]) Current Condition History of Current Condition Onset Date Long-standing history Current Complaints Decreased gait, confidence, increased fear of falling History of Current Condition Pt is a 20 year old male well known to this clinic with a history of cerebral palsy and developmental delay. Pt was previously seen four years ago following abdominal surgery because of a decline in gait function, and is presenting today with similar complaints. Pt's father reports pt has been having decreased confidence when walking, especially when on hard surfaces. Pt walks better on carpet, but becomes very hesitant and nervous on tile or outside on sidewalk. Pt admits he has fallen a few times walking out to his bus stop. Pt has always performed toe walking, especially on his left side, but it has progressed a bit recently, and pt is taking very hesitant, small steps, and will frequently rely on his parents for hand-hold assist to maintain balance. Treatment Goals Patient/Caregiver Goals I think I should be walking better when I turn 21. Prior Functional Status Baseline Function- Gait L Toe walking, LE spasticity PT-OP-C Subjective Start: 05/27/21 16:09 Freq: Status: Active Protocol: Document 09/22/22 16:30 DCW (Rec: 09/22/22 17:21 DCW [id number]) OP-PT Subjective Patient Comments Patient Comments Pt reports he had an interview this afternoon to get a helper for when he starts applying for jobs. PT-OP-D Balance Start: 05/27/21 16:09 Freq: Status: Active Protocol: Document 07/13/22 15:19 DCW (Rec: 07/13/22 15:49 DCW [id number]) Balance Tests Single Limb Standing Single Limb- Right 8 sec Single Limb- Left 17 sec Tandem Tandem Standing L: 14, R: 25 PT-OP-E Functional Tests Start: 05/27/21 16:09 Freq: Status: Active Protocol: Document 07/13/22 15:19 DCW (Rec: 07/13/22 15:49 DCW [id number]) Functional Tests 2 Minute Walk Test Distance 251' Device Used none Comments 2.09 ft/sec Timed Up and Go (TUG) Score 15.06 Comments 3-trial average (17.17, 14.11 , 13.91) TUG Impairment Rating 40 to <60% Impaired (Score 14- 15) PT-OP-G Mobility & Gait Start: 05/27/21 16:29 Freq: Status: Active Protocol: Document 07/13/22 15:19 DCW (Rec: 07/13/22 15:49 DCW [id number]) OP Gait Assessment Gait Gait Assistance Required: Standby Assistance Distance (Feet) 251 Able to Maintain Weight Bearing Status Yes During Gait Assistive Devices Assistive Device Gait Belt Gait Deviations General Gait Pattern Ataxic,Decreased Stride Length ,Decreased Feet Clearance, Flexed Trunk,Narrow Based Gait ,Step-to Gait Factors Limiting Gait Function Factors Limiting Gait Function Abnormal Tonal Influences, Limited Range of Motion,Poor Balance Comments Gait Comments Pt ambulates with mild toe walking bilaterally, decreased step length, decreased foot clearance. Step-through more regularly (75% of the time) than previous testing. Much more comfortable crossing threshholds PT-OP-K Range of Motion Start: 05/27/21 16:09 Freq: Status: Active Protocol: Document 07/13/22 15:19 DCW (Rec: 07/13/22 15:49 DCW [id number]) Ankle and Foot Goniometric Range of Motion Ankle and Foot Right Comments At rest, right ankle in 8? inversion. With stretch from therapist, able to get right ankle to 8? DF Left Comments At rest, left ankle in 5? inversion. With stretch from therapist, able to get left ankle to 2? DF Ankle and Foot ROM Limitations ROM Limitations Soft Tissue Tightness, Contracture,Muscle Tone PT-OP-M Strength Start: 05/27/21 16:09 Freq: Status: Active Protocol: Document 05/27/21 15:15 DCW (Rec: 05/27/21 16:28 DCW [id number]) Hip Strength Hip Manual Muscle Testing Right Flexion (L2) 4+ Good+ Abduction 4+ Good+ Adduction 4+ Good+ Left Flexion (L2) 4+ Good+ Abduction 4+ Good+ Adduction 4+ Good+ Knee Strength Knee Manual Muscle Testing Right Flexion (S2) 4+ Good+ Extension (L3) 4+ Good+ Left Flexion (S2) 4+ Good+ Extension (L3) 4+ Good+ PT-OP-Q Treatments Start: 05/27/21 16:09 Freq: Status: Active Protocol: Document 09/22/22 16:30 DCW (Rec: 09/22/22 17:21 [facility] [id number]) Therapeutic Exercises Sitting Exercises 2 Sitting Exercise Name Hamstring stretch Side bilateral 1 Sitting Exercise Name Heel cord stretch Side bilateral Standing Exercises 2 Standing Exercise Name Gastroc stretch Side bilateral Equipment Used WANDER 1 Standing Exercise Name Heel raises Side bilateral Equipment Used 4 step Other Exercises 1 Other Exercise Name Hurdles over changing floor surface Equipment Used Trekking pole Comments Used black pad on blue pad underneath as obstacles Gait Training Gait Activity 3 Description AD training Device Used Unilateral trekking pole Distance/Duration 700' Neuro Re-Education Treatment Balance Activities 2 Details SLS Surface Lester Foam 1 Details BOSU Comments DL BOSU stance (Blue) PT-OP-T Assessment and Plan Start: 05/27/21 16:09 Freq: Status: Active Protocol: Document 09/22/22 16:30 DCW (Rec: 09/22/22 17:21 [facility] [id number]) Physical Therapy Assessment Impairments Impairments Activity Tolerance,Balance, Coordination,Functional Mobility,Gait,ROM,Soft Tissue Mobility,Tone Goals Three Impairment Pt scores a 20.1 TUG Short Term Goal (STG) Pt to decreased average TUG score to <15.5 in order to demonstrate improved confidence and a decreased fear of falling STG Duration Met Gas Meter Mechanic Goal (LTG) Pt to decreased average TUG score to <13 in order to demonstrate improved confidence and a decreased fear of falling LTG Duration 10/11/22 Two Impairment Pt ambulates with toe walking bilaterally and a step-to gait pattern Jail Goal (LTG) Pt to demonstrate ability with ambulate with a heel-toe pattern at least 50% of the time with a step-through pattern 75% of the time LTG Duration MET One Impairment Pt does not have an appropriate home exercise program Short Term Goal (STG) Pt to be independent and compliant with an appropriate HEP STG Duration Met Assessment Summary Assessment Pt did well today with increased challenges to his balance, still resistant to performing some activities hands-free, but getting better at not reaching for littlejohn for stability with increased use of trekking pole. Physical Therapy Plan Frequency and Duration Frequency of Treatment 1-2x/Week Plan of Care Start Date 07/13/22 Plan of Care End Date 10/11/22 Therapeutic Interventions Therapeutic Interventions Balance Training,Coordination Training,Gait Training,Home Exercise Program,Manual Therapy,Neuromuscular Re- education,Patient/Caregiver Education,Self-Care/Home Management,Soft Tissue Mobilization,Therapeutic Exercises Next Visit Focus/Plan Next Note Type Treatment Note Next Visit Plan Flexibility, balance training, gait training
--- NOTE | 2022-09-27 17:20 | PT.OTN ---
Current Diagnoses Cerebral palsy, unspecified (09/27/22) Stiffness of unspecified knee, not elsewhere classified (09/27/22) Stiffness of unspecified ankle, not elsewhere classified (09/27/22) Other abnormalities of gait and mobility (09/27/22) Physical Therapy Treatment Note PT-OP-A Visit Information Start: 05/27/21 16:09 Freq: Status: Active Protocol: Document 09/27/22 16:33 DCW (Rec: 09/27/22 17:20 DCW [id number]) Out-Patient Physical Therapy Visit Information Visit Information Visit Type Treatment Note Visit Start Time 16:33 Visit Stop Time 17:15 Total Visit Minutes 42 Visit Number [address] HELPER Visits 0 Evaluation Information Evaluation Date 05/27/21 PT-OP-B Current Condition Start: 05/27/21 16:09 Freq: Status: Active Protocol: Document 05/27/21 15:15 DCW (Rec: 05/27/21 16:28 DCW [id number]) Current Condition History of Current Condition Onset Date Long-standing history Current Complaints Decreased gait, confidence, increased fear of falling History of Current Condition Pt is a 20 year old male well known to this clinic with a history of cerebral palsy and developmental delay. Pt was previously seen four years ago following abdominal surgery because of a decline in gait function, and is presenting today with similar complaints. Pt's father reports pt has been having decreased confidence when walking, especially when on hard surfaces. Pt walks better on carpet, but becomes very hesitant and nervous on tile or outside on sidewalk. Pt admits he has fallen a few times walking out to his bus stop. Pt has always performed toe walking, especially on his left side, but it has progressed a bit recently, and pt is taking very hesitant, small steps, and will frequently rely on his parents for hand-hold assist to maintain balance. Treatment Goals Patient/Caregiver Goals I think I should be walking better when I turn 21. Prior Functional Status Baseline Function- Gait L Toe walking, LE spasticity PT-OP-C Subjective Start: 05/27/21 16:09 Freq: Status: Active Protocol: Document 09/27/22 16:33 DCW (Rec: 09/27/22 17:20 DCW [id number]) OP-PT Subjective Patient Comments Patient Comments Pt forgot his walking stick today, has some increased anxiety about it. PT-OP-D Balance Start: 05/27/21 16:09 Freq: Status: Active Protocol: Document 07/13/22 15:19 DCW (Rec: 07/13/22 15:49 DCW [id number]) Balance Tests Single Limb Standing Single Limb- Right 8 sec Single Limb- Left 17 sec Tandem Tandem Standing L: 14, R: 25 PT-OP-E Functional Tests Start: 05/27/21 16:09 Freq: Status: Active Protocol: Document 07/13/22 15:19 DCW (Rec: 07/13/22 15:49 DCW [id number]) Functional Tests 2 Minute Walk Test Distance 251' Device Used none Comments 2.09 ft/sec Timed Up and Go (TUG) Score 15.06 Comments 3-trial average (17.17, 14.11 , 13.91) TUG Impairment Rating 40 to <60% Impaired (Score 14- 15) PT-OP-G Mobility & Gait Start: 05/27/21 16:29 Freq: Status: Active Protocol: Document 07/13/22 15:19 DCW (Rec: 07/13/22 15:49 DC [id number]) OP Gait Assessment Gait Gait Assistance Required: Standby Assistance Distance (Feet) 251 Able to Maintain Weight Bearing Status Yes During Gait Assistive Devices Assistive Device Gait Belt Gait Deviations General Gait Pattern Ataxic,Decreased Stride Length ,Decreased Feet Clearance, Flexed Trunk,Narrow Based Gait ,Step-to Gait Factors Limiting Gait Function Factors Limiting Gait Function Abnormal Tonal Influences, Limited Range of Motion,Poor Balance Comments Gait Comments Pt ambulates with mild toe walking bilaterally, decreased step length, decreased foot clearance. Step-through more regularly (75% of the time) than previous testing. Much more comfortable crossing threshholds PT-OP-K Range of Motion Start: 05/27/21 16:09 Freq: Status: Active Protocol: Document 07/13/22 15:19 DCW (Rec: 07/13/22 15:49 DCW [id number]) Ankle and Foot Goniometric Range of Motion Ankle and Foot Right Comments At rest, right ankle in 8? inversion. With stretch from therapist, able to get right ankle to 8? DF Left Comments At rest, left ankle in 5? inversion. With stretch from therapist, able to get left ankle to 2? DF Ankle and Foot ROM Limitations ROM Limitations Soft Tissue Tightness, Contracture,Muscle Tone PT-OP-M Strength Start: 05/27/21 16:09 Freq: Status: Active Protocol: Document 05/27/21 15:15 DCW (Rec: 05/27/21 16:28 [facility] [id number]) Hip Strength Hip Manual Muscle Testing Right Flexion (L2) 4+ Good+ Abduction 4+ Good+ Adduction 4+ Good+ Left Flexion (L2) 4+ Good+ Abduction 4+ Good+ Adduction 4+ Good+ Knee Strength Knee Manual Muscle Testing Right Flexion (S2) 4+ Good+ Extension (L3) 4+ Good+ Left Flexion (S2) 4+ Good+ Extension (L3) 4+ Good+ PT-OP-Q Treatments Start: 05/27/21 16:09 Freq: Status: Active Protocol: Document 09/27/22 16:33 DCW (Rec: 09/27/22 17:20 [facility] [id number]) Gym Equipment Shuttle Balance 1 Details Blue - Wide CONSTANCE Comments Raising hands overhead Balloon Volley Turns Therapeutic Exercises Sitting Exercises 2 Sitting Exercise Name Hamstring stretch Side bilateral 1 Sitting Exercise Name Heel cord stretch Side bilateral Standing Exercises 2 Standing Exercise Name Gastroc stretch Side bilateral Equipment Used WANDER 1 Standing Exercise Name Heel raises Side bilateral Equipment Used 4 step Other Exercises 1 Other Exercise Name Hurdles over changing floor surface Comments Used black pad on blue pad underneath as obstacles Gait Training Gait Activity 3 Description AD training Distance/Duration 700' Neuro Re-Education Treatment Balance Activities 2 Details SLS Surface Lester Foam 1 Details BOSU Comments DL BOSU stance (Blue) PT-OP-T Assessment and Plan Start: 05/27/21 16:09 Freq: Status: Active Protocol: Document 09/27/22 16:33 DCW (Rec: 09/27/22 17:20 [facility] [id number]) Physical Therapy Assessment Impairments Impairments Activity Tolerance,Balance, Coordination,Functional Mobility,Gait,ROM,Soft Tissue Mobility,Tone Goals Three Impairment Pt scores a 20.1 TUG Short Term Goal (STG) Pt to decreased average TUG score to <15.5 in order to demonstrate improved confidence and a decreased fear of falling STG Duration Met Sign Designer Goal (LTG) Pt to decreased average TUG score to <13 in order to demonstrate improved confidence and a decreased fear of falling LTG Duration 10/11/22 Two Impairment Pt ambulates with toe walking bilaterally and a step-to gait pattern Sign Designer Goal (LTG) Pt to demonstrate ability with ambulate with a heel-toe pattern at least 50% of the time with a step-through pattern 75% of the time LTG Duration MET One Impairment Pt does not have an appropriate home exercise program Short Term Goal (STG) Pt to be independent and compliant with an appropriate HEP STG Duration Met Assessment Summary Assessment After forgetting his trekking pole today, it is clear pt has become much more reliant on it, with increased anxiousness performing the same activities that he used to be able to do with an AD no problem, however with a few repetitions and encouragement, pt largely returned to usual with most activities. Physical Therapy Plan Frequency and Duration Frequency of Treatment 1-2x/Week Plan of Care Start Date 07/13/22 Plan of Care End Date 10/11/22 Therapeutic Interventions Therapeutic Interventions Balance Training,Coordination Training,Gait Training,Home Exercise Program,Manual Therapy,Neuromuscular Re- education,Patient/Caregiver Education,Self-Care/Home Management,Soft Tissue Mobilization,Therapeutic Exercises Next Visit Focus/Plan Next Note Type Treatment Note Next Visit Plan Flexibility, balance training, gait training
--- NOTE | 2022-09-29 17:24 | PT.OTN ---
Current Diagnoses Cerebral palsy, unspecified (09/29/22) Stiffness of unspecified knee, not elsewhere classified (09/29/22) Stiffness of unspecified ankle, not elsewhere classified (09/29/22) Other abnormalities of gait and mobility (09/29/22) Physical Therapy Treatment Note PT-OP-A Visit Information Start: 05/27/21 16:09 Freq: Status: Active Protocol: Document 09/29/22 16:30 DCW (Rec: 09/29/22 17:21 DCW [id number]) Out-Patient Physical Therapy Visit Information Visit Information Visit Type Treatment Note Visit Start Time 16:30 Visit Stop Time 17:15 Total Visit Minutes 45 Visit Number 43 Number of CHIEF OF ANESTHESIOLOGY Visits 0 Evaluation Information Evaluation Date 05/27/21 PT-OP-B Current Condition Start: 05/27/21 16:09 Freq: Status: Active Protocol: Document 05/27/21 15:15 DCW (Rec: 05/27/21 16:28 DCW [id number]) Current Condition History of Current Condition Onset Date Long-standing history Current Complaints Decreased gait, confidence, increased fear of falling History of Current Condition Pt is a 20 year old male well known to this clinic with a history of cerebral palsy and developmental delay. Pt was previously seen four years ago following abdominal surgery because of a decline in gait function, and is presenting today with similar complaints. Pt's father reports pt has been having decreased confidence when walking, especially when on hard surfaces. Pt walks better on carpet, but becomes very hesitant and nervous on tile or outside on sidewalk. Pt admits he has fallen a few times walking out to his bus stop. Pt has always performed toe walking, especially on his left side, but it has progressed a bit recently, and pt is taking very hesitant, small steps, and will frequently rely on his parents for hand-hold assist to maintain balance. Treatment Goals Patient/Caregiver Goals I think I should be walking better when I turn 21. Prior Functional Status Baseline Function- Gait L Toe walking, LE spasticity PT-OP-C Subjective Start: 05/27/21 16:09 Freq: Status: Active Protocol: Document 09/29/22 16:30 DCW (Rec: 09/29/22 17:21 DCW [id number]) OP-PT Subjective Patient Comments Patient Comments Pt feeling very good today, happy to have brought his walking stick. PT-OP-D Balance Start: 05/27/21 16:09 Freq: Status: Active Protocol: Document 07/13/22 15:19 DCW (Rec: 07/13/22 15:49 DCW [id number]) Balance Tests Single Limb Standing Single Limb- Right 8 sec Single Limb- Left 17 sec Tandem Tandem Standing L: 14, R: 25 PT-OP-E Functional Tests Start: 05/27/21 16:09 Freq: Status: Active Protocol: Document 09/29/22 16:30 DCW (Rec: 09/29/22 17:23 DCW [id number]) Functional Tests 2 Minute Walk Test Distance 289' Device Used R UE HedgeChatterkking pole Comments 2.41 ft/sec Timed Up and Go (TUG) Score 14.74 Comments 3-trial average (16.23, 14.64 , 13.35) TUG Impairment Rating 40 to <60% Impaired (Score 14- 15) PT-OP-G Mobility & Gait Start: 05/27/21 16:29 Freq: Status: Active Protocol: Document 07/13/22 15:19 DCW (Rec: 07/13/22 15:49 DCW [id number]) OP Gait Assessment Gait Gait Assistance Required: Standby Assistance Distance (Feet) 251 Able to Maintain Weight Bearing Status Yes During Gait Assistive Devices Assistive Device Gait Belt Gait Deviations General Gait Pattern Ataxic,Decreased Stride Length ,Decreased Feet Clearance, Flexed Trunk,Narrow Based Gait ,Step-to Gait Factors Limiting Gait Function Factors Limiting Gait Function Abnormal Tonal Influences, Limited Range of Motion,Poor Balance Comments Gait Comments Pt ambulates with mild toe walking bilaterally, decreased step length, decreased foot clearance. Step-through more regularly (75% of the time) than previous testing. Much more comfortable crossing threshholds PT-OP-K Range of Motion Start: 05/27/21 16:09 Freq: Status: Active Protocol: Document 09/29/22 16:30 DCW (Rec: 09/29/22 17:23 DCW [id number]) Ankle and Foot Goniometric Range of Motion Ankle and Foot Right Comments At rest, right ankle in 8? inversion. With stretch from therapist, able to get right ankle to 15? DF Left Comments At rest, left ankle in 2? inversion. With stretch from therapist, able to get left ankle to 4? DF Ankle and Foot ROM Limitations ROM Limitations Soft Tissue Tightness, Contracture,Muscle Tone PT-OP-M Strength Start: 05/27/21 16:09 Freq: Status: Active Protocol: Document 05/27/21 15:15 DCW (Rec: 05/27/21 16:28 HIW [id number]) Hip Strength Hip Manual Muscle Testing Right Flexion (L2) 4+ Good+ Abduction 4+ Good+ Adduction 4+ Good+ Left Flexion (L2) 4+ Good+ Abduction 4+ Good+ Adduction 4+ Good+ Knee Strength Knee Manual Muscle Testing Right Flexion (S2) 4+ Good+ Extension (L3) 4+ Good+ Left Flexion (S2) 4+ Good+ Extension (L3) 4+ Good+ PT-OP-Q Treatments Start: 05/27/21 16:09 Freq: Status: Active Protocol: Document 09/29/22 16:30 DCW (Rec: 09/29/22 17:21 [facility] [id number]) Gym Equipment Shuttle Balance 1 Details Red - Wide CONSTANCE Comments Raising hands overhead Balloon Volley Turns Therapeutic Exercises Sitting Exercises 1 Sitting Exercise Name Heel cord stretch Side bilateral Standing Exercises 2 Standing Exercise Name Gastroc stretch Side bilateral Equipment Used WANDER 1 Standing Exercise Name Heel raises Side bilateral Equipment Used 4 step Other Exercises 1 Other Exercise Name Hurdles over changing floor surface Comments Used black pad on blue pad underneath as obstacles Neuro Re-Education Treatment Balance Activities 1 Details BOSU Comments DL BOSU stance (Blue) PT-OP-T Assessment and Plan Start: 05/27/21 16:09 Freq: Status: Active Protocol: Document 09/29/22 16:30 DCW (Rec: 09/29/22 17:21 [facility] [id number]) Physical Therapy Assessment Impairments Impairments Activity Tolerance,Balance, Coordination,Functional Mobility,Gait,ROM,Soft Tissue Mobility,Tone Goals Three Impairment Pt scores a 20.1 TUG Short Term Goal (STG) Pt to decreased average TUG score to <15.5 in order to demonstrate improved confidence and a decreased fear of falling STG Duration Met Longterm Goal (LTG) Pt to decreased average TUG score to <13 in order to demonstrate improved confidence and a decreased fear of falling LTG Duration 12/28/22 Two Impairment Pt ambulates with toe walking bilaterally and a step-to gait pattern Squad Boss Goal (LTG) Pt to demonstrate ability with ambulate with a heel-toe pattern at least 50% of the time with a step-through pattern 75% of the time LTG Duration MET One Impairment Pt does not have an appropriate home exercise program Short Term Goal (STG) Pt to be independent and compliant with an appropriate HEP STG Duration Met Assessment Summary Assessment Pt felt much more comfortable today with his trekking pole, was able to show some slight improvement in TUG and 2MWT, ankle mobility also improving with continued Botox injections. Pt will likely benefit with continued therapy to improve balance and increase gait confidence, as well as decreasing falls risk. Physical Therapy Plan Frequency and Duration Frequency of Treatment 1-2x/Week Plan of Care Start Date 09/29/22 Plan of Care End Date 12/28/22 Therapeutic Interventions Therapeutic Interventions Balance Training,Coordination Training,Gait Training,Home Exercise Program,Manual Therapy,Neuromuscular Re- education,Patient/Caregiver Education,Self-Care/Home Management,Soft Tissue Mobilization,Therapeutic Exercises Next Visit Focus/Plan Next Note Type Treatment Note Next Visit Plan Flexibility, balance training, gait training
--- NOTE | 2022-09-29 17:24 | PT.OPPOC ---
Physical, Occupational & Speech Therapy At [facility] Current Diagnoses Cerebral palsy, unspecified (09/29/22) Stiffness of unspecified knee, not elsewhere classified (09/29/22) Stiffness of unspecified ankle, not elsewhere classified (09/29/22) Other abnormalities of gait and mobility (09/29/22) Visit Care Team Role Provider Type Andrew Mccoy MD Attending Provider Physician Family Provider Primary Care Provider Referring Provider Specialty: [facility] Address: [address] [place] [address], [facility] Email: [email or web address] Plan Of Care PT-OP-T Assessment and Plan Start: 05/27/21 16:09 Freq: Status: Active Protocol: Document 09/29/22 16:30 DCW (Rec: 09/29/22 17:21 DCW [id number]) Physical Therapy Assessment Impairments Impairments Activity Tolerance,Balance, Coordination,Functional Mobility,Gait,ROM,Soft Tissue Mobility,Tone Goals Three Impairment Pt scores a 20.1 TUG Short Term Goal (STG) Pt to decreased average TUG score to <15.5 in order to demonstrate improved confidence and a decreased fear of falling STG Duration Met Halfway Goal (LTG) Pt to decreased average TUG score to <13 in order to demonstrate improved confidence and a decreased fear of falling LTG Duration 12/28/22 Two Impairment Pt ambulates with toe walking bilaterally and a step-to gait pattern Halfway Goal (LTG) Pt to demonstrate ability with ambulate with a heel-toe pattern at least 50% of the time with a step-through pattern 75% of the time LTG Duration MET One Impairment Pt does not have an appropriate home exercise program Short Term Goal (STG) Pt to be independent and compliant with an appropriate HEP STG Duration Met Assessment Summary Assessment Pt felt much more comfortable today with his trekking pole, was able to show some slight improvement in TUG and 2MWT, ankle mobility also improving with continued Botox injections. Pt will likely benefit with continued therapy to improve balance and increase gait confidence, as well as decreasing falls risk. Physical Therapy Plan Frequency and Duration Frequency of Treatment 1-2x/Week Plan of Care Start Date 09/29/22 Plan of Care End Date 12/28/22 Therapeutic Interventions Therapeutic Interventions Balance Training,Coordination Training,Gait Training,Home Exercise Program,Manual Therapy,Neuromuscular Re- education,Patient/Caregiver Education,Self-Care/Home Management,Soft Tissue Mobilization,Therapeutic Exercises Next Visit Focus/Plan Next Note Type Treatment Note Next Visit Plan Flexibility, balance training, gait training Plan of Care Dates Plan of Care Start Date 09/29/22 Plan of Care End Date 12/28/22 Electronically Signed by: Raul Gaviria, PT 09/29/22 1663 If you are in agreement with this Plan of Care, please return a signed and dated copy. I have reviewed this Plan of Care and certify that the skilled therapy services above are required to meet the patient?s needs. Physician Signature Date Printed Name and Credentials Clinical Instructor Signature Printed Name and Credentials
--- NOTE | 2022-10-07 14:17 | PT.OTN ---
Current Diagnoses Cerebral palsy, unspecified (10/07/22) Stiffness of unspecified knee, not elsewhere classified (10/07/22) Stiffness of unspecified ankle, not elsewhere classified (10/07/22) Other abnormalities of gait and mobility (10/07/22) Physical Therapy Treatment Note PT-OP-A Visit Information Start: 05/27/21 16:09 Freq: Status: Active Protocol: Document 10/07/22 13:33 DCW (Rec: 10/07/22 14:17 DCW [id number]) Out-Patient Physical Therapy Visit Information Visit Information Visit Type Treatment Note Visit Start Time 13:33 Visit Stop Time 14:15 Total Visit Minutes 42 Visit Number 44 Number of PANTOGRAPH OPERATOR Visits 0 Evaluation Information Evaluation Date 05/27/21 PT-OP-B Current Condition Start: 05/27/21 16:09 Freq: Status: Active Protocol: Document 05/27/21 15:15 DCW (Rec: 05/27/21 16:28 DCW [id number]) Current Condition History of Current Condition Onset Date Long-standing history Current Complaints Decreased gait, confidence, increased fear of falling History of Current Condition Pt is a 20 year old male well known to this clinic with a history of cerebral palsy and developmental delay. Pt was previously seen four years ago following abdominal surgery because of a decline in gait function, and is presenting today with similar complaints. Pt's father reports pt has been having decreased confidence when walking, especially when on hard surfaces. Pt walks better on carpet, but becomes very hesitant and nervous on tile or outside on sidewalk. Pt admits he has fallen a few times walking out to his bus stop. Pt has always performed toe walking, especially on his left side, but it has progressed a bit recently, and pt is taking very hesitant, small steps, and will frequently rely on his parents for hand-hold assist to maintain balance. Treatment Goals Patient/Caregiver Goals I think I should be walking better when I turn 21. Prior Functional Status Baseline Function- Gait L Toe walking, LE spasticity PT-OP-C Subjective Start: 05/27/21 16:09 Freq: Status: Active Protocol: Document 10/07/22 13:33 DCW (Rec: 10/07/22 14:17 DCW [id number]) OP-PT Subjective Patient Comments Patient Comments Pt feeling good, excited his high school graduation is next week. PT-OP-D Balance Start: 05/27/21 16:09 Freq: Status: Active Protocol: Document 07/13/22 15:19 DCW (Rec: 07/13/22 15:49 DCW [id number]) Balance Tests Single Limb Standing Single Limb- Right 8 sec Single Limb- Left 17 sec Tandem Tandem Standing L: 14, R: 25 PT-OP-E Functional Tests Start: 05/27/21 16:09 Freq: Status: Active Protocol: Document 09/29/22 16:30 DCW (Rec: 09/29/22 17:23 DCW [id number]) Functional Tests 2 Minute Walk Test Distance 289' Device Used R Zane Prep[employer] Formattakking pole Comments 2.41 ft/sec Timed Up and Go (TUG) Score 14.74 Comments 3-trial average (16.23, 14.64 , 13.35) TUG Impairment Rating 40 to <60% Impaired (Score 14- 15) PT-OP-G Mobility & Gait Start: 05/27/21 16:29 Freq: Status: Active Protocol: Document 07/13/22 15:19 DCW (Rec: 07/13/22 15:49 DCW [id number]) OP Gait Assessment Gait Gait Assistance Required: Standby Assistance Distance (Feet) 251 Able to Maintain Weight Bearing Status Yes During Gait Assistive Devices Assistive Device Gait Belt Gait Deviations General Gait Pattern Ataxic,Decreased Stride Length ,Decreased Feet Clearance, Flexed Trunk,Narrow Based Gait ,Step-to Gait Factors Limiting Gait Function Factors Limiting Gait Function Abnormal Tonal Influences, Limited Range of Motion,Poor Balance Comments Gait Comments Pt ambulates with mild toe walking bilaterally, decreased step length, decreased foot clearance. Step-through more regularly (75% of the time) than previous testing. Much more comfortable crossing threshholds PT-OP-K Range of Motion Start: 05/27/21 16:09 Freq: Status: Active Protocol: Document 09/29/22 16:30 DCW (Rec: 09/29/22 17:23 DCW [id number]) Ankle and Foot Goniometric Range of Motion Ankle and Foot Right Comments At rest, right ankle in 8? inversion. With stretch from therapist, able to get right ankle to 15? DF Left Comments At rest, left ankle in 2? inversion. With stretch from therapist, able to get left ankle to 4? DF Ankle and Foot ROM Limitations ROM Limitations Soft Tissue Tightness, Contracture,Muscle Tone PT-OP-M Strength Start: 05/27/21 16:09 Freq: Status: Active Protocol: Document 05/27/21 15:15 DCW (Rec: 05/27/21 16:28 [facility] [id number]) Hip Strength Hip Manual Muscle Testing Right Flexion (L2) 4+ Good+ Abduction 4+ Good+ Adduction 4+ Good+ Left Flexion (L2) 4+ Good+ Abduction 4+ Good+ Adduction 4+ Good+ Knee Strength Knee Manual Muscle Testing Right Flexion (S2) 4+ Good+ Extension (L3) 4+ Good+ Left Flexion (S2) 4+ Good+ Extension (L3) 4+ Good+ PT-OP-Q Treatments Start: 05/27/21 16:09 Freq: Status: Active Protocol: Document 10/07/22 13:33 DCW (Rec: 10/07/22 14:17 [facility] [id number]) Gym Equipment Shuttle Balance 1 Details Red - Wide CONSTANCE Comments Raising hands overhead Balloon Volley Turns Therapeutic Exercises Sitting Exercises 2 Sitting Exercise Name Hamstring stretch Side bilateral 1 Sitting Exercise Name Heel cord stretch Side bilateral Standing Exercises 2 Standing Exercise Name Gastroc stretch Side bilateral Equipment Used WANDER 1 Standing Exercise Name Heel raises Side bilateral Equipment Used 4 step Other Exercises 1 Other Exercise Name Hurdles over changing floor surface Comments Used black pad on blue pad underneath as obstacles Gait Training Gait Activity 3 Description AD training Distance/Duration 700' PT-OP-T Assessment and Plan Start: 05/27/21 16:09 Freq: Status: Active Protocol: Document 10/07/22 13:33 DCW (Rec: 10/07/22 14:17 [facility] [id number]) Physical Therapy Assessment Impairments Impairments Activity Tolerance,Balance, Coordination,Functional Mobility,Gait,ROM,Soft Tissue Mobility,Tone Goals Three Impairment Pt scores a 20.1 TUG Short Term Goal (STG) Pt to decreased average TUG score to <15.5 in order to demonstrate improved confidence and a decreased fear of falling STG Duration Met Hand Wood Sander Goal (LTG) Pt to decreased average TUG score to <13 in order to demonstrate improved confidence and a decreased fear of falling LTG Duration 12/28/22 Two Impairment Pt ambulates with toe walking bilaterally and a step-to gait pattern Prison Goal (LTG) Pt to demonstrate ability with ambulate with a heel-toe pattern at least 50% of the time with a step-through pattern 75% of the time LTG Duration MET One Impairment Pt does not have an appropriate home exercise program Short Term Goal (STG) Pt to be independent and compliant with an appropriate HEP STG Duration Met Assessment Summary Assessment Pt still exhibits pretty high anxiety when trying to step over threshholds or up/down curbs, despite doing very well in clinic on obstacle courses and stepping over hurdles Physical Therapy Plan Frequency and Duration Frequency of Treatment 1-2x/Week Plan of Care Start Date 09/29/22 Plan of Care End Date 12/28/22 Therapeutic Interventions Therapeutic Interventions Balance Training,Coordination Training,Gait Training,Home Exercise Program,Manual Therapy,Neuromuscular Re- education,Patient/Caregiver Education,Self-Care/Home Management,Soft Tissue Mobilization,Therapeutic Exercises Next Visit Focus/Plan Next Note Type Treatment Note Next Visit Plan Flexibility, balance training, gait training
--- NOTE | 2022-10-18 17:22 | PT.OTN ---
Current Diagnoses Cerebral palsy, unspecified (10/18/22) Stiffness of unspecified knee, not elsewhere classified (10/18/22) Stiffness of unspecified ankle, not elsewhere classified (10/18/22) Other abnormalities of gait and mobility (10/18/22) Physical Therapy Treatment Note PT-OP-A Visit Information Start: 05/27/21 16:09 Freq: Status: Active Protocol: Document 10/18/22 16:32 DCW (Rec: 10/18/22 17:22 DCW [id number]) Out-Patient Physical Therapy Visit Information Visit Information Visit Type Treatment Note Visit Start Time 16:32 Visit Stop Time 17:15 Total Visit Minutes 43 Visit Number 45 Number of COSMETIC DENTIST Visits 0 Evaluation Information Evaluation Date 05/27/21 PT-OP-B Current Condition Start: 05/27/21 16:09 Freq: Status: Active Protocol: Document 05/27/21 15:15 DCW (Rec: 05/27/21 16:28 DCW [id number]) Current Condition History of Current Condition Onset Date Long-standing history Current Complaints Decreased gait, confidence, increased fear of falling History of Current Condition Pt is a 20 year old male well known to this clinic with a history of cerebral palsy and developmental delay. Pt was previously seen four years ago following abdominal surgery because of a decline in gait function, and is presenting today with similar complaints. Pt's father reports pt has been having decreased confidence when walking, especially when on hard surfaces. Pt walks better on carpet, but becomes very hesitant and nervous on tile or outside on sidewalk. Pt admits he has fallen a few times walking out to his bus stop. Pt has always performed toe walking, especially on his left side, but it has progressed a bit recently, and pt is taking very hesitant, small steps, and will frequently rely on his parents for hand-hold assist to maintain balance. Treatment Goals Patient/Caregiver Goals I think I should be walking better when I turn 21. Prior Functional Status Baseline Function- Gait L Toe walking, LE spasticity PT-OP-C Subjective Start: 05/27/21 16:09 Freq: Status: Active Protocol: Document 10/18/22 16:32 DCW (Rec: 10/18/22 17:22 DCW [id number]) OP-PT Subjective Patient Comments Patient Comments Pt very happy to be here working today. PT-OP-D Balance Start: 05/27/21 16:09 Freq: Status: Active Protocol: Document 07/13/22 15:19 DCW (Rec: 07/13/22 15:49 DCW [id number]) Balance Tests Single Limb Standing Single Limb- Right 8 sec Single Limb- Left 17 sec Tandem Tandem Standing L: 14, R: 25 PT-OP-E Functional Tests Start: 05/27/21 16:09 Freq: Status: Active Protocol: Document 09/29/22 16:30 DCW (Rec: 09/29/22 17:23 DCW [id number]) Functional Tests 2 Minute Walk Test Distance 289' Device Used R UE OneBuckResumekking pole Comments 2.41 ft/sec Timed Up and Go (TUG) Score 14.74 Comments 3-trial average (16.23, 14.64 , 13.35) TUG Impairment Rating 40 to <60% Impaired (Score 14- 15) PT-OP-G Mobility & Gait Start: 05/27/21 16:29 Freq: Status: Active Protocol: Document 07/13/22 15:19 DCW (Rec: 07/13/22 15:49 DCW [id number]) OP Gait Assessment Gait Gait Assistance Required: Standby Assistance Distance (Feet) 251 Able to Maintain Weight Bearing Status Yes During Gait Assistive Devices Assistive Device Gait Belt Gait Deviations General Gait Pattern Ataxic,Decreased Stride Length ,Decreased Feet Clearance, Flexed Trunk,Narrow Based Gait ,Step-to Gait Factors Limiting Gait Function Factors Limiting Gait Function Abnormal Tonal Influences, Limited Range of Motion,Poor Balance Comments Gait Comments Pt ambulates with mild toe walking bilaterally, decreased step length, decreased foot clearance. Step-through more regularly (75% of the time) than previous testing. Much more comfortable crossing threshholds PT-OP-K Range of Motion Start: 05/27/21 16:09 Freq: Status: Active Protocol: Document 09/29/22 16:30 DCW (Rec: 09/29/22 17:23 DCW [id number]) Ankle and Foot Goniometric Range of Motion Ankle and Foot Right Comments At rest, right ankle in 8? inversion. With stretch from therapist, able to get right ankle to 15? DF Left Comments At rest, left ankle in 2? inversion. With stretch from therapist, able to get left ankle to 4? DF Ankle and Foot ROM Limitations ROM Limitations Soft Tissue Tightness, Contracture,Muscle Tone PT-OP-M Strength Start: 05/27/21 16:09 Freq: Status: Active Protocol: Document 05/27/21 15:15 DCW (Rec: 05/27/21 16:28 DCW [id number]) Hip Strength Hip Manual Muscle Testing Right Flexion (L2) 4+ Good+ Abduction 4+ Good+ Adduction 4+ Good+ Left Flexion (L2) 4+ Good+ Abduction 4+ Good+ Adduction 4+ Good+ Knee Strength Knee Manual Muscle Testing Right Flexion (S2) 4+ Good+ Extension (L3) 4+ Good+ Left Flexion (S2) 4+ Good+ Extension (L3) 4+ Good+ PT-OP-Q Treatments Start: 05/27/21 16:09 Freq: Status: Active Protocol: Document 10/18/22 16:32 DCW (Rec: 10/18/22 17:22 [facility] [id number]) Gym Equipment Shuttle Balance 1 Details Red - Wide CONSTANCE Comments Raising hands overhead Balloon Volley Turns Therapeutic Exercises Sitting Exercises 2 Sitting Exercise Name Hamstring stretch Side bilateral 1 Sitting Exercise Name Heel cord stretch Side bilateral Standing Exercises 2 Standing Exercise Name Gastroc stretch Side bilateral Equipment Used WANDER 1 Standing Exercise Name Heel raises Side bilateral Equipment Used 4 step Other Exercises 1 Other Exercise Name Hurdles over changing floor surface Comments Used black pad on blue pad underneath as obstacles Gait Training Gait Activity 3 Description AD training Distance/Duration 500' 1 Description Outdoor ambulation Device Used Unilateral trekking pole Level of Assistance CGA Surface sidewalk, grassy hill, curbs Neuro Re-Education Treatment Balance Activities 2 Details Double leg stance Surface Large blue AirEx PT-OP-T Assessment and Plan Start: 05/27/21 16:09 Freq: Status: Active Protocol: Document 10/18/22 16:32 DCW (Rec: 10/18/22 17:22 [facility] [id number]) Physical Therapy Assessment Impairments Impairments Activity Tolerance,Balance, Coordination,Functional Mobility,Gait,ROM,Soft Tissue Mobility,Tone Goals Three Impairment Pt scores a 20.1 TUG Short Term Goal (STG) Pt to decreased average TUG score to <15.5 in order to demonstrate improved confidence and a decreased fear of falling STG Duration Met Shipping Clerk/Admin Goal (LTG) Pt to decreased average TUG score to <13 in order to demonstrate improved confidence and a decreased fear of falling LTG Duration 12/28/22 Two Impairment Pt ambulates with toe walking bilaterally and a step-to gait pattern Halfway Goal (LTG) Pt to demonstrate ability with ambulate with a heel-toe pattern at least 50% of the time with a step-through pattern 75% of the time LTG Duration MET One Impairment Pt does not have an appropriate home exercise program Short Term Goal (STG) Pt to be independent and compliant with an appropriate HEP STG Duration Met Assessment Summary Assessment Pt did very well with curbs today, still working on improving confidence and independence with steps, curbs , and changes in good. Physical Therapy Plan Frequency and Duration Frequency of Treatment 1-2x/Week Plan of Care Start Date 09/29/22 Plan of Care End Date 12/28/22 Therapeutic Interventions Therapeutic Interventions Balance Training,Coordination Training,Gait Training,Home Exercise Program,Manual Therapy,Neuromuscular Re- education,Patient/Caregiver Education,Self-Care/Home Management,Soft Tissue Mobilization,Therapeutic Exercises Next Visit Focus/Plan Next Note Type Treatment Note Next Visit Plan Flexibility, balance training, gait training
--- NOTE | 2022-10-20 17:20 | PT.OTN ---
Current Diagnoses Cerebral palsy, unspecified (10/20/22) Stiffness of unspecified knee, not elsewhere classified (10/20/22) Stiffness of unspecified ankle, not elsewhere classified (10/20/22) Other abnormalities of gait and mobility (10/20/22) Physical Therapy Treatment Note PT-OP-A Visit Information Start: 05/27/21 16:09 Freq: Status: Active Protocol: Document 10/20/22 16:34 DCW (Rec: 10/20/22 17:20 DCW [id number]) Out-Patient Physical Therapy Visit Information Visit Information Visit Type Treatment Note Visit Start Time 16:34 Visit Stop Time 17:15 Total Visit Minutes 41 Visit Number 46 Number of SCRAP IRON CUTTER Visits 0 Evaluation Information Evaluation Date 05/27/21 PT-OP-B Current Condition Start: 05/27/21 16:09 Freq: Status: Active Protocol: Document 05/27/21 15:15 DCW (Rec: 05/27/21 16:28 DCW [id number]) Current Condition History of Current Condition Onset Date Long-standing history Current Complaints Decreased gait, confidence, increased fear of falling History of Current Condition Pt is a 20 year old male well known to this clinic with a history of cerebral palsy and developmental delay. Pt was previously seen four years ago following abdominal surgery because of a decline in gait function, and is presenting today with similar complaints. Pt's father reports pt has been having decreased confidence when walking, especially when on hard surfaces. Pt walks better on carpet, but becomes very hesitant and nervous on tile or outside on sidewalk. Pt admits he has fallen a few times walking out to his bus stop. Pt has always performed toe walking, especially on his left side, but it has progressed a bit recently, and pt is taking very hesitant, small steps, and will frequently rely on his parents for hand-hold assist to maintain balance. Treatment Goals Patient/Caregiver Goals I think I should be walking better when I turn 21. Prior Functional Status Baseline Function- Gait L Toe walking, LE spasticity PT-OP-C Subjective Start: 05/27/21 16:09 Freq: Status: Active Protocol: Document 10/20/22 16:34 DCW (Rec: 10/20/22 17:20 DCW [id number]) OP-PT Subjective Patient Comments Patient Comments Pt forgot his trekking pole today, prefers to borrow one from the clinic. PT-OP-D Balance Start: 05/27/21 16:09 Freq: Status: Active Protocol: Document 07/13/22 15:19 DCW (Rec: 07/13/22 15:49 DCW [id number]) Balance Tests Single Limb Standing Single Limb- Right 8 sec Single Limb- Left 17 sec Tandem Tandem Standing L: 14, R: 25 PT-OP-E Functional Tests Start: 05/27/21 16:09 Freq: Status: Active Protocol: Document 09/29/22 16:30 DCW (Rec: 09/29/22 17:23 DCW [id number]) Functional Tests 2 Minute Walk Test Distance 289' Device Used R UE trekking pole Comments 2.41 ft/sec Timed Up and Go (TUG) Score 14.74 Comments 3-trial average (16.23, 14.64 , 13.35) TUG Impairment Rating 40 to <60% Impaired (Score 14- 15) PT-OP-G Mobility & Gait Start: 05/27/21 16:29 Freq: Status: Active Protocol: Document 07/13/22 15:19 DCW (Rec: 07/13/22 15:49 DCW [id number]) OP Gait Assessment Gait Gait Assistance Required: Standby Assistance Distance (Feet) 251 Able to Maintain Weight Bearing Status Yes During Gait Assistive Devices Assistive Device Gait Belt Gait Deviations General Gait Pattern Ataxic,Decreased Stride Length ,Decreased Feet Clearance, Flexed Trunk,Narrow Based Gait ,Step-to Gait Factors Limiting Gait Function Factors Limiting Gait Function Abnormal Tonal Influences, Limited Range of Motion,Poor Balance Comments Gait Comments Pt ambulates with mild toe walking bilaterally, decreased step length, decreased foot clearance. Step-through more regularly (75% of the time) than previous testing. Much more comfortable crossing threshholds PT-OP-K Range of Motion Start: 05/27/21 16:09 Freq: Status: Active Protocol: Document 09/29/22 16:30 DCW (Rec: 09/29/22 17:23 DCW [id number]) Ankle and Foot Goniometric Range of Motion Ankle and Foot Right Comments At rest, right ankle in 8? inversion. With stretch from therapist, able to get right ankle to 15? DF Left Comments At rest, left ankle in 2? inversion. With stretch from therapist, able to get left ankle to 4? DF Ankle and Foot ROM Limitations ROM Limitations Soft Tissue Tightness, Contracture,Muscle Tone PT-OP-M Strength Start: 05/27/21 16:09 Freq: Status: Active Protocol: Document 05/27/21 15:15 DCW (Rec: 05/27/21 16:28 DCW [id number]) Hip Strength Hip Manual Muscle Testing Right Flexion (L2) 4+ Good+ Abduction 4+ Good+ Adduction 4+ Good+ Left Flexion (L2) 4+ Good+ Abduction 4+ Good+ Adduction 4+ Good+ Knee Strength Knee Manual Muscle Testing Right Flexion (S2) 4+ Good+ Extension (L3) 4+ Good+ Left Flexion (S2) 4+ Good+ Extension (L3) 4+ Good+ PT-OP-Q Treatments Start: 05/27/21 16:09 Freq: Status: Active Protocol: Document 10/20/22 16:34 DCW (Rec: 10/20/22 17:20 DCW [id number]) Gym Equipment Shuttle Balance 1 Details Red - Wide CONSTANCE Comments Raising hands overhead Staggered Stance Turns Therapeutic Exercises Standing Exercises 2 Standing Exercise Name Gastroc stretch Side bilateral Equipment Used WANDER 1 Standing Exercise Name Heel raises Side bilateral Equipment Used 4 step Other Exercises 1 Other Exercise Name Hurdles over changing floor surface Comments Used black pad on blue pad underneath as obstacles Gait Training Gait Activity 3 Description AD training Distance/Duration 650' 1 Description Outdoor ambulation Device Used Unilateral trekking pole Level of Assistance CGA Surface sidewalk, grassy hill, curbs Neuro Re-Education Treatment Balance Activities 2 Details Double leg stance Surface Large blue AirEx PT-OP-T Assessment and Plan Start: 05/27/21 16:09 Freq: Status: Active Protocol: Document 10/20/22 16:34 DCW (Rec: 10/20/22 17:20 DCW [id number]) Physical Therapy Assessment Impairments Impairments Activity Tolerance,Balance, Coordination,Functional Mobility,Gait,ROM,Soft Tissue Mobility,Tone Goals Three Impairment Pt scores a 20.1 TUG Short Term Goal (STG) Pt to decreased average TUG score to <15.5 in order to demonstrate improved confidence and a decreased fear of falling STG Duration Met Senior Biostatistician/Group Leader Goal (LTG) Pt to decreased average TUG score to <13 in order to demonstrate improved confidence and a decreased fear of falling LTG Duration 12/28/22 Two Impairment Pt ambulates with toe walking bilaterally and a step-to gait pattern Senior Biostatistician/Group Leader Goal (LTG) Pt to demonstrate ability with ambulate with a heel-toe pattern at least 50% of the time with a step-through pattern 75% of the time LTG Duration MET One Impairment Pt does not have an appropriate home exercise program Short Term Goal (STG) Pt to be independent and compliant with an appropriate HEP STG Duration Met Assessment Summary Assessment Pt displaying increased confidence with challenges, including standing on uneven surfaces, stepping up/down 12 steps, walking on foam, but will then still immediately reach for the nearest wall when just walking down a hallway Physical Therapy Plan Frequency and Duration Frequency of Treatment 1-2x/Week Plan of Care Start Date 09/29/22 Plan of Care End Date 12/28/22 Therapeutic Interventions Therapeutic Interventions Balance Training,Coordination Training,Gait Training,Home Exercise Program,Manual Therapy,Neuromuscular Re- education,Patient/Caregiver Education,Self-Care/Home Management,Soft Tissue Mobilization,Therapeutic Exercises Next Visit Focus/Plan Next Note Type Treatment Note Next Visit Plan Flexibility, balance training, gait training
--- NOTE | 2022-10-24 15:32 | PT.OTN ---
Current Diagnoses Cerebral palsy, unspecified (10/24/22) Stiffness of unspecified knee, not elsewhere classified (10/24/22) Stiffness of unspecified ankle, not elsewhere classified (10/24/22) Other abnormalities of gait and mobility (10/24/22) Physical Therapy Treatment Note PT-OP-A Visit Information Start: 05/27/21 16:09 Freq: Status: Active Protocol: Document 10/24/22 14:47 DCW (Rec: 10/24/22 15:32 DCW [id number]) Out-Patient Physical Therapy Visit Information Visit Information Visit Type Treatment Note Visit Start Time 14:47 Visit Stop Time 15:30 Total Visit Minutes 43 Visit Number 47 Number of DEPARTMENT COORDINATOR Visits 0 Evaluation Information Evaluation Date 05/27/21 PT-OP-B Current Condition Start: 05/27/21 16:09 Freq: Status: Active Protocol: Document 05/27/21 15:15 DCW (Rec: 05/27/21 16:28 DCW [id number]) Current Condition History of Current Condition Onset Date Long-standing history Current Complaints Decreased gait, confidence, increased fear of falling History of Current Condition Pt is a 20 year old male well known to this clinic with a history of cerebral palsy and developmental delay. Pt was previously seen four years ago following abdominal surgery because of a decline in gait function, and is presenting today with similar complaints. Pt's father reports pt has been having decreased confidence when walking, especially when on hard surfaces. Pt walks better on carpet, but becomes very hesitant and nervous on tile or outside on sidewalk. Pt admits he has fallen a few times walking out to his bus stop. Pt has always performed toe walking, especially on his left side, but it has progressed a bit recently, and pt is taking very hesitant, small steps, and will frequently rely on his parents for hand-hold assist to maintain balance. Treatment Goals Patient/Caregiver Goals I think I should be walking better when I turn 21. Prior Functional Status Baseline Function- Gait L Toe walking, LE spasticity PT-OP-C Subjective Start: 05/27/21 16:09 Freq: Status: Active Protocol: Document 10/24/22 14:47 DCW (Rec: 10/24/22 15:32 DCW [id number]) OP-PT Subjective Patient Comments Patient Comments Pt went to an outdoor concert over the weekend, reports he did well walking over uneven ground. PT-OP-D Balance Start: 05/27/21 16:09 Freq: Status: Active Protocol: Document 07/13/22 15:19 DCW (Rec: 07/13/22 15:49 DCW [id number]) Balance Tests Single Limb Standing Single Limb- Right 8 sec Single Limb- Left 17 sec Tandem Tandem Standing L: 14, R: 25 PT-OP-E Functional Tests Start: 05/27/21 16:09 Freq: Status: Active Protocol: Document 09/29/22 16:30 DCW (Rec: 09/29/22 17:23 DCW [id number]) Functional Tests 2 Minute Walk Test Distance 289' Device Used R myQaaE BLUEPHOENIXkking pole Comments 2.41 ft/sec Timed Up and Go (TUG) Score 14.74 Comments 3-trial average (16.23, 14.64 , 13.35) TUG Impairment Rating 40 to <60% Impaired (Score 14- 15) PT-OP-G Mobility & Gait Start: 05/27/21 16:29 Freq: Status: Active Protocol: Document 07/13/22 15:19 DCW (Rec: 07/13/22 15:49 DCW [id number]) OP Gait Assessment Gait Gait Assistance Required: Standby Assistance Distance (Feet) 251 Able to Maintain Weight Bearing Status Yes During Gait Assistive Devices Assistive Device Gait Belt Gait Deviations General Gait Pattern Ataxic,Decreased Stride Length ,Decreased Feet Clearance, Flexed Trunk,Narrow Based Gait ,Step-to Gait Factors Limiting Gait Function Factors Limiting Gait Function Abnormal Tonal Influences, Limited Range of Motion,Poor Balance Comments Gait Comments Pt ambulates with mild toe walking bilaterally, decreased step length, decreased foot clearance. Step-through more regularly (75% of the time) than previous testing. Much more comfortable crossing threshholds PT-OP-K Range of Motion Start: 05/27/21 16:09 Freq: Status: Active Protocol: Document 09/29/22 16:30 DCW (Rec: 09/29/22 17:23 DCW [id number]) Ankle and Foot Goniometric Range of Motion Ankle and Foot Right Comments At rest, right ankle in 8? inversion. With stretch from therapist, able to get right ankle to 15? DF Left Comments At rest, left ankle in 2? inversion. With stretch from therapist, able to get left ankle to 4? DF Ankle and Foot ROM Limitations ROM Limitations Soft Tissue Tightness, Contracture,Muscle Tone PT-OP-M Strength Start: 05/27/21 16:09 Freq: Status: Active Protocol: Document 05/27/21 15:15 DCW (Rec: 05/27/21 16:28 [facility] [id number]) Hip Strength Hip Manual Muscle Testing Right Flexion (L2) 4+ Good+ Abduction 4+ Good+ Adduction 4+ Good+ Left Flexion (L2) 4+ Good+ Abduction 4+ Good+ Adduction 4+ Good+ Knee Strength Knee Manual Muscle Testing Right Flexion (S2) 4+ Good+ Extension (L3) 4+ Good+ Left Flexion (S2) 4+ Good+ Extension (L3) 4+ Good+ PT-OP-Q Treatments Start: 05/27/21 16:09 Freq: Status: Active Protocol: Document 10/24/22 14:47 DCW (Rec: 10/24/22 15:32 [facility] [id number]) Gym Equipment Shuttle Balance 1 Details Red - Wide CONSTANCE Comments Raising hands overhead Staggered Stance Turns Therapeutic Exercises Standing Exercises 2 Standing Exercise Name Gastroc stretch Side bilateral Equipment Used WANDER 1 Standing Exercise Name Heel raises Side bilateral Equipment Used 4 step Other Exercises 1 Other Exercise Name Hurdles over changing floor surface Comments Used black pad on blue pad underneath as obstacles Gait Training Gait Activity 3 Description AD training Distance/Duration 650' Neuro Re-Education Treatment Balance Activities SLS Details SLS Equipment // Bars PT-OP-T Assessment and Plan Start: 05/27/21 16:09 Freq: Status: Active Protocol: Document 10/24/22 14:47 DCW (Rec: 10/24/22 15:32 [facility] [id number]) Physical Therapy Assessment Impairments Impairments Activity Tolerance,Balance, Coordination,Functional Mobility,Gait,ROM,Soft Tissue Mobility,Tone Goals Three Impairment Pt scores a 20.1 TUG Short Term Goal (STG) Pt to decreased average TUG score to <15.5 in order to demonstrate improved confidence and a decreased fear of falling STG Duration Met Prorate Clerk Goal (LTG) Pt to decreased average TUG score to <13 in order to demonstrate improved confidence and a decreased fear of falling LTG Duration 12/28/22 Two Impairment Pt ambulates with toe walking bilaterally and a step-to gait pattern Prorate Clerk Goal (LTG) Pt to demonstrate ability with ambulate with a heel-toe pattern at least 50% of the time with a step-through pattern 75% of the time LTG Duration MET One Impairment Pt does not have an appropriate home exercise program Short Term Goal (STG) Pt to be independent and compliant with an appropriate HEP STG Duration Met Assessment Summary Assessment Increased balance challenge on obstacle course today, used large Airex under blue foam for increased instability, pt able to ambulate over it Min Ax1, continues to progress as well with outdoor/uneven surface ambulation. Physical Therapy Plan Frequency and Duration Frequency of Treatment 1-2x/Week Plan of Care Start Date 09/29/22 Plan of Care End Date 12/28/22 Therapeutic Interventions Therapeutic Interventions Balance Training,Coordination Training,Gait Training,Home Exercise Program,Manual Therapy,Neuromuscular Re- education,Patient/Caregiver Education,Self-Care/Home Management,Soft Tissue Mobilization,Therapeutic Exercises Next Visit Focus/Plan Next Note Type Treatment Note Next Visit Plan Flexibility, balance training, gait training
--- NOTE | 2022-10-26 17:20 | PT.OTN ---
Current Diagnoses Cerebral palsy, unspecified (10/26/22) Stiffness of unspecified knee, not elsewhere classified (10/26/22) Stiffness of unspecified ankle, not elsewhere classified (10/26/22) Other abnormalities of gait and mobility (10/26/22) Physical Therapy Treatment Note PT-OP-A Visit Information Start: 05/27/21 16:09 Freq: Status: Active Protocol: Document 10/26/22 16:30 DCW (Rec: 10/26/22 17:20 DCW [id number]) Out-Patient Physical Therapy Visit Information Visit Information Visit Type Treatment Note Visit Start Time 16:30 Visit Stop Time 17:15 Total Visit Minutes 45 Visit Number 48 Number of INSPECTING MACHINE ADJUSTER Visits 0 Evaluation Information Evaluation Date 05/27/21 PT-OP-B Current Condition Start: 05/27/21 16:09 Freq: Status: Active Protocol: Document 05/27/21 15:15 DCW (Rec: 05/27/21 16:28 DCW [id number]) Current Condition History of Current Condition Onset Date Long-standing history Current Complaints Decreased gait, confidence, increased fear of falling History of Current Condition Pt is a 20 year old male well known to this clinic with a history of cerebral palsy and developmental delay. Pt was previously seen four years ago following abdominal surgery because of a decline in gait function, and is presenting today with similar complaints. Pt's father reports pt has been having decreased confidence when walking, especially when on hard surfaces. Pt walks better on carpet, but becomes very hesitant and nervous on tile or outside on sidewalk. Pt admits he has fallen a few times walking out to his bus stop. Pt has always performed toe walking, especially on his left side, but it has progressed a bit recently, and pt is taking very hesitant, small steps, and will frequently rely on his parents for hand-hold assist to maintain balance. Treatment Goals Patient/Caregiver Goals I think I should be walking better when I turn 21. Prior Functional Status Baseline Function- Gait L Toe walking, LE spasticity PT-OP-C Subjective Start: 05/27/21 16:09 Freq: Status: Active Protocol: Document 10/26/22 16:30 DCW (Rec: 10/26/22 17:20 DCW [id number]) OP-PT Subjective Patient Comments Patient Comments Pt reports he is starting swimming lessons this weekend and is very excited about it. PT-OP-D Balance Start: 05/27/21 16:09 Freq: Status: Active Protocol: Document 07/13/22 15:19 DCW (Rec: 07/13/22 15:49 DCW [id number]) Balance Tests Single Limb Standing Single Limb- Right 8 sec Single Limb- Left 17 sec Tandem Tandem Standing L: 14, R: 25 PT-OP-E Functional Tests Start: 05/27/21 16:09 Freq: Status: Active Protocol: Document 09/29/22 16:30 DCW (Rec: 09/29/22 17:23 DCW [id number]) Functional Tests 2 Minute Walk Test Distance 289' Device Used R UE trekking pole Comments 2.41 ft/sec Timed Up and Go (TUG) Score 14.74 Comments 3-trial average (16.23, 14.64 , 13.35) TUG Impairment Rating 40 to <60% Impaired (Score 14- 15) PT-OP-G Mobility & Gait Start: 05/27/21 16:29 Freq: Status: Active Protocol: Document 07/13/22 15:19 DCW (Rec: 07/13/22 15:49 DCW [id number]) OP Gait Assessment Gait Gait Assistance Required: Standby Assistance Distance (Feet) 251 Able to Maintain Weight Bearing Status Yes During Gait Assistive Devices Assistive Device Gait Belt Gait Deviations General Gait Pattern Ataxic,Decreased Stride Length ,Decreased Feet Clearance, Flexed Trunk,Narrow Based Gait ,Step-to Gait Factors Limiting Gait Function Factors Limiting Gait Function Abnormal Tonal Influences, Limited Range of Motion,Poor Balance Comments Gait Comments Pt ambulates with mild toe walking bilaterally, decreased step length, decreased foot clearance. Step-through more regularly (75% of the time) than previous testing. Much more comfortable crossing threshholds PT-OP-K Range of Motion Start: 05/27/21 16:09 Freq: Status: Active Protocol: Document 09/29/22 16:30 DCW (Rec: 09/29/22 17:23 DCW [id number]) Ankle and Foot Goniometric Range of Motion Ankle and Foot Right Comments At rest, right ankle in 8? inversion. With stretch from therapist, able to get right ankle to 15? DF Left Comments At rest, left ankle in 2? inversion. With stretch from therapist, able to get left ankle to 4? DF Ankle and Foot ROM Limitations ROM Limitations Soft Tissue Tightness, Contracture,Muscle Tone PT-OP-M Strength Start: 05/27/21 16:09 Freq: Status: Active Protocol: Document 05/27/21 15:15 DCW (Rec: 05/27/21 16:28 DCW [id number]) Hip Strength Hip Manual Muscle Testing Right Flexion (L2) 4+ Good+ Abduction 4+ Good+ Adduction 4+ Good+ Left Flexion (L2) 4+ Good+ Abduction 4+ Good+ Adduction 4+ Good+ Knee Strength Knee Manual Muscle Testing Right Flexion (S2) 4+ Good+ Extension (L3) 4+ Good+ Left Flexion (S2) 4+ Good+ Extension (L3) 4+ Good+ PT-OP-Q Treatments Start: 05/27/21 16:09 Freq: Status: Active Protocol: Document 10/26/22 16:30 DCW (Rec: 10/26/22 17:20 DCW [id number]) Gym Equipment Shuttle Balance 1 Details Red - Wide CONSTANCE Comments Raising hands overhead Staggered Stance Turns Therapeutic Exercises Standing Exercises 2 Standing Exercise Name Gastroc stretch Side bilateral Equipment Used WANDER 1 Standing Exercise Name Heel raises Side bilateral Equipment Used 4 step Other Exercises 1 Other Exercise Name Hurdles over changing floor surface Comments Used black pad on blue pad underneath as obstacles Gait Training Gait Activity 3 Description AD training Distance/Duration 650' 1 Description Outdoor ambulation Device Used Unilateral trekking pole Level of Assistance CGA Surface sidewalk, grassy hill, curbs Neuro Re-Education Treatment Balance Activities 2 Details Double leg stance Surface Large blue AirEx PT-OP-T Assessment and Plan Start: 05/27/21 16:09 Freq: Status: Active Protocol: Document 10/26/22 16:30 DCW (Rec: 10/26/22 17:20 DCW [id number]) Physical Therapy Assessment Impairments Impairments Activity Tolerance,Balance, Coordination,Functional Mobility,Gait,ROM,Soft Tissue Mobility,Tone Goals Three Impairment Pt scores a 20.1 TUG Short Term Goal (STG) Pt to decreased average TUG score to <15.5 in order to demonstrate improved confidence and a decreased fear of falling STG Duration Met [facility] Goal (LTG) Pt to decreased average TUG score to <13 in order to demonstrate improved confidence and a decreased fear of falling LTG Duration 12/28/22 Two Impairment Pt ambulates with toe walking bilaterally and a step-to gait pattern Chcf Goal (LTG) Pt to demonstrate ability with ambulate with a heel-toe pattern at least 50% of the time with a step-through pattern 75% of the time LTG Duration MET One Impairment Pt does not have an appropriate home exercise program Short Term Goal (STG) Pt to be independent and compliant with an appropriate HEP STG Duration Met Assessment Summary Assessment Pt making continued progress with confidence and stability ambulating on uneven surfaces, spent more time on grassy ground today. Physical Therapy Plan Frequency and Duration Frequency of Treatment 1-2x/Week Plan of Care Start Date 09/29/22 Plan of Care End Date 12/28/22 Therapeutic Interventions Therapeutic Interventions Balance Training,Coordination Training,Gait Training,Home Exercise Program,Manual Therapy,Neuromuscular Re- education,Patient/Caregiver Education,Self-Care/Home Management,Soft Tissue Mobilization,Therapeutic Exercises Next Visit Focus/Plan Next Note Type Treatment Note Next Visit Plan Flexibility, balance training, gait training
--- NOTE | 2022-11-01 16:27 | PT.OTN ---
Current Diagnoses Cerebral palsy, unspecified (11/01/22) Stiffness of unspecified knee, not elsewhere classified (11/01/22) Stiffness of unspecified ankle, not elsewhere classified (11/01/22) Other abnormalities of gait and mobility (11/01/22) Physical Therapy Treatment Note PT-OP-A Visit Information Start: 05/27/21 16:09 Freq: Status: Active Protocol: Document 11/01/22 15:48 DCW (Rec: 11/01/22 16:27 DCW [id number]) Out-Patient Physical Therapy Visit Information Visit Information Visit Type Treatment Note Visit Start Time 15:48 Visit Stop Time 16:30 Total Visit Minutes 42 Visit Number 49 Number of OVEN UNLOADER Visits 0 Evaluation Information Evaluation Date 05/27/21 PT-OP-B Current Condition Start: 05/27/21 16:09 Freq: Status: Active Protocol: Document 05/27/21 15:15 DCW (Rec: 05/27/21 16:28 DCW [id number]) Current Condition History of Current Condition Onset Date Long-standing history Current Complaints Decreased gait, confidence, increased fear of falling History of Current Condition Pt is a 20 year old male well known to this clinic with a history of cerebral palsy and developmental delay. Pt was previously seen four years ago following abdominal surgery because of a decline in gait function, and is presenting today with similar complaints. Pt's father reports pt has been having decreased confidence when walking, especially when on hard surfaces. Pt walks better on carpet, but becomes very hesitant and nervous on tile or outside on sidewalk. Pt admits he has fallen a few times walking out to his bus stop. Pt has always performed toe walking, especially on his left side, but it has progressed a bit recently, and pt is taking very hesitant, small steps, and will frequently rely on his parents for hand-hold assist to maintain balance. Treatment Goals Patient/Caregiver Goals I think I should be walking better when I turn 21. Prior Functional Status Baseline Function- Gait L Toe walking, LE spasticity PT-OP-C Subjective Start: 05/27/21 16:09 Freq: Status: Active Protocol: Document 11/01/22 15:48 DCW (Rec: 11/01/22 16:27 DCW [id number]) OP-PT Subjective Patient Comments Patient Comments Pt had a fun time at [employer] last weekend. PT-OP-D Balance Start: 05/27/21 16:09 Freq: Status: Active Protocol: Document 07/13/22 15:19 DCW (Rec: 07/13/22 15:49 DCW [id number]) Balance Tests Single Limb Standing Single Limb- Right 8 sec Single Limb- Left 17 sec Tandem Tandem Standing L: 14, R: 25 PT-OP-E Functional Tests Start: 05/27/21 16:09 Freq: Status: Active Protocol: Document 09/29/22 16:30 DCW (Rec: 09/29/22 17:23 DCW [id number]) Functional Tests 2 Minute Walk Test Distance 289' Device Used R UE [place] pole Comments 2.41 ft/sec Timed Up and Go (TUG) Score 14.74 Comments 3-trial average (16.23, 14.64 , 13.35) TUG Impairment Rating 40 to <60% Impaired (Score 14- 15) PT-OP-G Mobility & Gait Start: 05/27/21 16:29 Freq: Status: Active Protocol: Document 07/13/22 15:19 DCW (Rec: 07/13/22 15:49 DCW [id number]) OP Gait Assessment Gait Gait Assistance Required: Standby Assistance Distance (Feet) 251 Able to Maintain Weight Bearing Status Yes During Gait Assistive Devices Assistive Device Gait Belt Gait Deviations General Gait Pattern Ataxic,Decreased Stride Length ,Decreased Feet Clearance, Flexed Trunk,Narrow Based Gait ,Step-to Gait Factors Limiting Gait Function Factors Limiting Gait Function Abnormal Tonal Influences, Limited Range of Motion,Poor Balance Comments Gait Comments Pt ambulates with mild toe walking bilaterally, decreased step length, decreased foot clearance. Step-through more regularly (75% of the time) than previous testing. Much more comfortable crossing threshholds PT-OP-K Range of Motion Start: 05/27/21 16:09 Freq: Status: Active Protocol: Document 09/29/22 16:30 DCW (Rec: 09/29/22 17:23 DCW [id number]) Ankle and Foot Goniometric Range of Motion Ankle and Foot Right Comments At rest, right ankle in 8? inversion. With stretch from therapist, able to get right ankle to 15? DF Left Comments At rest, left ankle in 2? inversion. With stretch from therapist, able to get left ankle to 4? DF Ankle and Foot ROM Limitations ROM Limitations Soft Tissue Tightness, Contracture,Muscle Tone PT-OP-M Strength Start: 05/27/21 16:09 Freq: Status: Active Protocol: Document 05/27/21 15:15 DCW (Rec: 05/27/21 16:28 DCW [id number]) Hip Strength Hip Manual Muscle Testing Right Flexion (L2) 4+ Good+ Abduction 4+ Good+ Adduction 4+ Good+ Left Flexion (L2) 4+ Good+ Abduction 4+ Good+ Adduction 4+ Good+ Knee Strength Knee Manual Muscle Testing Right Flexion (S2) 4+ Good+ Extension (L3) 4+ Good+ Left Flexion (S2) 4+ Good+ Extension (L3) 4+ Good+ PT-OP-Q Treatments Start: 05/27/21 16:09 Freq: Status: Active Protocol: Document 11/01/22 15:48 DCW (Rec: 11/01/22 16:27 DCW [id number]) Therapeutic Exercises Standing Exercises 2 Standing Exercise Name Gastroc stretch Side bilateral Equipment Used WANEDR 1 Standing Exercise Name Heel raises Side bilateral Equipment Used 4 step Other Exercises 1 Other Exercise Name Hurdles over changing floor surface Comments Used black pad on blue pad underneath as obstacles Gait Training Gait Activity 3 Description AD training Distance/Duration 650' Comments SBA, VCs for arm swing, heels down, increased roby Neuro Re-Education Treatment Balance Activities SLS Details SLS Equipment // Bars Tandem stance Details Tandem stance Equipment @rail 2 Details Double leg stance Surface Large blue AirEx PT-OP-T Assessment and Plan Start: 05/27/21 16:09 Freq: Status: Active Protocol: Document 11/01/22 15:48 DCW (Rec: 11/01/22 16:27 DC [id number]) Physical Therapy Assessment Impairments Impairments Activity Tolerance,Balance, Coordination,Functional Mobility,Gait,ROM,Soft Tissue Mobility,Tone Goals Three Impairment Pt scores a 20.1 TUG Short Term Goal (STG) Pt to decreased average TUG score to <15.5 in order to demonstrate improved confidence and a decreased fear of falling STG Duration Met Emergency Medicine Physician Goal (LTG) Pt to decreased average TUG score to <13 in order to demonstrate improved confidence and a decreased fear of falling LTG Duration 12/28/22 Two Impairment Pt ambulates with toe walking bilaterally and a step-to gait pattern Emergency Medicine Physician Goal (LTG) Pt to demonstrate ability with ambulate with a heel-toe pattern at least 50% of the time with a step-through pattern 75% of the time LTG Duration MET One Impairment Pt does not have an appropriate home exercise program Short Term Goal (STG) Pt to be independent and compliant with an appropriate HEP STG Duration Met Assessment Summary Assessment Pt had a good day today, slightly more challenge stepping over the hurdles with foam in-between, pt noted it was a good challenge. Physical Therapy Plan Frequency and Duration Frequency of Treatment 1-2x/Week Plan of Care Start Date 09/29/22 Plan of Care End Date 12/28/22 Therapeutic Interventions Therapeutic Interventions Balance Training,Coordination Training,Gait Training,Home Exercise Program,Manual Therapy,Neuromuscular Re- education,Patient/Caregiver Education,Self-Care/Home Management,Soft Tissue Mobilization,Therapeutic Exercises Next Visit Focus/Plan Next Note Type Treatment Note Next Visit Plan Flexibility, balance training, gait training
--- NOTE | 2022-11-03 16:32 | PT.OTN ---
Current Diagnoses Cerebral palsy, unspecified (11/03/22) Stiffness of unspecified knee, not elsewhere classified (11/03/22) Stiffness of unspecified ankle, not elsewhere classified (11/03/22) Other abnormalities of gait and mobility (11/03/22) Physical Therapy Treatment Note PT-OP-A Visit Information Start: 05/27/21 16:09 Freq: Status: Active Protocol: Document 11/03/22 15:46 DCW (Rec: 11/03/22 16:32 DCW [id number]) Out-Patient Physical Therapy Visit Information Visit Information Visit Type Treatment Note Visit Start Time 15:46 Visit Stop Time 16:30 Total Visit Minutes 44 Visit Number 50 Number of PRECISION INSTRUMENT AND TOOL MAKER Visits 0 Evaluation Information Evaluation Date 05/27/21 PT-OP-B Current Condition Start: 05/27/21 16:09 Freq: Status: Active Protocol: Document 05/27/21 15:15 DCW (Rec: 05/27/21 16:28 DCW [id number]) Current Condition History of Current Condition Onset Date Long-standing history Current Complaints Decreased gait, confidence, increased fear of falling History of Current Condition Pt is a 20 year old male well known to this clinic with a history of cerebral palsy and developmental delay. Pt was previously seen four years ago following abdominal surgery because of a decline in gait function, and is presenting today with similar complaints. Pt's father reports pt has been having decreased confidence when walking, especially when on hard surfaces. Pt walks better on carpet, but becomes very hesitant and nervous on tile or outside on sidewalk. Pt admits he has fallen a few times walking out to his bus stop. Pt has always performed toe walking, especially on his left side, but it has progressed a bit recently, and pt is taking very hesitant, small steps, and will frequently rely on his parents for hand-hold assist to maintain balance. Treatment Goals Patient/Caregiver Goals I think I should be walking better when I turn 21. Prior Functional Status Baseline Function- Gait L Toe walking, LE spasticity PT-OP-C Subjective Start: 05/27/21 16:09 Freq: Status: Active Protocol: Document 11/03/22 15:46 DCW (Rec: 11/03/22 16:32 DCW [id number]) OP-PT Subjective Patient Comments Patient Comments Pt feeling pretty good today . PT-OP-D Balance Start: 05/27/21 16:09 Freq: Status: Active Protocol: Document 07/13/22 15:19 DCW (Rec: 07/13/22 15:49 DCW [id number]) Balance Tests Single Limb Standing Single Limb- Right 8 sec Single Limb- Left 17 sec Tandem Tandem Standing L: 14, R: 25 PT-OP-E Functional Tests Start: 05/27/21 16:09 Freq: Status: Active Protocol: Document 09/29/22 16:30 DCW (Rec: 09/29/22 17:23 DCW [id number]) Functional Tests 2 Minute Walk Test Distance 289' Device Used R UE ACTV8mekking pole Comments 2.41 ft/sec Timed Up and Go (TUG) Score 14.74 Comments 3-trial average (16.23, 14.64 , 13.35) TUG Impairment Rating 40 to <60% Impaired (Score 14- 15) PT-OP-G Mobility & Gait Start: 05/27/21 16:29 Freq: Status: Active Protocol: Document 07/13/22 15:19 DCW (Rec: 07/13/22 15:49 DCW [id number]) OP Gait Assessment Gait Gait Assistance Required: Standby Assistance Distance (Feet) 251 Able to Maintain Weight Bearing Status Yes During Gait Assistive Devices Assistive Device Gait Belt Gait Deviations General Gait Pattern Ataxic,Decreased Stride Length ,Decreased Feet Clearance, Flexed Trunk,Narrow Based Gait ,Step-to Gait Factors Limiting Gait Function Factors Limiting Gait Function Abnormal Tonal Influences, Limited Range of Motion,Poor Balance Comments Gait Comments Pt ambulates with mild toe walking bilaterally, decreased step length, decreased foot clearance. Step-through more regularly (75% of the time) than previous testing. Much more comfortable crossing threshholds PT-OP-K Range of Motion Start: 05/27/21 16:09 Freq: Status: Active Protocol: Document 09/29/22 16:30 DCW (Rec: 09/29/22 17:23 DCW [id number]) Ankle and Foot Goniometric Range of Motion Ankle and Foot Right Comments At rest, right ankle in 8? inversion. With stretch from therapist, able to get right ankle to 15? DF Left Comments At rest, left ankle in 2? inversion. With stretch from therapist, able to get left ankle to 4? DF Ankle and Foot ROM Limitations ROM Limitations Soft Tissue Tightness, Contracture,Muscle Tone PT-OP-M Strength Start: 05/27/21 16:09 Freq: Status: Active Protocol: Document 05/27/21 15:15 DCW (Rec: 05/27/21 16:28 DCW [id number]) Hip Strength Hip Manual Muscle Testing Right Flexion (L2) 4+ Good+ Abduction 4+ Good+ Adduction 4+ Good+ Left Flexion (L2) 4+ Good+ Abduction 4+ Good+ Adduction 4+ Good+ Knee Strength Knee Manual Muscle Testing Right Flexion (S2) 4+ Good+ Extension (L3) 4+ Good+ Left Flexion (S2) 4+ Good+ Extension (L3) 4+ Good+ PT-OP-Q Treatments Start: 05/27/21 16:09 Freq: Status: Active Protocol: Document 11/03/22 15:46 DCW (Rec: 11/03/22 16:32 [facility] [id number]) Gym Equipment Shuttle Balance 1 Details Red - Wide CONSTANCE Comments Raising hands overhead Staggered Stance Turns Therapeutic Exercises Standing Exercises 2 Standing Exercise Name Gastroc stretch Side bilateral Equipment Used WANDER 1 Standing Exercise Name Heel raises Side bilateral Equipment Used 4 step Other Exercises 1 Other Exercise Name Hurdles over changing floor surface Comments Used black pad on blue pad underneath as obstacles Gait Training Gait Activity 3 Description AD training Distance/Duration 650' Comments SBA, VCs for arm swing, heels down, increased roby 1 Description Outdoor ambulation Device Used Unilateral trekking pole Level of Assistance CGA Surface sidewalk, grassy hill, curbs Neuro Re-Education Treatment Balance Activities 2 Details Double leg stance Surface Large blue AirEx PT-OP-T Assessment and Plan Start: 05/27/21 16:09 Freq: Status: Active Protocol: Document 11/03/22 15:46 DCW (Rec: 11/03/22 16:32 [facility] [id number]) Physical Therapy Assessment Impairments Impairments Activity Tolerance,Balance, Coordination,Functional Mobility,Gait,ROM,Soft Tissue Mobility,Tone Goals Three Impairment Pt scores a 20.1 TUG Short Term Goal (STG) Pt to decreased average TUG score to <15.5 in order to demonstrate improved confidence and a decreased fear of falling STG Duration Met [employer] Mill Operator Goal (LTG) Pt to decreased average TUG score to <13 in order to demonstrate improved confidence and a decreased fear of falling LTG Duration 12/28/22 Two Impairment Pt ambulates with toe walking bilaterally and a step-to gait pattern Residential Goal (LTG) Pt to demonstrate ability with ambulate with a heel-toe pattern at least 50% of the time with a step-through pattern 75% of the time LTG Duration MET One Impairment Pt does not have an appropriate home exercise program Short Term Goal (STG) Pt to be independent and compliant with an appropriate HEP STG Duration Met Assessment Summary Assessment Continue to increase balance- based challenges, as well as work on outdoor ambulation to improve independence for curbs and uneven surface ambulation . Physical Therapy Plan Frequency and Duration Frequency of Treatment 1-2x/Week Plan of Care Start Date 09/29/22 Plan of Care End Date 12/28/22 Therapeutic Interventions Therapeutic Interventions Balance Training,Coordination Training,Gait Training,Home Exercise Program,Manual Therapy,Neuromuscular Re- education,Patient/Caregiver Education,Self-Care/Home Management,Soft Tissue Mobilization,Therapeutic Exercises Next Visit Focus/Plan Next Note Type Treatment Note Next Visit Plan Flexibility, balance training, gait training
--- NOTE | 2022-11-07 16:29 | PT.OTN ---
Current Diagnoses Cerebral palsy, unspecified (11/07/22) Stiffness of unspecified knee, not elsewhere classified (11/07/22) Stiffness of unspecified ankle, not elsewhere classified (11/07/22) Other abnormalities of gait and mobility (11/07/22) Physical Therapy Treatment Note PT-OP-A Visit Information Start: 05/27/21 16:09 Freq: Status: Active Protocol: Document 11/07/22 15:45 DCW (Rec: 11/07/22 16:28 DCW [id number]) Out-Patient Physical Therapy Visit Information Visit Information Visit Type Treatment Note Visit Start Time 15:45 Visit Stop Time 16:30 Total Visit Minutes 45 Visit Number 51 Number of CRYPTOLOGIC TECHNICIAN TECHNICAL Visits 0 Evaluation Information Evaluation Date 05/27/21 PT-OP-B Current Condition Start: 05/27/21 16:09 Freq: Status: Active Protocol: Document 05/27/21 15:15 DCW (Rec: 05/27/21 16:28 DCW [id number]) Current Condition History of Current Condition Onset Date Long-standing history Current Complaints Decreased gait, confidence, increased fear of falling History of Current Condition Pt is a 20 year old male well known to this clinic with a history of cerebral palsy and developmental delay. Pt was previously seen four years ago following abdominal surgery because of a decline in gait function, and is presenting today with similar complaints. Pt's father reports pt has been having decreased confidence when walking, especially when on hard surfaces. Pt walks better on carpet, but becomes very hesitant and nervous on tile or outside on sidewalk. Pt admits he has fallen a few times walking out to his bus stop. Pt has always performed toe walking, especially on his left side, but it has progressed a bit recently, and pt is taking very hesitant, small steps, and will frequently rely on his parents for hand-hold assist to maintain balance. Treatment Goals Patient/Caregiver Goals I think I should be walking better when I turn 21. Prior Functional Status Baseline Function- Gait L Toe walking, LE spasticity PT-OP-C Subjective Start: 05/27/21 16:09 Freq: Status: Active Protocol: Document 11/07/22 15:45 DCW (Rec: 11/07/22 16:29 DCW [id number]) OP-PT Subjective Patient Comments Patient Comments Pt reports he is doing well today, has felt more comfortable walking around recently. PT-OP-D Balance Start: 05/27/21 16:09 Freq: Status: Active Protocol: Document 07/13/22 15:19 DCW (Rec: 07/13/22 15:49 DCW [id number]) Balance Tests Single Limb Standing Single Limb- Right 8 sec Single Limb- Left 17 sec Tandem Tandem Standing L: 14, R: 25 PT-OP-E Functional Tests Start: 05/27/21 16:09 Freq: Status: Active Protocol: Document 09/29/22 16:30 DCW (Rec: 09/29/22 17:23 DCW [id number]) Functional Tests 2 Minute Walk Test Distance 289' Device Used R UE trekking pole Comments 2.41 ft/sec Timed Up and Go (TUG) Score 14.74 Comments 3-trial average (16.23, 14.64 , 13.35) TUG Impairment Rating 40 to <60% Impaired (Score 14- 15) PT-OP-G Mobility & Gait Start: 05/27/21 16:29 Freq: Status: Active Protocol: Document 07/13/22 15:19 DCW (Rec: 07/13/22 15:49 DCW [id number]) OP Gait Assessment Gait Gait Assistance Required: Standby Assistance Distance (Feet) 251 Able to Maintain Weight Bearing Status Yes During Gait Assistive Devices Assistive Device Gait Belt Gait Deviations General Gait Pattern Ataxic,Decreased Stride Length ,Decreased Feet Clearance, Flexed Trunk,Narrow Based Gait ,Step-to Gait Factors Limiting Gait Function Factors Limiting Gait Function Abnormal Tonal Influences, Limited Range of Motion,Poor Balance Comments Gait Comments Pt ambulates with mild toe walking bilaterally, decreased step length, decreased foot clearance. Step-through more regularly (75% of the time) than previous testing. Much more comfortable crossing threshholds PT-OP-K Range of Motion Start: 05/27/21 16:09 Freq: Status: Active Protocol: Document 09/29/22 16:30 DCW (Rec: 09/29/22 17:23 DCW [id number]) Ankle and Foot Goniometric Range of Motion Ankle and Foot Right Comments At rest, right ankle in 8? inversion. With stretch from therapist, able to get right ankle to 15? DF Left Comments At rest, left ankle in 2? inversion. With stretch from therapist, able to get left ankle to 4? DF Ankle and Foot ROM Limitations ROM Limitations Soft Tissue Tightness, Contracture,Muscle Tone PT-OP-M Strength Start: 05/27/21 16:09 Freq: Status: Active Protocol: Document 05/27/21 15:15 DCW (Rec: 05/27/21 16:28 DCW [id number]) Hip Strength Hip Manual Muscle Testing Right Flexion (L2) 4+ Good+ Abduction 4+ Good+ Adduction 4+ Good+ Left Flexion (L2) 4+ Good+ Abduction 4+ Good+ Adduction 4+ Good+ Knee Strength Knee Manual Muscle Testing Right Flexion (S2) 4+ Good+ Extension (L3) 4+ Good+ Left Flexion (S2) 4+ Good+ Extension (L3) 4+ Good+ PT-OP-Q Treatments Start: 05/27/21 16:09 Freq: Status: Active Protocol: Document 11/07/22 15:45 DCW (Rec: 11/07/22 16:28 DCW [id number]) Therapeutic Exercises Standing Exercises 2 Standing Exercise Name Gastroc stretch Side bilateral Equipment Used WANDER 1 Standing Exercise Name Heel raises Side bilateral Equipment Used 4 step Other Exercises 1 Other Exercise Name Hurdles over changing floor surface Comments Used black pad on blue pad underneath as obstacles Gait Training Gait Activity 3 Description AD training Distance/Duration 500' Comments SBA, VCs for arm swing, heels down, increased roby 1 Description Outdoor ambulation Device Used Unilateral trekking pole Level of Assistance CGA Surface sidewalk, grassy hill, curbs Neuro Re-Education Treatment Balance Activities 2 Details Double leg stance Surface Large blue AirEx PT-OP-T Assessment and Plan Start: 05/27/21 16:09 Freq: Status: Active Protocol: Document 11/07/22 15:45 DCW (Rec: 11/07/22 16:28 DCW [id number]) Physical Therapy Assessment Impairments Impairments Activity Tolerance,Balance, Coordination,Functional Mobility,Gait,ROM,Soft Tissue Mobility,Tone Goals Three Impairment Pt scores a 20.1 TUG Short Term Goal (STG) Pt to decreased average TUG score to <15.5 in order to demonstrate improved confidence and a decreased fear of falling STG Duration Met Detention Goal (LTG) Pt to decreased average TUG score to <13 in order to demonstrate improved confidence and a decreased fear of falling LTG Duration 12/28/22 Two Impairment Pt ambulates with toe walking bilaterally and a step-to gait pattern Detention Goal (LTG) Pt to demonstrate ability with ambulate with a heel-toe pattern at least 50% of the time with a step-through pattern 75% of the time LTG Duration MET One Impairment Pt does not have an appropriate home exercise program Short Term Goal (STG) Pt to be independent and compliant with an appropriate HEP STG Duration Met Assessment Summary Assessment Increased number of times stepping up/down curbs today, pt did well with both that and with obstacle avoidance. Physical Therapy Plan Frequency and Duration Frequency of Treatment 1-2x/Week Plan of Care Start Date 09/29/22 Plan of Care End Date 12/28/22 Therapeutic Interventions Therapeutic Interventions Balance Training,Coordination Training,Gait Training,Home Exercise Program,Manual Therapy,Neuromuscular Re- education,Patient/Caregiver Education,Self-Care/Home Management,Soft Tissue Mobilization,Therapeutic Exercises Next Visit Focus/Plan Next Note Type Treatment Note Next Visit Plan Flexibility, balance training, gait training
--- NOTE | 2022-11-09 16:31 | PT.OTN ---
Current Diagnoses Cerebral palsy, unspecified (11/09/22) Stiffness of unspecified knee, not elsewhere classified (11/09/22) Stiffness of unspecified ankle, not elsewhere classified (11/09/22) Other abnormalities of gait and mobility (11/09/22) Physical Therapy Treatment Note PT-OP-A Visit Information Start: 05/27/21 16:09 Freq: Status: Active Protocol: Document 11/09/22 15:48 DCW (Rec: 11/09/22 16:30 DCW [id number]) Out-Patient Physical Therapy Visit Information Visit Information Visit Type Treatment Note Visit Start Time 15:48 Visit Stop Time 16:30 Total Visit Minutes 42 Visit Number 52 Number of LAST INSERTER Visits 0 Evaluation Information Evaluation Date 05/27/21 PT-OP-B Current Condition Start: 05/27/21 16:09 Freq: Status: Active Protocol: Document 05/27/21 15:15 DCW (Rec: 05/27/21 16:28 DCW [id number]) Current Condition History of Current Condition Onset Date Long-standing history Current Complaints Decreased gait, confidence, increased fear of falling History of Current Condition Pt is a 20 year old male well known to this clinic with a history of cerebral palsy and developmental delay. Pt was previously seen four years ago following abdominal surgery because of a decline in gait function, and is presenting today with similar complaints. Pt's father reports pt has been having decreased confidence when walking, especially when on hard surfaces. Pt walks better on carpet, but becomes very hesitant and nervous on tile or outside on sidewalk. Pt admits he has fallen a few times walking out to his bus stop. Pt has always performed toe walking, especially on his left side, but it has progressed a bit recently, and pt is taking very hesitant, small steps, and will frequently rely on his parents for hand-hold assist to maintain balance. Treatment Goals Patient/Caregiver Goals I think I should be walking better when I turn 21. Prior Functional Status Baseline Function- Gait L Toe walking, LE spasticity PT-OP-C Subjective Start: 05/27/21 16:09 Freq: Status: Active Protocol: Document 11/09/22 15:48 DCW (Rec: 11/09/22 16:30 DCW [id number]) OP-PT Subjective Patient Comments Patient Comments I'm doing pretty well today! PT-OP-D Balance Start: 05/27/21 16:09 Freq: Status: Active Protocol: Document 07/13/22 15:19 DCW (Rec: 07/13/22 15:49 DCW [id number]) Balance Tests Single Limb Standing Single Limb- Right 8 sec Single Limb- Left 17 sec Tandem Tandem Standing L: 14, R: 25 PT-OP-E Functional Tests Start: 05/27/21 16:09 Freq: Status: Active Protocol: Document 09/29/22 16:30 DCW (Rec: 09/29/22 17:23 DCW [id number]) Functional Tests 2 Minute Walk Test Distance 289' Device Used R UE TRAFIkking pole Comments 2.41 ft/sec Timed Up and Go (TUG) Score 14.74 Comments 3-trial average (16.23, 14.64 , 13.35) TUG Impairment Rating 40 to <60% Impaired (Score 14- 15) PT-OP-G Mobility & Gait Start: 05/27/21 16:29 Freq: Status: Active Protocol: Document 07/13/22 15:19 DCW (Rec: 07/13/22 15:49 DCW [id number]) OP Gait Assessment Gait Gait Assistance Required: Standby Assistance Distance (Feet) 251 Able to Maintain Weight Bearing Status Yes During Gait Assistive Devices Assistive Device Gait Belt Gait Deviations General Gait Pattern Ataxic,Decreased Stride Length ,Decreased Feet Clearance, Flexed Trunk,Narrow Based Gait ,Step-to Gait Factors Limiting Gait Function Factors Limiting Gait Function Abnormal Tonal Influences, Limited Range of Motion,Poor Balance Comments Gait Comments Pt ambulates with mild toe walking bilaterally, decreased step length, decreased foot clearance. Step-through more regularly (75% of the time) than previous testing. Much more comfortable crossing threshholds PT-OP-K Range of Motion Start: 05/27/21 16:09 Freq: Status: Active Protocol: Document 09/29/22 16:30 DCW (Rec: 09/29/22 17:23 DCW [id number]) Ankle and Foot Goniometric Range of Motion Ankle and Foot Right Comments At rest, right ankle in 8? inversion. With stretch from therapist, able to get right ankle to 15? DF Left Comments At rest, left ankle in 2? inversion. With stretch from therapist, able to get left ankle to 4? DF Ankle and Foot ROM Limitations ROM Limitations Soft Tissue Tightness, Contracture,Muscle Tone PT-OP-M Strength Start: 05/27/21 16:09 Freq: Status: Active Protocol: Document 05/27/21 15:15 DCW (Rec: 05/27/21 16:28 DCW [id number]) Hip Strength Hip Manual Muscle Testing Right Flexion (L2) 4+ Good+ Abduction 4+ Good+ Adduction 4+ Good+ Left Flexion (L2) 4+ Good+ Abduction 4+ Good+ Adduction 4+ Good+ Knee Strength Knee Manual Muscle Testing Right Flexion (S2) 4+ Good+ Extension (L3) 4+ Good+ Left Flexion (S2) 4+ Good+ Extension (L3) 4+ Good+ PT-OP-Q Treatments Start: 05/27/21 16:09 Freq: Status: Active Protocol: Document 11/09/22 15:48 DCW (Rec: 11/09/22 16:30 DCW [id number]) Therapeutic Exercises Sitting Exercises 2 Sitting Exercise Name Hamstring stretch Side bilateral 1 Sitting Exercise Name Heel cord stretch Side bilateral Standing Exercises 2 Standing Exercise Name Gastroc stretch Side bilateral Equipment Used WANDER 1 Standing Exercise Name Heel raises Side bilateral Equipment Used 4 step Other Exercises 1 Other Exercise Name Hurdles over changing floor surface Comments Used black pad on blue pad underneath as obstacles Gait Training Gait Activity 3 Description AD training Distance/Duration 650' Comments SBA, VCs for arm swing, heels down, increased roby 1 Description Outdoor ambulation Device Used Unilateral trekking pole Level of Assistance CGA Surface sidewalk, grassy hill, curbs Neuro Re-Education Treatment Balance Activities 2 Details Double leg stance Surface Large blue AirEx PT-OP-T Assessment and Plan Start: 05/27/21 16:09 Freq: Status: Active Protocol: Document 11/09/22 15:48 DCW (Rec: 11/09/22 16:30 DCW [id number]) Physical Therapy Assessment Impairments Impairments Activity Tolerance,Balance, Coordination,Functional Mobility,Gait,ROM,Soft Tissue Mobility,Tone Goals Three Impairment Pt scores a 20.1 TUG Short Term Goal (STG) Pt to decreased average TUG score to <15.5 in order to demonstrate improved confidence and a decreased fear of falling STG Duration Met Hypnotherapist Goal (LTG) Pt to decreased average TUG score to <13 in order to demonstrate improved confidence and a decreased fear of falling LTG Duration 12/28/22 Two Impairment Pt ambulates with toe walking bilaterally and a step-to gait pattern Hypnotherapist Goal (LTG) Pt to demonstrate ability with ambulate with a heel-toe pattern at least 50% of the time with a step-through pattern 75% of the time LTG Duration MET One Impairment Pt does not have an appropriate home exercise program Short Term Goal (STG) Pt to be independent and compliant with an appropriate HEP STG Duration Met Assessment Summary Assessment Pt continues to increase confidence with curbs, responding very well to outdoor ambulation practice. Physical Therapy Plan Frequency and Duration Frequency of Treatment 1-2x/Week Plan of Care Start Date 09/29/22 Plan of Care End Date 12/28/22 Therapeutic Interventions Therapeutic Interventions Balance Training,Coordination Training,Gait Training,Home Exercise Program,Manual Therapy,Neuromuscular Re- education,Patient/Caregiver Education,Self-Care/Home Management,Soft Tissue Mobilization,Therapeutic Exercises Next Visit Focus/Plan Next Note Type Treatment Note Next Visit Plan Flexibility, balance training, gait training
--- NOTE | 2022-11-14 16:33 | PT.OTN ---
Current Diagnoses Cerebral palsy, unspecified (11/14/22) Stiffness of unspecified knee, not elsewhere classified (11/14/22) Stiffness of unspecified ankle, not elsewhere classified (11/14/22) Other abnormalities of gait and mobility (11/14/22) Physical Therapy Treatment Note PT-OP-A Visit Information Start: 05/27/21 16:09 Freq: Status: Active Protocol: Document 11/14/22 15:45 DCW (Rec: 11/14/22 16:33 DCW [id number]) Out-Patient Physical Therapy Visit Information Visit Information Visit Type Treatment Note Visit Start Time 15:45 Visit Stop Time 16:30 Total Visit Minutes 45 Visit Number 53 Number of PRESSURE SEALER AND TESTER Visits 0 Evaluation Information Evaluation Date 05/27/21 PT-OP-B Current Condition Start: 05/27/21 16:09 Freq: Status: Active Protocol: Document 05/27/21 15:15 DCW (Rec: 05/27/21 16:28 DCW [id number]) Current Condition History of Current Condition Onset Date Long-standing history Current Complaints Decreased gait, confidence, increased fear of falling History of Current Condition Pt is a 20 year old male well known to this clinic with a history of cerebral palsy and developmental delay. Pt was previously seen four years ago following abdominal surgery because of a decline in gait function, and is presenting today with similar complaints. Pt's father reports pt has been having decreased confidence when walking, especially when on hard surfaces. Pt walks better on carpet, but becomes very hesitant and nervous on tile or outside on sidewalk. Pt admits he has fallen a few times walking out to his bus stop. Pt has always performed toe walking, especially on his left side, but it has progressed a bit recently, and pt is taking very hesitant, small steps, and will frequently rely on his parents for hand-hold assist to maintain balance. Treatment Goals Patient/Caregiver Goals I think I should be walking better when I turn 21. Prior Functional Status Baseline Function- Gait L Toe walking, LE spasticity PT-OP-C Subjective Start: 05/27/21 16:09 Freq: Status: Active Protocol: Document 11/14/22 15:45 DCW (Rec: 11/14/22 16:33 DCW [id number]) OP-PT Subjective Patient Comments Patient Comments Pt very excited about the [place] parade tomorrow. PT-OP-D Balance Start: 05/27/21 16:09 Freq: Status: Active Protocol: Document 07/13/22 15:19 DCW (Rec: 07/13/22 15:49 DCW [id number]) Balance Tests Single Limb Standing Single Limb- Right 8 sec Single Limb- Left 17 sec Tandem Tandem Standing L: 14, R: 25 PT-OP-E Functional Tests Start: 05/27/21 16:09 Freq: Status: Active Protocol: Document 09/29/22 16:30 DCW (Rec: 09/29/22 17:23 DCW [id number]) Functional Tests 2 Minute Walk Test Distance 289' Device Used R UE [employer] Partners[employer] pole Comments 2.41 ft/sec Timed Up and Go (TUG) Score 14.74 Comments 3-trial average (16.23, 14.64 , 13.35) TUG Impairment Rating 40 to <60% Impaired (Score 14- 15) PT-OP-G Mobility & Gait Start: 05/27/21 16:29 Freq: Status: Active Protocol: Document 07/13/22 15:19 DCW (Rec: 07/13/22 15:49 DCW [id number]) OP Gait Assessment Gait Gait Assistance Required: Standby Assistance Distance (Feet) 251 Able to Maintain Weight Bearing Status Yes During Gait Assistive Devices Assistive Device Gait Belt Gait Deviations General Gait Pattern Ataxic,Decreased Stride Length ,Decreased Feet Clearance, Flexed Trunk,Narrow Based Gait ,Step-to Gait Factors Limiting Gait Function Factors Limiting Gait Function Abnormal Tonal Influences, Limited Range of Motion,Poor Balance Comments Gait Comments Pt ambulates with mild toe walking bilaterally, decreased step length, decreased foot clearance. Step-through more regularly (75% of the time) than previous testing. Much more comfortable crossing threshholds PT-OP-K Range of Motion Start: 05/27/21 16:09 Freq: Status: Active Protocol: Document 09/29/22 16:30 DCW (Rec: 09/29/22 17:23 DCW [id number]) Ankle and Foot Goniometric Range of Motion Ankle and Foot Right Comments At rest, right ankle in 8? inversion. With stretch from therapist, able to get right ankle to 15? DF Left Comments At rest, left ankle in 2? inversion. With stretch from therapist, able to get left ankle to 4? DF Ankle and Foot ROM Limitations ROM Limitations Soft Tissue Tightness, Contracture,Muscle Tone PT-OP-M Strength Start: 05/27/21 16:09 Freq: Status: Active Protocol: Document 05/27/21 15:15 DCW (Rec: 05/27/21 16:28 DCW [id number]) Hip Strength Hip Manual Muscle Testing Right Flexion (L2) 4+ Good+ Abduction 4+ Good+ Adduction 4+ Good+ Left Flexion (L2) 4+ Good+ Abduction 4+ Good+ Adduction 4+ Good+ Knee Strength Knee Manual Muscle Testing Right Flexion (S2) 4+ Good+ Extension (L3) 4+ Good+ Left Flexion (S2) 4+ Good+ Extension (L3) 4+ Good+ PT-OP-Q Treatments Start: 05/27/21 16:09 Freq: Status: Active Protocol: Document 11/14/22 15:45 DCW (Rec: 11/14/22 16:33 DCW [id number]) Therapeutic Exercises Standing Exercises 2 Standing Exercise Name Gastroc stretch Side bilateral Equipment Used WANDER 1 Standing Exercise Name Heel raises Side bilateral Equipment Used 4 step Other Exercises 1 Other Exercise Name Hurdles over changing floor surface Comments Used black pad on blue pad underneath as obstacles Gait Training Gait Activity 3 Description AD training Distance/Duration 650' Comments SBA, VCs for arm swing, heels down, increased roby 1 Description Outdoor ambulation Device Used Unilateral trekking pole Level of Assistance CGA Surface sidewalk, grassy hill, curbs Neuro Re-Education Treatment Balance Activities 2 Details Double leg stance Surface Large blue AirEx PT-OP-T Assessment and Plan Start: 05/27/21 16:09 Freq: Status: Active Protocol: Document 11/14/22 15:45 DCW (Rec: 11/14/22 16:33 [email or web address] [id number]) Physical Therapy Assessment Impairments Impairments Activity Tolerance,Balance, Coordination,Functional Mobility,Gait,ROM,Soft Tissue Mobility,Tone Goals Three Impairment Pt scores a 20.1 TUG Short Term Goal (STG) Pt to decreased average TUG score to <15.5 in order to demonstrate improved confidence and a decreased fear of falling STG Duration Met Supervisor Coremaker Goal (LTG) Pt to decreased average TUG score to <13 in order to demonstrate improved confidence and a decreased fear of falling LTG Duration 12/28/22 Two Impairment Pt ambulates with toe walking bilaterally and a step-to gait pattern Penitentiary Goal (LTG) Pt to demonstrate ability with ambulate with a heel-toe pattern at least 50% of the time with a step-through pattern 75% of the time LTG Duration MET One Impairment Pt does not have an appropriate home exercise program Short Term Goal (STG) Pt to be independent and compliant with an appropriate HEP STG Duration Met Assessment Summary Assessment Pt very excited with his outdoor walking improvements, displaying more confidence on curbs. Physical Therapy Plan Frequency and Duration Frequency of Treatment 1-2x/Week Plan of Care Start Date 09/29/22 Plan of Care End Date 12/28/22 Therapeutic Interventions Therapeutic Interventions Balance Training,Coordination Training,Gait Training,Home Exercise Program,Manual Therapy,Neuromuscular Re- education,Patient/Caregiver Education,Self-Care/Home Management,Soft Tissue Mobilization,Therapeutic Exercises Next Visit Focus/Plan Next Note Type Treatment Note Next Visit Plan Flexibility, balance training, gait training
--- NOTE | 2022-11-17 16:36 | PT.OTN ---
Current Diagnoses Cerebral palsy, unspecified (11/17/22) Stiffness of unspecified knee, not elsewhere classified (11/17/22) Stiffness of unspecified ankle, not elsewhere classified (11/17/22) Other abnormalities of gait and mobility (11/17/22) Physical Therapy Treatment Note PT-OP-A Visit Information Start: 05/27/21 16:09 Freq: Status: Active Protocol: Document 11/17/22 15:49 DCW (Rec: 11/17/22 16:36 DCW [id number]) Out-Patient Physical Therapy Visit Information Visit Information Visit Type Treatment Note Visit Start Time 15:49 Visit Stop Time 16:30 Total Visit Minutes 41 Visit Number 54 Number of ANALYSIS ANALYST Visits 0 Evaluation Information Evaluation Date 05/27/21 PT-OP-B Current Condition Start: 05/27/21 16:09 Freq: Status: Active Protocol: Document 05/27/21 15:15 DCW (Rec: 05/27/21 16:28 DCW [id number]) Current Condition History of Current Condition Onset Date Long-standing history Current Complaints Decreased gait, confidence, increased fear of falling History of Current Condition Pt is a 20 year old male well known to this clinic with a history of cerebral palsy and developmental delay. Pt was previously seen four years ago following abdominal surgery because of a decline in gait function, and is presenting today with similar complaints. Pt's father reports pt has been having decreased confidence when walking, especially when on hard surfaces. Pt walks better on carpet, but becomes very hesitant and nervous on tile or outside on sidewalk. Pt admits he has fallen a few times walking out to his bus stop. Pt has always performed toe walking, especially on his left side, but it has progressed a bit recently, and pt is taking very hesitant, small steps, and will frequently rely on his parents for hand-hold assist to maintain balance. Treatment Goals Patient/Caregiver Goals I think I should be walking better when I turn 21. Prior Functional Status Baseline Function- Gait L Toe walking, LE spasticity PT-OP-C Subjective Start: 05/27/21 16:09 Freq: Status: Active Protocol: Document 11/17/22 15:49 DCW (Rec: 11/17/22 16:36 DCW [id number]) OP-PT Subjective Patient Comments Patient Comments Pt reports he is getting Botox in his calfs tomorrow PT-OP-D Balance Start: 05/27/21 16:09 Freq: Status: Active Protocol: Document 07/13/22 15:19 DCW (Rec: 07/13/22 15:49 DCW [id number]) Balance Tests Single Limb Standing Single Limb- Right 8 sec Single Limb- Left 17 sec Tandem Tandem Standing L: 14, R: 25 PT-OP-E Functional Tests Start: 05/27/21 16:09 Freq: Status: Active Protocol: Document 09/29/22 16:30 DCW (Rec: 09/29/22 17:23 DCW [id number]) Functional Tests 2 Minute Walk Test Distance 289' Device Used R AntVoiceE Teknovuskking pole Comments 2.41 ft/sec Timed Up and Go (TUG) Score 14.74 Comments 3-trial average (16.23, 14.64 , 13.35) TUG Impairment Rating 40 to <60% Impaired (Score 14- 15) PT-OP-G Mobility & Gait Start: 05/27/21 16:29 Freq: Status: Active Protocol: Document 07/13/22 15:19 DCW (Rec: 07/13/22 15:49 DCW [id number]) OP Gait Assessment Gait Gait Assistance Required: Standby Assistance Distance (Feet) 251 Able to Maintain Weight Bearing Status Yes During Gait Assistive Devices Assistive Device Gait Belt Gait Deviations General Gait Pattern Ataxic,Decreased Stride Length ,Decreased Feet Clearance, Flexed Trunk,Narrow Based Gait ,Step-to Gait Factors Limiting Gait Function Factors Limiting Gait Function Abnormal Tonal Influences, Limited Range of Motion,Poor Balance Comments Gait Comments Pt ambulates with mild toe walking bilaterally, decreased step length, decreased foot clearance. Step-through more regularly (75% of the time) than previous testing. Much more comfortable crossing threshholds PT-OP-K Range of Motion Start: 05/27/21 16:09 Freq: Status: Active Protocol: Document 09/29/22 16:30 DCW (Rec: 09/29/22 17:23 DCW [id number]) Ankle and Foot Goniometric Range of Motion Ankle and Foot Right Comments At rest, right ankle in 8? inversion. With stretch from therapist, able to get right ankle to 15? DF Left Comments At rest, left ankle in 2? inversion. With stretch from therapist, able to get left ankle to 4? DF Ankle and Foot ROM Limitations ROM Limitations Soft Tissue Tightness, Contracture,Muscle Tone PT-OP-M Strength Start: 05/27/21 16:09 Freq: Status: Active Protocol: Document 05/27/21 15:15 DCW (Rec: 05/27/21 16:28 DCW [id number]) Hip Strength Hip Manual Muscle Testing Right Flexion (L2) 4+ Good+ Abduction 4+ Good+ Adduction 4+ Good+ Left Flexion (L2) 4+ Good+ Abduction 4+ Good+ Adduction 4+ Good+ Knee Strength Knee Manual Muscle Testing Right Flexion (S2) 4+ Good+ Extension (L3) 4+ Good+ Left Flexion (S2) 4+ Good+ Extension (L3) 4+ Good+ PT-OP-Q Treatments Start: 05/27/21 16:09 Freq: Status: Active Protocol: Document 11/17/22 15:49 DCW (Rec: 11/17/22 16:36 [facility] [id number]) Therapeutic Exercises Standing Exercises 2 Standing Exercise Name Gastroc stretch Side bilateral Equipment Used WANDER 1 Standing Exercise Name Heel raises Side bilateral Equipment Used 4 step Other Exercises 1 Other Exercise Name Hurdles over changing floor surface Comments Used black pad on blue pad underneath as obstacles Gait Training Gait Activity 3 Description AD training Distance/Duration 650' Comments SBA, VCs for arm swing, heels down, increased roby 1 Description Outdoor ambulation Device Used Unilateral trekking pole Level of Assistance CGA Surface sidewalk, grassy hill, curbs PT-OP-T Assessment and Plan Start: 05/27/21 16:09 Freq: Status: Active Protocol: Document 11/17/22 15:49 DCW (Rec: 11/17/22 16:36 [facility] [id number]) Physical Therapy Assessment Impairments Impairments Activity Tolerance,Balance, Coordination,Functional Mobility,Gait,ROM,Soft Tissue Mobility,Tone Goals Three Impairment Pt scores a 20.1 TUG Short Term Goal (STG) Pt to decreased average TUG score to <15.5 in order to demonstrate improved confidence and a decreased fear of falling STG Duration Met Alf Goal (LTG) Pt to decreased average TUG score to <13 in order to demonstrate improved confidence and a decreased fear of falling LTG Duration 12/28/22 Two Impairment Pt ambulates with toe walking bilaterally and a step-to gait pattern Alf Goal (LTG) Pt to demonstrate ability with ambulate with a heel-toe pattern at least 50% of the time with a step-through pattern 75% of the time LTG Duration MET One Impairment Pt does not have an appropriate home exercise program Short Term Goal (STG) Pt to be independent and compliant with an appropriate HEP STG Duration Met Assessment Summary Assessment Increased cueing today for increased gait speed and step length, but good stability stepping up/down curbs, did well with no cues or CGA. Physical Therapy Plan Frequency and Duration Frequency of Treatment 1-2x/Week Plan of Care Start Date 09/29/22 Plan of Care End Date 12/28/22 Therapeutic Interventions Therapeutic Interventions Balance Training,Coordination Training,Gait Training,Home Exercise Program,Manual Therapy,Neuromuscular Re- education,Patient/Caregiver Education,Self-Care/Home Management,Soft Tissue Mobilization,Therapeutic Exercises Next Visit Focus/Plan Next Note Type Treatment Note Next Visit Plan Flexibility, balance training, gait training
--- NOTE | 2022-11-21 16:33 | PT.OTN ---
Current Diagnoses Cerebral palsy, unspecified (11/21/22) Stiffness of unspecified knee, not elsewhere classified (11/21/22) Stiffness of unspecified ankle, not elsewhere classified (11/21/22) Other abnormalities of gait and mobility (11/21/22) Physical Therapy Treatment Note PT-OP-A Visit Information Start: 05/27/21 16:09 Freq: Status: Active Protocol: Document 11/21/22 15:49 DCW (Rec: 11/21/22 16:33 DCW [id number]) Out-Patient Physical Therapy Visit Information Visit Information Visit Type Treatment Note Visit Start Time 15:49 Visit Stop Time 16:30 Total Visit Minutes 41 Visit Number 55 Number of INVESTIGATION LIEUTENANT Visits 0 Evaluation Information Evaluation Date 05/27/21 PT-OP-B Current Condition Start: 05/27/21 16:09 Freq: Status: Active Protocol: Document 05/27/21 15:15 DCW (Rec: 05/27/21 16:28 DCW [id number]) Current Condition History of Current Condition Onset Date Long-standing history Current Complaints Decreased gait, confidence, increased fear of falling History of Current Condition Pt is a 20 year old male well known to this clinic with a history of cerebral palsy and developmental delay. Pt was previously seen four years ago following abdominal surgery because of a decline in gait function, and is presenting today with similar complaints. Pt's father reports pt has been having decreased confidence when walking, especially when on hard surfaces. Pt walks better on carpet, but becomes very hesitant and nervous on tile or outside on sidewalk. Pt admits he has fallen a few times walking out to his bus stop. Pt has always performed toe walking, especially on his left side, but it has progressed a bit recently, and pt is taking very hesitant, small steps, and will frequently rely on his parents for hand-hold assist to maintain balance. Treatment Goals Patient/Caregiver Goals I think I should be walking better when I turn 21. Prior Functional Status Baseline Function- Gait L Toe walking, LE spasticity PT-OP-C Subjective Start: 05/27/21 16:09 Freq: Status: Active Protocol: Document 11/21/22 15:49 DCW (Rec: 11/21/22 16:33 DCW [id number]) OP-PT Subjective Patient Comments Patient Comments Pt got Botox injections in his calves, feels like he is walking a little better. PT-OP-D Balance Start: 05/27/21 16:09 Freq: Status: Active Protocol: Document 07/13/22 15:19 DCW (Rec: 07/13/22 15:49 DCW [id number]) Balance Tests Single Limb Standing Single Limb- Right 8 sec Single Limb- Left 17 sec Tandem Tandem Standing L: 14, R: 25 PT-OP-E Functional Tests Start: 05/27/21 16:09 Freq: Status: Active Protocol: Document 09/29/22 16:30 DCW (Rec: 09/29/22 17:23 DCW [id number]) Functional Tests 2 Minute Walk Test Distance 289' Device Used R UE trekking pole Comments 2.41 ft/sec Timed Up and Go (TUG) Score 14.74 Comments 3-trial average (16.23, 14.64 , 13.35) TUG Impairment Rating 40 to <60% Impaired (Score 14- 15) PT-OP-G Mobility & Gait Start: 05/27/21 16:29 Freq: Status: Active Protocol: Document 07/13/22 15:19 DCW (Rec: 07/13/22 15:49 DCW [id number]) OP Gait Assessment Gait Gait Assistance Required: Standby Assistance Distance (Feet) 251 Able to Maintain Weight Bearing Status Yes During Gait Assistive Devices Assistive Device Gait Belt Gait Deviations General Gait Pattern Ataxic,Decreased Stride Length ,Decreased Feet Clearance, Flexed Trunk,Narrow Based Gait ,Step-to Gait Factors Limiting Gait Function Factors Limiting Gait Function Abnormal Tonal Influences, Limited Range of Motion,Poor Balance Comments Gait Comments Pt ambulates with mild toe walking bilaterally, decreased step length, decreased foot clearance. Step-through more regularly (75% of the time) than previous testing. Much more comfortable crossing threshholds PT-OP-K Range of Motion Start: 05/27/21 16:09 Freq: Status: Active Protocol: Document 09/29/22 16:30 DCW (Rec: 09/29/22 17:23 DCW [id number]) Ankle and Foot Goniometric Range of Motion Ankle and Foot Right Comments At rest, right ankle in 8? inversion. With stretch from therapist, able to get right ankle to 15? DF Left Comments At rest, left ankle in 2? inversion. With stretch from therapist, able to get left ankle to 4? DF Ankle and Foot ROM Limitations ROM Limitations Soft Tissue Tightness, Contracture,Muscle Tone PT-OP-M Strength Start: 05/27/21 16:09 Freq: Status: Active Protocol: Document 05/27/21 15:15 DCW (Rec: 05/27/21 16:28 DCW [id number]) Hip Strength Hip Manual Muscle Testing Right Flexion (L2) 4+ Good+ Abduction 4+ Good+ Adduction 4+ Good+ Left Flexion (L2) 4+ Good+ Abduction 4+ Good+ Adduction 4+ Good+ Knee Strength Knee Manual Muscle Testing Right Flexion (S2) 4+ Good+ Extension (L3) 4+ Good+ Left Flexion (S2) 4+ Good+ Extension (L3) 4+ Good+ PT-OP-Q Treatments Start: 05/27/21 16:09 Freq: Status: Active Protocol: Document 11/21/22 15:49 DCW (Rec: 11/21/22 16:33 DCW [id number]) Gym Equipment Shuttle Balance 1 Details Red - Wide CONSTANCE Comments Raising hands overhead Staggered Stance Turns Therapeutic Exercises Standing Exercises 2 Standing Exercise Name Gastroc stretch Side bilateral Equipment Used WANDER 1 Standing Exercise Name Heel raises Side bilateral Equipment Used 4 step Other Exercises 1 Other Exercise Name Hurdles over changing floor surface Comments Used black pad on blue pad underneath as obstacles Gait Training Gait Activity 3 Description AD training Distance/Duration 700' Comments SBA, VCs for arm swing, heels down, increased roby 1 Description Outdoor ambulation Device Used Unilateral trekking pole Level of Assistance CGA Surface sidewalk, grassy hill, curbs PT-OP-T Assessment and Plan Start: 05/27/21 16:09 Freq: Status: Active Protocol: Document 11/21/22 15:49 DCW (Rec: 11/21/22 16:33 DC [id number]) Physical Therapy Assessment Impairments Impairments Activity Tolerance,Balance, Coordination,Functional Mobility,Gait,ROM,Soft Tissue Mobility,Tone Goals Three Impairment Pt scores a 20.1 TUG Short Term Goal (STG) Pt to decreased average TUG score to <15.5 in order to demonstrate improved confidence and a decreased fear of falling STG Duration Met Long-Term Goal (LTG) Pt to decreased average TUG score to <13 in order to demonstrate improved confidence and a decreased fear of falling LTG Duration 12/28/22 Two Impairment Pt ambulates with toe walking bilaterally and a step-to gait pattern Long-Term Goal (LTG) Pt to demonstrate ability with ambulate with a heel-toe pattern at least 50% of the time with a step-through pattern 75% of the time LTG Duration MET One Impairment Pt does not have an appropriate home exercise program Short Term Goal (STG) Pt to be independent and compliant with an appropriate HEP STG Duration Met Assessment Summary Assessment Pt showing immmediate improvement with gait today following Botox injection last week. Much better on uneven surfaces. Physical Therapy Plan Frequency and Duration Frequency of Treatment 1-2x/Week Plan of Care Start Date 09/29/22 Plan of Care End Date 12/28/22 Therapeutic Interventions Therapeutic Interventions Balance Training,Coordination Training,Gait Training,Home Exercise Program,Manual Therapy,Neuromuscular Re- education,Patient/Caregiver Education,Self-Care/Home Management,Soft Tissue Mobilization,Therapeutic Exercises Next Visit Focus/Plan Next Note Type Treatment Note Next Visit Plan Flexibility, balance training, gait training
--- NOTE | 2023-02-27 14:33 | PT.OPDS ---
Current Diagnoses Cerebral palsy, unspecified (11/21/22) Stiffness of unspecified knee, not elsewhere classified (11/21/22) Stiffness of unspecified ankle, not elsewhere classified (11/21/22) Other abnormalities of gait and mobility (11/21/22) Visit Care Team Role Provider Type Andrew Mccoy MD Attending Provider Physician Family Provider Primary Care Provider Referring Provider Specialty: Family Practice Address: [address] [place] [address], [place], [place], [facility] Email: [email or web address] Visit Number Visit Number 55 Discharge Summary PT-OP-B Current Condition Start: 05/27/21 16:09 Freq: Status: Active Protocol: Document 05/27/21 15:15 DCW (Rec: 05/27/21 16:28 DCW [id number]) Current Condition History of Current Condition Onset Date Long-standing history Current Complaints Decreased gait, confidence, increased fear of falling History of Current Condition Pt is a 20 year old male well known to this clinic with a history of cerebral palsy and developmental delay. Pt was previously seen four years ago following abdominal surgery because of a decline in gait function, and is presenting today with similar complaints. Pt's father reports pt has been having decreased confidence when walking, especially when on hard surfaces. Pt walks better on carpet, but becomes very hesitant and nervous on tile or outside on sidewalk. Pt admits he has fallen a few times walking out to his bus stop. Pt has always performed toe walking, especially on his left side, but it has progressed a bit recently, and pt is taking very hesitant, small steps, and will frequently rely on his parents for hand-hold assist to maintain balance. Treatment Goals Patient/Caregiver Goals I think I should be walking better when I turn 21. Prior Functional Status Baseline Function- Gait L Toe walking, LE spasticity PT-OP-C Subjective Start: 05/27/21 16:09 Freq: Status: Active Protocol: Document 11/21/22 15:49 DCW (Rec: 11/21/22 16:33 DCW [id number]) OP-PT Subjective Patient Comments Patient Comments Pt got Botox injections in his calves, feels like he is walking a little better. PT-OP-D Balance Start: 05/27/21 16:09 Freq: Status: Active Protocol: Document 07/13/22 15:19 DCW (Rec: 07/13/22 15:49 DCW [id number]) Balance Tests Single Limb Standing Single Limb- Right 8 sec Single Limb- Left 17 sec Tandem Tandem Standing L: 14, R: 25 PT-OP-E Functional Tests Start: 05/27/21 16:09 Freq: Status: Active Protocol: Document 09/29/22 16:30 DCW (Rec: 09/29/22 17:23 DCW [id number]) Functional Tests 2 Minute Walk Test Distance 289' Device Used R UE [employer] pole Comments 2.41 ft/sec Timed Up and Go (TUG) Score 14.74 Comments 3-trial average (16.23, 14.64 , 13.35) TUG Impairment Rating 40 to <60% Impaired (Score 14- 15) PT-OP-G Mobility & Gait Start: 05/27/21 16:29 Freq: Status: Active Protocol: Document 07/13/22 15:19 DCW (Rec: 07/13/22 15:49 DCW [id number]) OP Gait Assessment Gait Gait Assistance Required: Standby Assistance Distance (Feet) 251 Able to Maintain Weight Bearing Status Yes During Gait Assistive Devices Assistive Device Gait Belt Gait Deviations General Gait Pattern Ataxic,Decreased Stride Length ,Decreased Feet Clearance, Flexed Trunk,Narrow Based Gait ,Step-to Gait Factors Limiting Gait Function Factors Limiting Gait Function Abnormal Tonal Influences, Limited Range of Motion,Poor Balance Comments Gait Comments Pt ambulates with mild toe walking bilaterally, decreased step length, decreased foot clearance. Step-through more regularly (75% of the time) than previous testing. Much more comfortable crossing threshholds PT-OP-K Range of Motion Start: 05/27/21 16:09 Freq: Status: Active Protocol: Document 09/29/22 16:30 DCW (Rec: 09/29/22 17:23 DCW [id number]) Ankle and Foot Goniometric Range of Motion Ankle and Foot Right Comments At rest, right ankle in 8? inversion. With stretch from therapist, able to get right ankle to 15? DF Left Comments At rest, left ankle in 2? inversion. With stretch from therapist, able to get left ankle to 4? DF Ankle and Foot ROM Limitations ROM Limitations Soft Tissue Tightness, Contracture,Muscle Tone PT-OP-M Strength Start: 05/27/21 16:09 Freq: Status: Active Protocol: Document 05/27/21 15:15 DCW (Rec: 05/27/21 16:28 DC [id number]) Hip Strength Hip Manual Muscle Testing Right Flexion (L2) 4+ Good+ Abduction 4+ Good+ Adduction 4+ Good+ Left Flexion (L2) 4+ Good+ Abduction 4+ Good+ Adduction 4+ Good+ Knee Strength Knee Manual Muscle Testing Right Flexion (S2) 4+ Good+ Extension (L3) 4+ Good+ Left Flexion (S2) 4+ Good+ Extension (L3) 4+ Good+ PT-OP-T Assessment and Plan Start: 05/27/21 16:09 Freq: Status: Active Protocol: Document 02/27/23 14:32 DCW (Rec: 02/27/23 14:33 [facility] [id number]) Physical Therapy Assessment Assessment Summary Assessment Unfortunately pt unable to continue with skilled PT following reaching end of authorized visits through insurance. Pt will be discharged from skilled PT at this time, will require a new referral in order to return. Physical Therapy Plan Discharge Physical Therapy Discharge Reasons No Longer Attending PT Next Visit Focus/Plan Next Note Type Discharge Summary
== END 2023-03-02 09:58 | disposition home or self-care (01) ==
LOC: PHYS 15:45
PROVIDERS: Family Provider Family Medicine; PCP Family Medicine; Referring Provider Family Medicine; Visit Provider Family Medicine
DX: G80.9 Cerebral palsy, unspecified (principal); R26.89 Other abnormalities of gait and mobility; M25.673 Stiffness of unspecified ankle, not elsewhere classified; M25.669 Stiffness of unspecified knee, not elsewhere classified
CPT/HCPCS: 97110; 97112; 97116; 97162; 97530

== ENCOUNTER 2023-06-15 14:02 | Emergency (ER) | payer BC, OTHER, MEDICAID, SELFPAY ==
[2023-06-15 14:28] VITALS: BP 135/78; PULSE 106; RESP 16; TEMP 36.9; O2SAT 96; BMI 23.7
--- NOTE | 2023-06-15 14:43 | ED_ITS ---
HPI - Fall <Sonali Bernal PA-C - Last Filed: 06/15/23 16:19> General Chief Complaint: Fall Stated Complaint: fell head first, forehead/nosebleed Time Seen by Provider: 06/15/23 14:37 History of Present Illness HPI Narrative: Patient is a 22-year-old male with a history of cerebral palsy and developmental delay who presents accompanied by his mom after a fall just prior to arrival. He was ambulating around his neighborhood with his mom using 2 walking sticks when someone walked up behind him and surprised him. He fell forward, hitting his head on the concrete sidewalk. He did not catch himself with his hands since he was holding the walking sticks. There was no loss of consciousness. Mom states he was very frustrated that he had fallen and immediately became angry with her. They present for assessment of his injuries and bloody nose. Takes no blood thinners. Mom states he has been doing well overall. Patient denies headache or pain. Review of Systems <Sonali Bernal PA-C - Last Filed: 06/15/23 16:19> Review of Systems ROS Unobtainable: All systems reviewed & are unremarkable except as noted in HPI and below Exam <Sonali Bernal PA-C - Last Filed: 06/15/23 16:19> Narrative Exam Narrative: GENERAL: 22 year old patient appears stated age. Well-developed patient, in no acute distress. Developmental delay noted. NEURO: AOx3. HEAD: Superficial abrasions over the forehead. 7mm shallow abrasion across the bridge of the nose. EYES: Pupils equal round and reactive. Extraocular motions intact. No scleral icterus. No injection or drainage. ENT: Nose without bleeding or purulent drainage. Airway patent. RESPIRATORY: No increased work of breathing EXTREMITIES: No edema or joint tenderness. SKIN: see above Initial Vital Signs Initial Vital Signs: Vital Signs Temperature 98.4 F 06/15/23 14:28 Pulse Rate 106 H 06/15/23 14:28 Respiratory Rate 16 06/15/23 14:28 Blood Pressure 135/78 06/15/23 14:28 Pulse Oximetry 96 06/15/23 14:28 Oxygen Delivery Method Room Air 06/15/23 14:28 <Kevin Marr DO - Last Filed: 06/15/23 16:32> Initial Vital Signs Initial Vital Signs: Vital Signs Temperature 98.4 F 06/15/23 14:28 Pulse Rate 106 H 06/15/23 14:28 Respiratory Rate 16 06/15/23 14:28 Blood Pressure 135/78 06/15/23 14:28 Pulse Oximetry 96 06/15/23 14:28 Oxygen Delivery Method Room Air 06/15/23 14:28 Course <Sonali Bernal PA-C - Last Filed: 06/15/23 16:19> Orders Ordered: Discontinued Medications Bacitracin (Bacitracin Oint 0.9 Gm Pckt) 1 applic TOP NOW ONE Stop: 06/15/23 14:54 Last Admin: 06/15/23 15:03 Dose: 1 applic Documented By: JIN Diphtheria/Tetanus/Acell Pertussis (Tet,Diph,Pertuss(Acell),Vac/Pf 0.5 Ml Syringe) 0.5 ml IM .ONCE ONE Stop: 06/15/23 14:54 Last Admin: 06/15/23 15:04 Dose: 0.5 ml Documented By: JIN Vital Signs Vital signs: Vital Signs - 8 hr 06/15/23 14:28 06/15/23 15:23 Temperature 98.4 F Pulse Rate 106 H 100 H Respiratory Rate 16 16 Blood Pressure 135/78 128/74 Pulse Oximetry 96 97 Oxygen Delivery Method Room Air Room Air <Kevin Marr DO - Last Filed: 06/15/23 16:32> Orders Ordered: Discontinued Medications Bacitracin (Bacitracin Oint 0.9 Gm Pckt) 1 applic TOP NOW ONE Stop: 06/15/23 14:54 Last Admin: 06/15/23 15:03 Dose: 1 applic Documented By: JIN Diphtheria/Tetanus/Acell Pertussis (Tet,Diph,Pertuss(Acell),Vac/Pf 0.5 Ml Syringe) 0.5 ml IM .ONCE ONE Stop: 06/15/23 14:54 Last Admin: 06/15/23 15:04 Dose: 0.5 ml Documented By: JIN Vital Signs Vital signs: Vital Signs - 8 hr 06/15/23 14:28 06/15/23 15:23 Temperature 98.4 F Pulse Rate 106 H 100 H Respiratory Rate 16 16 Blood Pressure 135/78 128/74 Pulse Oximetry 96 97 Oxygen Delivery Method Room Air Room Air [facility] <Sonali Bernal PA-C - Last Filed: 06/15/23 16:19> [facility] Narrative Medical decision making narrative: Multiple etiologies for patient's symptoms considered including, but not limited to: Fall, syncope, concussion Patient presents after a fall that was observed by mom. He did not lose consciousness or experienced syncope prior to the fall. He is alert and oriented, communicating clearly. Mom notes that he is at his baseline. He has superficial abrasions to his forehead and across the bridge of his nose. These are cleansed and covered with bacitracin. Tdap updated. Provided education regarding signs and symptoms of concussion. Follow up primary care. Return precautions advised. Patient's symptoms improved over duration of stay with above-stated therapies. Findings and discharge diagnosis discussed with patient/family followed by verbalization of understanding Return precautions discussed with patient/family whom verbalize understanding of diagnosis and plan Discharge Plan Departure Patient Disposition: Home Clinical Impression: Fall Qualifiers: Encounter type: initial encounter Qualified Code(s): W19.XXXA - Unspecified fall, initial encounter Abrasion of forehead Qualifiers: Encounter type: initial encounter Qualified Code(s): S00.81XA - Abrasion of other part of head, initial encounter Abrasion of nose Qualifiers: Encounter type: initial encounter Qualified Code(s): S00.31XA - Abrasion of nose, initial encounter Instructions: How to Prevent Falls Activity Restrictions/Additional Instructions: *You have been diagnosed with abrasion of the forehead and nose after a fall. Please keep these wounds clean and dry. We have supplied some Tegaderm plastic coverings to use for swim lessons on Monday. Please apply these over the wounds to keep the water out but do not put your head under the water. Apply bacitracin 1-2 times per day to keep them moisturize, decrease scarring and prevent infection. If you notice any signs of infection such as smelly drainage, increased redness or increased pain, please return for reassessment. *What to do: *Please continue to take your regular medications as directed. [ ] New medication prescriptions sent to your pharmacy: [ ] [ ] New medication written as a paper prescription [x] No new medications given *Please follow up with your primary care provider in 2-3 days, call for an appointment. Let them know you were seen in the Emergency Department and that we ask that you be seen in follow up. We will electronically transmit a record of today's note if your PCP is in our system *If you do not have a primary care provider please contact the [facility] Resource line at [phone]. They will ask some questions about your medical history and help get you set up with a doctor in the community. *Return to Emergency Department if you should have any new, worsening or concerning symptoms, such as [fever greater than 101 F, shaking chills, worsening pain, persistent vomiting or other concerning symptoms]. Referrals: Andrew Mccoy MD [Primary Care Provider] - Stand Alone Forms: Patient Portal/API ED Sign-out <Kevin Marr DO - Last Filed: 06/15/23 16:32> Cosign ED Attending Cosignature Attestation: Dr Marr Co-Sign Statement: I was available for consultation during this patient's emergency department visit. This chart is signed by myself for administrative purposes only. I did not have direct contact with this patient during this visit. They were seen independently by the APC.
[2023-06-15] MEDS: BACITRACIN OINT 0.9 GM PCKT 1 APPLIC TOP (15:03)
[2023-06-15] MEDS: TET,DIPH,PERTUSS(ACELL),VAC/PF 0.5 ML SYRINGE IM (15:04)
[2023-06-15 15:23] VITALS: BP 128/74; PULSE 100; RESP 16; O2SAT 97
== END 2023-06-15 15:24 | disposition home or self-care (01) ==
PROVIDERS: Emergency Provider Physician Assistant; Family Provider Family Medicine; PCP Family Medicine
DX: S00.81XA Abrasion of other part of head, initial encounter (principal); S00.31XA Abrasion of nose, initial encounter; W18.30XA Fall on same level, unspecified, initial encounter; Z23 Encounter for immunization
CPT/HCPCS: 90471; 99283; 90715